=== PATIENT | male | born 1950 | race Caucasian/White ===

== ENCOUNTER 2020-02-01 11:34 | Day surgery (SDC) | payer MEDICARE, BC, SELFPAY ==
[2020-02-01 12:09] LABS: Hematocrit 45.5 % (42.0-52.0); Hemoglobin 14.2 g/dL (14.0-18.0); Mean Corpuscular HGB Conc 31.2 g/dl (32-36); Mean Corpuscular Hemoglobin 26.4 pg (26-34); Mean Corpuscular Volume 84.6 fl (80-100); Mean Platelet Volume 9.7 fl (7.4-10.4); Platelet Count Result 409 k/mm3 (150-375); Red Blood Count 5.38 M/mm3 (4.6-6.20); Red Cell Distribution Width 18.6 % (11.5-14.5); White Blood Count 13.9 K/mm3 (4.5-10.0)
[2020-02-01 12:18] LABS: Prothrombin Time 12.4 Seconds (11.1-14.7)
[2020-02-01 12:24] VITALS: BP 127/73; PULSE 72; RESP 15; TEMP 36.9; O2SAT 98
[2020-02-01 12:28] VITALS: BMI 26.4
--- NOTE | 2020-02-01 12:37 | SUR.PREOP ---
1200-PT PRESENTS TO [facility] FOR AN ICD GENERATOR CHANGE. PIV STARTED AND LABS OBTAINED AND SENT PER ORDER. AOX4. QUESTIONS ANSWERED AND VERBALIZED UNDERSTANDING. CONSENT SIGNED. DEVICE INTERROGATED BY [facility] RE[facility]. WILL CONTINUE TO MONITOR.
--- NOTE | 2020-02-01 12:41 | PM.IMHP ---
H&P: HPI History of Present Illness Chief complaint: ULI Narrative: Stephen Solo is a 69 year old male who is here today for an ICD generator change. He had premature battery depletion and [facility] recommends immediate generator change. He is feeling well today with no shortness of breath or chest discomfort, no fevers chills or cough, no edema. Had some coffee this morning but nothing since 8:00 a.m.. Mr. Solo has a history of CAD with recurrent very late stent thrombosis of the Left anterior descending stent as well as an ischemic cardiomyopathy. ICD was implanted in October 2015. He has a history of SD and proximal Left anterior descending stent in 2003. Anterolateral STEMI January 2014 secondary to very late stent thrombosis a few weeks after stopping Plavix. GEORGINA to the Left anterior descending and circumflex stents. Effient was discontinued May 2015 and he had another anterior STEMI secondary to very late stent thrombosis requiring GEORGINA to the proximal mid Left anterior descending and bare metal stent to the CX. Lexiscan 05/2019 showed EF of 29% with multiple segmental wall motion abnormalities and anterior apical dyskinesis, extensive severe infarction of the anterior wall with a small amount of superimposed ischemia. History of ischemic cardiomyopathy EF 25-30%, diabetes and hyperlipidemia. Review of Systems Constitutional: Constitutional: Reports no additional constitutional complaints Cardiovascular: Cardiovascular: Denies chest pain, Denies leg edema, Denies lightheadedness and Denies palpitations Respiratory: Respiratory: Denies dyspnea and Reports dyspnea on exertion (Chronic mild COX) Gastrointestinal: Gastrointestinal: Denies abdominal pain Genitourinary: Genitourinary: Denies dysuria Musculoskeletal: Musculoskeletal: Denies arthralgias Integumentary/Breasts: Skin/Breast: Denies rash Neurologic: Reports system reviewed and no additional complaints, except as documented Psychiatric: Psychiatric: Reports no additional psychiatric complaints [facility] Past Medical History Medical History (Updated 02/01/20 @ 12:48 by Sara Arias MD) Ischemic cardiomyopathy Family History Family History Sibling Patient's brother is in good health Family history of malignant neoplasm Patient's sister is in good health Patient's sister is Patient's brother is Father Cerebrovascular accident Mother Family history of malignant neoplasm Patient's mother is Social History Social History (Updated 02/01/20 @ 12:46 by Sara Arias MD) Social History: . Smoking status: Heavy tobacco smoker Smoking end date: 03/01/14 Alcohol intake: current Meds Home Medications and Allergies Home Medications Medication Instructions Recorded Confirmed Type empagliflozin 10 mg tablet 20 mg PO DAILY #180 tablet 09/18/19 02/01/20 Rx aspirin 81 mg tablet,delayed 81 mg PO DAILY 10/27/19 02/01/20 History release atorvastatin 40 mg tablet 80 mg PO DAILY 10/27/19 02/01/20 History carvedilol 6.25 mg tablet 25 mg PO Q12H 10/27/19 02/01/20 History ezetimibe 10 mg tablet 10 mg PO DAILY 10/27/19 02/01/20 History fenofibrate nanocrystallized 145 145 mg PO DAILY 10/27/19 02/01/20 History mg tablet lisinopril 10 mg tablet 10 mg PO HS 10/27/19 02/01/20 History spironolactone 25 mg tablet 25 mg PO DAILY 11/03/19 02/01/20 History lisinopril 20 mg PO QAM 02/01/20 02/01/20 History metformin 1,000 mg PO BID 02/01/20 02/01/20 History ticagrelor [Brilinta] 90 mg PO Q12H 02/01/20 02/01/20 History Allergies Allergy/AdvReac Type Severity Reaction Status Date / Time No Known Allergies Allergy Verified 04/29/18 12:00 Vital Signs Vital Signs - 24 hr 02/01/20 12:24 Temperature 98.5 F Pulse Rate 72 Respiratory Rate 15 Blood Pressure 127/73 Pulse Oximetry 98 Exam Const:
--- NOTE | 2020-02-01 12:52 | WPDMODSED ---
Moderate Sedation Note-Pt Data Patient Data Diagnosis: Premature ICD battery depletion requiring urgent generator change Present Complaint: Same as above Procedure to be performed/Plan: Conscious sedation ICD generator change Allergies Allergy/AdvReac Type Severity Reaction Status Date / Time No Known Allergies Allergy Verified 04/29/18 12:00 Home Medications Medication Instructions Recorded Confirmed Type empagliflozin 10 mg tablet 20 mg PO DAILY #180 tablet 09/18/19 02/01/20 Rx aspirin 81 mg tablet,delayed 81 mg PO DAILY 10/27/19 02/01/20 History release atorvastatin 40 mg tablet 80 mg PO DAILY 10/27/19 02/01/20 History carvedilol 6.25 mg tablet 25 mg PO Q12H 10/27/19 02/01/20 History ezetimibe 10 mg tablet 10 mg PO DAILY 10/27/19 02/01/20 History fenofibrate nanocrystallized 145 145 mg PO DAILY 10/27/19 02/01/20 History mg tablet lisinopril 10 mg tablet 10 mg PO HS 10/27/19 02/01/20 History spironolactone 25 mg tablet 25 mg PO DAILY 11/03/19 02/01/20 History lisinopril 20 mg PO QAM 02/01/20 02/01/20 History metformin 1,000 mg PO BID 02/01/20 02/01/20 History ticagrelor [Brilinta] 90 mg PO Q12H 02/01/20 02/01/20 History Sedation/Anesthesia: No previous sedation/anesthesia problems (including family history). [facility] Past Medical History Medical History Ischemic cardiomyopathy Family History Family History Sibling Patient's brother is in good health Family history of malignant neoplasm Patient's sister is in good health Patient's sister is Patient's brother is Father Cerebrovascular accident Mother Family history of malignant neoplasm Patient's mother is Social History Social History (Updated 02/01/20 @ 12:46 by Sara Arias MD) Social History: . Smoking status: Heavy tobacco smoker Smoking end date: 03/01/14 Alcohol intake: current Mod Sed Physical Exam Physical Exam Pre Procedural Exam: Normal: Appearance, Eyes, Ears, Nose, Neck, Airway, Lungs, Heart Size, Heart Rate, Heart Rhythm, Neuro Exam, Abdomen, Liver, Spleen, Extremities and Skin (ICD site is well healed) and Variation: Throat (Edentulous) Hours since solid foods: 16 Hours since liquid intake: 5 Internal Medicine - PN: Obj Da Vital Signs Vital Signs: Vital Signs - 24 hr 02/01/20 12:24 Temperature 98.5 F Pulse Rate 72 Respiratory Rate 15 Blood Pressure 127/73 Pulse Oximetry 98 Labs CBC & Chem 7: 02/01/20 12:01 02/01/20 12:01 Labs: Laboratory Results - last 24 hr 02/01/20 02/01/20 12:01 12:01 WBC 13.9 H RBC 5.38 Hgb 14.2 Hct 45.5 MCV 84.6 MCH 26.4 MCHC 31.2 L RDW 18.6 H Plt Count 409 H MPV 9.7 PT 12.4 INR 1.0 ASA Classification/Sedation ASA Classification/Sedation ASA Class: III Emergent: Yes (Urgent but not emergent) Risks: Risks, benefits and alternatives explained and patient/family accepted plan for sedation. Patient re-evaluated immediately prior to sedation.
[2020-02-01 13:48] LABS: Blood Urea Nitrogen 38 mg/dL (9-20); Calcium 9.6 mg/dL (8.4-10.2); Carbon Dioxide 21 mmol/L (22-30); Chloride 110 mmol/L (98-107); Estimated CRCL calculation 49 ml/min; Estimated Glomerular Filt Rate 55; Glucose 91 mg/dL (75-110); Potassium 4.8 mmol/L (3.4-5.0); Sodium 137 mmol/L (137-145)
--- NOTE | 2020-02-01 15:05 | P.OP_ITS ---
Procedure Note - Detailed Date of procedure: 02/01/20 Pre-op diagnosis: ULI ICD at ULI Post-op diagnosis: same Procedure performed: Conscious sedation Generator change Description of procedure: PROCEDURE: Concious sedation Generator change UNDERLYING RHYTHM: NSR CONSCIOUS SEDATION: Assessment: The patient has no history of anesthesia problems. The oropharynx is clear. The patient was deemed to be a good candidate for conscious sedation. The patient had continuous hemodynamic and oximetric monitoring during the procedure. Start time: 1431 Completion time: 1502 Total conscious sedation time: 33 minutes Medications: Versed 3 mg and fentanyl 100 mcg IV push Trained observer: Willy Gannon RN Outcome: The patient tolerated the procedure well with no complications. PROCEDURE: After informed consent, the patient is brought to the clinical genetics laboratory chief and the ____ prepectoral area was prepped and draped in usual fashion. The patient was given a prophylactic antibiotic intravenously. After conscious sedation as described above, the area was anesthetized with 1% lidocaine. A skin incision is made with the Plasma Blade and carried down to the pacing capsule which was also incised. Hemostasis is obtained using the Plasma Blade. The lead/s was/were freed from the underlying capsule and the pulse generator was delivered from the pocket. The lead/s was/were disconnected from the existing device and reconnected to the new device. A gentle tug could not remove it/them. The device and lead/s was/were interrogated and found to be functioning appropriately. The area was copiously irrigated with antibiotic-containing solution. The device was replaced in the pocket. The subcutaneous tissues were closed in a two-layer fashion with interrupted 2 0 Vicryl sutures and the skin was closed in a continuous fashion using 4 0 Vicryl. The area was cleansed, an Aquacel dressing applied. The patient tolerated the procedure well with no complications. Estimated blood loss was negligible. DEVICE INFORMATION: THRESHOLD INFORMATION: PROGRAMMED PARAMETERS: Surgeon: Sara Arias MD Findings: Uneventful ICD generator change
[2020-02-01 15:15] VITALS: BP 98/65; PULSE 58; RESP 16; TEMP 36.7; O2SAT 94
[2020-02-01 15:30] VITALS: BP 101/82; PULSE 64; RESP 19; O2SAT 94
[2020-02-01 16:00] VITALS: BP 92/52; PULSE 59; RESP 16; O2SAT 93
[2020-02-01 16:25] VITALS: BP 105/63; PULSE 64; RESP 16; O2SAT 94
== END 2020-02-01 16:45 | disposition home or self-care (01) ==
PROVIDERS: PCP Internal Medicine; Visit Provider Internal Medicine Cardiovascular Disease
PROC: 0JPT0PZ Removal of Cardiac Rhythm Related Device from Trunk Subcutaneous Tissue and Fascia, Open Approach (ICD-10-PCS; CPT 33262; principal; 2020-02-01 13:00)
DX: Z45.02 Encounter for adjustment and management of automatic implantable cardiac defibrillator (principal); I25.10 Atherosclerotic heart disease of native coronary artery without angina pectoris; I25.5 Ischemic cardiomyopathy; I25.2 Old myocardial infarction; E78.5 Hyperlipidemia, unspecified; E11.9 Type 2 diabetes mellitus without complications; F17.210 Nicotine dependence, cigarettes, uncomplicated; Z79.82 Long term (current) use of aspirin; Z79.84 Long term (current) use of oral hypoglycemic drugs; Z79.01 Long term (current) use of anticoagulants
CPT/HCPCS: 33262; 36415; 80048; 85027; 85610; C1722; J0690; J2250; J3010; J7040

== ENCOUNTER 2020-08-26 11:11 | Outpatient (CLI) | payer MEDICARE, BC, SELFPAY ==
--- NOTE | ~2020-08-26 | CT_ITS ---
EXAMINATION:CT lung screening DATE: 08/26/2020 11:36 INDICATION: Personal history of tobacco dependence. Current smoker with 50 pack year history. TECHNIQUE: Computed tomography (CT) of the chest was performed without intravenous contrast. Automate d exposure control and iterative reconstruction technique were employed. The dose-length product (DLP ) was 89.22 mGy-cm. COMPARISON: Chest 2 views 10/10/2015 FINDINGS: There is mild emphysema. There is mild atelectasis bilaterally. There are greater than 40 s cattered nodules in the lungs in a random distribution measuring up to 13 mm in right upper lobe. The heart size is normal. There is a large old infarct involving anterior wall, apex, and septal and lat eral [place] of left ventricle of the heart, consistent with infarct. There are coronary artery calcifi cations. No pericardial effusion. There is a left chest pacer/defibrillator with lead in right ventri guevara. There is mild mediastinal lymphadenopathy. There is a 7 mm subcutaneous mass in left anterior ch est wall, likely a sebaceous cyst. There is mild thoracic spondylosis. IMPRESSION: 1. Lung-RADS category 4X: Very suspicious. Consider PET/CT for further nodule evaluation and to evalu ate for extrapulmonary primary malignancy. Reviewed, dictated and finalized at location A. IMPRESSION: 1. Lung-RADS category 4X: Very suspicious. Consider PET/CT for further nodule e valuation and to evaluate for extrapulmonary primary malignancy.
== END 2020-08-26 11:12 | disposition home or self-care (01) ==
PROVIDERS: PCP Internal Medicine; Visit Provider Nurse Practitioner Family
DX: Z12.2 Encounter for screening for malignant neoplasm of respiratory organs (principal); Z87.891 Personal history of nicotine dependence; R91.8 Other nonspecific abnormal finding of lung field
CPT/HCPCS: G0297

== ENCOUNTER 2020-09-03 11:54 | Outpatient (CLI) | payer MEDICARE, BC, SELFPAY ==
--- NOTE | ~2020-09-03 | PE_ITS ---
EXAMINATION: PET skull to mid thigh DATE: 09/03/2020 13:33 INDICATION: Lung nodule. TECHNIQUE: Blood glucose level was 126 mg/dL. 6.642 mCi of 18-fluorodeoxyglucose (18-FDG) was adminis tered i.v. Low dose computed tomography (CT) images were acquired from the base of the brain to the p roximal thighs for attenuation correction and anatomic localization. Positron emission tomography (PE T) images were acquired in the same distribution beginning 53 minutes after injection. Images includi ng fused PET/CT images were reconstructed in axial, coronal, and sagittal planes. Automated exposure control technique was employed. The dose-length product was 463.11mGy-cm. COMPARISON: None FINDINGS: Head/neck: There is symmetric increased activity in the oral cavity, palatine tonsils, parotid glands, submandi bular glands, laryngeal muscles and ocular muscles without CT correlate, likely physiologic. No patho logically enlarged cervical lymphadenopathy or suspicious foci of increased FDG uptake in the visuali zed head or neck. Chest: Mild emphysema. Again seen are numerous bilateral pulmonary nodules measuring up to 12 mm. The larges t 12 mm nodule in the right upper lobe is without discernible FDG activity. There is minimal FDG upta ke associated with a few of the smaller nodules in the left upper lobe but with maximum SUV of 1.4 re maining significantly lower than the blood pool. No pleural effusion. There is mild FDG uptake associ ated with multiple mildly prominent bilateral hilar and mediastinal lymph nodes with maximal SUVs ran ging between 3 and 4. Mild cardiomegaly. Atherosclerotic coronary artery calcifications with likely c oronary artery stenting. Single lead cardiac pacemaker with lead tip near the apex of the right ventr icle. Subendocardial fat consistent with chronic infarct involving the anterior wall, apex, septal an d lateral [place] of the left ventricle. No pericardial effusion. Abdomen/pelvis/proximal thighs: Physiologic renal accumulation and excretion of FDG activity in the kidneys, bladder and along portio ns of ureters. Normal degree and heterogenous pattern of increased uptake throughout the liver withou t radiologic correlate or dominant FDG avid lesion. The gallbladder, pancreas, spleen and bilateral a drenal glands are normal. Moderate uptake scattered throughout the bowels without radiologic correlat e, also likely physiologic. Mild sigmoid diverticulosis without adjacent inflammatory change to sugge st diverticulitis. No other abnormal foci of increased FDG uptake or pathologically enlarged lymphade nopathy in the abdomen, pelvis or proximal thighs. Musculoskeletal: Severe cervical and moderate to severe lumbar spondylosis with mild intervening thoracic spondylosis. No suspicious lytic, blastic or FDG avid bone lesions. IMPRESSION: 1. Numerous bilateral pulmonary nodules, the majority without discernible FDG uptake and several with minimal uptake changes still less than the blood pool which along with the absence of a discernible primary malignancy decreases the likelihood of metastatic disease with differential including granulo matous disease. Could consider either 3 month follow-up low-dose noncontrast chest CT or percutaneous biopsy of one of the nodules. 2. Mild mediastinal and bilateral hilar lymphadenopathy with relatively mild FDG uptake which could b e either reactive or metastatic. Reviewed, dictated and finalized at location A. DEFENSE ARTILLERY SENIOR SERGEANT IMPRESSION: 1. Numerous bilateral pulmonary nodules, the majority without discernible FDG u ptake and several with minimal uptake changes still less than the blood pool wh ich along with the absence of a discernible primary malignancy decreases the li kelihood of metastatic disease with differential inc
[2020-09-03 12:13] LABS: Glucose Point of Care 126 (65-105)
== END 2020-09-03 11:55 | disposition home or self-care (01) ==
PROVIDERS: PCP Internal Medicine; Visit Provider Internal Medicine Critical Care Medicine
DX: R91.8 Other nonspecific abnormal finding of lung field (principal); R59.0 Localized enlarged lymph nodes
CPT/HCPCS: 78815; A9552

== ENCOUNTER 2020-12-24 09:55 | Inpatient (IN) | payer MEDICARE, BC, SELFPAY ==
[2020-12-24 09:54] VITALS: BP 134/86; PULSE 71; RESP 18; TEMP 36.6; O2SAT 99
--- NOTE | 2020-12-24 09:59 | ED.CHESTPAIN ---
HPI - Chest Pain General Chief Complaint: Chest Pain Stated Complaint: Chest pain History of Present Illness HPI narrative: Pressure-like substernal chest pain radiating to the left arm. Started shortly before calling EMS. No associated symptoms. 4 previus MIs and this feels similar. STEMI declared in the Field. Given Aspirin prior to arrival. Related Data Home Medications Medication Instructions Recorded Confirmed aspirin 81 mg tablet,delayed 81 mg PO DAILY 10/27/19 11/08/20 release atorvastatin 40 mg tablet 80 mg PO DAILY 10/27/19 11/08/20 carvedilol 6.25 mg tablet 25 mg PO Q12H 10/27/19 11/08/20 fenofibrate nanocrystallized 145 145 mg PO DAILY 10/27/19 11/08/20 mg tablet spironolactone 25 mg tablet 25 mg PO DAILY 11/03/19 11/08/20 Brilinta 90 mg PO Q12H 02/01/20 11/08/20 lisinopril 20 mg tablet 20 mg PO BID tablet 05/06/20 11/08/20 Allergies Allergy/AdvReac Type Severity Reaction Status Date / Time No Known Allergies Allergy Verified 11/08/20 07:53 Review of Systems Review of Systems: All systems reviewed & are unremarkable except as noted in HPI and below Constitutional: Constitutional: Denies fever(s) Eyes: Eyes: Reports no additional eye complaints ENT: Reports system reviewed and no additional complaints, except as documented Cardiovascular: Cardiovascular: Reports chest pain and Reports radiating jaw, neck or arm pain Respiratory: Respiratory: Denies dyspnea Gastrointestinal: Gastrointestinal: Denies abdominal pain and Denies nausea Genitourinary: Genitourinary: Reports no additional male genitourinary complaints Musculoskeletal: Musculoskeletal: Denies back pain Neurologic: Denies confusion, Denies dizziness, Denies numbness and Denies weakness [facility] Past Medical History Medical History Ischemic cardiomyopathy ST elevation [place] (STEMI) Family History Family History Sibling Patient's brother is in good health Family history of malignant neoplasm Patient's sister is in good health Patient's sister is Patient's brother is Father Cerebrovascular accident Mother Family history of malignant neoplasm Patient's mother is Social History Social History Social History: . Smoking packs per day: 0.5 Smoking cigarettes per day: 10.0 Years smoked: 50 Smoking pack-years: 25.00 Smoking status: Current every day smoker Alcohol intake: current Substance use: never Gender identity (if verbalized by the patient): Male Exam Const: General: no acute distress and alert Orientation/consciousness: patient oriented x3 HENMT: Head: normal to inspection Neck: Neck: normal visual inspection and no lymphadenopathy Chest: Chest palpation & inspection: no tenderness Resp: Effort & Inspection: normal respiratory effort Auscultation: clear to auscultation bilaterally, no rales, no rhonchi and no wheezes Cardio: Jugular venous distension: no JVD Rate: regular rate Rhythm: regular rhythm Heart sounds: no murmurs GI: Inspection: non-distended GI Palp: Yes Soft to palpation and No Tenderness to palpation present (GI) Skin: General skin exam: normal color Neuro: General: patient oriented x3 and moves all extremities Speech: normal speech Extrem: General: no edema Psych: Appearance: well kempt Affect: normal affect Course Vital Signs Vital signs: Vital Signs Temperature 36.6 C 12/24/20 09:54 Pulse Rate 71 12/24/20 09:54 Respiratory Rate 18 12/24/20 09:54 Blood Pressure 134/86 12/24/20 09:54 Pulse Oximetry 99 12/24/20 09:54 Temperature 36.6 C 12/24/20 09:54 Pulse Rate 71 12/24/20 09:54 Respiratory Rate 18 12/24/20 09:54 Blood Pressure 134/86 12/24/20 09:54 Pulse Oximetry 99 12/24/20 09:5
--- NOTE | 2020-12-24 10:00 | PC.NURSE ---
Cardiology at bedside to assess pt.
--- NOTE | 2020-12-24 10:01 | ECG_ITS ---
Measurements Intervals [place] Rate: 69 P: 52 AL: 171 QRS: -64 QRSD: 136 T: 75 QT: 422 QTc: 453 Interpretive Statements SINUS RHYTHM INTRAVENTRICULAR CONDUCTION DELAY VOLTAGE CRITERIA FOR LVH ANTEROSEPTAL ST ELEVATION MYOCARDIAL INFARCT- ACUTE ABNORMAL ECG Electronically Signed On 12-24-2020 10:59:36 TRAFFIC REPRESENTATIVE by Raulito Bridges D.O.
--- NOTE | 2020-12-24 10:06 | PC.NURSE ---
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
--- NOTE | 2020-12-24 10:09 | PM.IMHP ---
H&P: HPI History of Present Illness Date/Time: 12/24/20 10:09 Date of service: 12/24/2020 chief complaint: Chest pain for about an hour HPI: 70-year-old male with CAD, history Multiple ST-elevation MIs, status post multiple PCI/stenting; ischemic cardiomyopathy status post ICD placement; tobacco abuse. Patient follows up with Dr. Arias for cardiovascular care. Review of patient's old records indicate that he had anterior ST-elevation LA with very late stent thrombosis on 02/20/2014. At that time, he had PCI/stenting to the proximal LAD using a 3.0 x 18 mm Xience EES; balloon angioplasty of large septal earth observations chief scientist; PCI/stenting of LCX using a 3.0 x 12 mm Xience EES in the setting of ongoing chest pain. EF was reported to be 30% at that time. He presented to [facility] again on 04/29/[address]-elevation LA. At that time, was found to have 100% occlusion of the ostial-proximal LAD; about 70% stenosis ostial RCA. He underwent primary PCI/ balloon angioplasty of ostial-proximal LAD using a noncompliant balloon. He was found to have ejection fraction of 20%. Patient was brought to [facility] ER via EMS with complaints of chest pain that started about an hour ago. He described chest pain as pressure-like sensation in the substernal area, nonradiating, associated with shortness of breath. At the time of evaluation in the ER, patient had ongoing mild residual chest discomfort. His EKG showed sinus rhythm, heart rate 69 beats per minute, ST-elevation in leads V1 to V4 with ST-T abnormality in the lateral leads. Cardiac catheterization lab was activated. Emergent cardiac catheterization showed showed severe CAD - a) 100% thrombotic occlusion ostial-proximal and mid LAD ( recurrent, very late stent thrombosis)- infarct-related vessel;b) about 50% InStent restenosis mid LCX;c) about 50% eccentric stenosis at the ostium of RCA; mild diffuse disease in the proximal-mid -distal RCA; Severe LV systolic dysfunction, ejection fraction approximately 25%. LVEDP 18 mmHg. Patient underwent primary PCI -balloon angioplasty of ostial-proximal and mid LAD stent thrombosis with mu-ism of flow; IVUS of proximal-mid LAD; insertion and placement of left ventricular assist device -Impella CP for hemodynamic support. Chief Complaint: chest pain Narrative: Stephen Solo is a 70 year old male Review of Systems Review of Systems: Narrative: General: Negative for fever, chills, fatigue Psychological: Negative for anxiety, depression Ophthalmic: negative for loss of vision ENT: Negative for epistaxis, headaches Allergy and immunology: Negative for hives, nasal congestion Hematologic and lymphatic: Negative for overt bleeding problems Endocrine: Negative for hot flashes, palpitations Respiratory: Negative for cough, hemoptysis Cardiovascular: Post for chest pain and shortness of breath Gastrointestinal: Negative for abdominal pain, nausea, vomiting, hematochezia Musculoskeletal: Negative for myalgia, joint pains Neurological: Negative for weakness Dermatological: Negative for rash, skin discoloration PMFSH Past Medical History Medical History Ischemic cardiomyopathy ST elevation [place] (STEMI) Family History Family History Sibling Patient's brother is in good health Family history of malignant neoplasm Patient's sister is in good health Patient's sister is Patient's brother is Father Cerebrovascular accident Mother Family history of malignant neoplasm Patient's mother is Social History Social History Social History: . Smoking packs per day: 0.5 Smoking cigarettes per day: 10.0 Years smoked: 50 Smoking pack-years: 25.00 Smoking status: Current every day smoker Alcohol intake
[2020-12-24 10:14] LABS: Basophils Absolute Auto 0.2 K/mm3 (0.0-0.1); Basophils Percent Auto 1.7 % (0.2-1.2); Eosinophils Absolute Auto 0.7 K/mm3 (0-0.3); Eosinophils Percent Auto 5.7 % (0-4.4); Hemoglobin 13.6 g/dL (14.0-18.0); Immature Granulocyte Absolute 0.06 K/mm3 (0.00-0.031); Immature Granulocyte Percent A 0.5 % (0-0.5); Lymphocytes Absolute Auto 4.12 K/mm3 (0.9-3.2); Lymphocytes Percent Auto 32.4 % (18.3-44.2); Mean Corpuscular HGB Conc 31.6 g/dl (32-36); Mean Corpuscular Hemoglobin 27.1 pg (26-34); Mean Corpuscular Volume 85.8 fl (80-100); Mean Platelet Volume 10.1 fl (7.4-10.4); Monocytes Absolute Auto 1.4 K/mm3 (0.1-0.6); Monocytes Percent Auto 10.8 % (2.6-8.5); Neutrophils Absolute Auto 6.2 K/mm3 (1.3-6.7); Neutrophils Percent Auto 48.9 % (45.5-73.1); Platelet Count Result 337 k/mm3 (150-375); Red Blood Count 5.01 M/mm3 (4.6-6.20); White Blood Count 12.7 K/mm3 (4.5-10.0)
[2020-12-24 10:21] LABS: Alanine Aminotransferase 14 U/L (4-50); Alkaline Phosphatase 51 U/L (38-126); Anion Gap 6 mmol/L (8-16); Aspartate Amino Transferase 23 U/L (17-59); Bilirubin,Total 0.4 mg/dL (0.2-1.3); Blood Urea Nitrogen 31 mg/dL (9-20); Calcium 9.2 mg/dL (8.4-10.2); Carbon Dioxide 26 mmol/L (22-30); Chloride 108 mmol/L (98-107); Cholesterol 109 mg/dL (0-200); Estimated CRCL calculation 38 ml/min; Estimated Glomerular Filt Rate 43; Glucose 155 mg/dL (75-110); HDL Direct 31 mg/dL; INR 0.9; Potassium 5.5 mmol/L (3.4-5.0); Prothrombin Time 12.9 Seconds (11.1-14.7); Sodium 140 mmol/L (137-145); Triglycerides 156 mg/dL (<150)
[2020-12-24 10:22] LABS: Partial Thromboplastin Time 36.8 SECONDS (22.3-36.8)
[2020-12-24 10:32] LABS: LDL Cholesterol Direct 56 mg/dL
[2020-12-24 10:35] LABS: Troponin I < 0.012 ng/mL (0.000-0.034)
--- NOTE | 2020-12-24 11:33 | WPDCARDPROC ---
Cardiac Cath Procedure Note Date of procedure:: 12/24/20 Performing physician:: Kareem Mark MD Procedure Procedure note:: EMERGENT CARDIAC CATHETERIZATION AND PERCUTANEOUS CORONARY INTERVENTION REPORT DATE OF PROCEDURE: 12/24/2020 INDICATION FOR PROCEDURE: acute coronary syndrome -recurrent anteroseptal ST-elevation microinfarction in a patient with known coronary disease, history of multiple anterior STEMI, history of multiple PCI/ stent placements; severe ischemic cardiomyopathy BRIEF CLINICAL HISTORY:70-year-old male with CAD, history Multiple ST-elevation MIs, status post multiple PCI/stenting; ischemic cardiomyopathy status post ICD placement; tobacco abuse. Patient follows up with Dr. Arias for cardiovascular care. Patient has known CAD and history of multiple PCI / stent placements in the setting of anterior [place]. His initial primary PCI/stenting was performed at , unknown year. Review of EMR from [facility] shows that he had anterior ST-elevation [place] with very late stent thrombosis on 02/20/2014. 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 EF was reported to be 30% at that time. He presented to [facility] again on 04/29/[address]-elevation [place]. At that time, was found to have 100% occlusion of the ostial-proximal LAD; about 70% stenosis ostial RCA. He underwent primary PCI/ balloon angioplasty of ostial-proximal LAD using a noncompliant balloon. He was found to have ejection fraction of 20%. Patient was brought to [facility] ER via EMS with complaints of chest pain that started about an hour ago. He described chest pain as pressure-like sensation in the substernal area, nonradiating, associated with shortness of breath. At the time of evaluation in the ER, patient had ongoing mild residual chest discomfort. His EKG showed sinus rhythm, heart rate 69 beats per minute, ST-elevation in leads V1 to V4 with ST-T abnormality in the lateral leads. Cardiac catheterization lab was activated. PROCEDURES PERFORMED: 1. Emergent left heart catheterization- Selective left and right coronary angiogram; left ventriculogram and hemodynamic assessment 2. Primary percutaneous coronary intervention- a) balloon angioplasty of totally occluded ostial, proximal and mid LAD very late stent thrombosis with restorationist of flow; b) intravascular ultrasound (IVUS) of ostial-proximal and mid LAD; c) insertion and placement of percutaneous left ventricular assist device -Impella CP for hemodynamic support in a patient with large anterior [place] and underlying severe LV systolic dysfunction (CPT 99129) ACCESS SITE: Right common femoral artery PROCEDURE NOTE: After obtaining informed consent, patient was emergently brought to catheterization lab and prepped and draped in a usual sterile manner. Patient did not receive conscious sedation. After local anesthesia with lidocaine, right common femoral artery access was taken with micropuncture needle followed by insertion of a 6 Belgian sheath. Selective left and right coronary angiogram was performed using 6 Belgian CLS 3.5 guide catheter and JR4 catheters respectively. Orthogonal views were taken. After completion of PCI, 5 Belgian pigtail catheter was advanced in the LV cavity and was flushed with normal saline. LV pressure measurement was performed. FINDINGS: LEFT MAIN CORONARY: the left main coronary artery is a medium caliber vessel with minor irregularities in the proximal-mid segment. No significant focal stenosis seen. The vessel bifurcates into LAD and left circumflex branches. LEFT ANTERIOR DESCENDING ARTERY: The LAD has multiple stents in the proximal and mid segment and is totally occluded at its ostium with large thrombus burden and SILVANA 0 flow prior to the intervention.
--- NOTE | 2020-12-24 12:35 | PM.TDS ---
Transfer Discharge Sum: Prov Provider Date of admission: 12/24/20 10:05 Primary care physician: Abebe Campos DO Admitting clinician: Kareem Mark MD DS: Admitting Diagnosis Admitting Diagnosis Admitting Diagnosis: ST-elevation microinfarction DS: Discharge Diagnosis Discharge Diagnosis (1) ST elevation MS (STEMI): Code(s): I21.3 - ST elevation (STEMI) myocardial infarction of unspecified site Status: Acute Transfer Discharge Sum: Med Medications Active and Home Medications: Home Medications aspirin 81 mg tablet,delayed release 81 mg PO DAILY 10/27/19 [History Confirmed 11/08/20] atorvastatin 40 mg tablet 80 mg PO DAILY 10/27/19 [History Confirmed 11/08/20] carvedilol 6.25 mg tablet 25 mg PO Q12H 10/27/19 [History Confirmed 11/08/20] fenofibrate nanocrystallized 145 mg tablet 145 mg PO DAILY 10/27/19 [History Confirmed 11/08/20] spironolactone 25 mg tablet 25 mg PO DAILY 11/03/19 [History Confirmed 11/08/20] Brilinta 90 mg PO Q12H 02/01/20 [History Confirmed 11/08/20] lisinopril 20 mg tablet 20 mg PO BID tablet 05/06/20 [History Confirmed 11/08/20] ezetimibe 10 mg tablet 20 mg PO DAILY #180 tablet 08/05/20 [Rx Confirmed 11/08/20] empagliflozin 10 mg tablet 20 mg PO DAILY #180 tablet 08/20/20 [Rx Confirmed 11/08/20] metformin 1,000 mg tablet 1,000 mg PO BID #180 tablet 09/20/20 [Rx Confirmed 11/08/20] Active Medications Heparin Sodium (Porcine) (Heparin Sodium 5,000 Units/Ml Vial) 6,500 units IV PUSH PRN PRN PRN Reason: aPTT less than 55 seconds Heparin Sodium (Porcine) (Heparin Sodium 5,000 Units/Ml Vial) 3,000 units IV PUSH PRN PRN PRN Reason: aPTT 55 - 70 seconds Transfer Discharge Sum: Hosp Hospital Course Hospital course: Stephen Solo is a 70 year old male with CAD, history Multiple ST-elevation MIs, status post multiple PCI/stenting; ischemic cardiomyopathy status post ICD placement; tobacco abuse. Patient follows up with Dr. Arias for cardiovascular care. Patient has known CAD and history of multiple PCI / stent placements in the setting of anterior MS. His initial primary PCI/stenting was performed at [facility], unknown year. Review of EMR from [facility] shows that he had anterior ST-elevation [place] with very late stent thrombosis on 02/20/2014. 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 EF was reported to be 30% at that time. He presented to [facility] again on 04/29/[address]-elevation [place]. At that time, was found to have 100% occlusion of the ostial-proximal LAD; about 70% stenosis ostial RCA. He underwent primary PCI/ balloon angioplasty of ostial-proximal LAD using a noncompliant balloon. He was found to have ejection fraction of 20%. Patient was brought to [facility] ER via EMS with complaints of chest pain that started about an hour ago. He described chest pain as pressure-like sensation in the substernal area, nonradiating, associated with shortness of breath. At the time of evaluation in the ER, patient had ongoing mild residual chest discomfort. His EKG showed sinus rhythm, heart rate 69 beats per minute, ST-elevation in leads V1 to V4 with ST-T abnormality in the lateral leads. Cardiac catheterization lab was activated. Emergent cardiac catheterization showed showed severe CAD - a) 100% thrombotic occlusion ostial-proximal and mid LAD ( recurrent, very late stent thrombosis)- infarct-related vessel;b) about 50% InStent restenosis mid LCX;c) about 50% eccentric stenosis at the ostium of RCA; mild diffuse disease in the proximal-mid -distal RCA; Severe LV systolic dysfunction, ejection fraction approximately 25%. LVEDP 18 mmHg. Patient underwent primary PCI -balloon angioplasty of ostial-proximal and mid LAD stent thrombosis with confucianism of flow; IVUS of proxi
== END 2020-12-24 12:45 | disposition short-term general hospital (02) | DRG 215 ==
LOC: ANHED 10:04 → ANHICU 10:12
PROVIDERS: Admitting Provider Internal Medicine Cardiovascular Disease; Emergency Provider Emergency Medicine; PCP Internal Medicine; Visit Provider Internal Medicine Cardiovascular Disease
PROC: 4A023N7 Measurement of Cardiac Sampling and Pressure, Left Heart, Percutaneous Approach (ICD-10-PCS; CPT 93452; principal; 2020-12-24 10:05)
PROC: 02HA3RZ Insertion of Short-term External Heart Assist System into Heart, Percutaneous Approach (ICD-10-PCS; CPT 92920; 2020-12-24 10:05)
PROC: 02HA3RZ Insertion of Short-term External Heart Assist System into Heart, Percutaneous Approach (ICD-10-PCS; 2020-12-24 10:05)
PROC: 02HA3RZ Insertion of Short-term External Heart Assist System into Heart, Percutaneous Approach (ICD-10-PCS; CPT 33979; 2020-12-24 10:05)
DX: I21.09 ST elevation (STEMI) myocardial infarction involving other coronary artery of anterior wall (principal); I25.10 Atherosclerotic heart disease of native coronary artery without angina pectoris; I25.5 Ischemic cardiomyopathy; F17.210 Nicotine dependence, cigarettes, uncomplicated; I25.2 Old myocardial infarction; Z95.5 Presence of coronary angioplasty implant and graft
CPT/HCPCS: 33990; 36415; 80053; 80061; 84484; 85025; 85610; 85730; 86850; 86900; 86901; 92920; 92978; 93005; 93458; 99291; A9270; C1725; C1753; C1769; C1887; C1894; J0461; J0583; J1644; J2250; J3010; J7040; J7060

== ENCOUNTER 2021-02-03 08:21 | Inpatient (IN) | payer MEDICARE, BC, SELFPAY ==
[2021-02-03] VITALS (14 sets, daily range): BP systolic 100–130; BP diastolic 66–110; PULSE 90–98; RESP 18–26; TEMP 36.1–36.4; O2SAT 91–98; BMI 22.7
--- NOTE | ~2021-02-03 | CT_ITS ---
EXAMINATION: CT diagnostic chest wo con DATE: 02/04/2021 16:11 INDICATION: Hemothorax TECHNIQUE: Computed tomography (CT) of the chest was performed without intravenous contrast. Addition al 3D reconstructions utilizing coronal maximum intensity projection (MIP) were performed. Automated exposure control and iterative reconstruction technique were employed. The dose-length product was 19 9.93 mGy-cm. COMPARISON: Chest CT dated 08/26/2020 FINDINGS: Mild emphysema. Small bilateral pleural effusions which demonstrate symmetric only minimally greater than simple fluid attenuation measuring 14 HU. No appreciable interval change in numerous bilateral p ulmonary nodules with smooth margins, the largest measuring up to 12 mm, which are without significan t increased FDG uptake on prior PET/CT. There are couple new regions of more irregular and lower dens ity consolidation in the posterior segment of the right upper lobe and in the bilateral lower lobes. New patchy groundglass opacities in the posterior lingula and in the basilar segments of the left low er lobe. There is a new suture line and suggestion of some interval volume loss along the anterior li ngula suggesting a prior pulmonary wedge resection/excisional biopsy potentially occurring at the wyatt e of an interval median sternotomy with changes of interval coronary artery bypass grafting. Again no anabela are chronic coronary artery stents along at least the left anterior descending and circumflex cor onary arteries and likely along the right coronary artery. Cardiomegaly. There is subtle subendocardi al fat along the apical, septal, superior and superolateral [place] of the left ventricle consistent wi th chronic infarct. Cardiac pacemaker/defibrillator with lead tip at the apex of the right ventricle. No pericardial effusion. No significant interval change in nonspecific mediastinal lymphadenopathy. Visualized upper abdomen is unremarkable. Moderate scattered degenerative skeletal changes in the spi ne and at both shoulders. IMPRESSION: 1. Small bilateral exudative pleural effusions with minimally greater than simple fluid attenuation, hemothorax per results from recent left thoracentesis but likely relatively dilute given the still lo w attenuation values. 2. Nonspecific prominent groundglass opacities in the left lower lobe and posterior lingula with diff erential including pneumonia, asymmetric pulmonary edema and pulmonary infarct. 3. Additional new small regions of more dense consolidation in the right upper and lower lobes which could also represent pneumonia, pulmonary infarcts or atelectasis. 4. No definitive interval change in size or number of numerous scattered bilateral pulmonary nodules with smooth margins which measure up to 12 mm . Is without significant increased FDG uptake on prior PET/CT and along the lack of significant interval change favors benign etiology including granulomato us disease however slowly growing metastatic disease of indeterminate etiology. There appears to been a possible lingular pulmonary wedge resection/excisional biopsy which might provide further insight. Correlate with clinical/surgical history. 5. Mild emphysema. 6. Cardiomegaly with chronic coronary artery stenting and changes of recent median sternotomy and cor onary artery bypass grafting. 7. No interval change and nonspecific mediastinal lymphadenopathy which could be reactive or metastat ic. Reviewed, dictated and finalized at location B. IMPRESSION: 1. Small bilateral exudative pleural effusions with minimally greater than simp le fluid attenuation, hemothorax per results from recent left thoracentesis but likely relatively dilute given the still low attenuation values. 2. Nonspecific prominent groundglass opacities in the left lower
--- NOTE | ~2021-02-03 | XR_ITS ---
EXAMINATION: XR chest 2V EXAM DATE: 02/05/2021 08:28 INDICATION: Pleural effusion . TECHNIQUE: Portable AP frontal chest x-ray was obtained. Comparison is made to prior examination from 02/04, 02/03. FINDINGS: There is small to moderate left, and a small right pleural effusion, with interval decrease in size compared to last 2 examinations. Moderate amount of patchy bilateral acute airspace disease likely infection or edema. Difficult to identify the known nodules within this airspace disease. No p neumothorax. Sternotomy wires are present without findings to suggest sternal dehiscence. There is si ngle lead pacemaker/AICD device seen with tip projecting over the expected location of right ventricl e. Mild cardiomegaly. There are mild bony degenerative changes. IMPRESSION: 1. Continued interval improvement in small to moderate left and small right pleural effusions. 2. Moderate amount of edema and/or pneumonia, also mild improvement. 3. Poorly visualized lung nodules. Reviewed, dictated and finalized at location A. IMPRESSION: 1. Continued interval improvement in small to moderate left and small right pl eural effusions. 2. Moderate amount of edema and/or pneumonia, also mild improvement. 3. Poorly visualized lung nodules.
--- NOTE | ~2021-02-03 | US_ITS ---
EXAMINATION: US venous doppler [facility] DATE: 02/04/2021 12:47 INDICATION: Left lower limb swelling. TECHNIQUE: Grayscale ultrasound images without and with compression and Doppler ultrasound images of the bilateral lower extremity veins were obtained. COMPARISON: None. FINDINGS: The visualized portions of right common femoral vein, profunda (deep) femoral vein, femoral vein, pop liteal vein, peroneal veins, posterior tibial veins, and greater saphenous vein outflow are patent. The visualized portions of left common femoral vein, profunda femoral vein, femoral vein, popliteal v ein, peroneal veins, and posterior tibial veins are patent. IMPRESSION: 1. No deep venous thrombosis. Reviewed, dictated and finalized at location A.
--- NOTE | ~2021-02-03 | XR_ITS ---
EXAMINATION: XR chest 1V portable EXAM DATE: 02/03/2021 09:02 INDICATION: Shortness of breath. TECHNIQUE: Portable AP frontal chest x-ray was obtained. Comparison is made to prior examination from 10/10/2015. FINDINGS: Interval insertion of a single lead pacemaker/AICD device. Interval development of cardiome darcie, pulmonary vascular congestion, moderate size left pleural effusion with adjacent compressive at electasis. Interval development of diffuse airspace disease, edema or pneumonia. Sternotomy wires are present without findings to suggest sternal dehiscence. There is no pneumothorax suspected. Mild tho racic spondylosis. IMPRESSION: 1. Findings consistent with CHF exacerbation. 2. Moderate left pleural effusion, adjacent multisegmental atelectasis. 3. Diffuse bilateral edema or pneumonia. Reviewed, dictated and finalized at location A.
--- NOTE | ~2021-02-03 | US_ITS ---
EXAMINATION: US thoracentesis DATE: 02/04/2021 12:44 INDICATION: pleural effusion TECHNIQUE: The procedure and its risks, benefits, and alternatives were discussed with the patient. P otential risks discussed included bleeding, infection, and pneumothorax. The patient understood the r isks and agreed to proceed. The skin was prepped and draped in sterile fashion. 1% lidocaine was used for local anesthesia. Under ultrasound guidance, a 5 Fr catheter with trochar was advanced into the left pleural effusion. Fluid was aspirated. The catheter was removed, and a dressing was applied. The re were no immediate complications. FINDINGS: Ultrasound images demonstrate a left pleural effusion and the catheter within the fluid. IMPRESSION: 1. Successful ultrasound-guided thoracentesis yielding 1050 mL of opaque, red fluid. Reviewed, dictated and finalized at location A.
--- NOTE | ~2021-02-03 | XR_ITS ---
EXAMINATION: [id number]_CR DATE: 02/04/2021 12:43 INDICATION: Left pleural effusion status post thoracentesis. TECHNIQUE: A single frontal view of the chest was obtained. COMPARISON: Chest single view 02/03/2021, chest CT 08/26/2020 FINDINGS: There are small right and moderate-sized left pleural effusions. There are airspace opaciti es at the lung bases. There are scattered nodules in the lungs. No pneumothorax. The heart size is no rmal. Median sternotomy wires and mediastinal surgical clips are seen, likely from prior coronary art thad bypass grafting. There is a left chest pacer with pacer/defibrillator lead in right ventricle. IMPRESSION: 1. Small right and moderate-sized left pleural effusions. 2. Airspace opacities at the lung bases, consistent with atelectasis versus pneumonia. 3. Scattered nodules in the lungs, consistent with granulomatous disease versus metastatic disease. C onsider chest CT. Reviewed, dictated and finalized at location A. IMPRESSION: 1. Small right and moderate-sized left pleural effusions. 2. Airspace opacities at the lung bases, consistent with atelectasis versus pne umonia. 3. Scattered nodules in the lungs, consistent with granulomatous disease versus metastatic disease. Consider chest CT.
--- NOTE | 2021-02-03 08:36 | ECG_ITS ---
Measurements Intervals [place] Rate: 98 P: SD: 0 QRS: -56 QRSD: 150 T: 154 QT: 389 QTc: 497 Interpretive Statements ATRIAL FLUTTER/TACHYCARDIA LEFT AXIS DEVIATION LEFT BUNDLE BRANCH BLOCK BASELINE ARTIFACT- I, II, III, AVR, AVL, AVF, V1-V2, V4-V6 ABNORMAL ECG Electronically Signed On 02-03-2021 8:51:16 CDT by Raulito Bridges D.O.
[2021-02-03 09:04] LABS: Basophils Absolute Auto 0.1 K/mm3 (0.0-0.1); Basophils Percent Auto 1.3 % (0.2-1.2); Eosinophils Absolute Auto 0.1 K/mm3 (0-0.3); Eosinophils Percent Auto 0.7 % (0-4.4); Hematocrit 41.5 % (42.0-52.0); Hemoglobin 12.6 g/dL (14.0-18.0); Immature Granulocyte Absolute 0.05 K/mm3 (0.00-0.031); Immature Granulocyte Percent A 0.6 % (0-0.5); Lymphocytes Absolute Auto 1.46 K/mm3 (0.9-3.2); Lymphocytes Percent Auto 16.6 % (18.3-44.2); Mean Corpuscular HGB Conc 30.4 g/dl (32-36); Mean Corpuscular Hemoglobin 27.9 pg (26-34); Mean Platelet Volume 9.5 fl (7.4-10.4); Monocytes Absolute Auto 0.7 K/mm3 (0.1-0.6); Monocytes Percent Auto 8.4 % (2.6-8.5); Neutrophils Absolute Auto 6.4 K/mm3 (1.3-6.7); Neutrophils Percent Auto 72.4 % (45.5-73.1); Platelet Count Result 342 k/mm3 (150-375); Red Blood Count 4.51 M/mm3 (4.6-6.20); Red Cell Distribution Width 16.2 % (11.5-14.5); White Blood Count 8.8 K/mm3 (4.5-10.0)
[2021-02-03 09:17] LABS: INR 1.4; Prothrombin Time 18.1 Seconds (11.1-14.7)
[2021-02-03 09:18] LABS: Partial Thromboplastin Time 56.1 SECONDS (22.3-36.8)
[2021-02-03] MEDS: FUROSEMIDE INJ 40 MG/4 ML VIAL IV PUSH ×2 (09:19→20:04)
[2021-02-03 09:20] LABS: Anion Gap 11 mmol/L (8-16); Blood Urea Nitrogen 34 mg/dL (9-20); Calcium 8.9 mg/dL (8.4-10.2); Carbon Dioxide 24 mmol/L (22-30); Chloride 104 mmol/L (98-107); Estimated CRCL calculation 35 ml/min; Estimated Glomerular Filt Rate 38; Glucose 128 mg/dL (75-110); Potassium 5.3 mmol/L (3.4-5.0); Sodium 139 mmol/L (137-145)
[2021-02-03 09:32] LABS: NT Pro B Type Natriuretic Pept 10800 PG/ML (5-100); Troponin I 0.014 ng/mL (0.000-0.034)
--- NOTE | 2021-02-03 09:47 | ED.SOB ---
HPI - SOB/Dyspnea General Chief Complaint: Shortness of Breath/Dyspnea Stated Complaint: sob Time Seen by Provider: 02/03/21 08:38 History of Present Illness HPI Narrative: Patient is a 70-year-old male who presents ER with shortness of breath. Worsening over the last 2 days. Associated with orthopnea. Has history of two-vessel bypass to [facility] 6 weeks ago. Sees a heart care group here. Has not been on any diuretics at home. Denies chest pain or chest pressure. Unable to walk 150 feet when typically he can move about his house and walk up and down his driveway without issue. Denies fevers or chills or sweats. No productive cough. Has not found any alleviating factors. Related Data Home Medications Medication Instructions Recorded Confirmed aspirin 81 mg tablet,delayed 81 mg PO DAILY 10/27/19 02/03/21 release atorvastatin 40 mg tablet 80 mg PO HS 10/27/19 02/03/21 acetaminophen 325 mg PO PRN PRN 02/03/21 02/03/21 amiodarone 400 mg PO DAILY 02/03/21 02/03/21 apixaban [Eliquis] 5 mg PO BID 02/03/21 02/03/21 empagliflozin [Jardiance] 20 mg PO DAILY 02/03/21 02/03/21 metformin 500 mg PO BID 02/03/21 02/03/21 metoprolol tartrate 12.5 mg PO BID 02/03/21 02/03/21 polyethylene glycol 3350 [Miralax] 17 g PO DAILY PRN 02/03/21 02/03/21 Allergies Allergy/AdvReac Type Severity Reaction Status Date / Time No Known Allergies Allergy Verified 02/03/21 12:21 Review of Systems Review of Systems: All systems reviewed & are unremarkable except as noted in HPI and below Constitutional: Constitutional: Denies chills, Denies fever(s) and Denies weakness ENT: Denies nasal congestion and Denies sore throat Cardiovascular: Cardiovascular: Denies chest pain, Denies rapid heart rate and Denies radiating jaw, neck or arm pain Comments: Orthopnea Respiratory: Respiratory: Denies chest congestion, Denies cough, Reports dyspnea and Denies wheezing Gastrointestinal: Gastrointestinal: Denies abdominal pain, Denies diarrhea, Denies nausea and Denies vomiting [facility] Past Medical History Medical History (Updated 02/03/21 @ 18:37 by Pierce Chester MD) Chronic anticoagulation Chronic kidney disease, stage 3 Chronic left-sided low back pain with left-sided sciatica Coronary artery disease Multiple MIs status post multiple stents and subsequent CABG in December 2020. Enlarged prostate without lower urinary tract symptoms (luts) Essential (primary) hypertension Ischemic cardiomyopathy EF as low as 20%, status post ICD insertion. Obstructive sleep apnea Postoperative atrial fibrillation Post CABG AFib in December 2020. Pure hypercholesterolemia Type 2 diabetes mellitus without complications Hemoglobin A1c was 6.2% in November 2020. Surgical History Surgical History (Updated 02/03/21 @ 18:13 by Ella Valerio PA-C) Automatic implantable cardioverter-defibrillator in situ History of appendectomy History of cardiac catheterization 1. Anterior STEMI in 2013 with drug-eluting stent and angioplasty to the circumflex. 2. Anterior STEMI in April 2018. 100% occlusion ostial/proximal LAD and 70% stenosis ostial RCA status post PCI to the LAD with an EF of 20%. 3. STEMI in December 2020 with 100% thrombotic occlusion of the ostial/proximal and mid LAD, 50% in stent restenoses mid circumflex, 50% eccentric stenosis ostial RCA status post balloon angioplasty of the ostial/proximal mid LAD. EF 25%, Impella was inserted and he was transferred for CABG. History of two vessel coronary artery bypass graft (~12/2020) Bypass of the LAD and circumflex done at [facility]. Complicated by mediastinal bleeding requiring reexploration, wound infection, and delayed closure. Family History Family History Sibling Patient's brother is in good health Family history of malignant neoplasm Patient's sister is in good health Patient's sister is Patient's b
--- NOTE | 2021-02-03 12:05 | ADMGEN ---
This patient, Stephen Solo, was admitted to [facility] Surg Room 303-01 at 1150. Patient/family oriented to hospital policies and general routines including ID bracelet, bed and alarms, visiting hours, pain management, procedures, bathroom and other care routines, personal items, smoking policy, room service/diet, and visiting hours. Information on how to activate the Rapid Response Team has been discussed. Patient/Family are encouraged to report perceived risks to care and to ask questions if they do not understand what they are told or what they should do.
--- NOTE | 2021-02-03 15:51 | PM.CNCAR ---
Assessment and Plan Assessment and plan (1) Acute HFrEF (heart failure with reduced ejection fraction): Code(s): I50.21 - Acute systolic (congestive) heart failure Status: Acute Assessment and Plan: History of ischemic cardiomyopathy 20% previously noted. Continue IV diuresis. Monitor renal function, electrolytes closely, accurate input and output and daily weights. Entresto would be a great option if renal function and BP permits. However, apparently spironolactone was discontinued due to hyperkalemia per his 's account. Further recommendations to follow. Continue beta-alexander, Empagliflozin. (2) Ischemic cardiomyopathy: Code(s): I25.5 - Ischemic cardiomyopathy Status: Acute Assessment and Plan: As above, status post CABG due to severe ischemic cardiomyopathy, recurrent myocardial infarction very late stent thrombosis and InStent restenoses. Continue aspirin 81 mg daily, systemic anticoagulation. (3) Atrial flutter: Code(s): I48.92 - Unspecified atrial flutter Status: Acute Assessment and Plan: Monitor telemetry. Resume systemic anticoagulation. If persistent consider ELIGIO guided cardioversion to restore sinus rhythm. Add Toprol XL 25 mg daily. Rate reasonably controlled at this time. Reassess candidacy in a.m. as patient would not have tolerated sedation lying flat at this time. (4) Status post coronary artery bypass graft: Code(s): Z95.1 - Presence of aortocoronary bypass graft Status: Acute Assessment and Plan: Will review records from [facility]. (5) CKD (chronic kidney disease) stage 3, GFR 30-59 ml/min: Code(s): N18.3 - Chronic kidney disease, stage 3 (moderate) Status: Acute Assessment and Plan: Monitor renal function closely. Check BMP and electrolytes in a.m.. History of Present Illness History of Present Illness Consult date/time: Date of Service: 02/03/21 15:51 Cardiology consultation at the request of Ella Valerio NP of the [facility] service for opinion regarding CHF status post CABG. Requesting physician: Ella Valerio, PAErendiraC Consult reason: congestive heart failure Reason For Visit: chf exacerbation Narrative: Patient is a rather complicated 70-year-old male with a past medical history with CAD multiple previous ST-elevation myocardial infarctions and stents, ischemic cardiomyopathy, ICD, tobacco abuse. Patient has a history of very late stent thrombosis 2013 in the setting of an anterior ST-elevation [place] for which he underwent 3.0 x 18 mm drug-eluting stent, angioplasty of the septal legal intern Petterchak stents of the circumflex 3.0 x 12 mm drug-eluting stent. April [address] elevation [place] with 100% occlusion ostial/proximal LAD, 70% stenosis ostial RCA. He underwent PCI the LAD was EF was noted to be 20% at that time. December 2020 his brought to the ER via EMS with complaints of chest pain. Due to dynamic ST elevations he was brought to the cardiac catheterization lab emergently. This revealed a 100% thrombotic occlusion of the ostial/proximal and mid LAD thought to be the infarct-related vessel, 50% InStent restenosis mid circumflex, 50% eccentric stenosis ostial RCA. EF is approximately 25% at that time. He underwent primary PCI with balloon angioplasty of the oximeter/proximal mid LAD. An Impella left ventricular assist device was inserted and patient was transferred to [facility] for CABG. Patient underwent 2 vessel CABG postoperative course complicated by mediastinal bleeding requiring reexploration and delayed closure. This was further complicated by wound infection. He developed atrial fibrillation in hospitalization. There is no report of decompensated heart failure that time the patient admits to having a thoracentesis on the left due to pleural effusion. Patient was apparently transiently on diuretic therapy as an outpatient per his . Prior to admi
--- NOTE | 2021-02-03 16:15 | PM.IMHP ---
H&P: HPI History of Present Illness Date/Time: 02/03/21 16:15 Chief Complaint: Shortness of breath. Narrative: This is a 70-year-old male with coronary artery disease status post bypass, postoperative CABG atrial fibrillation, ischemic cardiomyopathy with an EF as low as 20%, hypertension, hyperlipidemia, and sleep apnea who presented to the emergency department earlier today with complaints of shortness of breath. He had a 2 vessel bypass in December 2020 at [facility] and had a prolonged stay due to complications including mediastinal bleeding requiring exploration and wound infection with delayed closure. He developed atrial fibrillation postoperatively and was started on amiodarone and apixaban. It is also my understanding that he had a fairly large left-sided pleural effusion and had thoracentesis during that hospitalization as well although he has only been able to tolerate intermittent diuretic use as an outpatient due to soft blood pressures. In any event he has had progressive shortness of breath over the last couple of days with increasing fatigue, decreased activity tolerance, orthopnea, and worsening edema. On arrival to the emergency department he was found to be in atrial flutter with heart rate at approximately 100 beats per minute of which he is not very symptomatic. Chest x-ray showed findings consistent with CHF with a moderate-sized left pleural effusion and diffuse edema or pneumonia. At the time my evaluation he reports feeling a little bit better after receiving Lasix in the emergency department, reporting that he has urinated several times today. He is still short of breath and orthopneic however. He denies fever, chills, sweats, cold and flu symptoms, dysphagia, concerns for aspiration, chest pain, pleuritic pain, nausea, vomiting, diarrhea, dysuria, syncope, and near syncope. Review of Systems Review of Systems: Narrative: Twelve systems were reviewed with pertinent positives and negatives as per HPI. He believes his diabetes is well controlled. No polydipsia or polyuria. No blurry vision. Compliant with CPAP at nighttime. Except as documented, all other systems were reviewed and are negative. [facility] Past Medical History Medical History (Updated 02/03/21 @ 20:41 by Ella Valerio PA-C) Chronic anticoagulation Chronic kidney disease, stage 3 Baseline creatinine is around 1.60. Chronic left-sided low back pain with left-sided sciatica Coronary artery disease Multiple MIs status post multiple stents and subsequent CABG in December 2020. Enlarged prostate without lower urinary tract symptoms (luts) Essential (primary) hypertension Ischemic cardiomyopathy EF as low as 20%, status post ICD insertion. Obstructive sleep apnea Compliant with CPAP. Postoperative atrial fibrillation Post CABG AFib in December 2020 on apixaban and amiodarone. Pure hypercholesterolemia Type 2 diabetes mellitus without complications Hemoglobin A1c was 6.2% in November 2020. Surgical History Surgical History (Updated 02/03/21 @ 18:13 by Ella Valerio PA-C) Automatic implantable cardioverter-defibrillator in situ History of appendectomy History of cardiac catheterization 1. Anterior STEMI in 2013 with drug-eluting stent and angioplasty to the circumflex. 2. Anterior STEMI in April 2018. 100% occlusion ostial/proximal LAD and 70% stenosis ostial RCA status post PCI to the LAD with an EF of 20%. 3. STEMI in December 2020 with 100% thrombotic occlusion of the ostial/proximal and mid LAD, 50% in stent restenoses mid circumflex, 50% eccentric stenosis ostial RCA status post balloon angioplasty of the ostial/proximal mid LAD. EF 25%, Impella was inserted and he was transferred for CABG. History of two vessel coronary artery bypass graft (~12/2020) Bypass of the LAD and circumflex done at [facility]. Complicated by mediastinal bleeding requiring reexploration, wound infection, and delayed closure. Family Hi
[2021-02-03 19:28] LABS: Hemoglobin A1C 5.9 % (<5.7)
[2021-02-03 21:24] LABS: Glucose Point of Care 146 (65-105)
[2021-02-03] MEDS: ATORVASTATIN 40 MG TABLET 80 MG PO (21:44)
[2021-02-03] MEDS: METOPROLOL TARTRATE 12.5 MG TABLET PO (21:46)
[2021-02-03] MEDS: MELATONIN 5 MG TABLET PO (21:55)
[2021-02-04] VITALS (20 sets, daily range): BP systolic 82–114; BP diastolic 55–84; PULSE 80–103; RESP 16–26; TEMP 36.3–36.6; O2SAT 92–97; BMI 23.0
[2021-02-04 06:03] LABS: Hematocrit 36.3 % (42.0-52.0); Hemoglobin 11.5 g/dL (14.0-18.0); Mean Corpuscular HGB Conc 31.7 g/dl (32-36); Mean Corpuscular Hemoglobin 28.3 pg (26-34); Mean Corpuscular Volume 89.4 fl (80-100); Mean Platelet Volume 9.6 fl (7.4-10.4); Platelet Count Result 311 k/mm3 (150-375); Red Blood Count 4.06 M/mm3 (4.6-6.20); Red Cell Distribution Width 16.2 % (11.5-14.5); White Blood Count 9.1 K/mm3 (4.5-10.0)
[2021-02-04 06:13] LABS: INR 1.4; Prothrombin Time 17.3 Seconds (11.1-14.7)
[2021-02-04 06:24] LABS: Alanine Aminotransferase 24 U/L (4-50); Albumin Level 3.4 g/dL (3.5-5.1); Alkaline Phosphatase 155 U/L (38-126); Anion Gap 6 mmol/L (8-16); Aspartate Amino Transferase 25 U/L (17-59); Bilirubin,Total 0.4 mg/dL (0.2-1.3); Blood Urea Nitrogen 40 mg/dL (9-20); Calcium 8.5 mg/dL (8.4-10.2); Carbon Dioxide 30 mmol/L (22-30); Chloride 102 mmol/L (98-107); Estimated CRCL calculation 32 ml/min; Estimated Glomerular Filt Rate 33; Glucose 90 mg/dL (75-110); Magnesium 1.8 mg/dL (1.6-2.3); Potassium 4.3 mmol/L (3.4-5.0); Sodium 138 mmol/L (137-145)
[2021-02-04 08:00] LABS: Glucose Point of Care 100 (65-105)
[2021-02-04] MEDS: AMIODARONE HCL 200 MG TABLET 400 MG BY MOUTH (08:25)
[2021-02-04] MEDS: METOPROLOL TARTRATE 12.5 MG TABLET PO ×2 (08:27→20:54)
[2021-02-04 08:39] LABS: Free T4 Free Thyroxine Reflex 1.41 ng/dL (0.78-2.19)
[2021-02-04] MEDS: FUROSEMIDE INJ 40 MG/4 ML VIAL IV PUSH (08:53)
--- NOTE | 2021-02-04 11:52 | PM.IMPN ---
Progress Note: A&P Assessment and Plan (1) Acute HFrEF (heart failure with reduced ejection fraction): Code(s): I50.21 - Acute systolic (congestive) heart failure Status: Acute Assessment and Plan: Reportedly he has not been able to tolerate diuretics including furosemide or spironolactone on a daily basis due to soft blood pressures and issues with hyperkalemia. Cardiology consulted with input greatly appreciated Continue cautious diuresis with close monitoring of volume status and blood pressures, stop IV furosemide and start oral furosemide for tomorrow Monitor volume status closely with strict intake and output and daily weights Entresto being considered per cardiology (2) Ischemic cardiomyopathy: Code(s): I25.5 - Ischemic cardiomyopathy Status: Acute Assessment and Plan: Previous EF was as low as 20%. Now status post 2 vessel bypass in December 2020. Continue to monitor volume status Appreciate cardiology input (3) Atrial flutter: Code(s): I48.92 - Unspecified atrial flutter Status: Acute Assessment and Plan: Heart rate has been in the 90s to low 100s but he has noticed it as high as 114 on his pulse oximeter at home. Rate is well-controlled at this time. Cardiology following with input greatly appreciated Continue metoprolol tartrate Cardiology may consider cardioversion, await input (4) Pleural effusion on left: Code(s): J90 - Pleural effusion, not elsewhere classified Status: Acute Assessment and Plan: Moderate-sized pleural effusion on the left. Given inability to tolerate daily diuretics, thoracentesis has been ordered for today. Diagnostic studies also ordered (5) Chronic anticoagulation: Code(s): Z79.01 - correction (current) use of anticoagulants Status: Acute Assessment and Plan: Patient is on apixaban for postoperative atrial fibrillation, now with atrial flutter. Apixaban currently on hold in anticipation of thoracentesis today. Resume apixaban following thoracentesis (6) Obstructive sleep apnea: Code(s): G47.33 - Obstructive sleep apnea (adult) (pediatric) Status: Acute Assessment and Plan: Continue CPAP titrated to home settings. (7) Essential (primary) hypertension: Code(s): I10 - Essential (primary) hypertension Status: Acute Assessment and Plan: Blood pressures are stable and we will continue to monitor this very closely as they have apparently been running soft since his bypass. Most recent BP 114/75. Continue metoprolol tartrate Continue to monitor and adjust regimen as necessary (8) Type 2 diabetes mellitus without complications: Code(s): E11.9 - Type 2 diabetes mellitus without complications Status: Acute Assessment and Plan: HbA1c 5.9%. Blood sugars are at target. Continue empagliflozin (pt needs to have his home supply brought) and hold metformin Continue sliding scale insulin, Accu-Cheks, and hypoglycemic protocol (9) Chronic kidney disease, stage 3: Code(s): N18.30 - Chronic kidney disease, stage 3 unspecified Status: Acute Assessment and Plan: Cr was 1.8 on admission which does appear to be elevated above baseline. Cr on 01/11/21 was 1.29. Will plan to discontinue IV furosemide and switch to oral furosemide Avoid nephrotoxins and renally dose medications Continue to monitor renal function closely give diuresis Consider nephrology consultation if renal function worsens (10) Status post coronary artery bypass graft: Code(s): Z95.1 - Presence of aortocoronary bypass graft Status: Acute Assessment and Plan: Status post 2 vessel bypass at [facility] in December 2020. Wounds are healing well. Continue outpatient follow-up with cardiothoracic surgery Subjective Date/time seen: 02/04/21 11:52 Mr. Solo is a 6
[2021-02-04 12:43] LABS: Total Triiodothyronine (T3) 0.89 NG/ML (0.97-1.69)
[2021-02-04 12:48] LABS: pH Pleural Fluid 7.405 (7.210-7.500)
[2021-02-04 13:45] LABS: Appearance Pleural Fluid Turbid (Clear); Color Pleural Fluid Red (Colorless); Pleural fluid source Pleural fluid
[2021-02-04 13:46] LABS: Lymphocytes Pleural Fluid 68 %; Mesothelial Cells Pleural Flui 21 %; Monocytes Pleural Fluid 1 %; Neutrophils Pleural Fluid 10 % (0-25); Nucleated Cell Pleural Fluid 105 /uL (0-1000); RBC Pleural Fluid 29413 /uL (0-0)
[2021-02-04] MEDS: SODIUM CHLORIDE 0.9% IV 250 ML 100 ML IV CONT (15:07)
[2021-02-04 15:31] LABS: Glucose Point of Care 119 (65-105)
--- NOTE | 2021-02-04 16:18 | PM.PNCARD ---
Progress Note: A&P Assessment and Plan (1) Acute HFrEF (heart failure with reduced ejection fraction): Code(s): I50.21 - Acute systolic (congestive) heart failure Status: Acute Assessment and Plan: History of ischemic cardiomyopathy 20% previously noted. Continue IV diuresis. Monitor renal function, electrolytes closely, accurate input and output and daily weights. Entresto would be a great option if renal function and BP permits. However, apparently spironolactone was discontinued due to hyperkalemia per his 's account. Further recommendations to follow. Continue beta-alexander, Empagliflozin. Given acute renal insufficiency and fairly euvolemic volume status hold diuretic. Monitor renal function and blood pressure. Thoracentesis planned this morning. Observed clinical response. Review prior records from [facility]. (2) Ischemic cardiomyopathy: Code(s): I25.5 - Ischemic cardiomyopathy Status: Acute Assessment and Plan: As above, status post CABG due to severe ischemic cardiomyopathy, recurrent myocardial infarction very late stent thrombosis and InStent restenoses. Continue aspirin 81 mg daily, systemic anticoagulation. (3) Atrial flutter: Code(s): I48.92 - Unspecified atrial flutter Status: Acute Assessment and Plan: Monitor telemetry. Resume systemic anticoagulation. Patient stable in atrial flutter. Will need to integrate timing of re-initiation of anticoagulation status post thoracentesis with regards to risk versus benefit for ELIGIO guided cardioversion. Continue amiodarone. Beta-alexander therapy added.. (4) Status post coronary artery bypass graft: Code(s): Z95.1 - Presence of aortocoronary bypass graft Status: Acute Assessment and Plan: As above. Continue aggressive medical therapy. (5) CKD (chronic kidney disease) stage 3, GFR 30-59 ml/min: Code(s): N18.3 - Chronic kidney disease, stage 3 (moderate) Status: Acute Assessment and Plan: Acute on chronic renal sufficiency. Hold diuretics. Monitor volume status closely. Monitor renal function closely. Check BMP and electrolytes in a.m.. Subjective Date/time seen: Date of service: 02/04/21 16:18 Follow-up for CHF, atrial flutter Patient is feeling better this morning. Still some shortness of breath with activity otherwise improved. He denies dizziness lightheadedness, chest pain. No new issues overnight. Patient is NPO for thoracentesis. Eliquis has been held. No other new complaints. Review of Systems Review of Systems: All systems reviewed & are unremarkable except as noted in HPI and below Constitutional: Constitutional: Reports as per HPI, Reports no additional constitutional complaints and Reports fatigue Eyes: Eyes: Reports as per HPI and Reports no additional eye complaints ENT: Reports system reviewed and no additional complaints, except as documented and Reports as per HPI Cardiovascular: Cardiovascular: Reports as per HPI, Reports no additional cardiovascular complaints, Denies chest pain, Reports pedal edema, Reports leg edema, Denies palpitations, Reports dyspnea and Reports dyspnea on exertion Respiratory: Respiratory: Reports as per HPI, Reports no additional respiratory complaints, Reports dyspnea and Reports dyspnea on exertion Gastrointestinal: Gastrointestinal: Reports as per HPI, Reports no additional gastrointestinal complaints and Reports bloating Genitourinary: Genitourinary: Reports no additional male genitourinary complaints and Reports as per HPI Musculoskeletal: Musculoskeletal: Reports no additional musculoskeletal complaints and Reports as per HPI Integumentary/Breasts: Skin/Breast: Reports system reviewed and no additional complaints, except as docu and Reports as per HPI Neurologic: Reports system reviewed and no additional complaints, except as documented and Reports as per HPI Psychiatric: Psychiatric: Reports no additional
[2021-02-04 17:46] LABS: Glucose Point of Care 216 (65-105)
[2021-02-04] MEDS: INSULIN ASPART (*BKC) 100 UNITS/ML SUB-Q (19:53)
--- NOTE | 2021-02-04 19:56 | PC.NURSE ---
Pt's stated that they did a pulmonary wedge resection at the same time as his recent CABG. Purpose was to biopsy nodules present on lungs. never confirmed to , but a report was sent to Benita and RNs at [facility] that histoplasmosis.
[2021-02-04] MEDS: ATORVASTATIN 40 MG TABLET 80 MG PO (20:55)
[2021-02-04] MEDS: MELATONIN 5 MG TABLET PO (20:56)
[2021-02-04 21:45] LABS: Glucose Point of Care 118 (65-105)
[2021-02-05] VITALS (19 sets, daily range): BP systolic 78–126; BP diastolic 55–105; PULSE 81–99; RESP 16–21; TEMP 36.1–36.6; O2SAT 93–96
[2021-02-05 06:16] LABS: Hematocrit 37.3 % (42.0-52.0); Hemoglobin 11.7 g/dL (14.0-18.0); Mean Corpuscular HGB Conc 31.4 g/dl (32-36); Mean Corpuscular Volume 89.2 fl (80-100); Mean Platelet Volume 9.9 fl (7.4-10.4); Platelet Count Result 309 k/mm3 (150-375); Red Blood Count 4.18 M/mm3 (4.6-6.20); Red Cell Distribution Width 16.3 % (11.5-14.5)
[2021-02-05 06:45] LABS: Anion Gap 3 mmol/L (8-16); Blood Urea Nitrogen 41 mg/dL (9-20); Calcium 8.4 mg/dL (8.4-10.2); Carbon Dioxide 32 mmol/L (22-30); Chloride 103 mmol/L (98-107); Estimated CRCL calculation 38 ml/min; Estimated Glomerular Filt Rate 40; Glucose 92 mg/dL (75-110); Magnesium 1.8 mg/dL (1.6-2.3); Potassium 4.1 mmol/L (3.4-5.0); Sodium 138 mmol/L (137-145)
[2021-02-05 07:46] LABS: Glucose Point of Care 98 (65-105)
[2021-02-05] MEDS: AMIODARONE HCL 200 MG TABLET 400 MG BY MOUTH (08:49)
[2021-02-05] MEDS: ASPIRIN 81 MG ENTERIC TABLET PO (08:50)
[2021-02-05] MEDS: FUROSEMIDE 40 MG TABLET PO (08:51)
[2021-02-05] MEDS: METOPROLOL TARTRATE 12.5 MG TABLET PO ×2 (08:51→21:14)
[2021-02-05 11:21] LABS: Glucose Point of Care 233 (65-105)
[2021-02-05] MEDS: APIXABAN 5 MG TABLET PO ×2 (11:52→17:18)
[2021-02-05] MEDS: INSULIN ASPART (*BKC) 100 UNITS/ML SUB-Q (11:53)
--- NOTE | 2021-02-05 12:57 | PM.IMPN ---
Progress Note: A&P Assessment and Plan (1) Acute HFrEF (heart failure with reduced ejection fraction): Code(s): I50.21 - Acute systolic (congestive) heart failure Status: Acute Assessment and Plan: Reportedly he has not been able to tolerate diuretics including furosemide or spironolactone on a daily basis due to soft blood pressures and issues with hyperkalemia. He appears euvolemic at this time. BP low yesterday and today requiring 250cc fluid bolus. Cardiology consulted with input greatly appreciated. Management per cardiology. Hold furosemide for tomorrow given soft pressure and concern for volume depletion due to diuretics. Monitor volume status closely with strict intake and output and daily weights Entresto being considered per cardiology Metoprolol is continued but may need to be held based on blood pressure trends (2) Ischemic cardiomyopathy: Code(s): I25.5 - Ischemic cardiomyopathy Status: Acute Assessment and Plan: Previous EF was as low as 20%. Now status post 2 vessel bypass in December 2020. Continue to monitor volume status Appreciate cardiology input (3) Atrial flutter: Code(s): I48.92 - Unspecified atrial flutter Status: Acute Assessment and Plan: Heart rate has been in the 90s to low 100s but he has noticed it as high as 114 on his pulse oximeter at home. Rate is well-controlled at this time. Cardiology following with input greatly appreciated Continue metoprolol tartrate if BP will tolerate Continue amiodarone Eliquis resumed today ELIGIO not anticipated given clinical circumstances (4) Pleural effusion on left: Code(s): J90 - Pleural effusion, not elsewhere classified Status: Acute Assessment and Plan: Moderate-sized pleural effusion on the left. Given inability to tolerate daily diuretics, thoracentesis was ordered. Thoracentesis demonstrated 29,413 RBC on cell count, likely residual RBCs from recent post-op complication of mediastinal bleeding requiring re-exploration. pH 7.405. Gram stain negative for organisms. No malignant cells seen on pathology. Preliminary anaerobic culture shows no growth. Aerobic culture pending. Additional studies including pleural protein, albumin, LDH, glucose, amylase, and cholesterol pending. Repeat CXR demonstrates improvement in effusion size. He is established with Dr. Joy and will need evaluation/follow-up with pulmonology given hx of multiple nodules. He had wedge resection performed and full workup with Joshua Silva with records requested and pending. CT findings show no acute bleed and felt most likely consistent with pulmonary edema given clinical picture. (5) Chronic anticoagulation: Code(s): Z79.01 - halfway (current) use of anticoagulants Status: Acute Assessment and Plan: Patient is on apixaban for postoperative atrial fibrillation, now with atrial flutter. Apixaban was held for thoracentesis and resumed today. Continue apixaban (6) Obstructive sleep apnea: Code(s): G47.33 - Obstructive sleep apnea (adult) (pediatric) Status: Acute Assessment and Plan: Continue CPAP titrated to home settings. (7) Essential (primary) hypertension: Code(s): I10 - Essential (primary) hypertension Status: Acute Assessment and Plan: Blood pressures are stable and we will continue to monitor this very closely as they have apparently been running soft since his bypass. He required 250cc fluid bolus yesterday and today due to soft pressure. Continue metoprolol tartrate if BP will tolerate, management per cardiology Hold furosemide for tomorrow Continue to monitor and adjust regimen as necessary (8) Type 2 diabetes mellitus without complications: Code(s): E11.9 - Type 2 diabetes mellitus without complications Status: Acute Assessment and Plan: HbA1c 5.9%. Blood sugars reviewed
--- NOTE | 2021-02-05 13:27 | PHAR ---
HOME MED VERIFIED EMPAGLIFLOZIN 10MG TABLET TAKE 2 TABLETS BY MOUTH DAILY
[2021-02-05] MEDS: SODIUM CHLORIDE 0.9% IV 250 ML 100 ML IV CONT (13:50)
--- NOTE | 2021-02-05 14:17 | PC.NURSE ---
On 02/05/21, the student, [Sixto Delaney ], provided care and completed [place] documentation on this patient. I have reviewed the student's documentation and agree with the findings.
--- NOTE | 2021-02-05 15:35 | PM.PNCARD ---
Progress Note: A&P Assessment and Plan (1) Acute HFrEF (heart failure with reduced ejection fraction): Code(s): I50.21 - Acute systolic (congestive) heart failure Status: Acute Assessment and Plan: History of ischemic cardiomyopathy 20% previously noted. Continue IV diuresis. Monitor renal function, electrolytes closely, accurate input and output and daily weights. However, apparently spironolactone was discontinued due to hyperkalemia per his 's account. . Continue beta-alexander. Clinically stable, essentially euvolemic and in fact I suspect intravascular volume depleted. Patient received Lasix today now he is hypotensive. As before hold diuretics. IV normal saline bolus provided today and yesterday. Difficult balance managing volume status, hypotension, recurrent pleural effusion with underlying atrial flutter. Repeat chest x-ray in a.m.. (2) Hypotension: Code(s): I95.9 - Hypotension, unspecified Status: Acute Assessment and Plan: As above. Secondary to intravascular volume depletion in medications. If refractory may need to hold beta-alexander as well. Off Empagliflozin (3) Ischemic cardiomyopathy: Code(s): I25.5 - Ischemic cardiomyopathy Status: Acute Assessment and Plan: As above, status post CABG due to severe ischemic cardiomyopathy, recurrent myocardial infarction very late stent thrombosis and InStent restenoses. Continue aspirin 81 mg daily, systemic anticoagulation. Monitor for bleeding. (4) Atrial flutter: Code(s): I48.92 - Unspecified atrial flutter Status: Acute Assessment and Plan: Monitor telemetry. Resume systemic anticoagulation. Patient stable in atrial flutter. No plans for ELIGIO cardioversion given clinical circumstances. Continue amiodarone. Beta-alexander therapy added. (5) Status post coronary artery bypass graft: Code(s): Z95.1 - Presence of aortocoronary bypass graft Status: Acute Assessment and Plan: As above. Continue aggressive medical therapy. Complicated postoperative course at [facility]. (6) CKD (chronic kidney disease) stage 3, GFR 30-59 ml/min: Code(s): N18.3 - Chronic kidney disease, stage 3 (moderate) Status: Acute Assessment and Plan: Acute on chronic renal sufficiency. Improved but received diuretics today. Again, Hold diuretics. Monitor renal function closely. Check BMP and electrolytes in a.m.. Subjective Date/time seen: Date of service: 02/05/21 15:35 Follow-up for CHF, atrial flutter. Patient states he feels fine. Much improved breathing after thoracentesis yesterday. BP low today after receiving his medications including Lasix with systolic blood pressure in 80s. IV normal saline given. Patient in atrial flutter heart rate controlled. No bleeding. Eliquis resume. at bedside. Extensive discussion held with the patient and his with regards to patient plan of care. Spent 25 minutes at bedside with patient, chart review, family discussions and management decisions. Review of Systems Review of Systems: All systems reviewed & are unremarkable except as noted in HPI and below Constitutional: Constitutional: Reports as per HPI, Reports no additional constitutional complaints and Reports fatigue Eyes: Eyes: Reports as per HPI and Reports no additional eye complaints ENT: Reports system reviewed and no additional complaints, except as documented and Reports as per HPI Cardiovascular: Cardiovascular: Reports as per HPI, Reports no additional cardiovascular complaints, Denies chest pain, Reports pedal edema, Reports leg edema, Denies palpitations, Reports dyspnea and Reports dyspnea on exertion Respiratory: Respiratory: Reports as per HPI, Reports no additional respiratory complaints, Reports dyspnea and Reports dyspnea on exertion Gastrointestinal: Gastrointestinal: Reports as per HPI, Reports no additional gastrointestinal complaints and Reports b
--- NOTE | 2021-02-05 17:01 | PM.CNPUL ---
Assessment and Plan Assessment and plan (1) Obstructive sleep apnea: Code(s): G47.33 - Obstructive sleep apnea (adult) (pediatric) Status: Acute Assessment and Plan: Patient is maintained on CPAP 6 with no supplemental oxygen at night. I have told the to bring the patient's home machine in so that the patient could wears home machine while he is in the hospital. In the meantime I will continue the hospital's auto Pap as the patient tolerated this well last night. 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 Currently these have not changed since 08/26/2020 and the patient had an essentially negative PET scan on 09/03/2020. I do not think these pulmonary nodules are contributing to patient's current shortness of breath. Hospitalist and Cardiology team are managing patient's fluid overload. Patient is to follow up in Pulmonary Clinic with a repeat CT scan of the chest on about 08/26/2021 to document stability. Discussed with Elenita Alexander, will sign off, please call for questions. History of Present Illness History of Present Illness Consult date: 02/05/21 Requesting physician: Elenita Alexander PA-C Reason for consult: dyspnea Chief complaint: chf exacerbation Narrative: This is a new pulmonary consult for shortness of breath. This [age]-year-old man with a history of coronary artery disease status post bypass after an acute TN on 12/24 complicated by atrial fibrillation. Patient had known multiple bilateral pulmonary nodules with a negative PET scan and during his CABG they performed a wedge resection. I have a report but not the slides from the pathologist at [facility] and this demonstrates old necrotizing granuloma with areas of central necrosis line by Palisading histiocytes. Special stains for acid-fast bacilli and fungus are were performed on both lesions and were negative. The uninvolved lung shows emphysematous changes with variable mild chronic inflammation and minimal fibrosis. Patient was discharged from the hospital on 01/11 and according to his he did well for about 2 or 3 days and then developed progressively worsening shortness of breath. Patient was admitted to the hospital on 02 03 with fluid overload and treated with Lasix and left thoracentesis with 1050 mL removed. Gram stain was without white blood cells or organisms, the pH was 7.41, the nucleated cells were 105 with 10% neutrophils, 68% lymphocytes 1% monocytes 21 mesothelial cells. Patient was much improved after the thoracentesis. Patient had a CT scan of the chest on 02/04 which demonstrated ground-glass opacities in the left lower lobe lingula right upper and lower lobes. There is no definitive interval change in the size or number of numerous bilateral pulmonary nodules with smooth margins measuring up to 12 mm. Mild emphysema was present. No interval change in the nonspecific mediastinal lymphadenopathy. Regarding patient's obstructive sleep apnea he was seen in the pulmonary clinic for obstructive sleep apnea on 08/06/2020 he had a split night polysomnogram on 08/19/2007 which showed severe obstructive sleep apnea with apnea-hypopnea index of 34.3 and he was titrated to a CPAP of 6 with a final AHI of 2.4. His oxygenation did stabilize on the CPAP. He had good clinical benefit from wearing his CPAP at that time. He did not bring his machine is computer card in to the clinic so we do not have a recent download. Today when I examined the patient he states that he is much better today. Patient denies any fever, chills, rigors, hemoptysis. Patient does have some minimal right pleuritic chest pain. Patient is a former tobacco smoker. Pat
[2021-02-05 17:07] LABS: Glucose Point of Care 146 (65-105)
[2021-02-05] MEDS: ATORVASTATIN 40 MG TABLET 80 MG PO (21:13)
[2021-02-05] MEDS: MELATONIN 5 MG TABLET PO (21:13)
[2021-02-05 21:22] LABS: Glucose Point of Care 116 (65-105)
[2021-02-06] VITALS (11 sets, daily range): BP systolic 86–119; BP diastolic 50–94; PULSE 75–90; RESP 18–20; TEMP 36.1–36.8; O2SAT 95–98
[2021-02-06 06:23] LABS: Hematocrit 37.3 % (42.0-52.0); Hemoglobin 11.7 g/dL (14.0-18.0); Mean Corpuscular HGB Conc 31.4 g/dl (32-36); Mean Corpuscular Hemoglobin 28.2 pg (26-34); Mean Corpuscular Volume 89.9 fl (80-100); Mean Platelet Volume 9.8 fl (7.4-10.4); Platelet Count Result 288 k/mm3 (150-375); Red Blood Count 4.15 M/mm3 (4.6-6.20); Red Cell Distribution Width 16.2 % (11.5-14.5); White Blood Count 8.6 K/mm3 (4.5-10.0)
[2021-02-06 06:32] LABS: Anion Gap 2 mmol/L (8-16); Blood Urea Nitrogen 36 mg/dL (9-20); Calcium 8.5 mg/dL (8.4-10.2); Carbon Dioxide 36 mmol/L (22-30); Chloride 101 mmol/L (98-107); Estimated CRCL calculation 40 ml/min; Estimated Glomerular Filt Rate 43; Glucose 91 mg/dL (75-110); Magnesium 1.8 mg/dL (1.6-2.3); Potassium 3.5 mmol/L (3.4-5.0); Sodium 139 mmol/L (137-145)
[2021-02-06 07:39] LABS: Glucose Point of Care 121 (65-105)
[2021-02-06] MEDS: ASPIRIN 81 MG ENTERIC TABLET PO (09:44)
[2021-02-06] MEDS: AMIODARONE HCL 200 MG TABLET 400 MG BY MOUTH (09:45)
[2021-02-06] MEDS: APIXABAN 5 MG TABLET PO (09:45)
[2021-02-06] MEDS: METOPROLOL TARTRATE 12.5 MG TABLET PO (09:45)
[2021-02-06 11:34] LABS: Glucose Point of Care 173 (65-105)
--- NOTE | 2021-02-06 15:14 | PM.PNCARD ---
Progress Note: A&P Assessment and Plan (1) Acute HFrEF (heart failure with reduced ejection fraction): Code(s): I50.21 - Acute systolic (congestive) heart failure Status: Acute Assessment and Plan: History of ischemic cardiomyopathy 20% previously noted. Continue IV diuresis. Monitor renal function, electrolytes closely, accurate input and output and daily weights. However, apparently spironolactone was discontinued due to hyperkalemia per his 's account. -Continue beta-alexander. -Clinically euvolemic. Patient will require diuresis but need to balance hypotension and risk for intravascular volume depletion. With resumption of Jardiance would initiate Lasix 40 mg 3 times weekly with close monitoring of symptoms, blood pressure and daily weight. -He will follow up in the office as scheduled on Wednesday with recommendations to follow. Discussed with patient and at bedside who verbalized understanding and agreed with plan of care. -Stable for discharge home today to follow up as scheduled per hospitalist service. Difficult balance managing volume status, hypotension, recurrent pleural effusion with underlying atrial flutter. (2) Hypotension: Code(s): I95.9 - Hypotension, unspecified Status: Acute Assessment and Plan: As above. Secondary to intravascular volume depletion in medications. If refractory may need to hold beta-alexander as well. Off Empagliflozin (3) Ischemic cardiomyopathy: Code(s): I25.5 - Ischemic cardiomyopathy Status: Acute Assessment and Plan: As above, status post CABG due to severe ischemic cardiomyopathy, recurrent myocardial infarction very late stent thrombosis and InStent restenoses. Continue aspirin 81 mg daily, systemic anticoagulation. Monitor for bleeding. (4) Atrial flutter: Code(s): I48.92 - Unspecified atrial flutter Status: Acute Assessment and Plan: Continue systemic anticoagulation. Patient stable in atrial flutter. No plans for ELIGIO cardioversion given clinical circumstances. Continue amiodarone. Tolerating beta-alexander thus far. (5) Status post coronary artery bypass graft: Code(s): Z95.1 - Presence of aortocoronary bypass graft Status: Acute Assessment and Plan: As above. Continue aggressive medical therapy. Complicated postoperative course at [facility]. (6) CKD (chronic kidney disease) stage 3, GFR 30-59 ml/min: Code(s): N18.3 - Chronic kidney disease, stage 3 (moderate) Status: Acute Assessment and Plan: Acute on chronic renal sufficiency. Improved. BMP as outpatient in 1 week. Subjective Date/time seen: Date of service: 02/06/21 15:14 Follow-up for atrial flutter, pleural effusion, CHF Feels fine. No dizziness, shortness of breath. No orthopnea. No chest pain. New issues overnight. Review of Systems Review of Systems: All systems reviewed & are unremarkable except as noted in HPI and below Constitutional: Constitutional: Reports as per HPI, Reports no additional constitutional complaints and Reports fatigue Eyes: Eyes: Reports as per HPI and Reports no additional eye complaints ENT: Reports system reviewed and no additional complaints, except as documented and Reports as per HPI Cardiovascular: Cardiovascular: Reports as per HPI, Reports no additional cardiovascular complaints, Denies chest pain, Reports pedal edema, Reports leg edema, Denies palpitations, Reports dyspnea and Reports dyspnea on exertion Respiratory: Respiratory: Reports as per HPI, Reports no additional respiratory complaints, Reports dyspnea and Reports dyspnea on exertion Gastrointestinal: Gastrointestinal: Reports as per HPI, Reports no additional gastrointestinal complaints and Reports bloating Genitourinary: Genitourinary: Reports no additional male genitourinary complaints and Reports as per HPI Musculoskeletal: Musculoskeletal: Reports no additional musculoskeletal com
--- NOTE | 2021-02-06 15:31 | PM.DS ---
DS: Admitting Diagnosis Admitting Diagnosis Admitting Diagnosis: Congestive Heart Failure Exacerbation DS: Discharge Diagnosis Discharge Diagnosis (1) Acute HFrEF (heart failure with reduced ejection fraction): Code(s): I50.21 - Acute systolic (congestive) heart failure Status: Acute Assessment and Plan: Discharge Summary (Date of service 02/06/21): Mr. Solo is a 70 y.o. male with PMH significant for CKD stage III, CAD s/p multiple STEMIs and 2 vessel CABG 12/2020 (ALMODOVAR to LAD, SVG to OM) complicated by mediastinal bleeding and wound infection, history of left upper lobe wedge resection, atrial fibrillation, ischemic cardiomyopathy with an EF as low as 20% and ICD in place, hypertension, hyperlipidemia, and sleep apnea who presented to the emergency department on 02/03/21 for the evaluation of shortness of breath for the past couple days with increasing fatigue, decreased activity tolerance, orthopnea, and worsening edema. He was transiently on diuretics post-operatively but they were not continued due to soft blood pressure. On arrival, RR was 22 and DBP elevated 130/110. Labs were notable for markedly elevated BNP of 10,800. Troponin 0.014 and EKG demonstrated atrial flutter/tachycardia with left bundle branch block. CXR demonstrated cardiomegaly, pulmonary vascular congestion, moderate left pleural effusion w/ adjacent compressive atelectasis, and diffuse airspace disease. CXR findings and presentation were felt consistent with congestive heart failure exacerbation. He was treated with IV lasix and admitted to the hospitalist service with cardiology consultation. His symptoms improved rapidly with diuresis and he felt much better. He underwent thoracentesis for his pleural effusion (see below). He was seen by pulmonology given multiple nodules on imaging and pleural effusion with RBCs, likely residual exudative effusion secondary to his post-op complication of mediastinal bleeding during previous hospitalization following CABG. No organisms or malignant cells were seen on fluid analysis. His blood pressure was soft intermittently following diuresis and improved with 250cc bolus. CXR repeated 02/05/21 demonstrated improvement. Cardiology recommended that he start furosemide 40mg M,W,F and monitor weight closely. He will see cardiology 02/10/21 for follow-up and to modify medications if necessary. Metoprolol was continued. He cannot tolerate MADISON inhibitor/ARB due to soft blood pressure. He was felt stable for discharge from a pulmonology and cardiology standpoint and he was discharged in hemodynamically stable condition on the afternoon of 02/06/21. Worrisome signs and symptoms which would warrant return to the emergency department were discussed and he verbalized understanding with the need for close follow-up. (2) Ischemic cardiomyopathy: Code(s): I25.5 - Ischemic cardiomyopathy Status: Acute Assessment and Plan: Previous EF was as low as 20%. Now status post 2 vessel bypass in December 2020. He follows with Dr. Arias and will need to continue close outpatient follow-up. (3) Atrial flutter: Code(s): I48.92 - Unspecified atrial flutter Status: Acute Assessment and Plan: Heart rate was reasonably controlled. He was seen by cardiology who recommended to continue amiodarone, metoprolol, and eliquis. 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 Arias. (4) Pleural effusion on left: Code(s): J90 - Pleural effusion, not elsewhere classified Status: Acute Assessment and Plan: Moderate-sized pleural effusion on the left. Given inability to tolerate daily diuretics, thoracentesis was ordered. Thoracentesis demonstrated 29,413 RBC on cell count, likely residual RBCs from recent post-op complication of mediastinal bleeding requiring re-exploration. pH 7.405. Gram stain negative for organisms. No malignant cells seen on pathology. Preliminary anaerobic culture shows no growth. Preli
[2021-02-07 06:17] LABS: Total Protein Pleural Fluid 3.8 g/dL
[2021-02-07 18:06] LABS: Glucose Pleural Fluid 102 mg/dL; LDH Pleural Fluid 122 U/L
[2021-02-08 10:57] LABS: Albumin Pleural Fluid 1.8 g/dL
[2021-02-09 23:58] LABS: Amylase, Pleural Fluid 29 U/L
--- NOTE | 2021-02-11 15:46 | PC.NURSE ---
LAbs faxed to Dr. Joy and Dr. Campos. Pleural fluid cx and studies.
== END 2021-02-06 16:40 | disposition home or self-care (01) | DRG 291 ==
LOC: ANHED 09:52 → ANH3MEDSUR 11:06
PROVIDERS: Physician Assistant; Admitting Provider Internal Medicine; Emergency Provider Emergency Medicine; PCP Internal Medicine; Visit Provider Family Medicine
DX: I13.0 Hypertensive heart and chronic kidney disease with heart failure and stage 1 through stage 4 chronic kidney disease, or unspecified chronic kidney disease (principal); I50.21 Acute systolic (congestive) heart failure; I48.92 Unspecified atrial flutter; J90 Pleural effusion, not elsewhere classified; E11.22 Type 2 diabetes mellitus with diabetic chronic kidney disease; N18.30 Chronic kidney disease, stage 3 unspecified; I25.5 Ischemic cardiomyopathy; G47.33 Obstructive sleep apnea (adult) (pediatric); I25.10 Atherosclerotic heart disease of native coronary artery without angina pectoris; N40.0 Benign prostatic hyperplasia without lower urinary tract symptoms; R91.8 Other nonspecific abnormal finding of lung field; Z95.1 Presence of aortocoronary bypass graft; I25.2 Old myocardial infarction; Z95.5 Presence of coronary angioplasty implant and graft; Z87.891 Personal history of nicotine dependence; Z79.01 Long term (current) use of anticoagulants; Z79.82 Long term (current) use of aspirin; Z95.810 Presence of automatic (implantable) cardiac defibrillator
CPT/HCPCS: 32555; 36415; 71045; 71046; 71250; 80048; 80053; 82042; 82150; 82945; 82948; 83036; 83615; 83735; 83880; 83986; 84157; 84311; 84439; 84443; 84480; 84484; 85025; 85027; 85610; 85730; 87070; 87075; 87205; 88104; 88108; 88184; 88305; 89051; 93005; 93970; 96374; 99285; A9270; J1815; J1940; J7050

== ENCOUNTER 2021-02-14 08:45 | Outpatient (CLI) | payer MEDICARE, BC, SELFPAY ==
[2021-02-14 09:11] LABS: Hematocrit 42.2 % (42.0-52.0); Hemoglobin 13.1 g/dL (14.0-18.0); Mean Corpuscular Hemoglobin 27.9 pg (26-34); Mean Platelet Volume 9.7 fl (7.4-10.4); Platelet Count Result 320 k/mm3 (150-375); Red Blood Count 4.69 M/mm3 (4.6-6.20); Red Cell Distribution Width 16.5 % (11.5-14.5); White Blood Count 8.5 K/mm3 (4.5-10.0)
[2021-02-14 09:21] LABS: Anion Gap 5 mmol/L (8-16); Blood Urea Nitrogen 31 mg/dL (9-20); Calcium 9.2 mg/dL (8.4-10.2); Carbon Dioxide 32 mmol/L (22-30); Chloride 104 mmol/L (98-107); Estimated Glomerular Filt Rate 46; Glucose 129 mg/dL (75-110); Potassium 4.7 mmol/L (3.4-5.0); Sodium 141 mmol/L (137-145)
== END 2021-02-14 08:46 | disposition home or self-care (01) ==
PROVIDERS: PCP Internal Medicine; Visit Provider Physician Assistant
DX: E11.9 Type 2 diabetes mellitus without complications (principal); I50.9 Heart failure, unspecified; I48.92 Unspecified atrial flutter; Z79.01 Long term (current) use of anticoagulants; N18.30 Chronic kidney disease, stage 3 unspecified
CPT/HCPCS: 36415; 80048; 85027

== ENCOUNTER 2021-02-21 07:37 | Emergency (ER) | payer MEDICARE, BC, SELFPAY ==
[2021-02-21] VITALS (8 sets, daily range): BP systolic 83–131; BP diastolic 63–117; PULSE 83–102; RESP 18–34; TEMP 36.4; O2SAT 94–99
--- NOTE | ~2021-02-21 | US_ITS ---
EXAMINATION: US thoracentesis DATE: 02/21/2021 09:53 INDICATION: pleural effusion TECHNIQUE: The procedure and its risks and benefits were discussed with the patient. Potential risks discussed included bleeding, infection, and pneumothorax. The patient understood the risks and agreed to proceed. The skin was prepped and draped in sterile fashion. 1% lidocaine was used for local anes thesia. Under ultrasound guidance, a 5 Fr catheter with trochar was advanced into the left pleural ef fusion. Fluid was aspirated. The catheter was removed, and a dressing was applied. There were no imme diate complications. FINDINGS: Ultrasound images demonstrate a moderate to large left pleural effusion and the catheter within the f luid. IMPRESSION: 1. Successful ultrasound-guided thoracentesis yielding 1000 mL of dark maroon-colored fluid. Reviewed, dictated and finalized at location A. IMPRESSION: 1. Successful ultrasound-guided thoracentesis yielding 1000 mL of dark maroon- colored fluid.
--- NOTE | ~2021-02-21 | XR_ITS ---
EXAMINATION: XR chest 1V portable DATE: 02/21/2021 08:10 INDICATION: Shortness of breath. TECHNIQUE: A single frontal view of the chest was obtained. COMPARISON: Chest 2 views 02/05/2021, chest CT 02/04/2021, 08/26/2020 FINDINGS: There are small right and moderate-sized left pleural effusions. There are airspace opaciti es in the mid and lower lung zones. There are scattered nodules in the lungs. No pneumothorax. Cardio megaly is noted. Median sternotomy wires and mediastinal surgical clips are seen, likely from prior c oronary artery bypass grafting. There is a left chest pacer/defibrillator with lead in right ventricl e. IMPRESSION: 1. Airspace opacities in the mid and lower lung zones, consistent with atelectasis versus pneumonia. 2. Small right and moderate-sized left pleural effusions. 3. Persistent pulmonary nodules, likely benign. 4. Cardiomegaly. Reviewed, dictated and finalized at location D. IMPRESSION: 1. Airspace opacities in the mid and lower lung zones, consistent with atelecta sis versus pneumonia. 2. Small right and moderate-sized left pleural effusions. 3. Persistent pulmonary nodules, likely benign. 4. Cardiomegaly.
--- NOTE | ~2021-02-21 | XR_ITS ---
EXAMINATION: [id number] DATE: 02/21/2021 09:44 INDICATION: Status post left thoracentesis TECHNIQUE: frontal view of the chest was obtained. COMPARISON: Chest radiograph dated 02/04/2021 FINDINGS: Gradient of hazy airspace opacities in the bilateral lower lung zones with blunting at the costophren ic angles consistent with small bilateral pleural effusions, left greater than right with associated bibasilar atelectasis and/or pneumonia. There multiple several scattered small bilateral pulmonary no dules which have remained relatively stable on prior CT imaging, with no increased FDG uptake on prio r PET scan which would be consistent with results from a previous biopsy of a couple nodules in the l ingula demonstrating granulomatous disease. No pneumothorax. Cardiomegaly. Median sternotomy wires an d mediastinal surgical clips are seen, likely from prior coronary artery bypass grafting. Single lead pacemaker/AICD seen with the tip projecting over the expected location of the apex of the right vent ricle. IMPRESSION: 1. Small bilateral pleural effusions, left greater than right with associated bibasilar atelectasis a nd/or pneumonia. 2. Multiple chronic bilateral pulmonary nodules most likely sequela of old granulomatous disease. 3. Cardiomegaly. Reviewed, dictated and finalized at location A. IMPRESSION: 1. Small bilateral pleural effusions, left greater than right with associated b ibasilar atelectasis and/or pneumonia. 2. Multiple chronic bilateral pulmonary nodules most likely sequela of old gran ulomatous disease. 3. Cardiomegaly.
--- NOTE | 2021-02-21 07:58 | ECG_ITS ---
Measurements Intervals [place]ed Rate: 101 P: 86 NH: 178 QRS: -54 QRSD: 168 T: 161 QT: 450 QTc: 585 Interpretive Statements SINUS TACHYCARDIA LEFT BUNDLE BRANCH BLOCK BASELINE WANDER- I, II, III, AVR, AVF, V1-V6 ABNORMAL ECG Electronically Signed On 02-21-2021 8:09:37 CDT by Raulito Bridges D.O.
--- NOTE | 2021-02-21 08:08 | ED.SOB ---
HPI - SOB/Dyspnea General Chief Complaint: Shortness of Breath/Dyspnea Stated Complaint: sob, fluid retention, hx chf Time Seen by Provider: 02/21/21 07:42 History of Present Illness HPI Narrative: 70 yo w/ h/o ischemic cardiomyopathy, recurrent pleural effusion, CABG presents to the ED for SOB. He had a CABG done in December. Since that time he has had recurrent pleural effusions. He has had to have the left side of his chest drained twice. He has had increasing SOB for the past few days. He has not been able to sleep or do normal activities due to this. He also has increase in BLE edema. No chest pain. Related Data Home Medications Medication Instructions Recorded Confirmed aspirin 81 mg tablet,delayed 81 mg PO DAILY 10/27/19 02/12/21 release atorvastatin 40 mg tablet 80 mg PO HS 10/27/19 02/12/21 Eliquis 5 mg PO BID 02/03/21 02/12/21 Jardiance 20 mg PO DAILY 02/03/21 02/12/21 amiodarone 400 mg PO DAILY 02/03/21 02/12/21 metformin 500 mg PO BID 02/03/21 02/12/21 metoprolol tartrate 12.5 mg PO BID 02/03/21 02/12/21 Allergies Allergy/AdvReac Type Severity Reaction Status Date / Time No Known Allergies Allergy Verified 02/21/21 09:38 Review of Systems Review of Systems: All systems reviewed & are unremarkable except as noted in HPI and below Constitutional: Constitutional: Denies chills and Denies fever(s) Eyes: Eyes: Reports no additional eye complaints ENT: Reports system reviewed and no additional complaints, except as documented Cardiovascular: Cardiovascular: Denies chest pain Respiratory: Respiratory: Reports dyspnea Gastrointestinal: Gastrointestinal: Denies abdominal pain, Denies nausea and Denies vomiting Genitourinary: Genitourinary: Reports no additional male genitourinary complaints Neurologic: Denies confusion and Denies dizziness PMFSH Past Medical History Medical History Chronic anticoagulation Chronic kidney disease, stage 3 Baseline creatinine is around 1.60. Chronic left-sided low back pain with left-sided sciatica Coronary artery disease Multiple MIs status post multiple stents and subsequent CABG in December 2020. Enlarged prostate without lower urinary tract symptoms (luts) Essential (primary) hypertension Ischemic cardiomyopathy EF as low as 20%, status post ICD insertion. Obstructive sleep apnea Compliant with CPAP. Postoperative atrial fibrillation Post CABG AFib in December 2020 on apixaban and amiodarone. Pure hypercholesterolemia Type 2 diabetes mellitus without complications Hemoglobin A1c was 6.2% in November 2020. Surgical History Surgical History Automatic implantable cardioverter-defibrillator in situ History of appendectomy History of cardiac catheterization 1. Anterior STEMI in 2013 with drug-eluting stent and angioplasty to the circumflex. 2. Anterior STEMI in April 2018. 100% occlusion ostial/proximal LAD and 70% stenosis ostial RCA status post PCI to the LAD with an EF of 20%. 3. STEMI in December 2020 with 100% thrombotic occlusion of the ostial/proximal and mid LAD, 50% in stent restenoses mid circumflex, 50% eccentric stenosis ostial RCA status post balloon angioplasty of the ostial/proximal mid LAD. EF 25%, Impella was inserted and he was transferred for CABG. History of two vessel coronary artery bypass graft (~12/2020) Bypass of the LAD and circumflex done at [facility]. Complicated by mediastinal bleeding requiring reexploration, wound infection, and delayed closure. Family History Family History Sibling Patient's brother is in good health Family history of malignant neoplasm Patient's sister is in good health Patient's sister is Patient's brother is Father Cerebrovascular accident Mother Family history of malignant ne
[2021-02-21 08:11] LABS: Basophils Absolute Auto 0.1 K/mm3 (0.0-0.1); Basophils Percent Auto 1.2 % (0.2-1.2); Eosinophils Absolute Auto 0.2 K/mm3 (0-0.3); Eosinophils Percent Auto 1.9 % (0-4.4); Hematocrit 44.3 % (42.0-52.0); Hemoglobin 13.8 g/dL (14.0-18.0); Immature Granulocyte Absolute 0.02 K/mm3 (0.00-0.031); Immature Granulocyte Percent A 0.2 % (0-0.5); Lymphocytes Percent Auto 17.4 % (18.3-44.2); Mean Corpuscular HGB Conc 31.2 g/dl (32-36); Mean Corpuscular Hemoglobin 27.7 pg (26-34); Mean Corpuscular Volume 88.8 fl (80-100); Monocytes Absolute Auto 0.9 K/mm3 (0.1-0.6); Monocytes Percent Auto 10.4 % (2.6-8.5); Neutrophils Absolute Auto 5.9 K/mm3 (1.3-6.7); Neutrophils Percent Auto 68.9 % (45.5-73.1); Platelet Count Result 326 k/mm3 (150-375); Red Blood Count 4.99 M/mm3 (4.6-6.20); Red Cell Distribution Width 16.8 % (11.5-14.5); White Blood Count 8.6 K/mm3 (4.5-10.0)
[2021-02-21 08:23] LABS: INR 1.2; Prothrombin Time 15.8 Seconds (11.1-14.7)
[2021-02-21 08:24] LABS: Partial Thromboplastin Time 36.9 SECONDS (22.3-36.8)
[2021-02-21 08:41] LABS: Anion Gap 8 mmol/L (8-16); Blood Urea Nitrogen 35 mg/dL (9-20); Calcium 9.3 mg/dL (8.4-10.2); Carbon Dioxide 33 mmol/L (22-30); Chloride 101 mmol/L (98-107); Estimated CRCL calculation 36 ml/min; Estimated Glomerular Filt Rate 38; Glucose 107 mg/dL (75-110); Potassium 4.1 mmol/L (3.4-5.0); Sodium 142 mmol/L (137-145)
[2021-02-21 08:53] LABS: NT Pro B Type Natriuretic Pept 11500 pg/mL (5-100); Troponin I 0.013 ng/mL (0.000-0.034)
== END 2021-02-21 11:57 | disposition home or self-care (01) ==
PROVIDERS: Emergency Provider Emergency Medicine; PCP Internal Medicine
DX: J90 Pleural effusion, not elsewhere classified (principal); I25.5 Ischemic cardiomyopathy; E11.22 Type 2 diabetes mellitus with diabetic chronic kidney disease; I12.9 Hypertensive chronic kidney disease with stage 1 through stage 4 chronic kidney disease, or unspecified chronic kidney disease; N18.30 Chronic kidney disease, stage 3 unspecified; N40.0 Benign prostatic hyperplasia without lower urinary tract symptoms; I25.10 Atherosclerotic heart disease of native coronary artery without angina pectoris; G47.33 Obstructive sleep apnea (adult) (pediatric); E78.00 Pure hypercholesterolemia, unspecified; I25.2 Old myocardial infarction; Z95.1 Presence of aortocoronary bypass graft; Z95.5 Presence of coronary angioplasty implant and graft; Z87.891 Personal history of nicotine dependence; Z79.84 Long term (current) use of oral hypoglycemic drugs; Z79.01 Long term (current) use of anticoagulants; Z79.82 Long term (current) use of aspirin; R00.0 Tachycardia, unspecified; I44.7 Left bundle-branch block, unspecified; I51.7 Cardiomegaly; R91.8 Other nonspecific abnormal finding of lung field
CPT/HCPCS: 32555; 36415; 71045; 80048; 83880; 84484; 85025; 85610; 85730; 93005; 99284

== ENCOUNTER 2021-03-21 07:43 | Outpatient (CLI) | payer MEDICARE, BC, SELFPAY ==
--- NOTE | ~2021-03-21 | US_ITS ---
EXAMINATION: US abdomen limited EXAM DATE: 03/21/2021 08:44 INDICATION: Abdominal distention. TECHNIQUE: Multiple grayscale and Doppler images of the abdomen right upper quadrant were obtained (jeffrey y a technologist who performed the scan) and subsequently reviewed. There is no prior study for chantale turcios. FINDINGS: The pancreatic head and body are normal in appearance. The pancreatic tail is not visualized. The l iver has normal echogenicity and contour. There are no focal liver lesions identified. There is no evidence of intrahepatic biliary duct dilation. Portal venous flow was seen in the hepatopedal, nor mal direction and has normal Doppler waveform. No right-sided hydronephrosis. Common bile duct measures 3 mm, which is normal. The gallbladder wall is normal in thickness, with ex pected amount of distention. No sonographic evidence of pericholecystic fluid. There is small amount of gallbladder debris without discrete calcific cholelithiasis. Technologist performing exam reports patient did not demonstrate sonographic Rowe's sign. Please note that this sign is less reliable in patients who have received pain medication. Small right pleural effusion. Distended IVC. IMPRESSION: 1. Small amount of gallbladder debris. 2. Small right pleural effusion. 3. Distended IVC could indicate poor right heart function. Reviewed, dictated and finalized at location A.
== END 2021-03-21 07:44 | disposition home or self-care (01) ==
PROVIDERS: PCP Internal Medicine; Visit Provider Internal Medicine Cardiovascular Disease
DX: R14.0 Abdominal distension (gaseous) (principal); J90 Pleural effusion, not elsewhere classified
CPT/HCPCS: 76705

== ENCOUNTER 2021-05-01 09:59 | Outpatient (CLI) | payer MEDICARE, BC, SELFPAY ==
--- NOTE | ~2021-05-01 | XR_ITS ---
EXAMINATION: XR chest 2V DATE: 05/01/2021 10:21 INDICATION: Pleural effusion TECHNIQUE: PA and lateral views of the chest are obtained. COMPARISON: 02/21/2021 FINDINGS: There is a moderate size pleural effusion with slight increase in size since the comparison examination. A small stable right pleural effusion is present. Cardiomegaly is noted. There are stab le airspace opacities of the mid and lower lung zones, left greater than right. Also noted are stable bilateral pulmonary nodules. No pneumothorax is identified. Median sternotomy wires and mediastinal surgical clips are seen, likely from prior coronary artery bypass grafting. A single lead pacemaker o f the left chest wall ends with lead in the right ventricle. There is moderate thoracic spondylosis. A coronary artery stent is noted. IMPRESSION: 1. Moderate-sized left and small right pleural effusions. 2. Stable airspace opacities of the mid and lower lung zones, consistent with atelectasis versus pneu monia. 3. Cardiomegaly. 4. Stable pulmonary nodules, likely benign. Reviewed, dictated and finalized at location B. IMPRESSION: 1. Moderate-sized left and small right pleural effusions. 2. Stable airspace opacities of the mid and lower lung zones, consistent with a telectasis versus pneumonia. 3. Cardiomegaly. 4. Stable pulmonary nodules, likely benign.
== END 2021-05-01 10:00 | disposition home or self-care (01) ==
PROVIDERS: PCP Internal Medicine; Visit Provider Internal Medicine Pulmonary Disease
DX: J90 Pleural effusion, not elsewhere classified (principal); I51.7 Cardiomegaly; Z95.0 Presence of cardiac pacemaker
CPT/HCPCS: 71046

== ENCOUNTER 2021-05-12 12:16 | Inpatient (IN) | payer MEDICARE, BC, SELFPAY ==
[2021-05-12] VITALS (18 sets, daily range): BP systolic 77–134; BP diastolic 61–109; PULSE 100–114; RESP 16–31; TEMP 36–36.6; O2SAT 90–97; BMI 23.3
--- NOTE | ~2021-05-12 | XR_ITS ---
EXAMINATION: XR chest 1V portable DATE: 05/19/2021 06:34 INDICATION: Shortness of breath TECHNIQUE: frontal view of the chest was obtained. COMPARISON: Chest radiograph dated 05/18/[address] dated 05/16/2021 FINDINGS: Cardiomegaly with pulmonary vascular congestion. Emphysema better appreciated on prior CT. Airspace o pacities in the bilateral mid and lower lung zones consistent with small posterior layering bilateral pleural effusions with superimposed atelectasis and/or pneumonia likely unchanged accounting for dif ferences in patient positioning. There are also multiple scattered superimposed chronic pulmonary nod ules. Median sternotomy wires and mediastinal surgical clips are seen, likely from prior coronary art thad bypass grafting. Single lead pacemaker/AICD seen with lead tip projecting near the apex of the ri ght ventricle. IMPRESSION: 1. No significant interval change in small bilateral posteriorly layering pleural effusions with asso ciated atelectasis and/or pneumonia in the mid and lower lung zones. 2. Emphysema. 3. Scattered chronic pulmonary nodules which are described in further detail on CT dated 05/16/2021. 4. Cardiomegaly. Reviewed, dictated and finalized at location A. IMPRESSION: 1. No significant interval change in small bilateral posteriorly layering pleur al effusions with associated atelectasis and/or pneumonia in the mid and lower lung zones. 2. Emphysema. 3. Scattered chronic pulmonary nodules which are described in further detail on CT dated 05/16/2021. 4. Cardiomegaly.
--- NOTE | ~2021-05-12 | US_ITS ---
EXAMINATION: US thoracentesis DATE: 05/13/2021 12:15 INDICATION: pleural effusion TECHNIQUE: The procedure and its risks, benefits, and alternatives were discussed with the patient. P otential risks discussed included bleeding, infection, and pneumothorax. The patient understood the r isks and agreed to proceed. The skin was prepped and draped in sterile fashion. 1% lidocaine was used for local anesthesia. Under ultrasound guidance, a 5 Fr catheter with trochar was advanced into the left pleural effusion. Fluid was aspirated. The catheter was removed, and a dressing was applied. The re were no immediate complications. FINDINGS: Ultrasound images demonstrate a left pleural effusion and the catheter within the fluid. IMPRESSION: 1. Successful ultrasound-guided thoracentesis yielding 1000 mL of red fluid. Reviewed, dictated and finalized at location A.
--- NOTE | ~2021-05-12 | XR_ITS ---
EXAMINATION: [id number]_[id number] DATE: 05/13/2021 12:17 INDICATION: Recurrent left pleural effusion status post thoracentesis. TECHNIQUE: Frontal and lateral views of the chest were obtained. COMPARISON: Chest 2 views 05/12/2021 FINDINGS: There are small right and moderate-sized left pleural effusions. There are airspace opaciti es in the mid and lower lung zones. No pneumothorax. Cardiomegaly is noted. Median sternotomy wires a nd mediastinal surgical clips are seen, likely from prior coronary artery bypass grafting. There is a left chest pacer with lead in right ventricle. IMPRESSION: 1. Small right and moderate-sized left pleural effusions. 2. Airspace opacities in the mid and lower lung zones, consistent with pulmonary edema versus pneumon ia. 3. Cardiomegaly. Reviewed, dictated and finalized at location A. IMPRESSION: 1. Small right and moderate-sized left pleural effusions. 2. Airspace opacities in the mid and lower lung zones, consistent with pulmonar y edema versus pneumonia. 3. Cardiomegaly.
--- NOTE | ~2021-05-12 | CT_ITS ---
EXAMINATION: CT diagnostic chest wo con DATE: 05/17/2021 00:13 INDICATION: increasing dyspnea TECHNIQUE: Computed tomography (CT) of the chest was performed without intravenous contrast. Addition al 3D reconstructions utilizing coronal maximum intensity projection (MIP) were performed. Automated exposure control and iterative reconstruction technique were employed. The dose-length product was 30 2.02 mGy-cm. COMPARISON: 02/04/2021 FINDINGS: Mild emphysema. Bilateral posterior layering pleural effusions, moderate to large on the left and sma ll to moderate on the right. The left pleural effusion depresses the left hemidiaphragm. Left lower l obe collapse with additional compressive atelectasis in the dependent aspect of the lingula, right mi ddle and lower lobes. Suture line on the lingula suggesting prior pulmonary wedge resection. Multiple scattered lateral pulmonary nodules measuring up to 1.3 cm which appear unchanged in size and number since 08/26/2020 and which were without evident increased FDG uptake on intervening PET/CT dated 09/03/2020. Cardiomegaly. Atherosclerotic coronary artery calcification. Changes of prior coronary artery stenting, median sternotomy and coronary artery bypass grafting. Single lead cardiac pacemaker/AICD with lead tip at the apex of the right ventricle. No pericardial effusion. No significant interval ch demetris in mild nonspecific mediastinal lymphadenopathy. There is increased hepatic parenchymal attenuat ion consistent with chronic amiodarone use. Visualized upper abdomen is otherwise unremarkable. Mild thoracic spondylosis. IMPRESSION: 1. Small to moderate right and moderate to large left pleural effusions with compressive atelectasis in both lungs as detailed above. 2. Mild emphysema. 3. No interval change since 08/26/2020 in multiple bilateral pulmonary nodules measuring up to 1.3 cm which without evident increased FDG uptake on PET/CT dated 09/03/2020 which favors a benign etiology of the slowly growing metastatic disease cannot be absolutely excluded. There are changes of prior li ngular pulmonary wedge resection which may provide further insight. Correlate with clinical/surgical history. 4. Cardiomegaly. 5. Unchanged mild mediastinal lymphadenopathy which could be either reactive or metastatic. 6. Increased hepatic parenchymal attenuation which could be due to chronic amiodarone use. Reviewed, dictated and finalized at location A. IMPRESSION: 1. Small to moderate right and moderate to large left pleural effusions with co mpressive atelectasis in both lungs as detailed above. 2. Mild emphysema. 3. No interval change since 08/26/2020 in multiple bilateral pulmonary nodules measuring up to 1.3 cm which without evident increased FDG uptake on PET/CT hugo ed 09/03/2020 which favors a benign etiology of the slowly growing metastatic di sease cannot be absolutely excluded. There are changes of prior lingular pulmon mehul wedge resection which may provide further insight. Correlate with clinical/ surgical history. 4. Cardiomegaly. 5. Unchanged mild mediastinal lymphadenopathy which could be either reactive or metastatic. 6. Increased hepatic parenchymal attenuation which could be due to chronic amio darone use.
--- NOTE | ~2021-05-12 | XR_ITS ---
EXAMINATION: XR chest 1V portable INDICATION: Pleural effusion TECHNIQUE: Portable AP chest at 0714 hours COMPARISON: 05/21/2021 FINDINGS: Moderate-sized left and small right pleural effusions are stable. Cardiomegaly is noted. A mild diffuse interstitial pattern persists but has improved. There is no pneumothorax. Airspace opaci ties of the left mid and lower lung zones and right lung base persist without significant change. Med shelton sternotomy wires and mediastinal surgical clips are seen, likely from prior coronary artery bypas s grafting. A single lead pacemaker of the left chest wall ends with its lead in the right ventricle. IMPRESSION: 1. Moderate-sized left and small right pleural effusions, stable 2. Cardiomegaly with improving pulmonary edema. 3. Airspace opacities of the left mid and lower lung zones and right lower lung zone, stable, consist ent with atelectasis versus pneumonia. Reviewed, dictated and finalized at location B. IMPRESSION: 1. Moderate-sized left and small right pleural effusions, stable 2. Cardiomegaly with improving pulmonary edema. 3. Airspace opacities of the left mid and lower lung zones and right lower lung zone, stable, consistent with atelectasis versus pneumonia.
--- NOTE | ~2021-05-12 | XR_ITS ---
EXAMINATION: XR chest 1V portable EXAM DATE: 05/16/2021 09:24 INDICATION: Increased oxygen. TECHNIQUE: Portable AP frontal chest x-ray was obtained. Comparison is made to prior examination from 05/12/2021. FINDINGS: There is cardiomegaly and pulmonary vascular congestion. Progression of diffuse abnormal re ticulation, edema and/or pneumonia. Probable moderate left, small right pleural effusions. Adjacent a telectasis. No pneumothorax. Sternotomy wires are present without findings to suggest sternal dehisce nce. There is single lead pacemaker/AICD device seen with tip projecting over the expected location o f right ventricle. There are bony degenerative changes. IMPRESSION: 1. CHF. Progression of edema and/or pneumonia. 2. Moderate left, small right pleural effusions. Reviewed, dictated and finalized at location A.
--- NOTE | ~2021-05-12 | XR_ITS ---
EXAMINATION: XR chest 1V portable INDICATION: Shortness of breath TECHNIQUE: Portable AP chest at 0544 hours COMPARISON: 05/16/2021 FINDINGS: There are unchanged moderate to large left and moderate size right pleural effusions. Cardi omegaly is noted. Diffuse airspace opacities persist with slight improvement in the left upper lung z one. There is no pneumothorax. A single lead pacemaker of the left chest wall ends with its lead in t he right ventricle. Focal airspace opacity of the left lung base likely reflects passive atelectasis. Coronary artery stents are noted. Median sternotomy wires and mediastinal surgical clips are seen, l ikely from prior coronary artery bypass grafting. IMPRESSION: 1. Moderate to large left and moderate size right pleural effusions. 2. Diffuse lung disease with slight improvement in the left upper lung zone, consistent with pneumoni a and/or atelectasis. 3. Cardiomegaly. Reviewed, dictated and finalized at location A. IMPRESSION: 1. Moderate to large left and moderate size right pleural effusions. 2. Diffuse lung disease with slight improvement in the left upper lung zone, co nsistent with pneumonia and/or atelectasis. 3. Cardiomegaly.
--- NOTE | ~2021-05-12 | XR_ITS ---
XR chest 2V DATE: 05/21/2021 10:54 INDICATION: Congestive heart failure, left pleural effusion TECHNIQUE: AP and lateral views COMPARISON: 05/19/2021 portable AP chest FINDINGS: Left-sided pacemaker with lead overlying right ventricular apex. Status post sternotomy. Cardiomegaly. Aortic arch calcification. There is mild pulmonary vascular congestion, improved since 05/19/2021. There are bilateral pleural ef fusions, appearing greater on the left compared to the right. There are bilateral mid and particularl y lower lung infiltrates, left greater than right. No pneumothorax. Osteopenia IMPRESSION: Mild improvement of congestive changes since 05/19/2021 Bilateral mid and particularly lower lung infiltrates or atelectasis, left greater than right Bilateral pleural effusions, also probably greater on the left Status post sternotomy Left pacemaker Osteopenia Reviewed, dictated and finalized at location A. IMPRESSION: Mild improvement of congestive changes since 05/19/2021 Bilateral mid and particularly lower lung infiltrates or atelectasis, left grea ter than right Bilateral pleural effusions, also probably greater on the left Status post sternotomy Left pacemaker Osteopenia
--- NOTE | ~2021-05-12 | XR_ITS ---
EXAMINATION: XR chest 2V DATE: 05/12/2021 13:16 INDICATION: Shortness of breath TECHNIQUE: PA and lateral views of the chest were obtained. COMPARISON: Chest radiograph dated 05/01/2021 FINDINGS: Opacities in the bilateral mid to lower lung zones, left greater than right. Moderate-sized left and small right pleural effusions. No pneumothorax. Cardiomegaly. Median sternotomy wires and mediastinal surgical clips are seen, likely from prior coronary artery bypass grafting. Coronary artery stenting . Single lead cardiac pacemaker/AICD seen with lead tip projecting near the expected location of the apex of the right ventricle. IMPRESSION: 1. No significant change in a small right and moderate-sized left pleural effusion with associated ai rspace disease in the mid and lower lung zones which could represent atelectasis, pulmonary edema, pn eumonia or some combination thereof. 2. Cardiomegaly. Reviewed, dictated and finalized at location A. IMPRESSION: 1. No significant change in a small right and moderate-sized left pleural effus ion with associated airspace disease in the mid and lower lung zones which coul d represent atelectasis, pulmonary edema, pneumonia or some combination thereof . 2. Cardiomegaly.
--- NOTE | ~2021-05-12 | XR_ITS ---
EXAMINATION: [id number] DATE: 05/18/2021 15:06 INDICATION: Left pleural effusion TECHNIQUE: frontal view of the chest was obtained. COMPARISON: Chest radiograph dated 05/18/2021 at 5:44 AM FINDINGS: Unchanged small right and decreased moderate-sized left pleural effusions. Airspace opacities in the bilateral mid and lower lung zones. No pneumothorax. Cardiomegaly. Median sternotomy wires and medias tinal surgical clips are seen, likely from prior coronary artery bypass grafting. Cardiac pacemaker/A ICD seen with leads lead tip at the right ventricle. IMPRESSION: 1. Small right and moderate-sized left pleural effusions, decreased on the left post thoracentesis. 2. Airspace opacities in the bilateral mid and lower lung zones consistent with pulmonary edema, atel ectasis and/or pneumonia. 3. Cardiomegaly. Reviewed, dictated and finalized at location A. IMPRESSION: 1. Small right and moderate-sized left pleural effusions, decreased on the left post thoracentesis. 2. Airspace opacities in the bilateral mid and lower lung zones consistent with pulmonary edema, atelectasis and/or pneumonia. 3. Cardiomegaly.
--- NOTE | ~2021-05-12 | US_ITS ---
EXAMINATION: US thoracentesis DATE: 05/18/2021 15:12 INDICATION: Left pleural effusion TECHNIQUE: The procedure and its risks and benefits were discussed with the patient. Potential risks discussed included bleeding, infection, and pneumothorax. The patient understood the risks and agreed to proceed. The skin was prepped and draped in sterile fashion. 1% lidocaine was used for local anes thesia. Under ultrasound guidance, a 5 Fr catheter with trochar was advanced into the left pleural ef fusion. Fluid was aspirated. The catheter was removed, and a dressing was applied. There were no imme diate complications. FINDINGS: Ultrasound images demonstrate a large left pleural effusion and the catheter within the fluid. IMPRESSION: 1. Successful ultrasound-guided thoracentesis yielding 1100 mL of dark reddish fluid. Reviewed, dictated and finalized at location A.
--- NOTE | 2021-05-12 12:23 | ECG_ITS ---
Measurements Intervals Ramer Rate: 101 P: 79 SD: 143 QRS: -57 QRSD: 146 T: 173 QT: 444 QTc: 578 Interpretive Statements ATRIAL FLUTTER/TACHYCARDIA WITH RAPID VENTRICULAR RESPONSE LEFT AXIS DEVIATION LEFT BUNDLE BRANCH BLOCK ABNORMAL ECG Electronically Signed On 05-12-2021 14:47:17 CDT by Raulito Bridges D.O.
[2021-05-12 12:47] LABS: Basophils Absolute Auto 0.1 K/mm3 (0.0-0.1); Eosinophils Absolute Auto 0.1 K/mm3 (0-0.3); Eosinophils Percent Auto 1.7 % (0-4.4); Hematocrit 39.4 % (42.0-52.0); Hemoglobin 11.9 g/dL (14.0-18.0); Immature Granulocyte Absolute 0.04 K/mm3 (0.00-0.031); Immature Granulocyte Percent A 0.5 % (0-0.5); Lymphocytes Absolute Auto 1.34 K/mm3 (0.9-3.2); Lymphocytes Percent Auto 16.6 % (18.3-44.2); Mean Corpuscular HGB Conc 30.2 g/dl (32-36); Mean Corpuscular Hemoglobin 24.2 pg (26-34); Mean Corpuscular Volume 80.2 fl (80-100); Mean Platelet Volume 9.6 fl (7.4-10.4); Monocytes Percent Auto 12.6 % (2.6-8.5); Neutrophils Absolute Auto 5.5 K/mm3 (1.3-6.7); Neutrophils Percent Auto 67.6 % (45.5-73.1); Platelet Count Result 340 k/mm3 (150-375); Red Blood Count 4.91 M/mm3 (4.6-6.20); Red Cell Distribution Width 19.2 % (11.5-14.5); White Blood Count 8.1 K/mm3 (4.5-10.0)
[2021-05-12 12:57] LABS: Anion Gap 12 mmol/L (8-16); Blood Urea Nitrogen 56 mg/dL (9-20); Calcium 9.1 mg/dL (8.4-10.2); Carbon Dioxide 32 mmol/L (22-30); Chloride 93 mmol/L (98-107); Estimated CRCL calculation 27 ml/min; Estimated Glomerular Filt Rate 27; Glucose 125 mg/dL (75-110); Potassium 3.5 mmol/L (3.4-5.0); Sodium 137 mmol/L (137-145)
[2021-05-12 13:00] LABS: INR 1.8; Prothrombin Time 20.7 Seconds (11.1-14.7)
[2021-05-12 13:03] LABS: Partial Thromboplastin Time 41.5 SECONDS (22.3-36.8)
[2021-05-12 13:13] LABS: NT Pro B Type Natriuretic Pept 14400 pg/mL (5-100)
--- NOTE | 2021-05-12 15:23 | ED.SOB ---
HPI - SOB/Dyspnea General Chief Complaint: Shortness of Breath/Dyspnea Stated Complaint: SOB, pleural effusion Time Seen by Provider: 05/12/21 13:42 History of Present Illness HPI Narrative: Patient is a 70-year-old male who presents ER with shortness of breath. Reports increasing lower extremity edema. History of bypass at [facility]. He has had recurrent hospitalizations for CHF since open heart surgery. He is also had recurrent thoracentesis for left-sided pleural effusion. No fevers or chills or sweats. No new productive cough. He is having no chest pain or chest pressure. He has been taking torsemide but still having increasing edema. Endorses orthopnea. Related Data Home Medications Medication Instructions Recorded Confirmed aspirin 81 mg tablet,delayed 81 mg PO DAILY 10/27/19 05/12/21 release Eliquis 5 mg PO BID 02/03/21 05/12/21 Jardiance 20 mg PO DAILY 02/03/21 05/12/21 metformin 500 mg PO BID 02/03/21 05/12/21 Entresto 1 tablet PO BID 03/04/21 05/12/21 atorvastatin 80 mg PO HS 03/04/21 05/12/21 amiodarone 400 mg tablet 200 mg PO DAILY tablet 03/23/21 05/12/21 carvedilol 3.125 mg tablet 3.125 mg PO BID tablet 05/12/21 05/12/21 torsemide 20 mg tablet 20 mg PO BIDWMEAL tablet 05/12/21 05/12/21 Allergies Allergy/AdvReac Type Severity Reaction Status Date / Time No Known Allergies Allergy Verified 05/12/21 08:42 Review of Systems Review of Systems: All systems reviewed & are unremarkable except as noted in HPI and below Constitutional: Constitutional: Denies chills, Denies fever(s) and Reports weakness ENT: Denies nasal congestion and Denies sore throat Cardiovascular: Cardiovascular: Denies chest pain, Denies rapid heart rate and Denies radiating jaw, neck or arm pain Respiratory: Respiratory: Denies cough, Reports dyspnea and Denies wheezing Gastrointestinal: Gastrointestinal: Denies abdominal pain, Denies nausea and Denies vomiting Neurologic: Denies focal weakness and Denies numbness [facility] Past Medical History Medical History (Updated 05/26/21 @ 23:36 by Pierce Chester MD) Chronic anticoagulation Chronic kidney disease, stage 3 Baseline creatinine is around 1.60. Chronic left-sided low back pain with left-sided sciatica Coronary artery disease Multiple MIs status post multiple stents and subsequent CABG in December 2020. Enlarged prostate without lower urinary tract symptoms (luts) Essential (primary) hypertension Ischemic cardiomyopathy EF as low as 20%, status post ICD insertion. EF was 28% on echocardiogram in March 2021. Obstructive sleep apnea Compliant with CPAP. Postoperative atrial fibrillation Post CABG AFib in December 2020 on apixaban and amiodarone. Pure hypercholesterolemia Type 2 diabetes mellitus without complications Hemoglobin A1c was 6.2% in November 2020. Surgical History Surgical History Automatic implantable cardioverter-defibrillator in situ History of appendectomy History of cardiac catheterization 1. Anterior STEMI in 2013 with drug-eluting stent and angioplasty to the circumflex. 2. Anterior STEMI in April 2018. 100% occlusion ostial/proximal LAD and 70% stenosis ostial RCA status post PCI to the LAD with an EF of 20%. 3. STEMI in December 2020 with 100% thrombotic occlusion of the ostial/proximal and mid LAD, 50% in stent restenoses mid circumflex, 50% eccentric stenosis ostial RCA status post balloon angioplasty of the ostial/proximal mid LAD. EF 25%, Impella was inserted and he was transferred for CABG. History of two vessel coronary artery bypass graft (~12/2020) Bypass of the LAD and circumflex done at [facility]. Complicated by mediastinal bleeding requiring reexploration, wound infection, and delayed closure. Family History Family History Sibling Patient's brother is in good health Family history of mirian
[2021-05-12 16:20] LABS: Troponin I 0.038 ng/mL (0.000-0.034)
--- NOTE | 2021-05-12 17:30 | PM.IMHP ---
H&P: HPI History of Present Illness Date/Time: 05/12/21 17:30 Chief Complaint: Shortness of breath and edema. Narrative: This is a 70-year-old male with coronary artery disease status post bypass, postoperative CABG atrial fibrillation, ischemic cardiomyopathy with an EF as low as 20%, hypertension, hyperlipidemia, and sleep apnea who presented to the emergency department earlier today with complaints of shortness of breath and increasing edema. He had a 2 vessel bypass in December 2020 at [facility] and had a prolonged stay due to complications including mediastinal bleeding requiring exploration and wound infection with delayed closure. He developed atrial fibrillation postoperatively and was started on amiodarone and apixaban. Since that time he has had a couple of hospitalizations for CHF exacerbations and has had numerous thoracenteses for recurrent left-sided pleural effusion. He has had ongoing issues with soft blood pressures, typically running in the high 80s or low 90 systolic, and at times he has had to hold his diuretics. He seems to have been stable on torsemide though more recently he has been having increasing edema and severe orthopnea to the point where he is having to sit up to sleep. His appetite has been poor and he is just not hungry. He denies nausea and vomiting. He has not had chest pain, pleuritic pain, or palpitations. No fever, chills, or sweats. No cough Review of Systems Review of Systems: Narrative: 12 systems were reviewed with pertinent positives and negatives as per HPI. No blurry vision, polydipsia, or polyuria. No pleuritic pain or feelings of racing heart. No history of venous thromboembolism. Except as documented, all other systems were reviewed and are negative. [facility] Past Medical History Medical History (Updated 05/12/21 @ 21:42 by Ella Valerio PA-C) Chronic anticoagulation Chronic kidney disease, stage 3 Baseline creatinine is around 1.60. Chronic left-sided low back pain with left-sided sciatica Coronary artery disease Multiple MIs status post multiple stents and subsequent CABG in December 2020. Enlarged prostate without lower urinary tract symptoms (luts) Essential (primary) hypertension Ischemic cardiomyopathy EF as low as 20%, status post ICD insertion. EF was 28% on echocardiogram in March 2021. Obstructive sleep apnea Compliant with CPAP. Postoperative atrial fibrillation Post CABG AFib in December 2020 on apixaban and amiodarone. Pure hypercholesterolemia Type 2 diabetes mellitus without complications Hemoglobin A1c was 6.2% in November 2020. Surgical History Surgical History Automatic implantable cardioverter-defibrillator in situ History of appendectomy History of cardiac catheterization 1. Anterior STEMI in 2013 with drug-eluting stent and angioplasty to the circumflex. 2. Anterior STEMI in April 2018. 100% occlusion ostial/proximal LAD and 70% stenosis ostial RCA status post PCI to the LAD with an EF of 20%. 3. STEMI in December 2020 with 100% thrombotic occlusion of the ostial/proximal and mid LAD, 50% in stent restenoses mid circumflex, 50% eccentric stenosis ostial RCA status post balloon angioplasty of the ostial/proximal mid LAD. EF 25%, Impella was inserted and he was transferred for CABG. History of two vessel coronary artery bypass graft (~12/2020) Bypass of the LAD and circumflex done at [facility]. Complicated by mediastinal bleeding requiring reexploration, wound infection, and delayed closure. Family History Family History Sibling Patient's brother is in good health Family history of malignant neoplasm Patient's sister is in good health Patient's sister is Patient's brother is Father Cerebrovascular accident Mother Family history of malignant neoplasm Patient's mot
--- NOTE | 2021-05-12 17:43 | PC.NURSE ---
This patient, Stephen Solo, was admitted to IMU Room 206-01. Patient/family oriented to hospital policies and general routines including ID bracelet, bed and alarms, visiting hours, pain management, procedures, bathroom and other care routines, personal items, smoking policy, room service/diet, and visiting hours. Information on how to activate the Rapid Response Team has been discussed. Patient/Family are encouraged to report perceived risks to care and to ask questions if they do not understand what they are told or what they should do.
[2021-05-12 20:05] LABS: Troponin I 0.038 ng/mL (0.000-0.034)
[2021-05-12] MEDS: ZOLPIDEM TARTRATE (*CRX) 5 MG TABLET PO (23:01)
[2021-05-13] VITALS (25 sets, daily range): BP systolic 76–132; BP diastolic 40–94; PULSE 99–111; RESP 12–24; TEMP 36.1–36.7; O2SAT 91–98
[2021-05-13 05:10] LABS: Alanine Aminotransferase 44 U/L (4-50); Albumin Level 3.8 g/dL (3.5-5.1); Alkaline Phosphatase 242 U/L (38-126); Anion Gap 8 mmol/L (8-16); Aspartate Amino Transferase 42 U/L (17-59); Bilirubin,Total 0.5 mg/dL (0.2-1.3); Blood Urea Nitrogen 60 mg/dL (9-20); Carbon Dioxide 33 mmol/L (22-30); Chloride 98 mmol/L (98-107); Estimated CRCL calculation 30 ml/min; Estimated Glomerular Filt Rate 30; Glucose 112 mg/dL (75-110); Magnesium 1.5 mg/dL (1.6-2.3); Potassium 3.3 mmol/L (3.4-5.0); Sodium 139 mmol/L (137-145)
[2021-05-13 05:11] LABS: Hematocrit 37.6 % (42.0-52.0); Hemoglobin 11.6 g/dL (14.0-18.0); Mean Corpuscular HGB Conc 30.9 g/dl (32-36); Mean Corpuscular Hemoglobin 24.2 pg (26-34); Mean Corpuscular Volume 78.3 fl (80-100); Mean Platelet Volume 9.9 fl (7.4-10.4); Platelet Count Result 360 k/mm3 (150-375); Red Cell Distribution Width 18.6 % (11.5-14.5); White Blood Count 7.8 K/mm3 (4.5-10.0)
[2021-05-13] MEDS: AMIODARONE HCL 200 MG TABLET PO (09:13)
[2021-05-13] MEDS: TORSEMIDE 20 MG TABLET PO (09:13)
[2021-05-13] MEDS: carvediloL 3.125 MG TABLET PO (09:14)
[2021-05-13] MEDS: SACUBITRIL/VALSARTAN 24-26 MG TABLET 1 TAB PO (12:25)
[2021-05-13] MEDS: ASPIRIN 81 MG ENTERIC TABLET PO (12:25)
--- NOTE | 2021-05-13 12:33 | PC.NURSE ---
Patient returned from @[id number].
--- NOTE | 2021-05-13 14:20 | PM.CNCAR ---
Assessment and Plan Assessment and plan (1) Acute exacerbation of congestive heart failure: Code(s): I50.9 - Heart failure, unspecified Status: Acute Assessment and Plan: acute on chronic systolic heart failure. This is been ongoing problem since his bypass. This is unfortunately not being helped by his persistent atrial flutter with rapid ventricular response. He was on amiodarone and it appears that he has been in atrial flutter with RVR for several months. His Eliquis was held yesterday and this morning for thoracentesis. I will resume his Eliquis 5 mg p.o. b.i.d.. will also start him on furosemide 40 mg IV q.12 hours. Will start low-dose carvedilol 3.125 mg p.o. b.i.d. as well as Entresto 24/26 mg 1/2 tablet p.o. b.i.d.. (2) Chronic anticoagulation: Code(s): Z79.01 - alf (current) use of anticoagulants Status: Acute Assessment and Plan: on Eliquis (3) Pleural effusion on left: Code(s): J90 - Pleural effusion, not elsewhere classified Status: Acute Assessment and Plan: Status post thoracentesis (4) Atrial flutter: Code(s): I48.92 - Unspecified atrial flutter Status: Acute Assessment and Plan: as detailed above, he has had persistent atrial flutter with RVR for months. I think it would behoove him to be back in sinus rhythm especially given the severity of his cardiomyopathy. Will resume his Eliquis today and keep him NPO after midnight for cardioversion tomorrow. BMP and magnesium in a.m. (5) Ischemic cardiomyopathy: Code(s): I25.5 - Ischemic cardiomyopathy Status: Acute Assessment and Plan: as above (6) History of implantable cardioverter-defibrillator (ICD) placement: Code(s): Z95.810 - Presence of automatic (implantable) cardiac defibrillator Status: Acute (7) Coronary artery disease: Code(s): I25.10 - Atherosclerotic heart disease of [place] coronary artery without angina pectoris Status: Acute Assessment and Plan: no anginal symptoms status post CABG (8) Electrolyte imbalance: Code(s): E87.8 - Other disorders of electrolyte and fluid balance, not elsewhere classified Status: Acute Assessment and Plan: magnesium is low and will give 2 g IV x1. He is also hypokalemic and 40 mg p.o. potassium x1. Repeat BMP and magnesium in the morning History of Present Illness History of Present Illness Consult date/time: 05/13/21 14:20 Requesting physician: Pierce Chester MD Consult reason: congestive heart failure Reason For Visit: CHF exacerbation/pleural effusion/CKD Narrative: date of service 05/13/2021 Requesting provider: Dr. Chester History patient is a 70-year-old male who has a history of coronary disease status post bypass surgery. He had postoperative atrial fibrillation. Ejection fraction as low as 20% with an ischemic cardiomyopathy, high blood pressure, high cholesterol as well as sleep apnea. He had a prolonged hospital course with multiple complications including mediastinal bleeding requiring reexploration and wound infection with delayed closure. He was here in this hospital back in January because of heart failure. He was noted be in atrial flutter that time and there was a discussion about possible cardioversion but it does not appear that this was performed. He has been doing with bouts of heart failure for the past several months. His heart rate is consistently been in the low 100s. He denies any chest pain but has been increasingly more short of breath over the past week or so. He has not had paroxysmal nocturnal dyspnea as well as worsening edema. No syncope or presyncope. he called the office last week and he was told to increase his Torsemide to 40 mg p.o. b.i.d.. Despite this, he continued to feel poorly and came to the hospital yesterday for further treatment. he is status post thoracentesis earlier today were 1000 cc was
[2021-05-13] MEDS: POTASSIUM CHLORIDE 20 MEQ TABLET 40 MEQ PO (14:52)
[2021-05-13] MEDS: MAGNESIUM SULF 2 GM/WATER 50ML 2 GM/50 ML BAG IVPB (14:52)
--- NOTE | 2021-05-13 15:19 | P.PNIM_ITS ---
Progress Note: A&P Assessment and Plan (1) Acute exacerbation of congestive heart failure: Code(s): I50.9 - Heart failure, unspecified Status: Acute Assessment and Plan: * Patient has to 4+ pitting edema bilateral lower extremity * BNP 58580 * 40 mg IV Lasix Q 12 * strict I&Os * tele monitor shows AFib in the 100s * echo from 03/19 21 shows an EF of 20% * cardiology consult thank you for your recommendations * carvedilol 3.125 mg p.o. b.i.d. * Entresto 1 tablet p.o. b.i.d. * Torsemide 20mg PO BIDWM * Heart healthy diet (2) Pleural effusion on left: Code(s): J90 - Pleural effusion, not elsewhere classified Status: Acute Assessment and Plan: * Chest xray showed a moderate left sided pleural effusion * thoracentesis performed today * 1000 mL drained * It is noted that the patient has nodules in lungs. These were found on the chest CT from 02/04/21. * Trend I&Os * Monitor breathing * Might need a follow up x-ray. (3) Ischemic cardiomyopathy: Code(s): I25.5 - Ischemic cardiomyopathy Status: Acute (4) Atrial flutter: Code(s): I48.92 - Unspecified atrial flutter Status: Acute Assessment and Plan: * Chronic * Patient on Eliquis * Cardiology consulted thank you * Cardiology considering a cardioversion probably outpatient * Rate is controlled * Carvedilol 3.125mg PO BID * Trend heart rate * Tele monitor Afib/Flutter (5) Chronic anticoagulation: Code(s): Z79.01 - [employer] (current) use of anticoagulants Status: Acute Assessment and Plan: * continue Eliquis p.o. 5 mg b.i.d. * For chronic Afib (6) Obstructive sleep apnea: Code(s): G47.33 - Obstructive sleep apnea (adult) (pediatric) Status: Acute Assessment and Plan: * use CPAP at night will here * adjust settings to home settings (7) Chronic kidney disease, stage 3: Code(s): N18.30 - Chronic kidney disease, stage 3 unspecified Status: Acute Assessment and Plan: * BUN 60, Cr 2.20 down from 2.40. * GFR is 30 * Could be acute on chronic renal failure from overload. * Lasix 40mg IV BID * Trend I&Os * Monitor edema * Labs in am Time Spent With Patient Time with patient: 25 - 35 minutes Subjective Date/time seen: 05/13/21 14:45 Interval history: This is a 70-year-old male with coronary artery disease status post bypass, postoperative CABG atrial fibrillation, ischemic cardiomyopathy with an EF as low as 20%, hypertension, hyperlipidemia, and sleep apnea who presented to the emergency department with complaints of shortness of breath and increasing edema. patient stated that he was doing a lot better now that he had thoracentesis done this afternoon. Patient stated that he has had 5 thora centeses since December early December. Patient was just at the outpatient clinic with pulmonology who instructed patient to get another chest x-ray in about a month. It patient was also seen by cardiology today for a flutter a fib who suggested patient may need a outpatient cardioversion. Patient stated that she he still has swelling in his legs which about 2 to 4+ pitting edema. Patient denies chest pain, shortness of breath, nausea, vomiting, headache, lightheadedness, dizziness, falls or syncope. Review of Systems Review of Systems: All systems reviewed & are unremarkable except as noted in HPI and below Ex
--- NOTE | 2021-05-13 15:19 | PM.IMPN ---
Progress Note: A&P Assessment and Plan (1) Acute exacerbation of congestive heart failure: Code(s): I50.9 - Heart failure, unspecified Status: Acute Assessment and Plan: Patient has to 4+ pitting edema bilateral lower extremity BNP 18854 40 mg IV Lasix Q 12 strict I&Os tele monitor shows AFib in the 100s echo from 03/19 21 shows an EF of 20% cardiology consult thank you for your recommendations carvedilol 3.125 mg p.o. b.i.d. Entresto 1 tablet p.o. b.i.d. Torsemide 20mg PO BIDWM Heart healthy diet (2) Pleural effusion on left: Code(s): J90 - Pleural effusion, not elsewhere classified Status: Acute Assessment and Plan: Chest xray showed a moderate left sided pleural effusion thoracentesis performed today 1000 mL drained It is noted that the patient has nodules in lungs. These were found on the chest CT from 02/04/21. Trend I&Os Monitor breathing Might need a follow up x-ray. 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 5 mg b.i.d. For chronic Afib (6) Obstructive sleep apnea: Code(s): G47.33 - Obstructive sleep apnea (adult) (pediatric) Status: Acute Assessment and Plan: use CPAP at night will here adjust settings to home settings (7) Chronic kidney disease, stage 3: Code(s): N18.30 - Chronic kidney disease, stage 3 unspecified Status: Acute Assessment and Plan: BUN 60, Cr 2.20 down from 2.40. GFR is 30 Could be acute on chronic renal failure from overload. Lasix 40mg IV BID Trend I&Os Monitor edema Labs in am Time Spent With Patient Time with patient: 25 - 35 minutes Subjective Date/time seen: 05/13/21 14:45 Interval history: This is a 70-year-old male with coronary artery disease status post bypass, postoperative CABG atrial fibrillation, ischemic cardiomyopathy with an EF as low as 20%, hypertension, hyperlipidemia, and sleep apnea who presented to the emergency department with complaints of shortness of breath and increasing edema. patient stated that he was doing a lot better now that he had thoracentesis done this afternoon. Patient stated that he has had 5 thoracenteses since December early December. Patient was just at the outpatient clinic with pulmonology who instructed patient to get another chest x-ray in about a month. It patient was also seen by cardiology today for a flutter a fib who suggested patient may need a outpatient cardioversion. Patient stated that she he still has swelling in his legs which about 2 to 4+ pitting edema. Patient denies chest pain, shortness of breath, nausea, vomiting, headache, lightheadedness, dizziness, falls or syncope. Review of Systems Review of Systems: All systems reviewed & are unremarkable except as noted in HPI and below Exam Const: General: cooperative, healthy appearing, no acute distress, well developed, alert and awake Nutritional Appearance: well nourished Orientation/consciousness: patient oriented x3 Limitations: no limitations HENMT: Head: normal to inspection Ears: hearing grossly normal bilaterally General nose exam: Normal external nose present Mouth: Yes Normal oral and palatal mucosa present, Yes lip normal and Yes tongue normal Teeth and gingiva: abnormal tooth and associated gingiva and poor dentition Eyes: General:
[2021-05-13 17:42] LABS: Hemoglobin 11.8 g/dL (14.0-18.0); Mean Corpuscular HGB Conc 30.3 g/dl (32-36); Mean Corpuscular Hemoglobin 24.1 pg (26-34); Mean Corpuscular Volume 79.8 fl (80-100); Mean Platelet Volume 9.8 fl (7.4-10.4); Platelet Count Result 340 k/mm3 (150-375); Red Blood Count 4.89 M/mm3 (4.6-6.20); Red Cell Distribution Width 19.1 % (11.5-14.5)
[2021-05-13] MEDS: ATORVASTATIN 40 MG TABLET 80 MG PO (20:02)
[2021-05-13] MEDS: APIXABAN 5 MG TABLET PO (20:02)
[2021-05-13] MEDS: ZOLPIDEM TARTRATE (*CRX) 5 MG TABLET PO (23:23)
[2021-05-14] VITALS (25 sets, daily range): BP systolic 78–109; BP diastolic 45–74; PULSE 72–108; RESP 12–26; TEMP 36–36.6; O2SAT 90–100
--- NOTE | 2021-05-14 | ECG_ITS ---
Measurements Intervals [place] Rate: 92 P: 59 TN: 172 QRS: -54 QRSD: 175 T: 113 QT: 420 QTc: 522 Interpretive Statements SINUS RHYTHM LEFT ATRIAL ENLARGEMENT LEFT BUNDLE BRANCH BLOCK ABNORMAL ECG Electronically Signed On 05-14-2021 13:00:56 CDT by Raulito Bridges D.O.
[2021-05-14 05:37] LABS: Basophils Absolute Auto 0.1 K/mm3 (0.0-0.1); Basophils Percent Auto 1.3 % (0.2-1.2); Eosinophils Absolute Auto 0.2 K/mm3 (0-0.3); Eosinophils Percent Auto 2.1 % (0-4.4); Hematocrit 41.3 % (42.0-52.0); Hemoglobin 12.3 g/dL (14.0-18.0); Immature Granulocyte Absolute 0.05 K/mm3 (0.00-0.031); Immature Granulocyte Percent A 0.5 % (0-0.5); Lymphocytes Absolute Auto 1.79 K/mm3 (0.9-3.2); Lymphocytes Percent Auto 19.5 % (18.3-44.2); Mean Corpuscular HGB Conc 29.8 g/dl (32-36); Mean Corpuscular Hemoglobin 24.2 pg (26-34); Mean Corpuscular Volume 81.3 fl (80-100); Mean Platelet Volume 10.2 fl (7.4-10.4); Monocytes Absolute Auto 1.3 K/mm3 (0.1-0.6); Monocytes Percent Auto 14.6 % (2.6-8.5); Neutrophils Absolute Auto 5.7 K/mm3 (1.3-6.7); Platelet Count Result 337 k/mm3 (150-375); Red Blood Count 5.08 M/mm3 (4.6-6.20); Red Cell Distribution Width 19.3 % (11.5-14.5); White Blood Count 9.2 K/mm3 (4.5-10.0)
[2021-05-14 05:43] LABS: Anion Gap 12 mmol/L (8-16); Blood Urea Nitrogen 59 mg/dL (9-20); Carbon Dioxide 31 mmol/L (22-30); Chloride 95 mmol/L (98-107); Estimated CRCL calculation 25 ml/min; Estimated Glomerular Filt Rate 25; Glucose 113 mg/dL (75-110); Potassium 4.2 mmol/L (3.4-5.0); Sodium 138 mmol/L (137-145)
[2021-05-14 07:12] LABS: Burr Cells 2+ (NORMAL); Platelet Estimate Adequate (Adequate); Sickle Cells 1+ (NORMAL)
[2021-05-14 07:13] LABS: Acanthocytes 1+ (NORMAL)
[2021-05-14] MEDS: ASPIRIN 81 MG ENTERIC TABLET PO (09:43)
[2021-05-14] MEDS: APIXABAN 5 MG TABLET PO ×2 (09:44→20:39)
--- NOTE | 2021-05-14 11:55 | PHAR ---
HOME MED VERIFIED = JARDIANCE 10 MG TABS IN [employer]ERS BOTTLE. NO RX LABEL
--- NOTE | 2021-05-14 12:11 | WPDANESEPPF ---
Anes - Initial Pre Proc Eval Procedure: Operation Date: 05/14/21 13:00 Proposed Procedures p Electrical Cardioversion - Stephen Ordoñez MD Date/Time: 05/14/21 12:11 Surgeon: EMRE Loo Pre Op Diagnosis: CHF exacerbation/pleural effusion/CKD Patient Data Age: 70 Gender: M Height: 1.78 m Weight: 75.3 kg Last Vital Signs Temp 36.6 C 05/14/21 11:47 Pulse 108 H 05/14/21 11:47 Resp 14 05/14/21 11:47 BP 85/52 L 05/14/21 11:47 Pulse Ox 90 05/14/21 11:47 Allergies Allergy/AdvReac Type Severity Reaction Status Date / Time No Known Allergies Allergy Verified 05/12/21 08:42 Home Medications Medication Instructions Recorded Confirmed Type aspirin 81 mg tablet,delayed 81 mg PO DAILY 10/27/19 05/12/21 History release Eliquis 5 mg PO BID 02/03/21 05/12/21 History Jardiance 20 mg PO DAILY 02/03/21 05/12/21 History metformin 500 mg PO BID 02/03/21 05/12/21 History atorvastatin 80 mg PO HS 03/04/21 05/12/21 History sacubitril-valsartan [Entresto] 1 tablet PO BID 03/04/21 05/12/21 History amiodarone 400 mg tablet 200 mg PO DAILY tablet 03/23/21 05/12/21 History carvedilol 3.125 mg tablet 3.125 mg PO BID tablet 05/12/21 05/12/21 History torsemide 20 mg tablet 20 mg PO BIDWMEAL tablet 05/12/21 05/12/21 History zolpidem 5 mg tablet 5 mg PO QHS PRN #30 tablet 05/12/21 05/12/21 Rx Laboratory Tests 05/13/21 05/14/21 05/14/21 17:26 04:25 04:25 WBC 8.0 K/mm3 K/mm3 9.2 K/mm3 K/mm3 (4.5-10.0) (4.5-10.0) RBC 4.89 M/mm3 M/mm3 5.08 M/mm3 M/mm3 (4.6-6.20) (4.6-6.20) Hgb 11.8 g/dL L g/dL 12.3 g/dL L g/dL (14.0-18.0) (14.0-18.0) Hct 39.0 % L % 41.3 % L % (42.0-52.0) (42.0-52.0) MCV 79.8 fl L fl 81.3 fl fl (80-100) (80-100) MCH 24.1 pg L pg 24.2 pg L pg (26-34) (26-34) MCHC 30.3 g/dl L g/dl 29.8 g/dl L g/dl (32-36) (32-36) RDW 19.1 % H % 19.3 % H % (11.5-14.5) (11.5-14.5) Plt Count 340 k/mm3 k/mm3 337 k/mm3 k/mm3 (150-375) (150-375) MPV 9.8 fl fl 10.2 fl fl (7.4-10.4) (7.4-10.4) Immature Gran % (Auto) 0.5 % % (0-0.5) Neut % (Auto) 62.0 % % (45.5-73.1) Lymph % (Auto) 19.5 % % (18.3-44.2) [place] % (Auto) 14.6 % H % (2.6-8.5) Eos % (Auto) 2.1 % % (0-4.4) Baso % (Auto) 1.3 % H % (0.2-1.2) Lymph # (Auto) 1.79 K/mm3 K/mm3 (0.9-3.2) [place] # (Auto) 1.3 K/mm3 H K/mm3 (0.1-0.6) Eos # (Auto) 0.2 K/mm3 K/mm3 (0-0.3) Baso # (Auto) 0.1 K/mm3 K/mm3 (0.0-0.1) Abs Immat Gran (auto) 0.05 K/mm3 H K/mm3 (0.00-0.031) Absolute Neuts (auto) 5.7 K/mm3 K/mm3 (1.3-6.7) Absolute Nucleated RBC 0.0 K/mm3 K/mm3 (0.0-0.012) Nucleated RBC % 0.0 % % (0.0-0.2) Platelet Estimate Adequate (Adequate) Sickle Cells 1+ (NORMAL) [place] [employer] Cells 2+ (NORMAL) Acanthocytes ([place]) 1+ (NORMAL) Sodium 138 mmol/L mmol/L (137-145) Potassium 4.2 mmol/L mmol/L (3.4-5.0) Chloride 95 mmol/L L mmol/L (98-107) Carbon Dioxide 31 mmol/L H mmol/L (22-30) Anion Gap 12 mmol/L mmol/L (8-16) BUN 59 mg/dL H mg/dL (9-20) Creatinine 2.60 mg/dL H mg/dL (0.7-1.3) Estim Creat Clear Calc 25 ml/min ml/min Estimated GFR 25 L (59 - ) Glucose 113 mg/dL H mg/dL (75-110) Calcium 9.0 mg/dL mg/dL (8.4-10.2) Magnesium 2.0 mg/dL mg/dL (1.6-2.3) Patient hx anesthesia problems: none Family hx anesthesia problems: none [facility] Past Medical History Medical History (Updated 05/13/21 @ 14:32 by Román Durán MD) Chronic anticoagulation Chronic kidney disease, stage 3 Baseline creatinine is around 1.60. Chronic left-sided low back pain with left-sided sciatica Coronary artery disease Multiple MIs stat
[2021-05-14] MEDS: SACUBITRIL/VALSARTAN 24-26 MG TABLET 1 TAB PO (15:02)
[2021-05-14 15:26] LABS: Creatinine Urine 85.1 mg/dL; Urea Random Urine 680 MG/DL
--- NOTE | 2021-05-14 15:37 | P.PNIM_ITS ---
Progress Note: A&P Assessment and Plan (1) Acute exacerbation of congestive heart failure: Code(s): I50.9 - Heart failure, unspecified Status: Acute Assessment and Plan: * Patient has to 4+ pitting edema bilateral lower extremity * BNP 62083 * 40 mg IV Lasix Q 12 * strict I&Os * tele monitor shows AFib in the 100s, Patient was cardioverted today is down sinus rhythm 90s * echo from 03/19 21 shows an EF of 20% * cardiology consult thank you for your recommendations * carvedilol 3.125 mg p.o. b.i.d. * Entresto 1 tablet p.o. b.i.d. * Torsemide 20mg PO BIDWM * Heart healthy diet (2) Pleural effusion on left: Code(s): J90 - Pleural effusion, not elsewhere classified Status: Acute Assessment and Plan: * Chest xray showed a moderate left sided pleural effusion * thoracentesis performed today * 1000 mL drained * It is noted that the patient has nodules in lungs. These were found on the chest CT from 02/04/21. * Trend I&Os * Monitor breathing * Might need a follow up x-ray. (3) Ischemic cardiomyopathy: Code(s): I25.5 - Ischemic cardiomyopathy Status: Acute (4) Atrial flutter: Code(s): I48.92 - Unspecified atrial flutter Status: Acute Assessment and Plan: * Chronic * Patient on Eliquis * Cardiology consulted thank you * Cardiology cardioverted today patient now currently in sinus rhythm in 90s * Rate is controlled * Carvedilol 3.125mg PO BID * Trend heart rate * Tele monitor sinus rhythm in the 90s (5) Chronic anticoagulation: Code(s): Z79.01 - correction (current) use of anticoagulants Status: Acute Assessment and Plan: * continue Eliquis p.o. 5 mg b.i.d. * For chronic Afib (6) Obstructive sleep apnea: Code(s): G47.33 - Obstructive sleep apnea (adult) (pediatric) Status: Acute Assessment and Plan: * use CPAP at night will here * adjust settings to home settings (7) Chronic kidney disease, stage 3: Code(s): N18.30 - Chronic kidney disease, stage 3 unspecified Status: Acute Assessment and Plan: * BUN 59, Cr 2.60 up from 2.40. * GFR is 25 * Could be acute on chronic renal failure from overload. * Lasix 40mg IV BID * Trend I&Os * Monitor edema * Labs in am (8) Hypotension: Code(s): I95.9 - Hypotension, unspecified Status: Acute Assessment and Plan: * blood pressures were anywhere from 70s to 110 systolically * hold parameters are on all medications * cardiology consulted * will defer hypotension to cardiology * continue trend blood pressures Subjective Date/time seen: 05/14/21 07:20 Interval history: This is a 70-year-old male with coronary artery disease status post bypass, postoperative CABG atrial fibrillation, ischemic cardiomyopathy with an EF as low as 20%, hypertension, hyperlipidemia, and sleep apnea who presented to the emergency department earlier today with complaints of shortness of breath and increasing edema. Today patient was upset that he was put NPO and was not made aware. otherwise patient had no other complaints today. Patient denied chest pain, shortness of breath, nausea, vomiting, abdominal pain, lightheadedness, weakness, dizziness, or syncope falls. Review of Systems Review of Systems: All systems reviewed & are unremarkable except as noted in HPI and below
--- NOTE | 2021-05-14 15:37 | PM.IMPN ---
Progress Note: A&P Assessment and Plan (1) Acute exacerbation of congestive heart failure: Code(s): I50.9 - Heart failure, unspecified Status: Acute Assessment and Plan: Patient has to 4+ pitting edema bilateral lower extremity BNP 87070 40 mg IV Lasix Q 12 strict I&Os tele monitor shows AFib in the 100s, Patient was cardioverted today is down sinus rhythm 90s echo from 03/19 21 shows an EF of 20% cardiology consult thank you for your recommendations carvedilol 3.125 mg p.o. b.i.d. Entresto 1 tablet p.o. b.i.d. Torsemide 20mg PO BIDWM Heart healthy diet (2) Pleural effusion on left: Code(s): J90 - Pleural effusion, not elsewhere classified Status: Acute Assessment and Plan: Chest xray showed a moderate left sided pleural effusion thoracentesis performed today 1000 mL drained It is noted that the patient has nodules in lungs. These were found on the chest CT from 02/04/21. Trend I&Os Monitor breathing Might need a follow up x-ray. 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 5 mg b.i.d. For chronic Afib (6) Obstructive sleep apnea: Code(s): G47.33 - Obstructive sleep apnea (adult) (pediatric) Status: Acute Assessment and Plan: use CPAP at night will here adjust settings to home settings (7) Chronic kidney disease, stage 3: Code(s): N18.30 - Chronic kidney disease, stage 3 unspecified Status: Acute Assessment and Plan: BUN 59, Cr 2.60 up from 2.40. GFR is 25 Could be acute on chronic renal failure from overload. Lasix 40mg IV BID Trend I&Os Monitor edema Labs in am (8) Hypotension: Code(s): I95.9 - Hypotension, unspecified Status: Acute Assessment and Plan: blood pressures were anywhere from 70s to 110 systolically hold parameters are on all medications cardiology consulted will defer hypotension to cardiology continue trend blood pressures Subjective Date/time seen: 05/14/21 07:20 Interval history: This is a 70-year-old male with coronary artery disease status post bypass, postoperative CABG atrial fibrillation, ischemic cardiomyopathy with an EF as low as 20%, hypertension, hyperlipidemia, and sleep apnea who presented to the emergency department earlier today with complaints of shortness of breath and increasing edema. Today patient was upset that he was put NPO and was not made aware. otherwise patient had no other complaints today. Patient denied chest pain, shortness of breath, nausea, vomiting, abdominal pain, lightheadedness, weakness, dizziness, or syncope falls. Review of Systems Review of Systems: All systems reviewed & are unremarkable except as noted in HPI and below Exam Const: General: cooperative, healthy appearing, no acute distress, well developed, alert and awake Nutritional Appearance: well nourished Orientation/consciousness: patient oriented x3 Limitations: no limitations HENMT: Head: normal to inspection Ears: hearing grossly normal bilaterally General nose exam: Normal external nose present Mouth: Yes Normal oral and palatal mucosa present, Yes lip normal and Yes tongue normal Teeth and gingiva: abnormal tooth and associated gingiva and poor dentition Eyes: General: appearance normal, both e
[2021-05-14] MEDS: FUROSEMIDE INJ 40 MG/4 ML VIAL IV PUSH (17:36)
[2021-05-14] MEDS: ATORVASTATIN 40 MG TABLET 80 MG PO (20:39)
[2021-05-14] MEDS: ZOLPIDEM TARTRATE (*CRX) 5 MG TABLET PO (20:43)
[2021-05-15] VITALS (21 sets, daily range): BP systolic 89–104; BP diastolic 51–64; PULSE 5–116; RESP 12–20; TEMP 36.2–37.3; O2SAT 88–97
[2021-05-15 05:28] LABS: Alanine Aminotransferase 99 U/L (4-50); Albumin Level 3.5 g/dL (3.5-5.1); Alkaline Phosphatase 319 U/L (38-126); Anion Gap 9 mmol/L (8-16); Aspartate Amino Transferase 88 U/L (17-59); Bilirubin,Total 0.7 mg/dL (0.2-1.3); Blood Urea Nitrogen 61 mg/dL (9-20); Calcium 8.7 mg/dL (8.4-10.2); Carbon Dioxide 31 mmol/L (22-30); Chloride 96 mmol/L (98-107); Estimated CRCL calculation 31 ml/min; Estimated Glomerular Filt Rate 31; Glucose 125 mg/dL (75-110); Potassium 3.9 mmol/L (3.4-5.0); Sodium 136 mmol/L (137-145)
[2021-05-15 05:36] LABS: Basophils Absolute Auto 0.1 K/mm3 (0.0-0.1); Basophils Percent Auto 0.7 % (0.2-1.2); Eosinophils Absolute Auto 0.1 K/mm3 (0-0.3); Hematocrit 39.4 % (42.0-52.0); Hemoglobin 11.8 g/dL (14.0-18.0); Immature Granulocyte Absolute 0.08 K/mm3 (0.00-0.031); Immature Granulocyte Percent A 0.7 % (0-0.5); Lymphocytes Absolute Auto 1.15 K/mm3 (0.9-3.2); Lymphocytes Percent Auto 10.2 % (18.3-44.2); Mean Corpuscular HGB Conc 29.9 g/dl (32-36); Mean Corpuscular Hemoglobin 24.3 pg (26-34); Mean Corpuscular Volume 81.2 fl (80-100); Mean Platelet Volume 10.1 fl (7.4-10.4); Monocytes Absolute Auto 1.5 K/mm3 (0.1-0.6); Monocytes Percent Auto 13.6 % (2.6-8.5); Neutrophils Absolute Auto 8.3 K/mm3 (1.3-6.7); Neutrophils Percent Auto 73.8 % (45.5-73.1); Platelet Count Result 318 k/mm3 (150-375); Red Blood Count 4.85 M/mm3 (4.6-6.20); Red Cell Distribution Width 19.2 % (11.5-14.5); White Blood Count 11.3 K/mm3 (4.5-10.0)
[2021-05-15 06:06] LABS: Anisocytosis 1+ (NORMAL); Platelet Estimate Adequate (Adequate)
--- NOTE | 2021-05-15 08:36 | PM.PNCARD ---
Progress Note: A&P Assessment and Plan (1) Acute exacerbation of congestive heart failure: Code(s): I50.9 - Heart failure, unspecified <EMRE Hinojosa - Last Filed: 05/15/21 14:21> Status: Acute <EMRE Hinojosa - Last Filed: 05/15/21 14:21> Assessment and Plan: Acute on chronic systolic heart failure. This is been ongoing problem since his bypass. Had been in Aflutter apparently since his bypass - was cardioverted yesterday now in sinus rhythm. Remains markedly volume overloaded. He is also hypotensive which is complicating his medical management - Entresto and coreg on hold for now. 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 <EMRE Hinojosa - Last Filed: 05/15/21 14:21> Status: Acute <EMRE Hinojosa - Last Filed: 05/15/21 14:21> Assessment and Plan: on Eliquis <EMRE Hinojosa - Last Filed: 05/15/21 14:21> (3) Pleural effusion on left: Code(s): J90 - Pleural effusion, not elsewhere classified <EMRE Hinojosa - Last Filed: 05/15/21 14:21> Status: Acute <EMRE Hinojosa - Last Filed: 05/15/21 14:21> Assessment and Plan: Status post thoracentesis <EMRE Hinojosa - Last Filed: 05/15/21 14:21> (4) Atrial flutter: Code(s): I48.92 - Unspecified atrial flutter <EMRE Hinojosa - Last Filed: 05/15/21 14:21> Status: Acute <Mercy Pike APN-C - Last Filed: 05/15/21 14:21> Assessment and Plan: as detailed above, he has had persistent atrial flutter with RVR for months. I think it would behoove him to be back in sinus rhythm especially given the severity of his cardiomyopathy. -Successfully cardioverted yesterday -Remains in sinus rhythm in the 90's -On Eliquis <CRISTHIAN HinojosaC - Last Filed: 05/15/21 14:21> (5) Ischemic cardiomyopathy: Code(s): I25.5 - Ischemic cardiomyopathy <CRISTHIAN HinojosaC - Last Filed: 05/15/21 14:21> Status: Acute <CRISTHIAN HinojosaC - Last Filed: 05/15/21 14:21> Assessment and Plan: as above <Mercy Pike APN-C - Last Filed: 05/15/21 14:21> (6) History of implantable cardioverter-defibrillator (ICD) placement: Code(s): Z95.810 - Presence of automatic (implantable) cardiac defibrillator <CRISTHIAN HinojosaC - Last Filed: 05/15/21 14:21> Status: Acute <CRISTHIAN HinojosaC - Last Filed: 05/15/21 14:21> (7) Coronary artery disease: Code(s): I25.10 - Atherosclerotic heart disease of [place] coronary artery without angina pectoris <CRISTHIAN HinojosaC - Last Filed: 05/15/21 14:21> Status: Acute <Mercy Pike APN-C - Last Filed: 05/15/21 14:21> Assessment and Plan: no anginal symptoms status post CABG <CRISTHIAN HinojosaC - Last Filed: 05/15/21 14:21> (8) Electrolyte imbalance: Code(s): E87.8 - Other disorders of electrolyte and fluid balance, not elsewhere classified <Mercy Pike APN-C - Last Filed: 05/15/21 14:21> Status: Acute <Mercy Pike APN-C - Last Filed: 05/15/21 14:21> Assessment and Plan: This has been corrected. Continue to monitor electrolytes <EMRE Hinojosa - Last Filed: 05/15/21 14:21> Additional Plan I have seen and examined the patient and agree with the assessment and plan of the nurse practitioner. This is a patient who had CABG and since that time he was in atrial flutter and underwent cardioversion. He remains in decompensated heart failure. His blood pressure running low. at this time will continue diuretics but will add Milrinone. <Diana Basurto MD - Last F
[2021-05-15] MEDS: APIXABAN 5 MG TABLET PO ×2 (09:40→21:28)
[2021-05-15] MEDS: AMIODARONE HCL 200 MG TABLET PO (09:40)
[2021-05-15] MEDS: FUROSEMIDE INJ 40 MG/4 ML VIAL IV PUSH ×2 (09:41→16:52)
[2021-05-15] MEDS: ASPIRIN 81 MG ENTERIC TABLET PO (09:41)
[2021-05-15] MEDS: ACETAMINOPHEN 325 MG TABLET 650 MG PO (14:30)
[2021-05-15] MEDS: MILRINONE LACTATE 20 MG in DEXTROSE 5% 80 ML 2.81 MG IV CONT (14:31)
--- NOTE | 2021-05-15 16:38 | PM.CNNEP ---
Assessment and Plan Assessment and plan (1) Stage 3b chronic kidney disease: Code(s): N18.32 - Chronic kidney disease, stage 3b Status: Chronic Assessment and Plan: baseline creatinine runs around 1.5 - 2.0mg/dl presumably due to some degree of cardiorenal syndrome and need for chronic diuretics, HTN (and now hypotension), and vascular disease maximize efforts to treat heart failure and optimize hemodynamics as this may hopefully improve renal function follow trend of repeat labs and UOP with current interventions (2) Volume overload: Code(s): E87.70 - Fluid overload, unspecified Status: Acute Assessment and Plan: mainly localized to his lower extremities secondary to #3 follow exam consider MADISON wraps (3) Acute on chronic systolic heart failure: Code(s): I50.23 - Acute on chronic systolic (congestive) heart failure Status: Acute Assessment and Plan: Cardiology following known depressed EF started on milrinone gtt + IV diuretics follow daily weights, I/Os, and exam (4) Hypotension: Code(s): I95.9 - Hypotension, unspecified Status: Acute Assessment and Plan: limits interventions secondary to cardiomyopathy follow trend role for midodrine? (5) Atrial flutter: Code(s): I48.92 - Unspecified atrial flutter Status: Acute Assessment and Plan: s/p cardioversion this admission continue rate control strategy on anticoagulation (6) Pleural effusion on left: Code(s): J90 - Pleural effusion, not elsewhere classified Status: Acute Assessment and Plan: s/p thoracentesis presumably related to decompensated heart failure serial chest x-rays Will continue to follow. History of Present Illness Reason for Consult Consult date: 05/15/21 Reason for consult: chronic renal failure and Other (lower extremity edema) Chief Complaint Chief complaint: CHF exacerbation/pleural effusion/CKD History of Present Illness Narrative: The patient is a 70-year-old male with an extensive past medical history who presented to the [facility] ER with complaints of shortness of breath and increasing lower extremity swelling. The patient is has multiple hospitalizations for CHF exacerbations as well as for recurrent left thoracentesis sees for recurrent left pleural effusions. His issues and problems actually started in December of 2020 after he had a prolonged stay/ hospitalization after a 2 vessel bypass surgery which was complicated by postoperative atrial fibrillation as well as chest wound infection requiring antibiotic therapy and surgical reexploration. Following this hospitalization, recent testing has demonstrated that his EF is around 20% if not less than this which is likely resulted in his problems and issues with relative hypotension making ongoing diuresis somewhat difficult. In the last few days prior to this admission, despite being on outpatient diuretic therapy, he has noticed increasing lower extremity edema in association with orthopnea. He is unable to lay flat at night to sleep and has to sit up in order to get any rest at all. Associated symptoms include poor appetite and decreased oral intake but no overt nausea or vomiting. He denies any chest pain pleuritic pain, palpitations, fevers, chills, or sweats but does admit to the a for mentioned shortness of breath that led to his presentation to the emergency room. Workup and evaluation emergency room demonstrated the patient to be in mild respiratory distress with clear evidence of volume overload both by physical exam and chest x-ray. Routine blood test demonstrated labs consistent with his known history of chronic kidney disease as well as relative anemia. Initially, aggressive IV diuretics were going to be instituted but his soft blood pressures on admission and currently have made this option somewhat limited. Nonetheless, given hi
--- NOTE | 2021-05-15 16:40 | P.PNIM_ITS ---
Progress Note: A&P Assessment and Plan (1) Acute exacerbation of congestive heart failure: Code(s): I50.9 - Heart failure, unspecified Status: Acute Assessment and Plan: * Patient has to 4+ pitting edema bilateral lower extremity * BNP 16889 * 40 mg IV Lasix Q 12 * strict I&Os * tele monitor shows SR in the 90s * cardioverted 05/15/21 is down sinus rhythm 90s * echo from 03/19 21 shows an EF of 20% * cardiology consult thank you for your recommendations * carvedilol 3.125 mg p.o. b.i.d. with parameters * Started on Milrinone 0.125mg IV * Entresto 1 tablet p.o. b.i.d. on hold for now * Monitor for hypotension * Torsemide 20mg PO BIDWM * Heart healthy diet (2) Pleural effusion on left: Code(s): J90 - Pleural effusion, not elsewhere classified Status: Acute Assessment and Plan: * Chest xray showed a moderate left sided pleural effusion * thoracentesis performed today * 1000 mL drained * It is noted that the patient has nodules in lungs. These were found on the chest CT from 02/04/21. * Trend I&Os * Monitor breathing * Might need a follow up x-ray. 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 5 mg b.i.d. * For chronic Afib (6) Obstructive sleep apnea: Code(s): G47.33 - Obstructive sleep apnea (adult) (pediatric) Status: Acute Assessment and Plan: * use CPAP at night will here * adjust settings to home settings (7) Chronic kidney disease, stage 3: Code(s): N18.30 - Chronic kidney disease, stage 3 unspecified Status: Acute Assessment and Plan: * BUN 61, Cr 2.10 * GFR is 25 * Could be acute on chronic renal failure from overload. * Lasix 40mg IV BID * Trend I&Os * Monitor edema * Labs in am * Nephrology is consulted thank you for your recommendation. (8) Hypotension: Code(s): I95.9 - Hypotension, unspecified Status: Acute Assessment and Plan: * blood pressures were anywhere from 70s to 110 systolically * hold parameters are on all medications * cardiology consulted * will defer hypotension to cardiology * continue trend blood pressures Subjective Date/time seen: 05/15/21 15:55 Interval history: This is a 70-year-old male with coronary artery disease status post bypass, postoperative CABG atrial fibrillation, ischemic cardiomyopathy with an EF as low as 20%, hypertension, hyperlipidemia, and sleep apnea who presented to the emergency department earlier today with complaints of shortness of breath and increasing edema. Patient really has no complaints today. He was sleeping upon arrival. He denies chest pain, shortness of breath, nausea, vomiting, and abdominal pain Review of Systems Review of Systems: All systems reviewed & are unremarkable except as noted in HPI and be
--- NOTE | 2021-05-15 16:40 | PM.IMPN ---
Progress Note: A&P Assessment and Plan (1) Acute exacerbation of congestive heart failure: Code(s): I50.9 - Heart failure, unspecified Status: Acute Assessment and Plan: Patient has to 4+ pitting edema bilateral lower extremity BNP 72634 40 mg IV Lasix Q 12 strict I&Os tele monitor shows SR in the 90s cardioverted 05/15/21 is down sinus rhythm 90s echo from 03/19 21 shows an EF of 20% cardiology consult thank you for your recommendations carvedilol 3.125 mg p.o. b.i.d. with parameters Started on Milrinone 0.125mg IV Entresto 1 tablet p.o. b.i.d. on hold for now Monitor for hypotension Torsemide 20mg PO BIDWM Heart healthy diet (2) Pleural effusion on left: Code(s): J90 - Pleural effusion, not elsewhere classified Status: Acute Assessment and Plan: Chest xray showed a moderate left sided pleural effusion thoracentesis performed today 1000 mL drained It is noted that the patient has nodules in lungs. These were found on the chest CT from 02/04/21. Trend I&Os Monitor breathing Might need a follow up x-ray. 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 5 mg b.i.d. For chronic Afib (6) Obstructive sleep apnea: Code(s): G47.33 - Obstructive sleep apnea (adult) (pediatric) Status: Acute Assessment and Plan: use CPAP at night will here adjust settings to home settings (7) Chronic kidney disease, stage 3: Code(s): N18.30 - Chronic kidney disease, stage 3 unspecified Status: Acute Assessment and Plan: BUN 61, Cr 2.10 GFR is 25 Could be acute on chronic renal failure from overload. Lasix 40mg IV BID Trend I&Os Monitor edema Labs in am Nephrology is consulted thank you for your recommendation. (8) Hypotension: Code(s): I95.9 - Hypotension, unspecified Status: Acute Assessment and Plan: blood pressures were anywhere from 70s to 110 systolically hold parameters are on all medications cardiology consulted will defer hypotension to cardiology continue trend blood pressures Subjective Date/time seen: 05/15/21 15:55 Interval history: This is a 70-year-old male with coronary artery disease status post bypass, postoperative CABG atrial fibrillation, ischemic cardiomyopathy with an EF as low as 20%, hypertension, hyperlipidemia, and sleep apnea who presented to the emergency department earlier today with complaints of shortness of breath and increasing edema. Patient really has no complaints today. He was sleeping upon arrival. He denies chest pain, shortness of breath, nausea, vomiting, and abdominal pain Review of Systems Review of Systems: All systems reviewed & are unremarkable except as noted in HPI and below Exam Const: General: cooperative, healthy appearing, no acute distress, well developed, alert and awake Nutritional Appearance: well nourished Orientation/consciousness: patient oriented x3 Limitations: no limitations HENMT: Head: normal to inspection Ears: hearing grossly normal bilaterally General nose exam: Normal external nose present Mouth: Yes Normal oral and palatal mucosa present, Yes lip normal and Yes tongue normal Teeth and gingiva: abnormal tooth and associated gingiva and poor dentition Eyes: General: appearance n
[2021-05-15] MEDS: ATORVASTATIN 40 MG TABLET 80 MG PO (21:29)
[2021-05-15] MEDS: ZOLPIDEM TARTRATE (*CRX) 5 MG TABLET PO (21:32)
[2021-05-16] VITALS (23 sets, daily range): BP systolic 76–106; BP diastolic 44–64; PULSE 83–107; RESP 18–24; TEMP 36.3–38.2; O2SAT 85–98
[2021-05-16 05:19] LABS: Basophils Absolute Auto 0.1 K/mm3 (0.0-0.1); Basophils Percent Auto 0.7 % (0.2-1.2); Eosinophils Absolute Auto 0.1 K/mm3 (0-0.3); Hematocrit 38.7 % (42.0-52.0); Hemoglobin 11.4 g/dL (14.0-18.0); Immature Granulocyte Absolute 0.06 K/mm3 (0.00-0.031); Immature Granulocyte Percent A 0.6 % (0-0.5); Lymphocytes Absolute Auto 1.24 K/mm3 (0.9-3.2); Lymphocytes Percent Auto 12.1 % (18.3-44.2); Mean Corpuscular HGB Conc 29.5 g/dl (32-36); Mean Corpuscular Hemoglobin 24.2 pg (26-34); Mean Corpuscular Volume 82.2 fl (80-100); Monocytes Absolute Auto 1.7 K/mm3 (0.1-0.6); Monocytes Percent Auto 16.4 % (2.6-8.5); Neutrophils Absolute Auto 7.1 K/mm3 (1.3-6.7); Neutrophils Percent Auto 69.2 % (45.5-73.1); Platelet Count Result 309 k/mm3 (150-375); Red Blood Count 4.71 M/mm3 (4.6-6.20); Red Cell Distribution Width 19.3 % (11.5-14.5); White Blood Count 10.3 K/mm3 (4.5-10.0)
[2021-05-16 05:37] LABS: Alanine Aminotransferase 75 U/L (4-50); Albumin Level 3.4 g/dL (3.5-5.1); Alkaline Phosphatase 271 U/L (38-126); Anion Gap 6 mmol/L (8-16); Aspartate Amino Transferase 52 U/L (17-59); Bilirubin,Total 0.6 mg/dL (0.2-1.3); Blood Urea Nitrogen 50 mg/dL (9-20); Calcium 8.3 mg/dL (8.4-10.2); Carbon Dioxide 34 mmol/L (22-30); Chloride 98 mmol/L (98-107); Estimated CRCL calculation 34 ml/min; Estimated Glomerular Filt Rate 35; Glucose 124 mg/dL (75-110); Magnesium 1.9 mg/dL (1.6-2.3); Potassium 3.5 mmol/L (3.4-5.0); Sodium 138 mmol/L (137-145)
[2021-05-16 05:40] LABS: Ovalocytes 1+ (NORMAL); Platelet Estimate Adequate (Adequate); Tear Drop Cells 1+ (NORMAL)
[2021-05-16] MEDS: ASPIRIN 81 MG ENTERIC TABLET PO (10:09)
[2021-05-16] MEDS: APIXABAN 5 MG TABLET PO ×2 (10:09→22:12)
[2021-05-16] MEDS: carvediloL 3.125 MG TABLET PO (10:10)
[2021-05-16] MEDS: AMIODARONE HCL 200 MG TABLET PO (10:10)
[2021-05-16] MEDS: FUROSEMIDE INJ 40 MG/4 ML VIAL IV PUSH ×2 (10:10→15:53)
--- NOTE | 2021-05-16 13:35 | PM.PNNEP ---
Progress Note: A&P Assessment and Plan (1) Stage 3b chronic kidney disease: Code(s): N18.32 - Chronic kidney disease, stage 3b Status: Chronic Assessment and Plan: baseline creatinine runs around 1.5 - 2.0mg/dl presumably due to some degree of cardiorenal syndrome and need for chronic diuretics, HTN (and now hypotension), and vascular disease maximize efforts to treat heart failure and optimize hemodynamics as this may hopefully improve renal function follow trend of repeat labs and UOP with current interventions (2) Volume overload: Code(s): E87.70 - Fluid overload, unspecified Status: Acute Assessment and Plan: mainly localized to his lower extremities but CXR noted secondary to #3 follow exam consider MADISON wraps for LEs (3) Acute on chronic systolic heart failure: Code(s): I50.23 - Acute on chronic systolic (congestive) heart failure Status: Acute Assessment and Plan: Cardiology following known depressed EF started on milrinone gtt + IV diuretics better urine output in the last 24 hours follow daily weights, I/Os, and exam (4) Hypotension: Code(s): I95.9 - Hypotension, unspecified Status: Acute Assessment and Plan: limits interventions secondary to cardiomyopathy follow trend role for midodrine? (5) Atrial flutter: Code(s): I48.92 - Unspecified atrial flutter Status: Acute Assessment and Plan: s/p cardioversion this admission continue rate control strategy on anticoagulation (6) Pleural effusion on left: Code(s): J90 - Pleural effusion, not elsewhere classified Status: Acute Assessment and Plan: s/p thoracentesis presumably related to decompensated heart failure serial chest x-rays Will continue to follow. Subjective Date/time seen: 05/16/21 13:35 No apparent distress voiced at the the time of my visit; at bedside and we discussed his situation; renal function/lower swelling is about the same (no worse but no better); eating and drinking okay; respiratory status appears stable as well. Exam Narrative: Exam Narrative: General: ill appearing male in NAD Heart: normal S1 and S2; no rub Lungs: absent at left base; bibasilar crackles Abdomen: soft, nontender, nondistended, positive bowel sounds Extremities: no cyanosis or clubbing; 2+ edema Skin: warm and dry Objective Data Vital Signs Vital Signs: Vital Signs Temp Pulse Resp BP Pulse Ox 05/16/21 12:00 36.6 C 99 18 104/58 L 94 05/16/21 10:10 100 05/16/21 09:13 36.4 C 100 20 92/52 L 90 05/16/21 06:00 107 H 05/16/21 04:00 99 95 05/16/21 02:00 95 05/16/21 00:00 99 95 05/15/21 23:35 36.2 C L 5 L 16 98/58 L 95 05/15/21 23:00 93 05/15/21 22:00 98 05/15/21 20:00 92 96 05/15/21 19:43 36.5 C 93 18 89/51 L 96 05/15/21 18:00 92 05/15/21 16:00 91 91 05/15/21 15:49 37.3 C 92 14 99/55 L 90 05/15/21 14:31 95 90/60 L 05/15/21 14:00 94 Intake/Output Intake/Output: Intake & Output 05/13/21 05/14/21 05/15/21 05/16/21 23:59 23:59 23:59 23:59 Intake Total 720 1910 2680 980 Output Total 2700 1000 1200 1200 Balance -7967 730 5051 -220 Meds/Results Medications: Active Medications Generic Name Dose Route Start Last Admin Trade Name Clarissa PRN Reason Stop Dose Admin Acetaminophen 650 mg 05/12/21 15:52 05/15/21 14:30 Acetaminophen 325 Mg Tablet PO 650 mg Q4H PRN Administration Mild Pain (1-3) or Fever Amiodarone HCl 200 mg 05/13/21 09:00 05/16/21 10:10 Amiodarone Hcl 200 Mg Tablet PO 200 mg DAILY TRESSA Administration Apixaban 5 mg 05/13/21 21:00 05/16/21 10:09 Apixaban 5 Mg Tablet PO 5 mg Q12HR TRESSA Administration Aspirin 81 mg 05/13/21 09:00 05/16/21 10:09 Aspirin 81 Mg Enteric Tablet PO 81 mg DAILY TRESSA Administration Atorvastatin Calcium
--- NOTE | 2021-05-16 13:35 | P.PNNP_ITS ---
Progress Note: A&P Assessment and Plan (1) Stage 3b chronic kidney disease: Code(s): N18.32 - Chronic kidney disease, stage 3b Status: Chronic Assessment and Plan: * baseline creatinine runs around 1.5 - 2.0mg/dl * presumably due to some degree of cardiorenal syndrome and need for chronic diuretics, HTN (and now hypotension), and vascular disease * maximize efforts to treat heart failure and optimize hemodynamics as this may hopefully improve renal function * follow trend of repeat labs and UOP with current interventions (2) Volume overload: Code(s): E87.70 - Fluid overload, unspecified Status: Acute Assessment and Plan: * mainly localized to his lower extremities but CXR noted * secondary to #3 * follow exam * consider MADISON wraps for LEs (3) Acute on chronic systolic heart failure: Code(s): I50.23 - Acute on chronic systolic (congestive) heart failure Status: Acute Assessment and Plan: * Cardiology following * known depressed EF * started on milrinone gtt + IV diuretics * better urine output in the last 24 hours * follow daily weights, I/Os, and exam (4) Hypotension: Code(s): I95.9 - Hypotension, unspecified Status: Acute Assessment and Plan: * limits interventions * secondary to cardiomyopathy * follow trend * role for midodrine? (5) Atrial flutter: Code(s): I48.92 - Unspecified atrial flutter Status: Acute Assessment and Plan: * s/p cardioversion this admission * continue rate control strategy * on anticoagulation (6) Pleural effusion on left: Code(s): J90 - Pleural effusion, not elsewhere classified Status: Acute Assessment and Plan: * s/p thoracentesis * presumably related to decompensated heart failure * serial chest x-rays Will continue to follow. Subjective Date/time seen: 05/16/21 13:35 No apparent distress voiced at the the time of my visit; at bedside and we discussed his situation; renal function/lower swelling is about the same (no worse but no better); eating and drinking okay; respiratory status appears stable as well. Exam Narrative: Exam Narrative: General: ill appearing male in NAD Heart: normal S1 and S2; no rub Lungs: absent at left base; bibasilar crackles Abdomen: soft, nontender, nondistended, positive bowel sounds Extremities: no cyanosis or clubbing; 2+ edema Skin: warm and dry Objective Data Vital Signs Vital Signs: Vital Signs Temp Pulse Resp BP Pulse Ox 05/16/21 12:00 36.6 C 99 18 104/58 L 94 05/16/21 10:10 100 05/16/21 09:13 36.4 C 100 20 92/52 L 90 05/16/21 06:00 107 H 05/16/21 04:00 99 95 05/16/21 02:00 95 05/16/21 00:00 99 95 05/15/21 23:35 36.2 C L 5 L 16 98/58 L 95 05/15/21 23:00 93 05/15/21 22:00 98 05/15/21 20:00 92 96 05/15/21 19:43 36.5 C 93 18 89/51 L 96 05/15/21 18:00 92 05/15/21 16:00 91 91 05/15/21 15:49 37.3 C 92 14 99/55 L 90 05/15/21 14:31 95 90/60 L 05/15/21 14:00 94 Intake/Output Intake/Output: Intake & Output 05/13/21 05/14/21 05/15/21 05/16/21 23:59 23:59 23:59 23:59 Intake Total 720 1160 2680 980 Ou
--- NOTE | 2021-05-16 13:54 | P.PNIM_ITS ---
Progress Note: A&P Assessment and Plan (1) Acute exacerbation of congestive heart failure: Code(s): I50.9 - Heart failure, unspecified Status: Acute Assessment and Plan: * Patient has to 4+ pitting edema bilateral lower extremity * BNP 23601 * 40 mg IV Lasix Q 12 * strict I&Os * tele monitor shows SR in the 90s * cardioverted 05/15/21 is down sinus rhythm 90s * echo from 03/19 21 shows an EF of 20% * cardiology consult thank you for your recommendations * carvedilol 3.125 mg p.o. b.i.d. with parameters * Started on Milrinone 0.125mg IV * Entresto 1 tablet p.o. b.i.d. on hold for now * Monitor for hypotension * Torsemide 20mg PO BIDWM * Heart healthy diet * urinary catheter for better I&O control. * Repeat chest xray just showed pulmonary edema. (2) Increased oxygen demand: Code(s): R68.89 - Other general symptoms and signs Status: Acute Assessment and Plan: * oxygen demand increased to 6L * Documented fever of 100.7 * appearance pale with flush face. * Chest xray showed CHF with progression of edema and/or PNA * Chest CT is pending, quick review shows increased plural effusion and edema, maybe some PNA * Azithromycin and Ceftriaxone was started * Blood cultures pending * Sindhu antibiotics to cultures * WBC 10.2 * Trend labs * Labs in the am (3) Pleural effusion on left: Code(s): J90 - Pleural effusion, not elsewhere classified Status: Acute Assessment and Plan: * Chest xray showed a moderate left sided pleural effusion * thoracentesis performed today * 1000 mL drained * It is noted that the patient has nodules in lungs. These were found on the chest CT from 02/04/21. * Trend I&Os * Monitor breathing * Might need a follow up x-ray. (4) Ischemic cardiomyopathy: Code(s): I25.5 - Ischemic cardiomyopathy Status: Acute (5) Atrial flutter: Code(s): I48.92 - Unspecified atrial flutter Status: Acute Assessment and Plan: * Chronic * Patient on Eliquis * Cardiology consulted thank you * Cardiology cardioverted 05/14/21 sinus rhythm in 90s * Rate is controlled * Carvedilol 3.125mg PO BID with parameters * Trend heart rate * Tele monitor sinus rhythm in the 90s (6) Chronic anticoagulation: Code(s): Z79.01 - alf (current) use of anticoagulants Status: Acute Assessment and Plan: * continue Eliquis p.o. 5 mg b.i.d. * For chronic Afib (7) Obstructive sleep apnea: Code(s): G47.33 - Obstructive sleep apnea (adult) (pediatric) Status: Acute Assessment and Plan: * use CPAP at night will here * adjust settings to home settings (8) Chronic kidney disease, stage 3: Code(s): N18.30 - Chronic kidney disease, stage 3 unspecified Status: Acute Assessment and Plan: * BUN 61, Cr 2.10 * GFR is 25 * Could be acute on chronic renal failure from overload. * Lasix 40mg IV BID * Trend I&Os * Monitor edema * Labs in am * Nephrology is consulted thank you for your recommendation. (9) Hypotension: Code(s): I95.9 - Hypotension, unspecified Status: Acute Assessment and Plan: * blood pressures were anywhere from 70s to 110 systolically * hold parameters are on all medications * cardiology consulted * will defer hypotension to cardiology * continue trend blood press
--- NOTE | 2021-05-16 13:54 | PM.IMPN ---
Progress Note: A&P Assessment and Plan (1) Acute exacerbation of congestive heart failure: Code(s): I50.9 - Heart failure, unspecified Status: Acute Assessment and Plan: Patient has to 4+ pitting edema bilateral lower extremity BNP 00180 40 mg IV Lasix Q 12 strict I&Os tele monitor shows SR in the 90s cardioverted 05/15/21 is down sinus rhythm 90s echo from 03/19 21 shows an EF of 20% cardiology consult thank you for your recommendations carvedilol 3.125 mg p.o. b.i.d. with parameters Started on Milrinone 0.125mg IV Entresto 1 tablet p.o. b.i.d. on hold for now Monitor for hypotension Torsemide 20mg PO BIDWM Heart healthy diet urinary catheter for better I&O control. Repeat chest xray just showed pulmonary edema. (2) Increased oxygen demand: Code(s): R68.89 - Other general symptoms and signs Status: Acute Assessment and Plan: oxygen demand increased to 6L Documented fever of 100.7 appearance pale with flush face. Chest xray showed CHF with progression of edema and/or PNA Chest CT is pending, quick review shows increased plural effusion and edema, maybe some PNA Azithromycin and Ceftriaxone was started Blood cultures pending Sindhu antibiotics to cultures WBC 10.2 Trend labs Labs in the am (3) Pleural effusion on left: Code(s): J90 - Pleural effusion, not elsewhere classified Status: Acute Assessment and Plan: Chest xray showed a moderate left sided pleural effusion thoracentesis performed today 1000 mL drained It is noted that the patient has nodules in lungs. These were found on the chest CT from 02/04/21. Trend I&Os Monitor breathing Might need a follow up x-ray. 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 5 mg b.i.d. For chronic Afib (7) Obstructive sleep apnea: Code(s): G47.33 - Obstructive sleep apnea (adult) (pediatric) Status: Acute Assessment and Plan: use CPAP at night will here adjust settings to home settings (8) Chronic kidney disease, stage 3: Code(s): N18.30 - Chronic kidney disease, stage 3 unspecified Status: Acute Assessment and Plan: BUN 61, Cr 2.10 GFR is 25 Could be acute on chronic renal failure from overload. Lasix 40mg IV BID Trend I&Os Monitor edema Labs in am Nephrology is consulted thank you for your recommendation. (9) Hypotension: Code(s): I95.9 - Hypotension, unspecified Status: Acute Assessment and Plan: blood pressures were anywhere from 70s to 110 systolically hold parameters are on all medications cardiology consulted will defer hypotension to cardiology continue trend blood pressures Time Spent With Patient Time: 56 minutes Time with patient: Greater than 35 minutes Subjective Date/time seen: 05/16/21 13:54 Interval history: Patient is a 70-year-old male with a past medical history of CAD, reoccurring pulmonary effusion, AFib stay, post status CABG, cardiomyopathy, hypertension, hyperlipidemia, sleep apnea presented to the ED for complaints of shortness of breath and increased edema. Today the patient has concern about being tired. His said that all he does is sleep is not moving around in the room and is getting weaker. According to
[2021-05-16] MEDS: MILRINONE LACTATE 20 MG in DEXTROSE 5% 80 ML 2.81 MG IV CONT (14:52)
--- NOTE | 2021-05-16 15:13 | PM.PNCARD ---
Progress Note: A&P Assessment and Plan (1) Acute exacerbation of congestive heart failure: Code(s): I50.9 - Heart failure, unspecified <EMRE Hinojosa - Last Filed: 05/16/21 16:25> Status: Acute <EMRE Hinojosa - Last Filed: 05/16/21 16:25> Assessment and Plan: Acute on chronic systolic heart failure. This is been ongoing problem since his bypass. Had been in Aflutter apparently since his bypass - was cardioverted 05/13 now in sinus rhythm. Remains markedly volume overloaded. He is also hypotensive which is complicating his medical management - Entresto and coreg on hold for now. - Increase milrinone to 0.25mcg/kg/min - Increase furosemide to 40mg IV q8 Initiated conversation with the patient and his regarding advanced heart failure therapies, mechanical circulatory support in particular. Explained the therapy, expected survival with MCS vs. medical therapy for end stage HF. They are aware that he would be transferred to [place] for evaluation for surgical candidacy. Answered all questions to their satisfaction. They would like some time to discuss and consider their options. 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 <EMRE Hinojosa - Last Filed: 05/16/21 16:25> Status: Acute <EMRE Hinojosa - Last Filed: 05/16/21 16:25> Assessment and Plan: on Eliquis <EMRE Hinojosa - Last Filed: 05/16/21 16:25> (3) Pleural effusion on left: Code(s): J90 - Pleural effusion, not elsewhere classified <[facility] APN-C - Last Filed: 05/16/21 16:25> Status: Acute <EMRE Hinojosa - Last Filed: 05/16/21 16:25> Assessment and Plan: Status post thoracentesis <CRISTHIAN HinojosaC - Last Filed: 05/16/21 16:25> (4) Atrial flutter: Code(s): I48.92 - Unspecified atrial flutter <EMRE Hinojosa - Last Filed: 05/16/21 16:25> Status: Acute <CRISTHIAN HinojosaC - Last Filed: 05/16/21 16:25> Assessment and Plan: as detailed above, he has had persistent atrial flutter with RVR for months. -Successfully cardioverted yesterday -Remains in sinus rhythm in the 90's -On Eliquis <EMRE Hinojosa - Last Filed: 05/16/21 16:25> (5) Ischemic cardiomyopathy: Code(s): I25.5 - Ischemic cardiomyopathy <EMRE Hinojosa - Last Filed: 05/16/21 16:25> Status: Acute <[facility] P[facility] APN-C - Last Filed: 05/16/21 16:25> Assessment and Plan: as above <Mer[facility] Pike APN-Connie - Last Filed: 05/16/21 16:25> (6) History of implantable cardioverter-defibrillator (ICD) placement: Code(s): Z95.810 - Presence of automatic (implantable) cardiac defibrillator <EMRE Hinojosa - Last Filed: 05/16/21 16:25> Status: Acute <EMRE Hinojosa - Last Filed: 05/16/21 16:25> (7) Coronary artery disease: Code(s): I25.10 - Atherosclerotic heart disease of [place] coronary artery without angina pectoris <EMRE Hinojosa - Last Filed: 05/16/21 16:25> Status: Acute <EMRE Hinojosa - Last Filed: 05/16/21 16:25> Assessment and Plan: no anginal symptoms status post CABG <EMRE Hinojosa - Last Filed: 05/16/21 16:25> (8) Electrolyte imbalance: Code(s): E87.8 - Other disorders of electrolyte and fluid balance, not elsewhere classified <EMRE Hinojosa - Last Filed: 05/16/21 16:25> Status: Acute <EMRE Hinojosa - Last Filed: 05/16/21 16:25> Assessment and
[2021-05-16] MEDS: ACETAMINOPHEN 325 MG TABLET 650 MG PO (16:50)
[2021-05-16 17:44] LABS: Alveolar/Arterial O2 Gradient 132.4 mmHg; Base Excess ABG 3.9 mEq/l (+/-2.0); Fractional Inspired Oxygen 40 %; HCO3 ABG 31.1 mEq/l (22.0-26.0); Oxygen Content ABG 16.5 %vol (16.0-22.0); Oxygen Saturation ABG 95.6 % (95.0-100.0); Oxyhemoglobin 94.9 % THb (90.0-100.0); PCO2 ABG 59.1 mmHg (35.0-45.0); PO2 ABG 84.8 mmHg (80.0-100.0); PO2 FiO2 Ratio Arterial Blood 2.12 %; Total Hemoglobin 12.3 g/dL (12.0-18.0); pH ABG 7.339 (7.350-7.450)
[2021-05-16 17:45] LABS: Device HIGH FLOW NASAL CANN; Modified Allen's Test Pass; Site Drawn LEFT RADIAL
[2021-05-16] MEDS: PHARMACIST COMMUNICATION ORDER 1 EACH XX (18:07)
[2021-05-16] MEDS: ATORVASTATIN 40 MG TABLET 80 MG PO (22:12)
[2021-05-17] VITALS (29 sets, daily range): BP systolic 94–127; BP diastolic 54–69; PULSE 78–96; RESP 18–24; TEMP 36.1–37.4; O2SAT 85–98
[2021-05-17] MEDS: FUROSEMIDE INJ 40 MG/4 ML VIAL IV PUSH ×3 (01:10→18:49)
[2021-05-17 05:09] LABS: Basophils Percent Auto 0.4 % (0.2-1.2); Eosinophils Absolute Auto 0.1 K/mm3 (0-0.3); Eosinophils Percent Auto 0.8 % (0-4.4); Hematocrit 36.1 % (42.0-52.0); Hemoglobin 10.9 g/dL (14.0-18.0); Immature Granulocyte Absolute 0.03 K/mm3 (0.00-0.031); Immature Granulocyte Percent A 0.3 % (0-0.5); Lymphocytes Absolute Auto 1.03 K/mm3 (0.9-3.2); Lymphocytes Percent Auto 11.4 % (18.3-44.2); Mean Corpuscular HGB Conc 30.2 g/dl (32-36); Mean Corpuscular Hemoglobin 24.1 pg (26-34); Mean Corpuscular Volume 79.9 fl (80-100); Mean Platelet Volume 9.7 fl (7.4-10.4); Monocytes Absolute Auto 1.2 K/mm3 (0.1-0.6); Monocytes Percent Auto 13.1 % (2.6-8.5); Neutrophils Absolute Auto 6.7 K/mm3 (1.3-6.7); Platelet Count Result 297 k/mm3 (150-375); Red Blood Count 4.52 M/mm3 (4.6-6.20); Red Cell Distribution Width 18.7 % (11.5-14.5)
[2021-05-17 05:39] LABS: Alanine Aminotransferase 59 U/L (4-50); Albumin Level 3.2 g/dL (3.5-5.1); Alkaline Phosphatase 222 U/L (38-126); Anion Gap 6 mmol/L (8-16); Aspartate Amino Transferase 41 U/L (17-59); Bilirubin,Total 0.6 mg/dL (0.2-1.3); Blood Urea Nitrogen 38 mg/dL (9-20); Calcium 8.4 mg/dL (8.4-10.2); Carbon Dioxide 37 mmol/L (22-30); Chloride 94 mmol/L (98-107); Estimated CRCL calculation 38 ml/min; Estimated Glomerular Filt Rate 40; Glucose 114 mg/dL (65-110); Magnesium 1.8 mg/dL (1.6-2.3); Potassium 3.3 mmol/L (3.4-5.0); Sodium 137 mmol/L (137-145)
[2021-05-17] MEDS: AMIODARONE HCL 200 MG TABLET PO (08:18)
[2021-05-17] MEDS: ASPIRIN 81 MG ENTERIC TABLET PO (08:19)
--- NOTE | 2021-05-17 10:22 | PM.PNCARD ---
Progress Note: A&P Assessment and Plan (1) Acute exacerbation of congestive heart failure: Code(s): I50.9 - Heart failure, unspecified Status: Acute Assessment and Plan: Acute on chronic HFrEF. with recurrent pleural effusions s/p repeat thoracentesis. This is been ongoing problem since his bypass. Had been in Aflutter apparently since his bypass - was cardioverted 05/13 now in sinus rhythm. He is also hypotensive which is complicating his medical management - Entresto and coreg on hold for now. - Did not tolerate increase in milrinone to 0.25mcg/kg/min, reduced back to .125mcg/kg/min, continue for now. Avoid Dobutamine due to A.flutter/tachyarrhythmia risk if possible. - Increase furosemide to 40mg IV q8 Another consideration is that at least since 01/2021 he has developed a LBBB on EKG with a wide QRS 175msec. he has a single lead ICD. I would strongly recommend upgrade to biventricular VIDEO GAME SCRIPT WRITER device. However, this is not available at this institution. Yesterday, conservations were initiated with the patient and his regarding advanced heart failure therapies, mechanical circulatory support in particular. Explained the therapy, expected survival with MCS vs. medical therapy for end stage HF. They are aware that he would be transferred to [place] for evaluation for surgical candidacy. They would like some time to discuss and consider their options. Very complicated management in general. At this time, patient appears to be slowly improving clinically. Renal failure is much improved (2) Ischemic cardiomyopathy: Code(s): I25.5 - Ischemic cardiomyopathy Status: Acute Assessment and Plan: EF 20% As above (3) Atrial flutter: Code(s): I48.92 - Unspecified atrial flutter Status: Acute Assessment and Plan: -s/p CV 7/13 maintaining SR on Amiodarone. Coreg held due to hypotension. On Eliquis 5mg BID. Telemetry. (4) Acute on chronic renal failure: Code(s): N17.9 - Acute kidney failure, unspecified; N18.9 - Chronic kidney disease, unspecified Status: Acute Assessment and Plan: Renal function significantly improved with improving urine output with diuresis, discontinuation of Entresto. Direct benefit of Milrinone questionable but nonetheless this is improving. (5) LBBB (left bundle branch block): Code(s): I44.7 - Left bundle-branch block, unspecified Status: Acute Assessment and Plan: see above. Noted on EKG at least since January 2021. Wide QRS. (6) Pleural effusion on left: Code(s): J90 - Pleural effusion, not elsewhere classified Status: Acute Assessment and Plan: Status post thoracentesis but with evident reaccumulation. If absolutely necessary for repeat thoracentesis Eliquis will need to be held but caution due to inc CVA risk given recent CV. As such, I would not hold unless definite plans/need for thoracentesis is concluded. More definitive management for recurrent pleural effusion likely needed, ?Pleur-X catheter, thoracic surgical evaluation although process appears mostly in line with recurrent decompensated CHF. (7) History of implantable cardioverter-defibrillator (ICD) placement: Code(s): Z95.810 - Presence of automatic (implantable) cardiac defibrillator Status: Acute Assessment and Plan: As above, would recommend upgrade to biventricular VIDEO GAME SCRIPT WRITER device. 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
[2021-05-17] MEDS: ACETAMINOPHEN 325 MG TABLET 650 MG PO (12:07)
[2021-05-17] MEDS: POTASSIUM CHLORIDE 20 MEQ TABLET 40 MEQ PO ×3 (12:07→18:49)
[2021-05-17] MEDS: MAGNESIUM SULF 2 GM/WATER 50ML 2 GM/50 ML BAG IVPB (12:09)
--- NOTE | 2021-05-17 13:28 | P.PNNP_ITS ---
Progress Note: A&P Assessment and Plan (1) Stage 3b chronic kidney disease: Code(s): N18.32 - Chronic kidney disease, stage 3b Status: Chronic Assessment and Plan: * baseline creatinine runs around 1.5 - 2.0mg/dl * presumably due to some degree of cardiorenal syndrome and need for chronic diuretics, HTN (and now hypotension), and vascular disease * maximize efforts to treat heart failure and optimize hemodynamics as this may hopefully improve renal function * follow trend of repeat labs and UOP with current interventions (2) Volume overload: Code(s): E87.70 - Fluid overload, unspecified Status: Acute Assessment and Plan: * as noted by LE edema and by imaging of chest * secondary to #3 * follow exam * consider MADISON wraps for LEs (3) Acute on chronic systolic heart failure: Code(s): I50.23 - Acute on chronic systolic (congestive) heart failure Status: Acute Assessment and Plan: * Cardiology following * known depressed EF * on milrinone gtt + IV diuretics * better urine output in the last 24 - 48 hours * follow daily weights, I/Os, and exam (4) Hypotension: Code(s): I95.9 - Hypotension, unspecified Status: Acute Assessment and Plan: * limits interventions * secondary to cardiomyopathy * follow trend * role for midodrine? (5) Atrial flutter: Code(s): I48.92 - Unspecified atrial flutter Status: Acute Assessment and Plan: * s/p cardioversion this admission * continue rate control strategy * on anticoagulation (6) Pleural effusion on left: Code(s): J90 - Pleural effusion, not elsewhere classified Status: Acute Assessment and Plan: * s/p thoracentesis * presumably related to decompensated heart failure * serial chest x-rays Will continue to follow. Subjective Date/time seen: 05/17/21 13:28 Ongoing improvement noted in the last 24 hours -- better urine output in associ ation with better hemodynamics; titration of IV diuretic noted; did not tolerate higher dose of milrinone overnight; breating/respiratory status doing much better as well; no acute distress noted. Exam Narrative: Exam Narrative: General: ill appearing male in NAD Heart: normal S1 and S2; no rub Lungs: absent at left base; bibasilar crackles Abdomen: soft, nontender, nondistended, positive bowel sounds Extremities: no cyanosis or clubbing; 2+ edema Skin: warm and dry Objective Data Vital Signs Vital Signs: Vital Signs Temp Pulse Resp BP Pulse Ox 05/17/21 13:11 37.4 C 86 18 94/54 L 94 05/17/21 12:00 96 22 H 93 05/17/21 10:00 93 05/17/21 08:43 91 05/17/21 08:18 96 05/17/21 08:00 93 22 H 94 05/17/21 07:28 36.2 C L 93 22 H 127/65 91 05/17/21 06:55 87 L 05/17/21 06:16 93 05/17/21 06:00 90 05/17/21 04:00 92 05/17/21 03:30 36.5 C 94 24 H 104/56 L 90 05/17/21 02:30 90 05/17/21 02:00 93 05/17/21 01:45 85 L 05/17/21 01:07 96/54 L 05/17/21 00:00 95 94 05/16/21 23:22 36.3 C L 87 22 H 94/56 L 97 05/16/21 22:15 98 05/16/21 22:00 83 05/16/21 21:30 106/64 05/16/21 20:40 94/48 L 05/16/21 20:00 86 86 L
--- NOTE | 2021-05-17 13:28 | PM.PNNEP ---
Progress Note: A&P Assessment and Plan (1) Stage 3b chronic kidney disease: Code(s): N18.32 - Chronic kidney disease, stage 3b Status: Chronic Assessment and Plan: baseline creatinine runs around 1.5 - 2.0mg/dl presumably due to some degree of cardiorenal syndrome and need for chronic diuretics, HTN (and now hypotension), and vascular disease maximize efforts to treat heart failure and optimize hemodynamics as this may hopefully improve renal function follow trend of repeat labs and UOP with current interventions (2) Volume overload: Code(s): E87.70 - Fluid overload, unspecified Status: Acute Assessment and Plan: as noted by LE edema and by imaging of chest secondary to #3 follow exam consider MADISON wraps for LEs (3) Acute on chronic systolic heart failure: Code(s): I50.23 - Acute on chronic systolic (congestive) heart failure Status: Acute Assessment and Plan: Cardiology following known depressed EF on milrinone gtt + IV diuretics better urine output in the last 24 - 48 hours follow daily weights, I/Os, and exam (4) Hypotension: Code(s): I95.9 - Hypotension, unspecified Status: Acute Assessment and Plan: limits interventions secondary to cardiomyopathy follow trend role for midodrine? (5) Atrial flutter: Code(s): I48.92 - Unspecified atrial flutter Status: Acute Assessment and Plan: s/p cardioversion this admission continue rate control strategy on anticoagulation (6) Pleural effusion on left: Code(s): J90 - Pleural effusion, not elsewhere classified Status: Acute Assessment and Plan: s/p thoracentesis presumably related to decompensated heart failure serial chest x-rays Will continue to follow. Subjective Date/time seen: 05/17/21 13:28 Ongoing improvement noted in the last 24 hours -- better urine output in association with better hemodynamics; titration of IV diuretic noted; did not tolerate higher dose of milrinone overnight; breating/respiratory status doing much better as well; no acute distress noted. Exam Narrative: Exam Narrative: General: ill appearing male in NAD Heart: normal S1 and S2; no rub Lungs: absent at left base; bibasilar crackles Abdomen: soft, nontender, nondistended, positive bowel sounds Extremities: no cyanosis or clubbing; 2+ edema Skin: warm and dry Objective Data Vital Signs Vital Signs: Vital Signs Temp Pulse Resp BP Pulse Ox 05/17/21 13:11 37.4 C 86 18 94/54 L 94 05/17/21 12:00 96 22 H 93 05/17/21 10:00 93 05/17/21 08:43 91 05/17/21 08:18 96 05/17/21 08:00 93 22 H 94 05/17/21 07:28 36.2 C L 93 22 H 127/65 91 05/17/21 06:55 87 L 05/17/21 06:16 93 05/17/21 06:00 90 05/17/21 04:00 92 05/17/21 03:30 36.5 C 94 24 H 104/56 L 90 05/17/21 02:30 90 05/17/21 02:00 93 05/17/21 01:45 85 L 05/17/21 01:07 96/54 L 05/17/21 00:00 95 94 05/16/21 23:22 36.3 C L 87 22 H 94/56 L 97 05/16/21 22:15 98 05/16/21 22:00 83 05/16/21 21:30 106/64 05/16/21 20:40 94/48 L 05/16/21 20:00 86 86 L 05/16/21 19:33 36.3 C L 83 24 H 76/44 L 90 05/16/21 18:00 89 05/16/21 17:45 37.5 C 05/16/21 16:10 100 24 H 90 05/16/21 16:00 38.2 C H 99 22 H 103/59 L 90 05/16/21 15:40 99 103/59 L 05/16/21 14:52 100 05/16/21 14:00 94 Intake/Output Intake/Output: Intake & Output 05/14/21 05/15/21 05/16/21 05/17/21 23:59 23:59 23:59 23:59 Intake Total 1910 2680 1708 688 Output Total 1000 1200 2100 2050 Balance [phone] Meds/Results Medications: Active Medications Generic Name Dose Route Start Last Admin Trade Name Clarissa PRN Reason Stop Dose Admin Acetaminophen 650 mg 05/12/21 15:52 05/17/21 12:07 Acetaminophen 325 Mg Tablet PO 650 mg
[2021-05-17] MEDS: APIXABAN 5 MG TABLET PO (15:36)
[2021-05-17] MEDS: MILRINONE LACTATE 20 MG in DEXTROSE 5% 80 ML 2.81 MG IV CONT (15:36)
--- NOTE | 2021-05-17 16:17 | PM.IMPN ---
Progress Note: A&P Assessment and Plan (1) Stage 3b chronic kidney disease: Code(s): N18.32 - Chronic kidney disease, stage 3b Status: Chronic Assessment and Plan: baseline creatinine runs around 1.5 - 2.0mg/dl presumably due to some degree of cardiorenal syndrome and need for chronic diuretics, HTN (and now hypotension), and vascular disease maximize efforts to treat heart failure and optimize hemodynamics as this may hopefully improve renal function follow trend of repeat labs and UOP with current interventions Nephrology inputs are appreciated. (2) Volume overload: Code(s): E87.70 - Fluid overload, unspecified Status: Acute Assessment and Plan: Continue Lasix. (3) Acute on chronic systolic heart failure: Code(s): I50.23 - Acute on chronic systolic (congestive) heart failure Status: Acute Assessment and Plan: Patient has to 4+ pitting edema bilateral lower extremity BNP 25805 Dose of the Lasix has been increased to 80 mg today by cardiology service. strict I&Os tele monitor shows SR in the 90s cardioverted 05/15/21 And is now in sinus rhythm 90s echo from 03/19 21 shows an EF of 20% cardiology service recommendations appreciated. Carvedilol is on hold as well. Started on Milrinone. Adjust the rate as per cardiology. Entresto 1 tablet p.o. b.i.d. on hold for now Monitor for hypotension Heart healthy diet urinary catheter for better I&O control. Repeat chest CT done yesterday showed large left-sided pleural effusion as well as mild to moderate right-sided pleural effusion. He had thoracentesis of 1 L of fluid done earlier From the left side. As per cardiology: it was discussed with patient's at bedside limited options at [facility] and discussed the concept of mechanical assist/LVAD as destination therapy. This would require transfer to outside tertiary center such as [place]. it was discussed at length the importance of clarifying patient's code status and what he wishes to consider with regards to intubation, CPR, invasive procedures. She will discuss with him but indicates that she does have power of commonwealth attorney. She appreciate all that we are doing and knows that he is not doing well. Overall, prognosis is very poor and he is not responding favorably to therapy available at this institution and I feel may be better served at a tertiary center with higher level of care and support options. This was discussed with his initially by me and Mercy Pike, ANDERSON as well. Pt's was open to this but not prepared to agree and wishes to consider this options and not initiate transfer at this time. I discussed clarification of code status with his and she will discuss with pt any changes but at present he remains a full code. Transfer to ICU if resp status further declines, hemodynamic instability, worsening mental status. (4) Hypotension: Code(s): I95.9 - Hypotension, unspecified Status: Acute Assessment and Plan: limits interventions secondary to cardiomyopathy follow trend role for midodrine? Currently on Lasix as tolerated with Milrinone drip. His carvedilol and Entresto is on hold. (5) Atrial flutter: Code(s): I48.92 - Unspecified atrial flutter Status: Acute Assessment and Plan: s/p cardioversion this admission Currently rate is in 80s and 90s. He is on Milrinone currently. on anticoagulation (6) Pleural effusion on left: Code(s): J90 - Pleural effusion, not elsewhere classified Status: Acute Assessment and Plan: s/p thoracentesis presumably related to decompensated heart failure Repeat chest done overnight showed large size left-sided pleural effusion. He had thoracentesis done on the left side with 1 L of fluid drained already. Ultrasound-guided thoracentesis has been ordered from the left side to improve his respir
--- NOTE | 2021-05-17 16:27 | PCPTNOTE ---
Patient refused treatment this session due to patient stated I have all these lines. Therapist stated can assist with the lines. Therapist offered exercises in bed. Patient stated no I have been moving my legs around. Patient's present. Therapist informed R.N. Will continue per POC.
[2021-05-17] MEDS: ATORVASTATIN 40 MG TABLET 80 MG PO (19:59)
[2021-05-17] MEDS: ZOLPIDEM TARTRATE (*CRX) 5 MG TABLET PO (22:02)
[2021-05-18] VITALS (20 sets, daily range): BP systolic 101–132; BP diastolic 51–72; PULSE 76–95; RESP 18–24; TEMP 36.1–37.2; O2SAT 87–99
[2021-05-18] MEDS: FUROSEMIDE INJ 40 MG/4 ML VIAL IV PUSH ×3 (02:08→17:08)
[2021-05-18 05:54] LABS: Basophils Absolute Auto 0.1 K/mm3 (0.0-0.1); Basophils Percent Auto 0.8 % (0.2-1.2); Eosinophils Absolute Auto 0.1 K/mm3 (0-0.3); Eosinophils Percent Auto 1.1 % (0-4.4); Hematocrit 35.5 % (42.0-52.0); Immature Granulocyte Absolute 0.04 K/mm3 (0.00-0.031); Immature Granulocyte Percent A 0.5 % (0-0.5); Lymphocytes Absolute Auto 1.24 K/mm3 (0.9-3.2); Lymphocytes Percent Auto 14.3 % (18.3-44.2); Mean Corpuscular Hemoglobin 24.6 pg (26-34); Mean Corpuscular Volume 79.2 fl (80-100); Mean Platelet Volume 9.7 fl (7.4-10.4); Monocytes Absolute Auto 1.4 K/mm3 (0.1-0.6); Neutrophils Absolute Auto 5.9 K/mm3 (1.3-6.7); Neutrophils Percent Auto 67.3 % (45.5-73.1); Platelet Count Result 316 k/mm3 (150-375); Red Blood Count 4.48 M/mm3 (4.6-6.20); Red Cell Distribution Width 18.8 % (11.5-14.5); White Blood Count 8.7 K/mm3 (4.5-10.0)
[2021-05-18 06:11] LABS: Anion Gap 5 mmol/L (8-16); Blood Urea Nitrogen 29 mg/dL (9-20); Calcium 8.3 mg/dL (8.4-10.2); Carbon Dioxide 35 mmol/L (22-30); Chloride 99 mmol/L (98-107); Estimated CRCL calculation 46 ml/min; Estimated Glomerular Filt Rate 50; Glucose 113 mg/dL (65-110); Potassium 4.2 mmol/L (3.4-5.0); Sodium 139 mmol/L (137-145)
--- NOTE | 2021-05-18 07:21 | PM.IMPN ---
Progress Note: A&P Assessment and Plan (1) Stage 3b chronic kidney disease: Code(s): N18.32 - Chronic kidney disease, stage 3b Status: Chronic Assessment and Plan: baseline creatinine runs around 1.5 - 2.0mg/dl. Creatinine is trending down and it is 1.4 today. presumably due to some degree of cardiorenal syndrome and need for chronic diuretics, HTN (and now hypotension), and vascular disease maximize efforts to treat heart failure and optimize hemodynamics as this may hopefully improve renal function follow trend of repeat labs and UOP with current interventions Nephrology inputs are appreciated. (2) Volume overload: Code(s): E87.70 - Fluid overload, unspecified Status: Acute Assessment and Plan: Continue Lasix Along with Milrinone. (3) Acute on chronic systolic heart failure: Code(s): I50.23 - Acute on chronic systolic (congestive) heart failure Status: Acute Assessment and Plan: Patient has to 4+ pitting edema bilateral lower extremity BNP 94170 Continue diuresis as per nephrology/cardiology service. strict I&Os tele monitor shows SR in the 90s cardioverted 05/15/21 And is now in sinus rhythm 90s echo from 03/19 21 shows an EF of 20% cardiology service recommendations appreciated. Carvedilol And Entresto is on hold as well for hypertension. Started on Milrinone. Adjust the rate as per cardiology. Monitor for hypotension Heart healthy diet urinary catheter for better I&O control. Repeat chest CT done yesterday showed large left-sided pleural effusion as well as mild to moderate right-sided pleural effusion. Repeat ultrasound-guided thoracentesis has been requested to improve respiratory mechanics which has been scheduled for 2 p.m. today. Will resume Eliquis after thoracentesis is performed. Repeat chest x-ray in AM. He had thoracentesis of 1 L of fluid done earlier From the left side. As per cardiology: it was discussed with patient's at bedside limited options at [facility] and discussed the concept of mechanical assist/LVAD as destination therapy. This would require transfer to outside tertiary center such as [place]. it was discussed at length the importance of clarifying patient's code status and what he wishes to consider with regards to intubation, CPR, invasive procedures. She will discuss with him but indicates that she does have power of litigation attorney associate. She appreciate all that we are doing and knows that he is not doing well. Overall, prognosis is very poor and he is not responding favorably to therapy available at this institution and I feel may be better served at a tertiary center with higher level of care and support options. This was discussed with his initially by me and Mercy Pike NP as well. Pt's was open to this but not prepared to agree and wishes to consider this options and not initiate transfer at this time. I discussed clarification of code status with his and she will discuss with pt any changes but at present he remains a full code. Transfer to ICU if resp status further declines, hemodynamic instability, worsening mental status. (4) Hypotension: Code(s): I95.9 - Hypotension, unspecified Status: Acute Assessment and Plan: limits interventions secondary to cardiomyopathy follow trend role for midodrine? Currently on Lasix as tolerated with Milrinone drip. His carvedilol and Entresto is on hold. (5) Atrial flutter: Code(s): I48.92 - Unspecified atrial flutter Status: Acute Assessment and Plan: s/p cardioversion this admission Currently rate is in 80s and 90s. He is on Milrinone currently. on anticoagulation (6) Pleural effusion on left: Code(s): J90 - Pleural effusion, not elsewhere classified Status: Acute Assessment and Plan: s/p thoracentesis presumably related to decompensated heart failure
[2021-05-18 08:22] LABS: Hematocrit 37.5 % (42.0-52.0); Hemoglobin 11.3 g/dL (14.0-18.0); Mean Corpuscular HGB Conc 30.1 g/dl (32-36); Mean Corpuscular Hemoglobin 24.4 pg (26-34); Mean Corpuscular Volume 80.8 fl (80-100); Mean Platelet Volume 9.4 fl (7.4-10.4); Platelet Count Result 312 k/mm3 (150-375); Red Blood Count 4.64 M/mm3 (4.6-6.20); Red Cell Distribution Width 19.1 % (11.5-14.5); White Blood Count 8.3 K/mm3 (4.5-10.0)
[2021-05-18] MEDS: AMIODARONE HCL 200 MG TABLET PO (08:28)
[2021-05-18 08:33] LABS: INR 1.4; Prothrombin Time 17.2 Seconds (11.1-14.7)
[2021-05-18 08:34] LABS: Partial Thromboplastin Time 46.6 SECONDS (22.3-36.8)
--- NOTE | 2021-05-18 10:28 | PM.PNCARD ---
Progress Note: A&P Assessment and Plan (1) Acute exacerbation of congestive heart failure: Code(s): I50.9 - Heart failure, unspecified Status: Acute Assessment and Plan: Acute on chronic HFrEF. with recurrent pleural effusions s/p repeat thoracentesis. This is been ongoing problem since his bypass. Had been in Aflutter apparently since his bypass - was cardioverted 05/13 now in sinus rhythm. He is also hypotensive which is complicating his medical management - Entresto and coreg on hold for now. - Did not tolerate increase in milrinone to 0.25mcg/kg/min, reduced back to .125mcg/kg/min, continue for now. Avoid Dobutamine due to A.flutter/tachyarrhythmia risk if possible. -continue Furosemide 40mg IV q8 -Unfortunately, it appears pt presents repeatedly with recurrent CHF and ARF along with large L pleural effusion requiring multiple thoracentesis to date (2 this in the past week this admission). -As such, I do not feel resuming Entresto appears to be in his best interest as this is likely contributing to hypotension and ARF limiting the effectiveness of diuresis resulting in CHF exacerbation. -We should make every effort as tolerated to maintain SR, BiV ICD upgrade to HIGHWAY DESIGN ENGINEER device as outpatient given wide QRS LBBB. Will see how he responds post thoracentesis. If recurrent effusion without overt or significant decompensation it then may make sense to for pleurodesis or Pleur-X catheter. However, thus far his pattern has been decompensated HF resulting in pleural effusions in which case control of CHF and renal function are primary management goals. Very complicated management in general. At this time, patient appears to be slowly improving clinically. Renal failure is much improved (2) Ischemic cardiomyopathy: Code(s): I25.5 - Ischemic cardiomyopathy Status: Acute Assessment and Plan: EF 20% As above (3) Atrial flutter: Code(s): I48.92 - Unspecified atrial flutter Status: Acute Assessment and Plan: -s/p CV 05/13 maintaining SR on Amiodarone. Coreg held due to hypotension. On Eliquis 5mg BID but on hold for thoracentesis today. Resume ERENDIRA. Telemetry. (4) Acute on chronic renal failure: Code(s): N17.9 - Acute kidney failure, unspecified; N18.9 - Chronic kidney disease, unspecified Status: Acute Assessment and Plan: Renal function continues to improve significantly improved with improving urine output with diuresis, discontinuation of Entresto. Direct benefit of Milrinone questionable but nonetheless this is improving. (5) LBBB (left bundle branch block): Code(s): I44.7 - Left bundle-branch block, unspecified Status: Acute Assessment and Plan: see above. Noted on EKG at least since January 2021. Wide QRS. (6) Pleural effusion on left: Code(s): J90 - Pleural effusion, not elsewhere classified Status: Acute Assessment and Plan: Status post thoracentesis but with evident reaccumulation. Repeat thoracentesis today. Resume Eliquis as soon as feasible. monitor for bleeding. As above. (7) History of implantable cardioverter-defibrillator (ICD) placement: Code(s): Z95.810 - Presence of automatic (implantable) cardiac defibrillator Status: Acute Assessment and Plan: As above, would recommend upgrade to biventricular HIGHWAY DESIGN ENGINEER device. (8) Coronary artery disease: Code(s): I25.10 - Atherosclerotic heart disease of [place] coronary artery without angina pectoris Status: Acute Assessment and Plan: no anginal symptoms status post CABG (9) Chronic anticoagulation: Code(s): Z79.01 - superintendent terminal (current) use of anticoagulants Status: Acute Assessment and
--- NOTE | 2021-05-18 11:11 | PCOTNOTE ---
Attempted to see patient this am, however patient declined stating, No, I'm getting ready to have a procedure here in a couple hours. A thoracentesis. Pt declined ADLs and activity out of bed prior to procedure stating, No, not really, I'm good, but thank you.
--- NOTE | 2021-05-18 14:15 | P.PNNP_ITS ---
Progress Note: A&P Assessment and Plan (1) Stage 3b chronic kidney disease: Code(s): N18.32 - Chronic kidney disease, stage 3b Status: Chronic Assessment and Plan: * baseline creatinine runs around 1.5 - 2.0mg/dl * presumably due to some degree of cardiorenal syndrome and need for chronic diuretics, HTN (and now hypotension), and vascular disease * maximize efforts to treat heart failure and optimize hemodynamics as this may hopefully improve renal function * creatinine currently better than baseline with current interventions * follow trend of repeat labs and UOP with current interventions (2) Volume overload: Code(s): E87.70 - Fluid overload, unspecified Status: Acute Assessment and Plan: * as noted by LE edema and by imaging of chest * secondary to #3 * follow exam * consider MADISON wraps for LEs (3) Acute on chronic systolic heart failure: Code(s): I50.23 - Acute on chronic systolic (congestive) heart failure Status: Acute Assessment and Plan: * Cardiology following * known depressed EF * on milrinone gtt + IV diuretics * better urine output in the last 24 - 48 hours * follow daily weights, I/Os, and exam (4) Hypotension: Code(s): I95.9 - Hypotension, unspecified Status: Acute Assessment and Plan: * limits interventions * secondary to cardiomyopathy * follow trend -- better hemodynamics noted recently (5) Atrial flutter: Code(s): I48.92 - Unspecified atrial flutter Status: Acute Assessment and Plan: * s/p cardioversion this admission * continue rate control strategy * on anticoagulation (6) Pleural effusion on left: Code(s): J90 - Pleural effusion, not elsewhere classified Status: Acute Assessment and Plan: * s/p thoracentesis * presumably related to decompensated heart failure * repeat left thoracentesis today Will continue to follow. Subjective Date/time seen: 05/18/21 14:15 About to leave for repeat left thoracentesis today; overall, he states he feels better -- breathing has improved with less oxygen requirement; better urine output in the last 24 - 48 hours (with milrinone + IV lasix) and some improvement in lower extremity edema. Exam Narrative: Exam Narrative: General: ill appearing male in NAD Heart: normal S1 and S2; no rub Lungs: absent at left base; bibasilar crackles Abdomen: soft, nontender, nondistended, positive bowel sounds Extremities: no cyanosis or clubbing; 1- 2+ edema Skin: warm and intact Objective Data Vital Signs Vital Signs: Vital Signs Temp Pulse Resp BP Pulse Ox 05/18/21 14:00 81 05/18/21 13:30 36.8 C 84 20 109/62 96 05/18/21 12:00 76 96 05/18/21 10:00 84 05/18/21 08:28 82 05/18/21 08:00 82 24 H 91 05/18/21 07:37 36.1 C L 95 24 H 132/71 91 05/18/21 06:00 90 05/18/21 04:30 85 94 05/18/21 04:00 36.3 C L 90 20 121/68 94 05/18/21 02:00 88 05/18/21 00:00 88 93 05/17/21 23:42 36.1 C L 89 18 101/55 L 90 05/17/21 23:04 94 18 90 05/17/21 23:02 94 90 05/17/21 22:00 84 05/17/21 20:00 36.3 C L 87 20 114/69 95 05/17/21 18:16 36.8 C 82 18 101/57 L 91 05/17/21 18:00 85 Intake/Outp
--- NOTE | 2021-05-18 14:15 | PM.PNNEP ---
Progress Note: A&P Assessment and Plan (1) Stage 3b chronic kidney disease: Code(s): N18.32 - Chronic kidney disease, stage 3b Status: Chronic Assessment and Plan: baseline creatinine runs around 1.5 - 2.0mg/dl presumably due to some degree of cardiorenal syndrome and need for chronic diuretics, HTN (and now hypotension), and vascular disease maximize efforts to treat heart failure and optimize hemodynamics as this may hopefully improve renal function creatinine currently better than baseline with current interventions follow trend of repeat labs and UOP with current interventions (2) Volume overload: Code(s): E87.70 - Fluid overload, unspecified Status: Acute Assessment and Plan: as noted by LE edema and by imaging of chest secondary to #3 follow exam consider MADISON wraps for LEs (3) Acute on chronic systolic heart failure: Code(s): I50.23 - Acute on chronic systolic (congestive) heart failure Status: Acute Assessment and Plan: Cardiology following known depressed EF on milrinone gtt + IV diuretics better urine output in the last 24 - 48 hours follow daily weights, I/Os, and exam (4) Hypotension: Code(s): I95.9 - Hypotension, unspecified Status: Acute Assessment and Plan: limits interventions secondary to cardiomyopathy follow trend -- better hemodynamics noted recently (5) Atrial flutter: Code(s): I48.92 - Unspecified atrial flutter Status: Acute Assessment and Plan: s/p cardioversion this admission continue rate control strategy on anticoagulation (6) Pleural effusion on left: Code(s): J90 - Pleural effusion, not elsewhere classified Status: Acute Assessment and Plan: s/p thoracentesis presumably related to decompensated heart failure repeat left thoracentesis today Will continue to follow. Subjective Date/time seen: 05/18/21 14:15 About to leave for repeat left thoracentesis today; overall, he states he feels better -- breathing has improved with less oxygen requirement; better urine output in the last 24 - 48 hours (with milrinone + IV lasix) and some improvement in lower extremity edema. Exam Narrative: Exam Narrative: General: ill appearing male in NAD Heart: normal S1 and S2; no rub Lungs: absent at left base; bibasilar crackles Abdomen: soft, nontender, nondistended, positive bowel sounds Extremities: no cyanosis or clubbing; 1- 2+ edema Skin: warm and intact Objective Data Vital Signs Vital Signs: Vital Signs Temp Pulse Resp BP Pulse Ox 05/18/21 14:00 81 05/18/21 13:30 36.8 C 84 20 109/62 96 05/18/21 12:00 76 96 05/18/21 10:00 84 05/18/21 08:28 82 05/18/21 08:00 82 24 H 91 05/18/21 07:37 36.1 C L 95 24 H 132/71 91 05/18/21 06:00 90 05/18/21 04:30 85 94 05/18/21 04:00 36.3 C L 90 20 121/68 94 05/18/21 02:00 88 05/18/21 00:00 88 93 05/17/21 23:42 36.1 C L 89 18 101/55 L 90 05/17/21 23:04 94 18 90 05/17/21 23:02 94 90 05/17/21 22:00 84 05/17/21 20:00 36.3 C L 87 20 114/69 95 05/17/21 18:16 36.8 C 82 18 101/57 L 91 05/17/21 18:00 85 Intake/Output Intake/Output: Intake & Output 05/15/21 05/16/21 05/17/21 05/18/21 23:59 23:59 23:59 23:59 Intake Total 2680 1708 1990 522 Output Total 1200 2100 2350 3400 Balance 3999 -717 -081 -4138 Meds/Results Medications: Active Medications Generic Name Dose Route Start Last Admin Trade Name Clarissa PRN Reason Stop Dose Admin Acetaminophen 650 mg 05/12/21 15:52 05/17/21 12:07 Acetaminophen 325 Mg Tablet PO 650 mg Q4H PRN Administration Mild Pain (1-3) or Fever Amiodarone HCl 200 mg 05/13/21 09:00 05/18/21 08:28 Amiodarone Hcl 200 Mg Tablet PO 200 mg DAILY TRESSA Administration Apixaban 5 mg 05/13/21 21:00 05/17/21 15:36 Apixaban 5 Mg Tabl
[2021-05-18] MEDS: AZITHROMYCIN 250 MG TABLET 500 MG PO (17:08)
[2021-05-18] MEDS: MILRINONE LACTATE 20 MG in DEXTROSE 5% 80 ML 2.81 MG IV CONT (21:06)
[2021-05-18] MEDS: ATORVASTATIN 40 MG TABLET 80 MG PO (21:06)
[2021-05-18] MEDS: APIXABAN 5 MG TABLET PO (21:06)
[2021-05-18] MEDS: ZOLPIDEM TARTRATE (*CRX) 5 MG TABLET PO (21:08)
[2021-05-19] VITALS (21 sets, daily range): BP systolic 91–110; BP diastolic 49–64; PULSE 72–86; RESP 18–24; TEMP 36.4–36.9; O2SAT 91–98
[2021-05-19] MEDS: FUROSEMIDE INJ 40 MG/4 ML VIAL IV PUSH ×3 (00:14→16:35)
[2021-05-19 05:51] LABS: Basophils Absolute Auto 0.1 K/mm3 (0.0-0.1); Eosinophils Absolute Auto 0.3 K/mm3 (0-0.3); Eosinophils Percent Auto 3.7 % (0-4.4); Hematocrit 35.8 % (42.0-52.0); Immature Granulocyte Absolute 0.02 K/mm3 (0.00-0.031); Immature Granulocyte Percent A 0.3 % (0-0.5); Lymphocytes Absolute Auto 1.16 K/mm3 (0.9-3.2); Lymphocytes Percent Auto 15.9 % (18.3-44.2); Mean Corpuscular HGB Conc 30.7 g/dl (32-36); Mean Corpuscular Volume 78.2 fl (80-100); Monocytes Absolute Auto 1.1 K/mm3 (0.1-0.6); Monocytes Percent Auto 15.3 % (2.6-8.5); Neutrophils Absolute Auto 4.7 K/mm3 (1.3-6.7); Neutrophils Percent Auto 63.8 % (45.5-73.1); Platelet Count Result 310 k/mm3 (150-375); Red Blood Count 4.58 M/mm3 (4.6-6.20); Red Cell Distribution Width 18.6 % (11.5-14.5); White Blood Count 7.3 K/mm3 (4.5-10.0)
[2021-05-19 05:52] LABS: INR 1.5; Prothrombin Time 17.6 Seconds (11.1-14.7)
[2021-05-19 06:04] LABS: Anion Gap 5 mmol/L (8-16); Blood Urea Nitrogen 23 mg/dL (9-20); Calcium 8.2 mg/dL (8.4-10.2); Carbon Dioxide 39 mmol/L (22-30); Chloride 93 mmol/L (98-107); Estimated CRCL calculation 50 ml/min; Estimated Glomerular Filt Rate 55; Glucose 161 mg/dL (65-110); Magnesium 1.8 mg/dL (1.6-2.3); Potassium 3.3 mmol/L (3.4-5.0); Sodium 137 mmol/L (137-145)
[2021-05-19] MEDS: AMIODARONE HCL 200 MG TABLET PO (08:41)
[2021-05-19] MEDS: ASPIRIN 81 MG ENTERIC TABLET PO (08:41)
[2021-05-19] MEDS: APIXABAN 5 MG TABLET PO ×2 (08:41→21:06)
[2021-05-19] MEDS: ACETAMINOPHEN 325 MG TABLET 650 MG PO (08:42)
--- NOTE | 2021-05-19 09:19 | PM.PNCARD ---
Progress Note: A&P Assessment and Plan (1) Acute exacerbation of congestive heart failure: Code(s): I50.9 - Heart failure, unspecified <EMRE Hinojosa - Last Filed: 05/19/21 12:08> Status: Acute <EMRE Hinojosa - Last Filed: 05/19/21 12:08> Assessment and Plan: Acute on chronic HFrEF. with recurrent pleural effusions s/p repeat thoracentesis. This is been ongoing problem since his bypass. Had been in Aflutter apparently since his bypass - was cardioverted 05/13 now in sinus rhythm. He is also hypotensive which is complicating his medical management - Entresto and Coreg on hold for now. - Discontinue milrinone - Decrease furosemide to 40mg IV BID - Unfortunately, it appears pt presents repeatedly with recurrent CHF and ARF along with large L pleural effusion requiring multiple thoracentesis to date (2 this admission in the past week). - Entresto - likely contributing to hypotension and ARF limiting the effectiveness of diuresis resulting in CHF exacerbation. - We should make every effort as tolerated to maintain SR, BiV ICD upgrade to BOBBIN STRIPPER device as outpatient given wide QRS LBBB. Will see how he responds post thoracentesis. If recurrent effusion without overt or significant decompensation it then may make sense to for pleurodesis or Pleur-X catheter. However, thus far his pattern has been decompensated HF resulting in pleural effusions in which case control of CHF and renal function are primary management goals. Very complicated management in general. At this time, patient appears to be slowly improving clinically. Renal failure is much improved <EMRE Hinojosa - Last Filed: 05/19/21 12:08> (2) Ischemic cardiomyopathy: Code(s): I25.5 - Ischemic cardiomyopathy <EMRE Hinojosa - Last Filed: 05/19/21 12:08> Status: Acute <EMRE Hinojosa - Last Filed: 05/19/21 12:08> Assessment and Plan: EF 20% As above <EMRE Hinojosa - Last Filed: 05/19/21 12:08> (3) Atrial flutter: Code(s): I48.92 - Unspecified atrial flutter <EMRE Hinojosa - Last Filed: 05/19/21 12:08> Status: Acute <CRISTHIAN HinojosaC - Last Filed: 05/19/21 12:08> Assessment and Plan: -s/p CV 05/13 maintaining SR on Amiodarone. Coreg held due to hypotension. On Eliquis 5mg BID. <EMRE Hinojosa - Last Filed: 05/19/21 12:08> (4) Acute on chronic renal failure: Code(s): N17.9 - Acute kidney failure, unspecified; N18.9 - Chronic kidney disease, unspecified <EMRE Hinojosa - Last Filed: 05/19/21 12:08> Status: Acute <EMRE Hinojosa - Last Filed: 05/19/21 12:08> Assessment and Plan: Renal function continues to improve significantly improved with improving urine output with diuresis, discontinuation of Entresto. Direct benefit of Milrinone questionable but nonetheless this is improving. <EMRE Hinojosa - Last Filed: 05/19/21 12:08> (5) LBBB (left bundle branch block): Code(s): I44.7 - Left bundle-branch block, unspecified <EMRE Hinojosa - Last Filed: 05/19/21 12:08> Status: Acute <EMRE Hinojosa - Last Filed: 05/19/21 12:08> Assessment and Plan: see above. Noted on EKG at least since January 2021. Wide QRS. <EMRE Hinojosa - Last Filed: 05/19/21 12:08> (6) Pleural effusion on left: Code(s): J90 - Pleural effusion, not elsewhere classified <EMRE Hinojosa - Last Filed: 05/19/21 12:08> Status: Acute <EMRE Hinojosa - Last Filed: 05/19/21 12:08> Assessment and Plan: Status post thoracentesis but with evident reaccumulation. Repeat thoracentesis 05/18 with 1L fluid removal. Eliquis resumed.
[2021-05-19] MEDS: POTASSIUM CHLORIDE 20 MEQ TABLET 40 MEQ PO (10:50)
--- NOTE | 2021-05-19 11:11 | P.PNNP_ITS ---
Progress Note: A&P Assessment and Plan (1) Stage 3b chronic kidney disease: Code(s): N18.32 - Chronic kidney disease, stage 3b Status: Chronic Assessment and Plan: * baseline creatinine runs around 1.5 - 2.0mg/dl * most likely due to hypertension and vascular disease with superimposed chronic pre renal azotemia from the bad heart. * Creatinine has improved dramatically since being on the milrinone. (2) Volume overload: Code(s): E87.70 - Fluid overload, unspecified Status: Acute Assessment and Plan: * as noted by LE edema and by imaging of chest * He still has crackles and swelling. * Continue diuretics (3) Acute on chronic systolic heart failure: Code(s): I50.23 - Acute on chronic systolic (congestive) heart failure Status: Acute Assessment and Plan: * Cardiology following * known depressed EF * on milrinone gtt + IV diuretics * 3100 cc yesterday! (4) Hypotension: Code(s): I95.9 - Hypotension, unspecified Status: Acute Assessment and Plan: * limits interventions * secondary to cardiomyopathy * follow trend -- better hemodynamics noted recently (5) Atrial flutter: Code(s): I48.92 - Unspecified atrial flutter Status: Acute Assessment and Plan: * s/p cardioversion this admission * continue rate control strategy * on anticoagulation (6) Pleural effusion on left: Code(s): J90 - Pleural effusion, not elsewhere classified Status: Acute Assessment and Plan: * s/p thoracentesis * presumably related to decompensated heart failure * repeat left thoracentesis today Subjective Date/time seen: 05/19/21 11:11 Interval history: Patient is feeling better today. Still swollen. Exam Narrative: Exam Narrative: General: ill appearing male in NAD Heart: normal S1 and S2; no rub or gallop Lungs: decreased breath sounds at the left base. bibasilar crackles Abdomen: soft, nontender, nondistended, positive bowel sounds Extremities: no cyanosis or clubbing; 1- 2+ edema Skin: No rash Objective Data Vital Signs Vital Signs: Vital Signs - 24 hr 05/18/21 12:00 05/18/21 13:30 05/18/21 14:00 Temperature 36.8 C Pulse Rate 76 84 81 Respiratory Rate 20 Blood Pressure 109/62 Pulse Oximetry 96 96 05/18/21 15:10 07/18/21 15:42 05/18/21 16:00 Temperature 36.4 C Pulse Rate 86 78 76 Respiratory Rate 20 18 22 H Blood Pressure 110/72 105/61 Pulse Oximetry 97 93 87 L 05/18/21 17:47 05/18/21 18:00 05/18/21 20:00 Temperature 37.2 C Pulse Rate 80 82 76 Respiratory Rate 20 22 H Blood Pressure 104/51 L Pulse Oximetry 96 87 L 05/18/21 22:00 05/18/21 22:08 05/19/21 00:00 Temperature 36.6 C Pulse Rate 80 81 85 Respiratory Rate 20 18 Blood Pressure 110/64 Pulse Oximetry 94 97 05/19/21 02:00 05/19/21 02:42 05/19/21 04:00 Temperature 36.4 C Pulse Rate 79 77 86 Respiratory Rate 19 18 Blood Pressure 108/61 Pulse Oximetry 95 94 05/19/21 06:00 05/19/21 08:00 05/19/21 08:41 Temperature 36.9 C Pulse Rate 8
--- NOTE | 2021-05-19 11:11 | PM.PNNEP ---
Progress Note: A&P Assessment and Plan (1) Stage 3b chronic kidney disease: Code(s): N18.32 - Chronic kidney disease, stage 3b Status: Chronic Assessment and Plan: baseline creatinine runs around 1.5 - 2.0mg/dl most likely due to hypertension and vascular disease with superimposed chronic pre renal azotemia from the bad heart. Creatinine has improved dramatically since being on the milrinone. (2) Volume overload: Code(s): E87.70 - Fluid overload, unspecified Status: Acute Assessment and Plan: as noted by LE edema and by imaging of chest He still has crackles and swelling. Continue diuretics (3) Acute on chronic systolic heart failure: Code(s): I50.23 - Acute on chronic systolic (congestive) heart failure Status: Acute Assessment and Plan: Cardiology following known depressed EF on milrinone gtt + IV diuretics 3100 cc yesterday! (4) Hypotension: Code(s): I95.9 - Hypotension, unspecified Status: Acute Assessment and Plan: limits interventions secondary to cardiomyopathy follow trend -- better hemodynamics noted recently (5) Atrial flutter: Code(s): I48.92 - Unspecified atrial flutter Status: Acute Assessment and Plan: s/p cardioversion this admission continue rate control strategy on anticoagulation (6) Pleural effusion on left: Code(s): J90 - Pleural effusion, not elsewhere classified Status: Acute Assessment and Plan: s/p thoracentesis presumably related to decompensated heart failure repeat left thoracentesis today Subjective Date/time seen: 05/19/21 11:11 Interval history: Patient is feeling better today. Still swollen. Exam Narrative: Exam Narrative: General: ill appearing male in NAD Heart: normal S1 and S2; no rub or gallop Lungs: decreased breath sounds at the left base. bibasilar crackles Abdomen: soft, nontender, nondistended, positive bowel sounds Extremities: no cyanosis or clubbing; 1- 2+ edema Skin: No rash Objective Data Vital Signs Vital Signs: Vital Signs - 24 hr 05/18/21 12:00 05/18/21 13:30 05/18/21 14:00 Temperature 36.8 C Pulse Rate 76 84 81 Respiratory Rate 20 Blood Pressure 109/62 Pulse Oximetry 96 96 05/18/21 15:10 05/18/21 15:42 05/18/21 16:00 Temperature 36.4 C Pulse Rate 86 78 76 Respiratory Rate 20 18 22 H Blood Pressure 110/72 105/61 Pulse Oximetry 97 93 87 L 05/18/21 17:47 05/18/21 18:00 05/18/21 20:00 Temperature 37.2 C Pulse Rate 80 82 76 Respiratory Rate 20 22 H Blood Pressure 104/51 L Pulse Oximetry 96 87 L 05/18/21 22:00 05/18/21 22:08 05/19/21 00:00 Temperature 36.6 C Pulse Rate 80 81 85 Respiratory Rate 20 18 Blood Pressure 110/64 Pulse Oximetry 94 97 05/19/21 02:00 05/19/21 02:42 05/19/21 04:00 Temperature 36.4 C Pulse Rate 79 77 86 Respiratory Rate 19 18 Blood Pressure 108/61 Pulse Oximetry 95 94 05/19/21 06:00 05/19/21 08:00 05/19/21 08:41 Temperature 36.9 C Pulse Rate 80 78 77 Respiratory Rate 18 Blood Pressure 104/62 Pulse Oximetry 95 05/19/21 08:49 05/19/21 10:00 Temperature Pulse Rate 80 75 Respiratory Rate Blood Pressure Pulse Oximetry 98 Intake/Output Intake/Output: Intake & Output 05/16/21 05/17/21 05/18/21 05/19/21 23:59 23:59 23:59 23:59 Intake Total 1708 1990 862 360 Output Total 2100 2350 3950 1450 Balance -392 -360 -3088 -1090 Meds/Results Medications: Active Medications Generic Name Dose Route Start Last Admin Trade Name Clarissa PRN Reason Stop Dose Admin Acetaminophen 650 mg 05/12/21 15:52 05/19/21 08:42 Acetaminophen 325 Mg Tablet PO 650 mg Q4H PRN Administration Mild Pain (1-3) or Fever Amiodarone HCl 200 mg 05/13/21 09:00 05/19/21 08:41 Amiodarone Hcl 200 Mg Tablet PO 200 mg DAILY TRESSA Administration Apixaban 5 mg 05/13/21 21:00 05/01
--- NOTE | 2021-05-19 15:11 | PM.IMPN ---
Progress Note: A&P Assessment and Plan (1) Acute on chronic systolic heart failure: Code(s): I50.23 - Acute on chronic systolic (congestive) heart failure Status: Acute Assessment and Plan: Patient presents with significnat pitting edema bilateral lower extremity and BNP 25402. CXR showing cardiomegaly with a small right and moderate-sized left pleural effusion with associated airspace disease in the mid and lower lung zones. Repeat chest CT done 05/17 showed large left-sided pleural effusion as well as mild to moderate right-sided pleural effusion. Repeat ultrasound-guided thoracentesis 05/18 removed 1.1L. Cumulative I/O -4.5L since admission. Milrinone stopped. Clinically improving. As per cardiology: it was discussed with patient's at bedside limited options at [facility] and discussed the concept of mechanical assist/LVAD as destination therapy. This would require transfer to outside tertiary center such as [place]. it was discussed at length the importance of clarifying patient's code status and what he wishes to consider with regards to intubation, CPR, invasive procedures. He remans a full code. Transfer to ICU if resp status further declines, hemodynamic instability, worsening mental status. (2) Acute respiratory failure: Code(s): J96.00 - Acute respiratory failure, unspecified whether with hypoxia or hypercapnia Status: Acute Assessment and Plan: Oxygen demand increased to 8L 2 days ago but now improved to 2L possibly related to the repeat thoracentesis and Lasix. Had low grade fever and currently on antibiotics with ceftriaxone and azithromycin though the more likely etiology is fluid overload rather than infectious etiology. Wean O2 as tolerated. (3) Stage 3b chronic kidney disease: Code(s): N18.32 - Chronic kidney disease, stage 3b Status: Chronic Assessment and Plan: Baseline creatinine runs around 1.5 - 2.0mg/dl. Creatinine 2.4 on admisison but is trending down and it is 1.3 today. Presumably due to some degree of cardiorenal syndrome with improved renal perfusion now. Maximize efforts to treat heart failure and optimize hemodynamics. Nephrology inputs are appreciated. (4) Hypotension: Code(s): I95.9 - Hypotension, unspecified Status: Acute Assessment and Plan: BP soft at times secondary to cardiomyopathy and uncontrolled AFlutter. Off Milrinone now. BP remaining stable and he appears to be toelrating the Lasix. Follow closely. Coreg and Entresto remain on hold. (5) Pleural effusion on left: Code(s): J90 - Pleural effusion, not elsewhere classified Status: Acute Assessment and Plan: CXR on admission showing small right and moderate-sized left pleural effusion. He underwent thoracentesis on 05/13 with 1L yellowish fluid removed and again yesterday with 1.1L of reddish fluid removed. Previous workup noted and felt to be transudative. Presumably related to decompensated heart failure. Continue diuretic therapy. (6) Atrial flutter: Code(s): I48.92 - Unspecified atrial flutter Status: Acute Assessment and Plan: Patient has been in persistent AFlutter. Given the tenuous nature of his heart condition, it was elected to cardiovert the patient. He underwent CV on 05/14/21 successfully. He remains on Eliquis. Also on Amiodarone for rate maintenance. Appreciate cardiology input. Continue tele monitoring (7) Obstructive sleep apnea: Code(s): G47.33 - Obstructive sleep apnea (adult) (pediatric) Status: Acute Assessment and Plan: Mostly compliant with NIV. Continue CPAP at night and with naps. Subjective Date/time seen: 05/19/21 15:11 Interval history: 70yo male with CAD status post CABG with postop AFib, ischemic CMP (EF 20%) and sleep apnea here for shortness of breath and increasing edema. Assuming care. Chart reviewed. Tolerating therapy with on
[2021-05-19] MEDS: AZITHROMYCIN 250 MG TABLET 500 MG PO (16:34)
[2021-05-19] MEDS: ATORVASTATIN 40 MG TABLET 80 MG PO (21:06)
[2021-05-19] MEDS: ZOLPIDEM TARTRATE (*CRX) 5 MG TABLET PO (21:06)
[2021-05-20] VITALS (15 sets, daily range): BP systolic 96–117; BP diastolic 56–64; PULSE 71–92; RESP 16–20; TEMP 35.8–36.7; O2SAT 92–99
[2021-05-20 05:38] LABS: Hematocrit 37.4 % (42.0-52.0); Hemoglobin 11.1 g/dL (14.0-18.0); Mean Corpuscular HGB Conc 29.7 g/dl (32-36); Mean Corpuscular Hemoglobin 24.2 pg (26-34); Mean Corpuscular Volume 81.7 fl (80-100); Platelet Count Result 289 k/mm3 (150-375); Red Blood Count 4.58 M/mm3 (4.6-6.20); Red Cell Distribution Width 18.9 % (11.5-14.5); White Blood Count 7.2 K/mm3 (4.5-10.0)
[2021-05-20 05:58] LABS: Albumin Level 3.1 g/dL (3.5-5.1); Blood Urea Nitrogen 18 mg/dL (9-20); Calcium 8.4 mg/dL (8.4-10.2); Carbon Dioxide > 40 mmol/L (22-30); Chloride 95 mmol/L (98-107); Estimated CRCL calculation 54 ml/min; Estimated Glomerular Filt Rate 60; Glucose 95 mg/dL (65-110); Magnesium 1.9 mg/dL (1.6-2.3); Phosphorus 3.3 mg/dL (2.5-4.5); Potassium 3.8 mmol/L (3.4-5.0); Sodium 137 mmol/L (137-145)
--- NOTE | 2021-05-20 08:54 | PM.PNCARD ---
Progress Note: A&P Assessment and Plan (1) Acute exacerbation of congestive heart failure: Code(s): I50.9 - Heart failure, unspecified <EMRE Hinojosa - Last Filed: 05/20/21 09:15> Status: Acute <EMRE Hinojosa - Last Filed: 05/20/21 09:15> Assessment and Plan: Acute on chronic HFrEF. with recurrent pleural effusions s/p repeat thoracentesis. This is been ongoing problem since his bypass. Had been in Aflutter apparently since his bypass - was cardioverted 05/13 now in sinus rhythm. He is also hypotensive which is complicating his medical management - Entresto and Coreg on hold for now. - Discontinue milrinone - Decrease furosemide to 40mg IV BID - Unfortunately, it appears pt presents repeatedly with recurrent CHF and ARF along with large L pleural effusion requiring multiple thoracentesis to date (2 this admission in the past week). - Continue to hold Entresto - likely contributing to hypotension and ARF limiting the effectiveness of diuresis resulting in CHF exacerbation. - We should make every effort as tolerated to maintain SR, BiV ICD upgrade to [employer] device as outpatient given wide QRS LBBB. Will see how he responds post thoracentesis. If recurrent effusion without overt or significant decompensation it then may make sense to for pleurodesis or Pleur-X catheter. However, thus far his pattern has been decompensated HF resulting in pleural effusions in which case control of CHF and renal function are primary management goals. -Discussed advanced therapies with patient and his . They would like to pursue an evaluation at [place] as an outpatient. Will initiate advanced heart failure referral to [facility]. Very complicated management in general. At this time, patient appears to be slowly improving clinically. Renal failure is much improved <EMRE Hinojosa - Last Filed: 05/20/21 09:15> (2) Ischemic cardiomyopathy: Code(s): I25.5 - Ischemic cardiomyopathy <EMRE Hinojosa - Last Filed: 05/20/21 09:15> Status: Acute <EMRE Hinojosa - Last Filed: 05/20/21 09:15> Assessment and Plan: EF 20%. As above. <EMRE Hinojosa - Last Filed: 05/20/21 09:15> (3) Atrial flutter: Code(s): I48.92 - Unspecified atrial flutter <EMRE Hinojosa - Last Filed: 05/20/21 09:15> Status: Acute <EMRE Hinojosa - Last Filed: 05/20/21 09:15> Assessment and Plan: -s/p CV 05/13 maintaining SR on Amiodarone. Coreg held due to hypotension. On Eliquis 5mg BID. <EMRE Hinojosa - Last Filed: 05/20/21 09:15> (4) Acute on chronic renal failure: Code(s): N17.9 - Acute kidney failure, unspecified; N18.9 - Chronic kidney disease, unspecified <EMRE Hinojosa - Last Filed: 05/20/21 09:15> Status: Acute <EMRE Hinojosa - Last Filed: 05/20/21 09:15> Assessment and Plan: Renal function continues to improve significantly improved with improving urine output with diuresis, discontinuation of Entresto. <EMRE Hinojosa - Last Filed: 05/20/21 09:15> (5) LBBB (left bundle branch block): Code(s): I44.7 - Left bundle-branch block, unspecified <EMRE Hinojosa - Last Filed: 05/20/21 09:15> Status: Acute <EMRE Hinojosa - Last Filed: 05/20/21 09:15> Assessment and Plan: see above. Noted on EKG at least since January 2021. Wide QRS. <EMRE Hinojosa - Last Filed: 05/20/21 09:15> (6) Pleural effusion on left: Code(s): J90 - Pleural effusion, not elsewhere classified <EMRE Hinojosa - Last Filed: 05/20/21 09:15> Status: Acute <EMRE Hinojosa - Last Filed: 05/20/21 09:15> Assessment and Plan: Status post thoracentesis 05/13 and again
[2021-05-20] MEDS: AMIODARONE HCL 200 MG TABLET PO (09:44)
[2021-05-20] MEDS: ASPIRIN 81 MG ENTERIC TABLET PO (09:44)
[2021-05-20] MEDS: APIXABAN 5 MG TABLET PO ×2 (09:45→21:10)
[2021-05-20] MEDS: FUROSEMIDE INJ 40 MG/4 ML VIAL IV PUSH ×3 (09:45→21:11)
--- NOTE | 2021-05-20 10:12 | PCPTNOTE ---
Attempted to see patient for PT at this time, however patient refused. Patient stated not today due to feeling too tired.
--- NOTE | 2021-05-20 10:54 | PCDIET ---
Weekly nutritional screen. Patient is tolerating current diet with adequate intake. No weight loss reported. No nutritional needs at this time.
--- NOTE | 2021-05-20 15:07 | PCOTNOTE ---
Attempted therapy session with patient, but patient refused. Benefits of therapy were explained, but patient still refused all ADLs, exercises, transfers and functional activities.
--- NOTE | 2021-05-20 16:12 | PM.IMPN ---
Progress Note: A&P Assessment and Plan (1) Acute on chronic systolic heart failure: Code(s): I50.23 - Acute on chronic systolic (congestive) heart failure Status: Acute Assessment and Plan: Patient presents with significant pitting edema bilateral lower extremity and BNP 40067. CXR showing cardiomegaly with a small right and moderate-sized left pleural effusion with associated airspace disease in the mid and lower lung zones. Repeat chest CT done 05/17 showed large left-sided pleural effusion as well as mild to moderate right-sided pleural effusion. Repeat ultrasound-guided thoracentesis 05/18 removed 1.1L. Cumulative I/O -5.8L since admission. Milrinone stopped. Lasix advanced. Clinically improving. Serum bicarb >40 so consider Diamox. As per cardiology: it was discussed with patient's at bedside limited options at [facility] and discussed the concept of mechanical assist/LVAD as destination therapy. This would require transfer to outside tertiary center such as [place]. It was discussed at length the importance of clarifying patient's code status and what he wishes to consider with regards to intubation, CPR, invasive procedures. He remans a full code. Transfer to ICU if resp status further declines, hemodynamic instability, worsening mental status. (2) Acute respiratory failure: Code(s): J96.00 - Acute respiratory failure, unspecified whether with hypoxia or hypercapnia Status: Acute Assessment and Plan: Oxygen demand increased to 8L 2 days ago but now improved to 2-3L possibly related to the repeat thoracentesis and Lasix. Had low grade fever and treated with ceftriaxone and azithromycin though the more likely etiology is fluid overload rather than infectious etiology. Completed Azithro; remains on Rocephin. Wean O2 as tolerated. (3) Stage 3b chronic kidney disease: Code(s): N18.32 - Chronic kidney disease, stage 3b Status: Chronic Assessment and Plan: Baseline creatinine runs around 1.5 - 2.0mg/dl. Creatinine 2.4 on admisison but is trending down and it is 1.2 today. Presumably due to some degree of cardiorenal syndrome with improved renal perfusion now. Maximize efforts to treat heart failure and optimize hemodynamics. Nephrology input appreciated. (4) Hypotension: Code(s): I95.9 - Hypotension, unspecified Status: Acute Assessment and Plan: BP soft at times secondary to cardiomyopathy and uncontrolled AFlutter. Patient cardioverted. Off Milrinone now. BP remaining stable and he is tolerating the Lasix so Lasix frequency increased. Follow closely. Coreg and Entresto remain on hold. (5) Pleural effusion on left: Code(s): J90 - Pleural effusion, not elsewhere classified Status: Acute Assessment and Plan: CXR on admission showing small right and moderate-sized left pleural effusion. He underwent thoracentesis on 05/13 with 1L yellowish fluid removed and again 05/18 with 1.1L of reddish fluid removed. Previous workup noted and felt to be transudative. Presumably related to decompensated heart failure. Continue diuretic therapy but should not expect much change in effusions since this will take time. (6) Atrial flutter: Code(s): I48.92 - Unspecified atrial flutter Status: Acute Assessment and Plan: Patient was in persistent AFlutter. Given the tenuous nature of his heart condition, it was elected to cardiovert the patient. He underwent CV on 05/14/21 successfully. He remains on Eliquis. Also on Amiodarone and Coreg for rate maintenance. Appreciate cardiology input. Continue tele monitoring (7) Obstructive sleep apnea: Code(s): G47.33 - Obstructive sleep apnea (adult) (pediatric) Status: Acute Assessment and Plan: Mostly compliant with NIV. He is found with mask off at night. Continue CPAP at night and with naps as he tolerates. Subjective Date/time seen: 05/20/21 16
--- NOTE | 2021-05-20 16:54 | P.PNNP_ITS ---
Progress Note: A&P Assessment and Plan (1) Stage 3b chronic kidney disease: Code(s): N18.32 - Chronic kidney disease, stage 3b Status: Chronic Assessment and Plan: * baseline creatinine runs around 1.5 - 2.0mg/dl * most likely due to hypertension and vascular disease with superimposed chronic pre renal azotemia from the bad heart. * Creatinine has improved dramatically since being on the milrinone. so most of the creat of 2 was from prerenal factors. * milrinone discontinued * watch creatinine going forward. (2) Volume overload: Code(s): E87.70 - Fluid overload, unspecified Status: Acute Assessment and Plan: * as noted by LE edema and by imaging of chest * He still has crackles and swelling. * Continue diuretics (3) Acute on chronic systolic heart failure: Code(s): I50.23 - Acute on chronic systolic (congestive) heart failure Status: Acute Assessment and Plan: * Cardiology following * known depressed EF * on diuretics. * pretty good urine output (4) Hypotension: Code(s): I95.9 - Hypotension, unspecified Status: Acute Assessment and Plan: * limits interventions * secondary to cardiomyopathy * follow trend -- better hemodynamics noted recently (5) Atrial flutter: Code(s): I48.92 - Unspecified atrial flutter Status: Acute Assessment and Plan: * s/p cardioversion this admission * continue rate control strategy * on anticoagulation (6) Pleural effusion on left: Code(s): J90 - Pleural effusion, not elsewhere classified Status: Acute Assessment and Plan: * s/p thoracentesis * presumably related to decompensated heart failure * repeat left thoracentesis today Subjective Date/time seen: 05/20/21 16:54 Interval history: lbreathing is better. edema still present Exam Narrative: Exam Narrative: General: ill appearing male in NAD Heart: normal S1 and S2; no rub or gallop Lungs: decreased breath sounds at the left base. bibasilar crackles Abdomen: soft, nontender, nondistended, positive bowel sounds Extremities: no cyanosis or clubbing; 1- 2+ edema Skin: No rash or sq nodules Objective Data Vital Signs Vital Signs: Vital Signs - 24 hr 05/19/21 18:00 05/19/21 19:58 05/19/21 20:00 Temperature 36.6 C Pulse Rate 79 78 80 Respiratory Rate 20 Blood Pressure 91/49 L Pulse Oximetry 94 95 05/19/21 22:00 05/19/21 22:40 05/19/21 23:32 Temperature 36.6 C Pulse Rate 73 86 80 Respiratory Rate 24 H 20 Blood Pressure 97/61 L Pulse Oximetry 96 96 05/20/21 00:00 05/20/21 02:00 05/20/21 04:00 Temperature 36.3 C L Pulse Rate 82 77 74 Respiratory Rate 16 Blood Pressure 117/64 Pulse Oximetry 99 98 05/20/21 05:59 05/20/21 08:00 05/20/21 09:44 Temperature 35.8 C L Pulse Rate 78 81 80 Respiratory Rate 20 Blood Pressure 105/56 L Pulse Oximetry 93 05/20/21 10:00 05/20/21 12:00 05/20/21 14:00 Temperature 36.7 C Pulse Rate 92 73 73 Respiratory Rate 18 Blood Pressure 100/60 Pulse Oximetry 99 05/20/21
--- NOTE | 2021-05-20 16:54 | PM.PNNEP ---
Progress Note: A&P Assessment and Plan (1) Stage 3b chronic kidney disease: Code(s): N18.32 - Chronic kidney disease, stage 3b Status: Chronic Assessment and Plan: baseline creatinine runs around 1.5 - 2.0mg/dl most likely due to hypertension and vascular disease with superimposed chronic pre renal azotemia from the bad heart. Creatinine has improved dramatically since being on the milrinone. so most of the creat of 2 was from prerenal factors. milrinone discontinued watch creatinine going forward. (2) Volume overload: Code(s): E87.70 - Fluid overload, unspecified Status: Acute Assessment and Plan: as noted by LE edema and by imaging of chest He still has crackles and swelling. Continue diuretics (3) Acute on chronic systolic heart failure: Code(s): I50.23 - Acute on chronic systolic (congestive) heart failure Status: Acute Assessment and Plan: Cardiology following known depressed EF on diuretics. pretty good urine output (4) Hypotension: Code(s): I95.9 - Hypotension, unspecified Status: Acute Assessment and Plan: limits interventions secondary to cardiomyopathy follow trend -- better hemodynamics noted recently (5) Atrial flutter: Code(s): I48.92 - Unspecified atrial flutter Status: Acute Assessment and Plan: s/p cardioversion this admission continue rate control strategy on anticoagulation (6) Pleural effusion on left: Code(s): J90 - Pleural effusion, not elsewhere classified Status: Acute Assessment and Plan: s/p thoracentesis presumably related to decompensated heart failure repeat left thoracentesis today Subjective Date/time seen: 05/20/21 16:54 Interval history: lbreathing is better. edema still present Exam Narrative: Exam Narrative: General: ill appearing male in NAD Heart: normal S1 and S2; no rub or gallop Lungs: decreased breath sounds at the left base. bibasilar crackles Abdomen: soft, nontender, nondistended, positive bowel sounds Extremities: no cyanosis or clubbing; 1- 2+ edema Skin: No rash or sq nodules Objective Data Vital Signs Vital Signs: Vital Signs - 24 hr 05/19/21 18:00 05/19/21 19:58 05/19/21 20:00 Temperature 36.6 C Pulse Rate 79 78 80 Respiratory Rate 20 Blood Pressure 91/49 L Pulse Oximetry 94 95 05/19/21 22:00 05/19/21 22:40 05/19/21 23:32 Temperature 36.6 C Pulse Rate 73 86 80 Respiratory Rate 24 H 20 Blood Pressure 97/61 L Pulse Oximetry 96 96 05/20/21 00:00 05/20/21 02:00 05/20/21 04:00 Temperature 36.3 C L Pulse Rate 82 77 74 Respiratory Rate 16 Blood Pressure 117/64 Pulse Oximetry 99 98 05/20/21 05:59 05/20/21 08:00 05/20/21 09:44 Temperature 35.8 C L Pulse Rate 78 81 80 Respiratory Rate 20 Blood Pressure 105/56 L Pulse Oximetry 93 05/20/21 10:00 05/20/21 12:00 05/20/21 14:00 Temperature 36.7 C Pulse Rate 92 73 73 Respiratory Rate 18 Blood Pressure 100/60 Pulse Oximetry 99 05/20/21 16:00 Temperature 36.4 C Pulse Rate 76 Respiratory Rate 18 Blood Pressure 106/63 Pulse Oximetry 97 Intake/Output Intake/Output: Intake & Output 05/17/21 05/18/21 05/19/21 05/20/21 23:59 23:59 23:59 23:59 Intake Total 4604 362 5315 820 Output Total 9290 0944 5106 7038 Acaixkm -953 -3038 -1705 -680 Meds/Results Medications: Active Medications Generic Name Dose Route Start Last Admin Trade Name Freq PRN Reason Stop Dose Admin Acetaminophen 650 mg 05/12/21 15:52 05/19/21 08:42 Acetaminophen 325 Mg Tablet PO 650 mg Q4H PRN Administration Mild Pain (1-3) or Fever Amiodarone HCl 200 mg 05/13/21 09:00 05/20/21 09:44 Amiodarone Hcl 200 Mg Tablet PO 200 mg DAILY TRESSA Administration Apixaban 5 mg 05/13/21 21:00 05/20/21 09:45 Apixaban 5 Mg Tablet PO 5 mg Q12HR TRESSA Administration Aspirin
[2021-05-20] MEDS: ATORVASTATIN 40 MG TABLET 80 MG PO (21:11)
[2021-05-20] MEDS: ZOLPIDEM TARTRATE (*CRX) 5 MG TABLET PO (23:03)
[2021-05-21] VITALS (17 sets, daily range): BP systolic 99–113; BP diastolic 58–79; PULSE 67–83; RESP 18–21; TEMP 36.1–37.1; O2SAT 88–99
[2021-05-21 06:21] LABS: Basophils Absolute Auto 0.1 K/mm3 (0.0-0.1); Basophils Percent Auto 1.1 % (0.2-1.2); Eosinophils Absolute Auto 0.1 K/mm3 (0-0.3); Eosinophils Percent Auto 1.8 % (0-4.4); Hematocrit 36.4 % (42.0-52.0); Hemoglobin 11.2 g/dL (14.0-18.0); Immature Granulocyte Absolute 0.02 K/mm3 (0.00-0.031); Immature Granulocyte Percent A 0.3 % (0-0.5); Lymphocytes Absolute Auto 1.37 K/mm3 (0.9-3.2); Lymphocytes Percent Auto 18.6 % (18.3-44.2); Mean Corpuscular HGB Conc 30.8 g/dl (32-36); Mean Corpuscular Hemoglobin 24.2 pg (26-34); Mean Corpuscular Volume 78.6 fl (80-100); Mean Platelet Volume 9.3 fl (7.4-10.4); Monocytes Percent Auto 14.1 % (2.6-8.5); Neutrophils Absolute Auto 4.7 K/mm3 (1.3-6.7); Neutrophils Percent Auto 64.1 % (45.5-73.1); Platelet Count Result 277 k/mm3 (150-375); Red Blood Count 4.63 M/mm3 (4.6-6.20); Red Cell Distribution Width 18.7 % (11.5-14.5); White Blood Count 7.4 K/mm3 (4.5-10.0)
[2021-05-21 06:33] LABS: Alanine Aminotransferase 32 U/L (4-50); Albumin Level 2.9 g/dL (3.5-5.1); Alkaline Phosphatase 175 U/L (38-126); Aspartate Amino Transferase 27 U/L (17-59); Bilirubin,Total 0.5 mg/dL (0.2-1.3); Blood Urea Nitrogen 15 mg/dL (9-20); Calcium 8.4 mg/dL (8.4-10.2); Carbon Dioxide > 40 mmol/L (22-30); Chloride 94 mmol/L (98-107); Estimated CRCL calculation 58 ml/min; Estimated Glomerular Filt Rate > 60; Glucose 94 mg/dL (65-110); Magnesium 1.9 mg/dL (1.6-2.3); Potassium 3.5 mmol/L (3.4-5.0); Sodium 137 mmol/L (137-145)
[2021-05-21] MEDS: FUROSEMIDE INJ 40 MG/4 ML VIAL IV PUSH (06:33)
[2021-05-21] MEDS: ASPIRIN 81 MG ENTERIC TABLET PO (08:54)
[2021-05-21] MEDS: acetaZOLAMIDE TAB 250 MG TABLET 500 MG PO ×2 (08:54→17:40)
[2021-05-21] MEDS: ACETAMINOPHEN 325 MG TABLET 650 MG PO (08:54)
[2021-05-21] MEDS: APIXABAN 5 MG TABLET PO ×2 (08:54→21:25)
[2021-05-21] MEDS: AMIODARONE HCL 200 MG TABLET PO (08:55)
--- NOTE | 2021-05-21 10:12 | P.PNNP_ITS ---
Progress Note: A&P Assessment and Plan (1) Stage 3b chronic kidney disease: Code(s): N18.32 - Chronic kidney disease, stage 3b Status: Chronic Assessment and Plan: * baseline creatinine runs around 1.5 - 2.0mg/dl * most likely due to hypertension and vascular disease with superimposed chronic pre renal azotemia from the bad heart. * Creatinine has improved dramatically since being on the milrinone. so most of the creat of 2 was from prerenal factors. * milrinone discontinued * creatinine is doing well without the milrinone.. (2) Volume overload: Code(s): E87.70 - Fluid overload, unspecified Status: Acute Assessment and Plan: * as noted by LE edema and by imaging of chest * He still has crackles and swelling. Gradual improvement. * Continue diuretics (3) Acute on chronic systolic heart failure: Code(s): I50.23 - Acute on chronic systolic (congestive) heart failure Status: Acute Assessment and Plan: * Cardiology following * known depressed EF * on diuretics. * pretty good urine output (4) Hypotension: Code(s): I95.9 - Hypotension, unspecified Status: Acute Assessment and Plan: * limits interventions * secondary to cardiomyopathy * follow trend -- better hemodynamics noted recently (5) Atrial flutter: Code(s): I48.92 - Unspecified atrial flutter Status: Acute Assessment and Plan: * s/p cardioversion this admission * continue rate control strategy * on anticoagulation (6) Pleural effusion on left: Code(s): J90 - Pleural effusion, not elsewhere classified Status: Acute Assessment and Plan: * s/p thoracentesis * presumably related to decompensated heart failure * repeat left thoracentesis today Subjective Date/time seen: 05/21/21 10:12 Interval history: breathing is doing well. edema still present but better. He made 15 50 of urine yesterday without the milrinone. Exam Narrative: Exam Narrative: General: ill appearing male in NAD Heart: normal S1 and S2; no rub Lungs: bibasilar crackles , better Abdomen: soft, nontender, nondistended, positive bowel sounds Extremities: no cyanosis or clubbing; 1- 2+ edema Skin: No rash Objective Data Vital Signs Vital Signs: Vital Signs - 24 hr 05/20/21 12:00 05/20/21 14:00 05/20/21 16:00 Temperature 36.7 C 36.4 C Pulse Rate 73 73 76 Respiratory Rate 18 18 Blood Pressure 100/60 106/63 Pulse Oximetry 99 97 05/20/21 18:00 05/20/21 20:00 05/20/21 21:20 Temperature 36.6 C Pulse Rate 71 75 Respiratory Rate 18 Blood Pressure 96/64 L Pulse Oximetry 97 94 05/20/21 22:00 05/20/21 23:03 05/21/21 00:00 Temperature 37.1 C Pulse Rate 73 73 75 Respiratory Rate 19 18 Blood Pressure 111/79 Pulse Oximetry 96 97 05/21/21 02:00 05/21/21 02:23 05/21/21 04:00 Temperature 36.6 C Pulse Rate 77 78 82 Respiratory Rate 21 H 18 Blood Pressure 101/68 Pulse Oximetry 94 98 05/21/21 06:00 05/21/21 06:29 05/21/21 08:00 Temperature 36.8 C Pulse Rate 75 71 Respiratory Rate 18 Blood Pressure 105/64 11
--- NOTE | 2021-05-21 10:12 | PM.PNNEP ---
Progress Note: A&P Assessment and Plan (1) Stage 3b chronic kidney disease: Code(s): N18.32 - Chronic kidney disease, stage 3b Status: Chronic Assessment and Plan: baseline creatinine runs around 1.5 - 2.0mg/dl most likely due to hypertension and vascular disease with superimposed chronic pre renal azotemia from the bad heart. Creatinine has improved dramatically since being on the milrinone. so most of the creat of 2 was from prerenal factors. milrinone discontinued creatinine is doing well without the milrinone.. (2) Volume overload: Code(s): E87.70 - Fluid overload, unspecified Status: Acute Assessment and Plan: as noted by LE edema and by imaging of chest He still has crackles and swelling. Gradual improvement. Continue diuretics (3) Acute on chronic systolic heart failure: Code(s): I50.23 - Acute on chronic systolic (congestive) heart failure Status: Acute Assessment and Plan: Cardiology following known depressed EF on diuretics. pretty good urine output (4) Hypotension: Code(s): I95.9 - Hypotension, unspecified Status: Acute Assessment and Plan: limits interventions secondary to cardiomyopathy follow trend -- better hemodynamics noted recently (5) Atrial flutter: Code(s): I48.92 - Unspecified atrial flutter Status: Acute Assessment and Plan: s/p cardioversion this admission continue rate control strategy on anticoagulation (6) Pleural effusion on left: Code(s): J90 - Pleural effusion, not elsewhere classified Status: Acute Assessment and Plan: s/p thoracentesis presumably related to decompensated heart failure repeat left thoracentesis today Subjective Date/time seen: 05/21/21 10:12 Interval history: breathing is doing well. edema still present but better. He made 15 50 of urine yesterday without the milrinone. Exam Narrative: Exam Narrative: General: ill appearing male in NAD Heart: normal S1 and S2; no rub Lungs: bibasilar crackles , better Abdomen: soft, nontender, nondistended, positive bowel sounds Extremities: no cyanosis or clubbing; 1- 2+ edema Skin: No rash Objective Data Vital Signs Vital Signs: Vital Signs - 24 hr 05/20/21 12:00 05/20/21 14:00 05/20/21 16:00 Temperature 36.7 C 36.4 C Pulse Rate 73 73 76 Respiratory Rate 18 18 Blood Pressure 100/60 106/63 Pulse Oximetry 99 97 05/20/21 18:00 05/20/21 20:00 05/20/21 21:20 Temperature 36.6 C Pulse Rate 71 75 Respiratory Rate 18 Blood Pressure 96/64 L Pulse Oximetry 97 94 05/20/21 22:00 05/20/21 23:03 05/21/21 00:00 Temperature 37.1 C Pulse Rate 73 73 75 Respiratory Rate 19 18 Blood Pressure 111/79 Pulse Oximetry 96 97 05/21/21 02:00 05/21/21 02:23 05/21/21 04:00 Temperature 36.6 C Pulse Rate 77 78 82 Respiratory Rate 21 H 18 Blood Pressure 101/68 Pulse Oximetry 94 98 05/21/21 06:00 05/21/21 06:29 05/21/21 08:00 Temperature 36.8 C Pulse Rate 75 71 Respiratory Rate 18 Blood Pressure 105/64 113/64 Pulse Oximetry 91 05/21/21 08:55 Temperature Pulse Rate 77 Respiratory Rate Blood Pressure Pulse Oximetry Intake/Output Intake/Output: Intake & Output 05/18/21 05/19/21 05/20/21 05/21/21 23:59 23:59 23:59 23:59 Intake Total 912 1595 820 150 Output Total 4470 3250 0934 350 Balance -3038 -1655 -1180 -200 Meds/Results Medications: Active Medications Generic Name Dose Route Start Last Admin Trade Name Freq PRN Reason Stop Dose Admin Acetaminophen 650 mg 05/12/21 15:52 05/21/21 08:54 Acetaminophen 325 Mg Tablet PO 650 mg Q4H PRN Administration Mild Pain (1-3) or Fever Acetazolamide 500 mg 05/21/21 09:00 05/21/21 08:54 Acetazolamide Tab 250 Mg Tablet PO 500 mg BID TRESSA Administration Amiodarone HCl 200 mg 05/13/21 09:00 05/21/21 08:55 Amiodaro
--- NOTE | 2021-05-21 10:43 | PM.PNCARD ---
Progress Note: A&P Assessment and Plan (1) Acute exacerbation of congestive heart failure: Code(s): I50.9 - Heart failure, unspecified Status: Acute Assessment and Plan: Acute on chronic HFrEF. with recurrent pleural effusions s/p repeat thoracentesis. This is been ongoing problem since his bypass. Had been in Aflutter apparently since his bypass - was cardioverted 05/13 now in sinus rhythm. He is also hypotensive which is complicating his medical management - patient definitely improved with the use of Milrinone renal function looks fantastic. - Very difficult management and decision making process. Discussed with Dr. Arias at length last night. Given concern for hypotension and renal failure will hold off on Entresto and or Vern/ARB and monitor renal function, clinical status very closely as an outpatient. Plan to refer to [facility] as an outpatient for further CHF management. - It appears pt presents repeatedly with recurrent CHF and ARF along with large L pleural effusion requiring multiple thoracentesis to date (2 this admission in the past week). - Continue to hold Entresto (although we feel this should benefit him significantly) - likely contributing to hypotension and ARF limiting the effectiveness of diuresis resulting in CHF exacerbation. ?Farxiga, although same issues of hypotension resulting in prerenal azotemia/ARF -Review repeat CXR this AM when obtained. -Change to po Lasix 80mg BID and observe tolerance. -Diamox 500mg po BID added by Dr. Buckner, noted. -Resume Coreg 3.125mg BID (2) Ischemic cardiomyopathy: Code(s): I25.5 - Ischemic cardiomyopathy Status: Acute Assessment and Plan: EF 20%. As above. (3) Atrial flutter: Code(s): I48.92 - Unspecified atrial flutter Status: Acute Assessment and Plan: -s/p CV 05/13 maintaining SR on Amiodarone. On Eliquis 5mg BID. (4) Acute on chronic renal failure: Code(s): N17.9 - Acute kidney failure, unspecified; N18.9 - Chronic kidney disease, unspecified Status: Acute Assessment and Plan: Renal function markedly improved and maintaining off Milrinone. Appreciate Nephrology involvement and recommendations. . (5) LBBB (left bundle branch block): Code(s): I44.7 - Left bundle-branch block, unspecified Status: Acute Assessment and Plan: see above. Noted on EKG at least since January 2021. Wide QRS. (6) Pleural effusion on left: Code(s): J90 - Pleural effusion, not elsewhere classified Status: Acute Assessment and Plan: Status post thoracentesis 05/13 and again on 05/18 with 1L fluid removal with each tap. He has some reaccumulation on exam today. Chest x-ray pending. (7) History of implantable cardioverter-defibrillator (ICD) placement: Code(s): Z95.810 - Presence of automatic (implantable) cardiac defibrillator Status: Acute Assessment and Plan: As above, would recommend upgrade to biventricular [employer] device. 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 Denies dizziness, shortness of breath, chest pain or palpitations. Maintaining sinus rhythm overnight. No edema. Eating well. Fa
[2021-05-21] MEDS: carvediloL 3.125 MG TABLET PO (12:24)
--- NOTE | 2021-05-21 16:55 | PM.IMPN ---
Progress Note: A&P Assessment and Plan (1) Acute on chronic systolic heart failure: Code(s): I50.23 - Acute on chronic systolic (congestive) heart failure Status: Acute Assessment and Plan: Patient presents with significant pitting edema bilateral lower extremity and BNP 06501. CXR showing cardiomegaly with a small right and moderate-sized left pleural effusion with associated airspace disease in the mid and lower lung zones. Repeat chest CT done 05/17 showed large left-sided pleural effusion as well as mild to moderate right-sided pleural effusion. Repeat ultrasound-guided thoracentesis 05/18 removed 1.1L. Cumulative I/O -6.9L since admission. Milrinone stopped. Lasix changed to oral route and Diamox added. Clinically improving. Home tomorrow if tolerating current medical regiment. (2) Acute respiratory failure: Code(s): J96.00 - Acute respiratory failure, unspecified whether with hypoxia or hypercapnia Status: Acute Assessment and Plan: Oxygen demand increased to 8L but now improved to room air possibly related to the repeat thoracentesis and Lasix. Had low grade fever and treated with ceftriaxone and azithromycin though the more likely etiology is fluid overload rather than infectious etiology. Completed Azithro and will stop Rocephin. (3) Stage 3b chronic kidney disease: Code(s): N18.32 - Chronic kidney disease, stage 3b Status: Chronic Assessment and Plan: Baseline creatinine runs around 1.5 - 2.0mg/dl. Creatinine 2.4 on admisison but is trending down and it is 1.1 today. Presumably due to some degree of cardiorenal syndrome with improved renal perfusion now. Maximize efforts to treat heart failure and optimize hemodynamics. Nephrology input appreciated. (4) Hypotension: Code(s): I95.9 - Hypotension, unspecified Status: Acute Assessment and Plan: BP soft at times secondary to cardiomyopathy and uncontrolled AFlutter. Patient cardioverted. Off Milrinone now. BP remaining stable and he is tolerating the Lasix. Follow closely. Entresto remains on hold. Coreg added back (5) Pleural effusion on left: Code(s): J90 - Pleural effusion, not elsewhere classified Status: Acute Assessment and Plan: CXR on admission showing small right and moderate-sized left pleural effusion. He underwent left thoracentesis on 05/13 with 1L yellowish fluid removed and again 05/18 with 1.1L of reddish fluid removed. Previous workup noted and felt to be transudative. Presumably related to decompensated heart failure. Continue diuretic therapy but should not expect much change in effusions since this will take time. (6) Atrial flutter: Code(s): I48.92 - Unspecified atrial flutter Status: Acute Assessment and Plan: Patient had persistent AFlutter. Given the tenuous nature of his heart condition, it was elected to cardiovert the patient. He underwent CV on 05/14/21 successfully. He remains on Eliquis. Also on Amiodarone and Coreg for rate maintenance. Appreciate cardiology input. Continue tele monitoring (7) Obstructive sleep apnea: Code(s): G47.33 - Obstructive sleep apnea (adult) (pediatric) Status: Acute Assessment and Plan: Mostly compliant with NIV. Continue CPAP at night and with naps as he tolerates. Subjective Date/time seen: 05/21/21 16:55 Interval history: 70yo male with CAD status post CABG with postop AFib, ischemic CMP (EF 20%) and sleep apnea here for shortness of breath and increasing edema. Eating well. No n/v. Off O2 now. No SOB. Walking in the room without [employer]. No CP. Exam Narrative: Exam Narrative: AF 97.0 106/71 68 18 Gen - NARD sitting at the side of the bed Chest - significantly decreased breath sounds left mid and lower lung arita; decreased BS right lower lobe CV - RRR S1/S2 with 2/6 systolic murmur: tele showing PVCs Abd - soft, NT/ND, +BS - Laurent secured drainin
--- NOTE | 2021-05-21 17:31 | PC.NURSE ---
Spoke with Dr. Castaneda regarding patient's BP of 99/58. New order to hold 3.125mg of Coreg and administer 80mg PO lasix and 500mg PO Diamox.
[2021-05-21] MEDS: FUROSEMIDE 80 MG TABLET PO (17:41)
[2021-05-21] MEDS: ZOLPIDEM TARTRATE (*CRX) 5 MG TABLET PO (21:24)
[2021-05-21] MEDS: ATORVASTATIN 40 MG TABLET 80 MG PO (21:24)
[2021-05-22] VITALS (19 sets, daily range): BP systolic 101–115; BP diastolic 60–70; PULSE 67–82; RESP 17–20; TEMP 35.9–37.1; O2SAT 92–98
[2021-05-22 05:29] LABS: Albumin Level 3.1 g/dL (3.5-5.1); Anion Gap 6 mmol/L (8-16); Blood Urea Nitrogen 15 mg/dL (9-20); Calcium 8.5 mg/dL (8.4-10.2); Carbon Dioxide 38 mmol/L (22-30); Chloride 91 mmol/L (98-107); Estimated CRCL calculation 43 ml/min; Estimated Glomerular Filt Rate 46; Glucose 133 mg/dL (65-110); Phosphorus 3.9 mg/dL (2.5-4.5); Potassium 3.1 mmol/L (3.4-5.0); Sodium 135 mmol/L (137-145)
--- NOTE | 2021-05-22 08:28 | P.PNNP_ITS ---
Progress Note: A&P Assessment and Plan (1) Stage 3b chronic kidney disease: Code(s): N18.32 - Chronic kidney disease, stage 3b Status: Chronic Assessment and Plan: * baseline creatinine runs around 1.5 - 2.0mg/dl * most likely due to hypertension and vascular disease with superimposed chronic pre renal azotemia from the bad heart. * Creatinine has improved dramatically since being on the milrinone. so most of the creat of 2 was from prerenal factors. * milrinone discontinued * creatinine is higher today at 1.5. He was changed from IV to p.o. Lasix yesterday. Will see how he does on this dose. (2) Volume overload: Code(s): E87.70 - Fluid overload, unspecified Status: Acute Assessment and Plan: * Volume status looks better. (3) Acute on chronic systolic heart failure: Code(s): I50.23 - Acute on chronic systolic (congestive) heart failure Status: Acute Assessment and Plan: * Cardiology following * known depressed EF * on diuretics. Just changed from IV to p.o. * pretty good urine output (4) Hypotension: Code(s): I95.9 - Hypotension, unspecified Status: Acute Assessment and Plan: * limits interventions * secondary to cardiomyopathy * follow trend -- better hemodynamics noted recently (5) Atrial flutter: Code(s): I48.92 - Unspecified atrial flutter Status: Acute Assessment and Plan: * s/p cardioversion this admission * continue rate control strategy * on anticoagulation (6) Pleural effusion on left: Code(s): J90 - Pleural effusion, not elsewhere classified Status: Acute Assessment and Plan: * s/p thoracentesis * presumably related to decompensated heart failure * repeat left thoracentesis today Subjective Date/time seen: 05/22/21 08:28 Interval history: breathing is doing well. Swelling is better eating well Exam Narrative: Exam Narrative: General: ill appearing male in NAD Heart: normal S1 and S2; no rub Lungs: bibasilar crackles , improved again Abdomen: soft, nontender, nondistended, positive bowel sounds Extremities: no cyanosis or clubbing; trace to 1+ edema Skin: No rash Objective Data Vital Signs Vital Signs: Vital Signs - 24 hr 05/21/21 08:55 05/21/21 10:00 05/21/21 12:00 Temperature 36.1 C L Pulse Rate 77 76 71 Respiratory Rate 18 Blood Pressure 106/71 Pulse Oximetry 94 05/21/21 12:24 05/21/21 14:00 05/21/21 16:00 Temperature 36.5 C Pulse Rate 70 68 68 Respiratory Rate 18 Blood Pressure 99/58 L Pulse Oximetry 94 05/21/21 18:00 05/21/21 20:00 05/21/21 20:51 Temperature 36.4 C L Pulse Rate 74 69 69 Respiratory Rate 18 20 Blood Pressure 111/64 Pulse Oximetry 98 95 05/21/21 22:00 05/22/21 00:00 05/22/21 02:00 Temperature 36.4 C Pulse Rate 69 72 78 Respiratory Rate 18 Blood Pressure 101/64 Pulse Oximetry 98 05/22/21 04:00 05/22/21 06:00 Temperature 36.4 C Pulse Rate 76 82 Respiratory Rate 18 Blood Pressure 108/60 Pulse Oximetry 95 Intake/Output Intake/Output:
--- NOTE | 2021-05-22 08:28 | PM.PNNEP ---
Progress Note: A&P Assessment and Plan (1) Stage 3b chronic kidney disease: Code(s): N18.32 - Chronic kidney disease, stage 3b Status: Chronic Assessment and Plan: baseline creatinine runs around 1.5 - 2.0mg/dl most likely due to hypertension and vascular disease with superimposed chronic pre renal azotemia from the bad heart. Creatinine has improved dramatically since being on the milrinone. so most of the creat of 2 was from prerenal factors. milrinone discontinued creatinine is higher today at 1.5. He was changed from IV to p.o. Lasix yesterday. Will see how he does on this dose. (2) Volume overload: Code(s): E87.70 - Fluid overload, unspecified Status: Acute Assessment and Plan: Volume status looks better. (3) Acute on chronic systolic heart failure: Code(s): I50.23 - Acute on chronic systolic (congestive) heart failure Status: Acute Assessment and Plan: Cardiology following known depressed EF on diuretics. Just changed from IV to p.o. pretty good urine output (4) Hypotension: Code(s): I95.9 - Hypotension, unspecified Status: Acute Assessment and Plan: limits interventions secondary to cardiomyopathy follow trend -- better hemodynamics noted recently (5) Atrial flutter: Code(s): I48.92 - Unspecified atrial flutter Status: Acute Assessment and Plan: s/p cardioversion this admission continue rate control strategy on anticoagulation (6) Pleural effusion on left: Code(s): J90 - Pleural effusion, not elsewhere classified Status: Acute Assessment and Plan: s/p thoracentesis presumably related to decompensated heart failure repeat left thoracentesis today Subjective Date/time seen: 05/22/21 08:28 Interval history: breathing is doing well. Swelling is better eating well Exam Narrative: Exam Narrative: General: ill appearing male in NAD Heart: normal S1 and S2; no rub Lungs: bibasilar crackles , improved again Abdomen: soft, nontender, nondistended, positive bowel sounds Extremities: no cyanosis or clubbing; trace to 1+ edema Skin: No rash Objective Data Vital Signs Vital Signs: Vital Signs - 24 hr 05/21/21 08:55 05/21/21 10:00 05/21/21 12:00 Temperature 36.1 C L Pulse Rate 77 76 71 Respiratory Rate 18 Blood Pressure 106/71 Pulse Oximetry 94 05/21/21 12:24 05/21/21 14:00 05/21/21 16:00 Temperature 36.5 C Pulse Rate 70 68 68 Respiratory Rate 18 Blood Pressure 99/58 L Pulse Oximetry 94 05/21/21 18:00 05/21/21 20:00 05/21/21 20:51 Temperature 36.4 C L Pulse Rate 74 69 69 Respiratory Rate 18 20 Blood Pressure 111/64 Pulse Oximetry 98 95 05/21/21 22:00 05/22/21 00:00 05/22/21 02:00 Temperature 36.4 C Pulse Rate 69 72 78 Respiratory Rate 18 Blood Pressure 101/64 Pulse Oximetry 98 05/22/21 04:00 05/22/21 06:00 Temperature 36.4 C Pulse Rate 76 82 Respiratory Rate 18 Blood Pressure 108/60 Pulse Oximetry 95 Intake/Output Intake/Output: Intake & Output 05/19/21 05/20/21 05/21/21 05/22/21 23:59 23:59 23:59 23:59 Intake Total 5151 161 4594 650 Output Total 3250 2000 1650 400 [facility] -1655 -1130 -290 250 Meds/Results Medications: Active Medications Generic Name Dose Route Start Last Admin Trade Name Freq PRN Reason Stop Dose Admin Acetaminophen 650 mg 05/12/21 15:52 05/21/21 08:54 Acetaminophen 325 Mg Tablet PO 650 mg Q4H PRN Administration Mild Pain (1-3) or Fever Acetazolamide 500 mg 05/21/21 09:00 05/21/21 17:40 Acetazolamide Tab 250 Mg Tablet PO 500 mg BID TRESSA Administration Amiodarone HCl 200 mg 05/13/21 09:00 05/21/21 08:55 Amiodarone Hcl 200 Mg Tablet PO 200 mg DAILY TRESSA Administration Apixaban 5 mg 05/13/21 21:00 05/21/21 21:25 Apixaban 5 Mg Tablet PO 5 mg Q12HR TRESSA Administration Aspirin 8
[2021-05-22] MEDS: acetaZOLAMIDE TAB 250 MG TABLET 500 MG PO ×2 (08:55→16:33)
[2021-05-22] MEDS: POTASSIUM CHLORIDE 20 MEQ TABLET 40 MEQ PO (08:55)
[2021-05-22] MEDS: FUROSEMIDE 80 MG TABLET PO ×2 (08:55→16:33)
[2021-05-22] MEDS: carvediloL 3.125 MG TABLET PO ×2 (08:56→16:33)
[2021-05-22] MEDS: ASPIRIN 81 MG ENTERIC TABLET PO (08:56)
[2021-05-22] MEDS: APIXABAN 5 MG TABLET PO ×2 (08:56→22:07)
[2021-05-22] MEDS: AMIODARONE HCL 200 MG TABLET PO (08:56)
[2021-05-22] MEDS: ACETAMINOPHEN 325 MG TABLET 650 MG PO (08:59)
--- NOTE | 2021-05-22 10:28 | PM.PNCARD ---
Progress Note: A&P Assessment and Plan (1) Acute exacerbation of congestive heart failure: Code(s): I50.9 - Heart failure, unspecified Status: Acute Assessment and Plan: Acute on chronic HFrEF. with recurrent pleural effusions s/p repeat thoracentesis. This is been ongoing problem since his bypass. Had been in Aflutter apparently since his bypass - was cardioverted 05/13 now in sinus rhythm. He is also hypotensive which is complicating his medical management - patient definitely improved with the use of Milrinone renal function looks fantastic. - Very difficult management and decision making process. Discussed with Dr. Arias at length last night. Given concern for hypotension and renal failure will hold off on Entresto and or Vern/ARB and monitor renal function, clinical status very closely as an outpatient. Plan to refer to [facility] as an outpatient for further CHF management. - It appears pt presents repeatedly with recurrent CHF and ARF along with large L pleural effusion requiring multiple thoracentesis to date (2 this admission in the past week). - Continue to hold Entresto (although we feel this should benefit him significantly) - likely contributing to hypotension and ARF limiting the effectiveness of diuresis resulting in CHF exacerbation. ?Farxiga, although same issues of hypotension resulting in prerenal azotemia/ARF - Repeat chest x-ray tomorrow morning - He remains well compensated off milrinone - Tolerating p.o. Lasix 80 b.i.d. creatinine is 1.5 today. Baseline 1.5-2.0. - Diamox 500mg po BID added by Dr. Buckner, noted. (2) Ischemic cardiomyopathy: Code(s): I25.5 - Ischemic cardiomyopathy Status: Acute Assessment and Plan: EF 20%. As above. (3) Atrial flutter: Code(s): I48.92 - Unspecified atrial flutter Status: Acute Assessment and Plan: -s/p CV 05/13 maintaining SR on Amiodarone. On Eliquis 5mg BID. (4) Acute on chronic renal failure: Code(s): N17.9 - Acute kidney failure, unspecified; N18.9 - Chronic kidney disease, unspecified Status: Acute Assessment and Plan: Renal function markedly improved and maintaining off Milrinone. Appreciate Nephrology involvement and recommendations. . (5) LBBB (left bundle branch block): Code(s): I44.7 - Left bundle-branch block, unspecified Status: Acute Assessment and Plan: see above. Noted on EKG at least since January 2021. Wide QRS. (6) Pleural effusion on left: Code(s): J90 - Pleural effusion, not elsewhere classified Status: Acute Assessment and Plan: Status post thoracentesis 05/13 and again on 05/18 with 1L fluid removal with each tap. He has some reaccumulation on exam today. Chest x-ray pending. (7) History of implantable cardioverter-defibrillator (ICD) placement: Code(s): Z95.810 - Presence of automatic (implantable) cardiac defibrillator Status: Acute Assessment and Plan: As above, would recommend upgrade to biventricular PHYSICAL SECURITY MANAGER device. (8) Coronary artery disease: Code(s): I25.10 - Atherosclerotic heart disease of [place] coronary artery without angina pectoris Status: Acute Assessment and Plan: no anginal symptoms status post CABG (9) Chronic anticoagulation: Code(s): Z79.01 - jail (current) use of anticoagulants Status: Acute Assessment and Plan: on Eliquis Subjective Date/time seen: 05/22/21 10:28 Interval history: This is a 70-year-old male with coronary artery disease status post bypass, postoperative CABG atrial fibrillation, ischemic cardiomyopathy with an EF as low as 20%, hypertension, hyperlip
--- NOTE | 2021-05-22 13:42 | PM.IMPN ---
Progress Note: A&P Assessment and Plan (1) Acute on chronic systolic heart failure: Code(s): I50.23 - Acute on chronic systolic (congestive) heart failure Status: Acute Assessment and Plan: Patient presents with significant pitting edema bilateral lower extremity and BNP 74695. CXR showing cardiomegaly with a small right and moderate-sized left pleural effusion with associated airspace disease in the mid and lower lung zones. Underwent left thoracentesis x2 with removal on 2.1L total. Cumulative I/O -5.5L since admission. Milrinone stopped. Lasix changed to oral route and Diamox added. Clinically improving. Home when okay with Cardiology. (2) Acute respiratory failure: Code(s): J96.00 - Acute respiratory failure, unspecified whether with hypoxia or hypercapnia Status: Acute Assessment and Plan: Oxygen demand increased to 8L but now improved to room air possibly related to the repeat thoracentesis and Lasix. Had low grade fever and treated with ceftriaxone and azithromycin though the more likely etiology is fluid overload rather than infectious etiology. Completed Angelic and Millicent. (3) Stage 3b chronic kidney disease: Code(s): N18.32 - Chronic kidney disease, stage 3b Status: Chronic Assessment and Plan: Baseline creatinine runs around 1.5 - 2.0mg/dl. Creatinine 2.4 on admission but improved. Cr did drop to 1.1 but back up to 1.5 which is more in line with his baseline. Presumably due to some degree of cardiorenal syndrome with improved renal perfusion now. Maximize efforts to treat heart failure and optimize hemodynamics. Nephrology input appreciated. Watch for evidence of urine retention (4) Hypotension: Code(s): I95.9 - Hypotension, unspecified Status: Acute Assessment and Plan: BP soft at times secondary to cardiomyopathy and uncontrolled AFlutter. Patient cardioverted. Off Milrinone now. BP remaining stable and he is tolerating the Lasix and other meds. Follow closely. Entresto remains on hold. (5) Pleural effusion on left: Code(s): J90 - Pleural effusion, not elsewhere classified Status: Acute Assessment and Plan: CXR on admission showing small right and moderate-sized left pleural effusion. He underwent left thoracentesis on 05/13 with 1L yellowish fluid removed and again 05/18 with 1.1L of reddish fluid removed. Previous workup noted and felt to be transudative. Presumably related to decompensated heart failure. Continue diuretic therapy but should not expect much change in effusions since this will take time. (6) Atrial flutter: Code(s): I48.92 - Unspecified atrial flutter Status: Acute Assessment and Plan: Patient had persistent AFlutter. Given the tenuous nature of his heart condition, it was elected to cardiovert the patient. He underwent CV on 05/14/21 successfully. He remains on Eliquis. Also on Amiodarone and Coreg for rate maintenance. No recurrence by telemetry. Appreciate cardiology input. Continue tele monitoring (7) Obstructive sleep apnea: Code(s): G47.33 - Obstructive sleep apnea (adult) (pediatric) Status: Acute Assessment and Plan: Mostly compliant with NIV. Continue CPAP at night and with naps as he tolerates. Subjective Date/time seen: 05/22/21 13:42 Interval history: 70yo male with CAD status post CABG with postop AFib, ischemic CMP (EF 20%) and sleep apnea here for shortness of breath and increasing edema. No problems overnight. Denies shortness of breath. Tolerated the NIV overnight. No chest pain. Walking in the halls. Eating okay. Voiding well since Laurent removed Exam Narrative: Exam Narrative: AF 97.7 106/68 68 18 96% ra Gen - NARD sitting up in bed Chest - decreased breath sounds left mid and lower lung arita; decreased BS right lower lobe. nml RR. no conversational dyspnea CV - RRR S1/S2 with 2/6 systolic murmur: tele showing no s
[2021-05-22] MEDS: ATORVASTATIN 40 MG TABLET 80 MG PO (22:07)
[2021-05-22] MEDS: ZOLPIDEM TARTRATE (*CRX) 5 MG TABLET PO (22:09)
[2021-05-23] VITALS (16 sets, daily range): BP systolic 101–116; BP diastolic 58–73; PULSE 67–75; RESP 15–24; TEMP 36.1–36.9; O2SAT 92–100
[2021-05-23 05:32] LABS: Albumin Level 3.1 g/dL (3.5-5.1); Anion Gap 4 mmol/L (8-16); Blood Urea Nitrogen 15 mg/dL (9-20); Calcium 8.4 mg/dL (8.4-10.2); Carbon Dioxide 35 mmol/L (22-30); Chloride 98 mmol/L (98-107); Estimated CRCL calculation 46 ml/min; Estimated Glomerular Filt Rate 50; Glucose 100 mg/dL (65-110); Phosphorus 4.2 mg/dL (2.5-4.5); Potassium 3.3 mmol/L (3.4-5.0); Sodium 137 mmol/L (137-145)
[2021-05-23] MEDS: acetaZOLAMIDE TAB 250 MG TABLET 500 MG PO ×2 (09:21→17:34)
[2021-05-23] MEDS: carvediloL 3.125 MG TABLET PO ×2 (09:21→17:34)
[2021-05-23] MEDS: AMIODARONE HCL 200 MG TABLET PO (09:21)
[2021-05-23] MEDS: ASPIRIN 81 MG ENTERIC TABLET PO (09:22)
[2021-05-23] MEDS: APIXABAN 5 MG TABLET PO ×2 (09:22→20:53)
[2021-05-23] MEDS: FUROSEMIDE 80 MG TABLET PO ×2 (09:22→17:34)
--- NOTE | 2021-05-23 11:39 | P.PNNP_ITS ---
Progress Note: A&P Assessment and Plan (1) Stage 3b chronic kidney disease: Code(s): N18.32 - Chronic kidney disease, stage 3b Status: Chronic Assessment and Plan: * baseline creatinine runs around 1.5 - 2.0mg/dl * most likely due to hypertension and vascular disease with superimposed chronic pre renal azotemia from the bad heart. * creatinine is better today. * Continue observation on Lasix 80 b.i.d. * home any time from renal standpoint * potassium low. will add spironolactone (2) Volume overload: Code(s): E87.70 - Fluid overload, unspecified Status: Acute Assessment and Plan: * Volume status looks better. (3) Acute on chronic systolic heart failure: Code(s): I50.23 - Acute on chronic systolic (congestive) heart failure Status: Acute Assessment and Plan: * Cardiology following * known depressed EF * on diuretics. Just changed from IV to p.o. * pretty good urine output * discussed with [facility] (4) Hypotension: Code(s): I95.9 - Hypotension, unspecified Status: Acute Assessment and Plan: * limits interventions * secondary to cardiomyopathy * follow trend -- better hemodynamics noted recently (5) Atrial flutter: Code(s): I48.92 - Unspecified atrial flutter Status: Acute Assessment and Plan: * s/p cardioversion this admission * continue rate control strategy * on anticoagulation (6) Pleural effusion on left: Code(s): J90 - Pleural effusion, not elsewhere classified Status: Acute Assessment and Plan: * s/p thoracentesis * presumably related to decompensated heart failure * repeat left thoracentesis today Subjective Date/time seen: 05/23/21 11:39 Interval history: breathing is doing well. Swelling is better No chest pain Exam Narrative: Exam Narrative: General: ill appearing male in NAD Heart: normal S1 and S2; no rub Lungs: bibasilar crackles , improved again Abdomen: soft, nontender, nondistended, positive bowel sounds Extremities: no cyanosis or clubbing; trace to 1+ edema. Gradually improving Skin: No rash Objective Data Vital Signs Vital Signs: Vital Signs - 24 hr 05/22/21 12:00 05/22/21 12:29 05/22/21 14:00 Temperature 36.5 C Pulse Rate 71 68 67 Respiratory Rate 18 Blood Pressure 106/68 Pulse Oximetry 92 96 05/22/21 16:00 05/22/21 16:33 05/22/21 17:51 Temperature 36.3 C L Pulse Rate 69 68 68 Respiratory Rate 18 Blood Pressure 108/65 Pulse Oximetry 94 96 05/22/21 18:00 05/22/21 20:00 05/22/21 22:00 Temperature 36.9 C Pulse Rate 73 72 70 Respiratory Rate 17 Blood Pressure 107/70 Pulse Oximetry 95 05/22/21 22:36 05/22/21 22:58 05/23/21 00:00 Temperature 37.1 C Pulse Rate 71 74 70 Respiratory Rate 19 17 Blood Pressure 107/70 Pulse Oximetry 96 95 94 05/23/21 00:47 05/23/21 02:00 05/23/21 04:00 Temperature 36.9 C Pulse Rate 73 72 73 Respiratory Rate 15 18 Blood Pressure 110/73 Pulse Oximetry 96 96 05/23/21 06:00 05/23/21 08:00 05/23/21 09:21
--- NOTE | 2021-05-23 11:39 | PM.PNNEP ---
Progress Note: A&P Assessment and Plan (1) Stage 3b chronic kidney disease: Code(s): N18.32 - Chronic kidney disease, stage 3b Status: Chronic Assessment and Plan: baseline creatinine runs around 1.5 - 2.0mg/dl most likely due to hypertension and vascular disease with superimposed chronic pre renal azotemia from the bad heart. creatinine is better today. Continue observation on Lasix 80 b.i.d. home any time from renal standpoint potassium low. will add spironolactone (2) Volume overload: Code(s): E87.70 - Fluid overload, unspecified Status: Acute Assessment and Plan: Volume status looks better. (3) Acute on chronic systolic heart failure: Code(s): I50.23 - Acute on chronic systolic (congestive) heart failure Status: Acute Assessment and Plan: Cardiology following known depressed EF on diuretics. Just changed from IV to p.o. pretty good urine output discussed with [facility] (4) Hypotension: Code(s): I95.9 - Hypotension, unspecified Status: Acute Assessment and Plan: limits interventions secondary to cardiomyopathy follow trend -- better hemodynamics noted recently (5) Atrial flutter: Code(s): I48.92 - Unspecified atrial flutter Status: Acute Assessment and Plan: s/p cardioversion this admission continue rate control strategy on anticoagulation (6) Pleural effusion on left: Code(s): J90 - Pleural effusion, not elsewhere classified Status: Acute Assessment and Plan: s/p thoracentesis presumably related to decompensated heart failure repeat left thoracentesis today Subjective Date/time seen: 05/23/21 11:39 Interval history: breathing is doing well. Swelling is better No chest pain Exam Narrative: Exam Narrative: General: ill appearing male in NAD Heart: normal S1 and S2; no rub Lungs: bibasilar crackles , improved again Abdomen: soft, nontender, nondistended, positive bowel sounds Extremities: no cyanosis or clubbing; trace to 1+ edema. Gradually improving Skin: No rash Objective Data Vital Signs Vital Signs: Vital Signs - 24 hr 05/22/21 12:00 05/22/21 12:29 05/22/21 14:00 Temperature 36.5 C Pulse Rate 71 68 67 Respiratory Rate 18 Blood Pressure 106/68 Pulse Oximetry 92 96 05/22/21 16:00 05/22/21 16:33 05/22/21 17:51 Temperature 36.3 C L Pulse Rate 69 68 68 Respiratory Rate 18 Blood Pressure 108/65 Pulse Oximetry 94 96 05/22/21 18:00 05/22/21 20:00 05/22/21 22:00 Temperature 36.9 C Pulse Rate 73 72 70 Respiratory Rate 17 Blood Pressure 107/70 Pulse Oximetry 95 05/22/21 22:36 05/22/21 22:58 05/23/21 00:00 Temperature 37.1 C Pulse Rate 71 74 70 Respiratory Rate 19 17 Blood Pressure 107/70 Pulse Oximetry 96 95 94 05/23/21 00:47 05/23/21 02:00 05/23/21 04:00 Temperature 36.9 C Pulse Rate 73 72 73 Respiratory Rate 15 18 Blood Pressure 110/73 Pulse Oximetry 96 96 05/23/21 06:00 05/23/21 08:00 05/23/21 09:21 Temperature 36.1 C L Pulse Rate 70 71 67 Respiratory Rate 24 H Blood Pressure 116/68 Pulse Oximetry 99 Intake/Output Intake/Output: Intake & Output 05/20/21 05/21/21 05/22/21 05/23/21 23:59 23:59 23:59 23:59 Intake Total 870 1360 1850 200 Output Total 1999 4507 7315 1280 [facility] -1130 -290 175 -3263 Meds/Results Medications: Active Medications Generic Name Dose Route Start Last Admin Trade Name Freq PRN Reason Stop Dose Admin Acetaminophen 650 mg 05/12/21 15:52 05/22/21 08:59 Acetaminophen 325 Mg Tablet PO 650 mg Q4H PRN Administration Mild Pain (1-3) or Fever Acetazolamide 500 mg 05/21/21 09:00 05/23/21 09:21 Acetazolamide Tab 250 Mg Tablet PO 500 mg BID TRESSA Administration Amiodarone HCl 200 mg 05/13/21 09:00 05/23/21 09:21 Amiodarone Hcl 200 Mg Tablet PO 200 mg DAILY [facility] Administ
--- NOTE | 2021-05-23 12:23 | PM.PNCARD ---
Progress Note: A&P Assessment and Plan (1) Acute exacerbation of congestive heart failure: Code(s): I50.9 - Heart failure, unspecified Status: Acute Assessment and Plan: Acute on chronic HFrEF. with recurrent pleural effusions s/p repeat thoracentesis. This is been ongoing problem since his bypass. Had been in Aflutter apparently since his bypass - was cardioverted 05/13 now in sinus rhythm. He is also hypotensive which is complicating his medical management - patient definitely improved with the use of Milrinone renal function looks fantastic. - Very difficult management and decision making process. Discussed with Dr. Arias at length last night. Given concern for hypotension and renal failure will hold off on Entresto and or Vern/ARB and monitor renal function, clinical status very closely as an outpatient. Plan to refer to [facility] as an outpatient for further CHF management. - He remains well compensated off milrinone - Tolerating p.o. Lasix 80 b.i.d. creatinine is 1.4 today. Baseline 1.5-2.0. - Spironolactone 25mg daily added by Dr. Buckner, noted. - He has an appointment at [facility] in their Heart Failure clinic on 05/27/21 (2) Ischemic cardiomyopathy: Code(s): I25.5 - Ischemic cardiomyopathy Status: Acute Assessment and Plan: EF 20%. As above. (3) Atrial flutter: Code(s): I48.92 - Unspecified atrial flutter Status: Acute Assessment and Plan: -s/p CV 05/13 maintaining SR on Amiodarone. On Eliquis 5mg BID. (4) Acute on chronic renal failure: Code(s): N17.9 - Acute kidney failure, unspecified; N18.9 - Chronic kidney disease, unspecified Status: Acute Assessment and Plan: Renal function markedly improved and maintaining off Milrinone. Appreciate Nephrology involvement and recommendations. . (5) LBBB (left bundle branch block): Code(s): I44.7 - Left bundle-branch block, unspecified Status: Acute Assessment and Plan: see above. Noted on EKG at least since January 2021. Wide QRS. (6) Pleural effusion on left: Code(s): J90 - Pleural effusion, not elsewhere classified Status: Acute Assessment and Plan: Status post thoracentesis 05/13 and again on 05/18 with 1L fluid removal with each tap. He has some reaccumulation on exam today. Effusions are stable, pulmonary edema improving on CXR from this morning. Did have some desaturations overnight and this morning during times of sleep. (7) History of implantable cardioverter-defibrillator (ICD) placement: Code(s): Z95.810 - Presence of automatic (implantable) cardiac defibrillator Status: Acute Assessment and Plan: As above, would recommend upgrade to biventricular PATTERNMAKER PRESSURE CAST device. (8) Coronary artery disease: Code(s): I25.10 - Atherosclerotic heart disease of [place] coronary artery without angina pectoris Status: Acute Assessment and Plan: no anginal symptoms status post CABG (9) Chronic anticoagulation: Code(s): Z79.01 - alf (current) use of anticoagulants Status: Acute Assessment and Plan: on Eliquis Subjective Date/time seen: 05/23/21 12:23 Interval history: This is a 70-year-old male with coronary artery disease status post bypass, postoperative CABG atrial fibrillation, ischemic cardiomyopathy with an EF as low as 20%, hypertension, hyperlipidemia, and sleep apnea who presented to the emergency department earlier today with complaints of shortness of breath and increasing edema. Date of service 05/19/2021: Improving. Oxygen requirements down to 2L. No shortness of breath. LE edema is significantly improved, still h
[2021-05-23] MEDS: SPIRONOLACTONE 25 MG TABLET PO (12:56)
--- NOTE | 2021-05-23 14:35 | PM.IMPN ---
Progress Note: A&P Assessment and Plan (1) Acute on chronic systolic heart failure: Code(s): I50.23 - Acute on chronic systolic (congestive) heart failure Status: Acute Assessment and Plan: CONTINUE DIURESIS MONITOR DAILY INTAKE AND OUTPUT IMPROVED Patient presents with significant pitting edema bilateral lower extremity and BNP 25170. CXR showing cardiomegaly with a small right and moderate-sized left pleural effusion with associated airspace disease in the mid and lower lung zones. Underwent left thoracentesis x2 with removal on 2.1L total. Cumulative I/O -5.5L since admission. Milrinone stopped. Lasix changed to oral route and Diamox added. Clinically improving. Home when okay with Cardiology. (2) Acute respiratory failure: Code(s): J96.00 - Acute respiratory failure, unspecified whether with hypoxia or hypercapnia Status: Acute Assessment and Plan: IMPROVED Oxygen demand increased to 8L but now improved to room air possibly related to the repeat thoracentesis and Lasix. Had low grade fever and treated with ceftriaxone and azithromycin though the more likely etiology is fluid overload rather than infectious etiology. Completed Angelic and Millicent. (3) Stage 3b chronic kidney disease: Code(s): N18.32 - Chronic kidney disease, stage 3b Status: Chronic Assessment and Plan: CONTINUE TO MONITOR HAS REMAINED A PATIENT'S BASELINE Baseline creatinine runs around 1.5 - 2.0mg/dl. Creatinine 2.4 on admission but improved. Cr did drop to 1.1 but back up to 1.5 which is more in line with his baseline. Presumably due to some degree of cardiorenal syndrome with improved renal perfusion now. Maximize efforts to treat heart failure and optimize hemodynamics. Nephrology input appreciated. Watch for evidence of urine retention (4) Hypotension: Code(s): I95.9 - Hypotension, unspecified Status: Acute Assessment and Plan: BP soft at times secondary to cardiomyopathy and uncontrolled AFlutter. Patient cardioverted. Off Milrinone now. BP remaining stable and he is tolerating the Lasix and other meds. Follow closely. Entresto remains on hold. (5) Pleural effusion on left: Code(s): J90 - Pleural effusion, not elsewhere classified Status: Acute Assessment and Plan: CXR on admission showing small right and moderate-sized left pleural effusion. He underwent left thoracentesis on 05/13 with 1L yellowish fluid removed and again 05/18 with 1.1L of reddish fluid removed. Previous workup noted and felt to be transudative. Presumably related to decompensated heart failure. Continue diuretic therapy but should not expect much change in effusions since this will take time. (6) Atrial flutter: Code(s): I48.92 - Unspecified atrial flutter Status: Acute Assessment and Plan: CONTINUE TO MONITOR Patient had persistent AFlutter. Given the tenuous nature of his heart condition, it was elected to cardiovert the patient. He underwent CV on 05/14/21 successfully. He remains on Eliquis. Also on Amiodarone and Coreg for rate maintenance. No recurrence by telemetry. Appreciate cardiology input. Continue tele monitoring (7) Obstructive sleep apnea: Code(s): G47.33 - Obstructive sleep apnea (adult) (pediatric) Status: Acute Assessment and Plan: Mostly compliant with NIV. Continue CPAP at night and with naps as he tolerates. Additional Plan OVERALL IMPROVED The patient presents today with increasing edema and severe orthopnea found to have evidence of decompensated congestive heart failure. He will be admitted for diuresis, which I will defer that to the cardiologists as his blood pressures remain soft. I do not think diuresing him will take care of the effusion thus will hold Mauis tonight and ask the radiologist to do a thoracentesis tomorrow (his last dose was earlier this morning). CPAP will be provided for
[2021-05-23] MEDS: ATORVASTATIN 40 MG TABLET 80 MG PO (20:53)
[2021-05-24] VITALS (8 sets, daily range): BP systolic 103–107; BP diastolic 59–60; PULSE 65–71; RESP 16–20; TEMP 36.1–36.4; O2SAT 92–100
[2021-05-24 06:19] LABS: Albumin Level 3.1 g/dL (3.5-5.1); Anion Gap 7 mmol/L (8-16); Blood Urea Nitrogen 17 mg/dL (9-20); Calcium 8.6 mg/dL (8.4-10.2); Carbon Dioxide 34 mmol/L (22-30); Chloride 97 mmol/L (98-107); Estimated CRCL calculation 43 ml/min; Estimated Glomerular Filt Rate 46; Glucose 163 mg/dL (65-110); Phosphorus 4.1 mg/dL (2.5-4.5); Sodium 138 mmol/L (137-145)
[2021-05-24] MEDS: POTASSIUM CHLORIDE 20 MEQ TABLET PO (08:39)
[2021-05-24] MEDS: ASPIRIN 81 MG ENTERIC TABLET PO (08:40)
[2021-05-24] MEDS: carvediloL 3.125 MG TABLET PO (08:40)
[2021-05-24] MEDS: SPIRONOLACTONE 25 MG TABLET PO (08:40)
[2021-05-24] MEDS: APIXABAN 5 MG TABLET PO (08:40)
[2021-05-24] MEDS: FUROSEMIDE 80 MG TABLET PO (08:41)
[2021-05-24] MEDS: acetaZOLAMIDE TAB 250 MG TABLET 500 MG PO (08:41)
[2021-05-24] MEDS: AMIODARONE HCL 200 MG TABLET PO (08:41)
--- NOTE | 2021-05-24 08:57 | P.PNNP_ITS ---
Progress Note: A&P Assessment and Plan (1) Stage 3b chronic kidney disease: Code(s): N18.32 - Chronic kidney disease, stage 3b Status: Chronic Assessment and Plan: * baseline creatinine runs around 1.5 - 2.0mg/dl * most likely due to hypertension and vascular disease with superimposed chronic pre renal azotemia from the bad heart. * creatinine looks stable. * Continue observation on Lasix 80 b.i.d. * home any time from renal standpoint * potassium low. On spironolactone. Will give small dose of potassium (2) Volume overload: Code(s): E87.70 - Fluid overload, unspecified Status: Acute Assessment and Plan: * Volume status looks better. (3) Acute on chronic systolic heart failure: Code(s): I50.23 - Acute on chronic systolic (congestive) heart failure Status: Acute Assessment and Plan: * Cardiology following * known depressed EF * on diuretics. Just changed from IV to p.o. * pretty good urine output * discussed with [facility] (4) Hypotension: Code(s): I95.9 - Hypotension, unspecified Status: Acute Assessment and Plan: * limits interventions * secondary to cardiomyopathy * follow trend -- better hemodynamics noted recently (5) Atrial flutter: Code(s): I48.92 - Unspecified atrial flutter Status: Acute Assessment and Plan: * s/p cardioversion this admission * continue rate control strategy * on anticoagulation (6) Pleural effusion on left: Code(s): J90 - Pleural effusion, not elsewhere classified Status: Acute Assessment and Plan: * s/p thoracentesis * presumably related to decompensated heart failure * repeat left thoracentesis today Subjective Date/time seen: 05/24/21 08:57 Interval history: patient is alert. Ate some breakfast. He feels okay. Exam Narrative: Exam Narrative: General: ill appearing male in NAD Heart: normal S1 and S2; no rub Lungs: Rare crackles Abdomen: soft, nontender, nondistended, positive bowel sounds Extremities: trace to 1+ edema. Skin: No rash Objective Data Vital Signs Vital Signs: Vital Signs - 24 hr 05/23/21 09:21 05/23/21 10:00 05/23/21 12:00 Temperature 36.2 C L Pulse Rate 67 71 67 Respiratory Rate 18 Blood Pressure 106/67 Pulse Oximetry 97 05/23/21 14:00 05/23/21 16:00 05/23/21 17:34 Temperature Pulse Rate 67 70 75 Respiratory Rate Blood Pressure Pulse Oximetry 05/23/21 18:00 05/23/21 20:00 05/23/21 22:00 Temperature 36.4 C L Pulse Rate 71 68 72 Respiratory Rate 16 Blood Pressure 101/58 L Pulse Oximetry 92 05/23/21 23:32 05/24/21 00:00 05/24/21 02:00 Temperature 36.6 C Pulse Rate 73 69 67 Respiratory Rate 20 20 Blood Pressure 106/63 Pulse Oximetry 100 100 05/24/21 04:00 05/24/21 06:00 05/24/21 08:00 Temperature 36.4 C L 36.1 C L Pulse Rate 65 67 70 Respiratory Rate 16 18 Blood Pressure 103/60 107/59 L Pulse Oximetry 98 92 05/24/21 08:40 05/24/21 08:41 Temperature Pulse Rate 71 70 Respiratory Rate
--- NOTE | 2021-05-24 08:57 | PM.PNNEP ---
Progress Note: A&P Assessment and Plan (1) Stage 3b chronic kidney disease: Code(s): N18.32 - Chronic kidney disease, stage 3b Status: Chronic Assessment and Plan: baseline creatinine runs around 1.5 - 2.0mg/dl most likely due to hypertension and vascular disease with superimposed chronic pre renal azotemia from the bad heart. creatinine looks stable. Continue observation on Lasix 80 b.i.d. home any time from renal standpoint potassium low. On spironolactone. Will give small dose of potassium (2) Volume overload: Code(s): E87.70 - Fluid overload, unspecified Status: Acute Assessment and Plan: Volume status looks better. (3) Acute on chronic systolic heart failure: Code(s): I50.23 - Acute on chronic systolic (congestive) heart failure Status: Acute Assessment and Plan: Cardiology following known depressed EF on diuretics. Just changed from IV to p.o. pretty good urine output discussed with [facility] (4) Hypotension: Code(s): I95.9 - Hypotension, unspecified Status: Acute Assessment and Plan: limits interventions secondary to cardiomyopathy follow trend -- better hemodynamics noted recently (5) Atrial flutter: Code(s): I48.92 - Unspecified atrial flutter Status: Acute Assessment and Plan: s/p cardioversion this admission continue rate control strategy on anticoagulation (6) Pleural effusion on left: Code(s): J90 - Pleural effusion, not elsewhere classified Status: Acute Assessment and Plan: s/p thoracentesis presumably related to decompensated heart failure repeat left thoracentesis today Subjective Date/time seen: 05/24/21 08:57 Interval history: patient is alert. Ate some breakfast. He feels okay. Exam Narrative: Exam Narrative: General: ill appearing male in NAD Heart: normal S1 and S2; no rub Lungs: Rare crackles Abdomen: soft, nontender, nondistended, positive bowel sounds Extremities: trace to 1+ edema. Skin: No rash Objective Data Vital Signs Vital Signs: Vital Signs - 24 hr 05/23/21 09:21 05/23/21 10:00 05/23/21 12:00 Temperature 36.2 C L Pulse Rate 67 71 67 Respiratory Rate 18 Blood Pressure 106/67 Pulse Oximetry 97 05/23/21 14:00 05/23/21 16:00 05/23/21 17:34 Temperature Pulse Rate 67 70 75 Respiratory Rate Blood Pressure Pulse Oximetry 05/23/21 18:00 05/23/21 20:00 05/23/21 22:00 Temperature 36.4 C L Pulse Rate 71 68 72 Respiratory Rate 16 Blood Pressure 101/58 L Pulse Oximetry 92 05/23/21 23:32 05/24/21 00:00 05/24/21 02:00 Temperature 36.6 C Pulse Rate 73 69 67 Respiratory Rate 20 20 Blood Pressure 106/63 Pulse Oximetry 100 100 05/24/21 04:00 05/24/21 06:00 05/24/21 08:00 Temperature 36.4 C L 36.1 C L Pulse Rate 65 67 70 Respiratory Rate 16 18 Blood Pressure 103/60 107/59 L Pulse Oximetry 98 92 05/24/21 08:40 05/24/21 08:41 Temperature Pulse Rate 71 70 Respiratory Rate Blood Pressure Pulse Oximetry Intake/Output Intake/Output: Intake & Output 05/21/21 05/22/21 05/23/21 05/24/21 23:59 23:59 23:59 23:59 Intake Total 1360 1850 2340 Output Total 1650 1675 3680 400 Balance -290 175 -1340 -400 Meds/Results Medications: Active Medications Generic Name Dose Route Start Last Admin Trade Name Clarissa PRN Reason Stop Dose Admin Acetaminophen 650 mg 05/12/21 15:52 05/22/21 08:59 Acetaminophen 325 Mg Tablet PO 650 mg Q4H PRN Administration Mild Pain (1-3) or Fever Acetazolamide 500 mg 05/21/21 09:00 05/24/21 08:41 Acetazolamide Tab 250 Mg Tablet PO 500 mg BID TRESSA Administration Amiodarone HCl 200 mg 05/13/21 09:00 05/24/21 08:41 Amiodarone Hcl 200 Mg Tablet PO 200 mg DAILY TRESSA Administration Apixaban 5 mg 05/13/21 21:00 05/24/21 08:40 Apixaban 5 Mg Tablet PO 5 mg
--- NOTE | 2021-05-24 10:58 | PM.DS ---
DS: Admitting Diagnosis Admitting Diagnosis (1) Acute exacerbation of congestive heart failure: Code(s): I50.9 - Heart failure, unspecified Status: Acute (2) Pleural effusion on left: Code(s): J90 - Pleural effusion, not elsewhere classified Status: Acute (3) Ischemic cardiomyopathy: Code(s): I25.5 - Ischemic cardiomyopathy Status: Acute (4) Atrial flutter: Code(s): I48.92 - Unspecified atrial flutter Status: Acute (5) Chronic anticoagulation: Code(s): Z79.01 - long term acute care registered nurse (current) use of anticoagulants Status: Acute (6) Obstructive sleep apnea: Code(s): G47.33 - Obstructive sleep apnea (adult) (pediatric) Status: Acute (7) Chronic kidney disease, stage 3: Code(s): N18.30 - Chronic kidney disease, stage 3 unspecified Status: Acute DS: Discharge Diagnosis Discharge Diagnosis (1) Acute on chronic systolic heart failure: Code(s): I50.23 - Acute on chronic systolic (congestive) heart failure Status: Acute Assessment and Plan: CONTINUE DIURESIS MONITOR DAILY INTAKE AND OUTPUT IMPROVED Patient presents with significant pitting edema bilateral lower extremity and BNP 73365. CXR showing cardiomegaly with a small right and moderate-sized left pleural effusion with associated airspace disease in the mid and lower lung zones. Underwent left thoracentesis x2 with removal on 2.1L total. Cumulative I/O -5.5L since admission. Milrinone stopped. Lasix changed to oral route and Diamox added. Clinically improving. Home when okay with Cardiology. (2) Acute respiratory failure: Code(s): J96.00 - Acute respiratory failure, unspecified whether with hypoxia or hypercapnia Status: Acute Assessment and Plan: IMPROVED Oxygen demand increased to 8L but now improved to room air possibly related to the repeat thoracentesis and Lasix. Had low grade fever and treated with ceftriaxone and azithromycin though the more likely etiology is fluid overload rather than infectious etiology. Completed Azithro and Rocephin. (3) Stage 3b chronic kidney disease: Code(s): N18.32 - Chronic kidney disease, stage 3b Status: Chronic Assessment and Plan: CONTINUE TO MONITOR HAS REMAINED A PATIENT'S BASELINE Baseline creatinine runs around 1.5 - 2.0mg/dl. Creatinine 2.4 on admission but improved. Cr did drop to 1.1 but back up to 1.5 which is more in line with his baseline. Presumably due to some degree of cardiorenal syndrome with improved renal perfusion now. Maximize efforts to treat heart failure and optimize hemodynamics. Nephrology input appreciated. Watch for evidence of urine retention (4) Hypotension: Code(s): I95.9 - Hypotension, unspecified Status: Acute Assessment and Plan: BP soft at times secondary to cardiomyopathy and uncontrolled AFlutter. Patient cardioverted. Off Milrinone now. BP remaining stable and he is tolerating the Lasix and other meds. Follow closely. Entresto remains on hold. (5) Pleural effusion on left: Code(s): J90 - Pleural effusion, not elsewhere classified Status: Acute Assessment and Plan: CXR on admission showing small right and moderate-sized left pleural effusion. He underwent left thoracentesis on 05/13 with 1L yellowish fluid removed and again 05/18 with 1.1L of reddish fluid removed. Previous workup noted and felt to be transudative. Presumably related to decompensated heart failure. Continue diuretic therapy but should not expect much change in effusions since this will take time. (6) Atrial flutter: Code(s): I48.92 - Unspecified atrial flutter Status: Acute Assessment and Plan: CONTINUE TO MONITOR Patient had persistent AFlutter. Given the tenuous nature of his heart condition, it was elected to cardiovert the patient. He underwent CV on 05/14/21 successfully. He remains on Eliquis. Also on Amiodarone
--- NOTE | 2021-05-24 11:31 | PM.PNCARD ---
Progress Note: A&P Assessment and Plan (1) Acute exacerbation of congestive heart failure: Code(s): I50.9 - Heart failure, unspecified Status: Acute Assessment and Plan: Acute on chronic HFrEF. with recurrent pleural effusions s/p repeat thoracentesis. This is been ongoing problem since his bypass. Had been in Aflutter apparently since his bypass - was cardioverted 05/13 now in sinus rhythm. He is also hypotensive which is complicating his medical management - patient is being referred to [facility] as an outpatient for further CHF management. - resume home medications including diuretics. -Entresto is on hold for now due to renal insufficiency spoke with the hospitalist about patient. Patient was advised to follow up with Heart failure Clinic. EP evaluation for ICD upgrade to Bi V ICD also recommended. (2) Ischemic cardiomyopathy: Code(s): I25.5 - Ischemic cardiomyopathy Status: Acute Assessment and Plan: EF 20%. As above. (3) Atrial flutter: Code(s): I48.92 - Unspecified atrial flutter Status: Acute Assessment and Plan: -s/p CV 05/13 maintaining SR on Amiodarone. On Eliquis 5mg BID. (4) Acute on chronic renal failure: Code(s): N17.9 - Acute kidney failure, unspecified; N18.9 - Chronic kidney disease, unspecified Status: Acute Assessment and Plan: Renal function markedly improved and maintaining off Milrinone. Appreciate Nephrology involvement and recommendations. . (5) LBBB (left bundle branch block): Code(s): I44.7 - Left bundle-branch block, unspecified Status: Acute Assessment and Plan: see above. Noted on EKG at least since January 2021. Wide QRS. (6) Pleural effusion on left: Code(s): J90 - Pleural effusion, not elsewhere classified Status: Acute Assessment and Plan: Status post thoracentesis 05/13 and again on 05/18 with 1L fluid removal with each tap. He has some reaccumulation on exam today. Effusions are stable, pulmonary edema improved. (7) History of implantable cardioverter-defibrillator (ICD) placement: Code(s): Z95.810 - Presence of automatic (implantable) cardiac defibrillator Status: Acute Assessment and Plan: As above, would recommend upgrade to biventricular PACKAGE WRAPPER device. (8) Coronary artery disease: Code(s): I25.10 - Atherosclerotic heart disease of [place] coronary artery without angina pectoris Status: Acute Assessment and Plan: no anginal symptoms status post CABG (9) Chronic anticoagulation: Code(s): Z79.01 - correction (current) use of anticoagulants Status: Acute Assessment and Plan: On anticoagulation Subjective Date/time seen: 05/24/21 11:31 Date of Service: 05/24/2021 Interval history: Patient denies chest pain. Reports improvement in shortness of breath. Exam Narrative: Exam Narrative: PHYSICAL EXAMINATION: GENERAL: Alert, oriented, no acute distress MENTAL STATUS: affect appropriate to mood EYES: Extraocular movements intact, no pallor EARS: External ears appear normal, hearing grossly normal NOSE: Normal and patent, no discharge MOUTH: Mucous membranes moist, tongue normal NECK: Supple, no JVD CHEST: Absent breath sounds lower left lung arita HEART: Normal rate, regular rhythm, normal S1 and S2, S3 gallop ABDOMEN: Soft, nontender NEUROLOGICAL: Alert, oriented, normal speech, no gross motor deficits MUSCULOSKELETAL: No major deformity, no amputation EXTREMITIES: mild pedal edema, no clubbing, no cyanosis SKIN: no rash on the exposed area, no cyanosis PSYCHIATRIC: Normal moo
--- NOTE | 2021-06-27 12:36 | WPDCARDPROC ---
Cardiac Cath Procedure Note Date of procedure:: 05/14/21 Performing physician:: Stephen Ordoñez MD Indication:: Ischemic cardiomyopathy with recent bypass grafting and persistent atrial flutter contributing to congestive heart failure Brief clinical history:: This is a 70-year-old man with ischemic heart disease recently undergoing surgical revascularization elsewhere. He entered the hospital with congestive heart failure, volume overload and significant pleural effusions. He also is in atrial flutter with somewhat rapid ventricular response which is undoubtedly contributing to his CHF. An attempt at restoring sinus rhythm has been recommended. Because of his significant cardiomyopathy procedures being done with the assistance of Anesthesia. Procedure Procedure performed:: DC cardioversion Sedation/Medication given:: Sedation per the Anesthesia note Procedure note:: Patient was brought to the GI lab where he was in the postabsorptive state. He was sedated by the anesthesia service. Please see their to separately dictated note for those details. The patient had a defibrillator patches in the AP position the device was synchronized and sent for an output of 200 joules. Following sedation he was cardioverted with 200 joules x1 shock restoring normal sinus rhythm. Findings:: As above Conclusion:: Successful DC cardioversion terminating atrial flutter restoring normal sinus rhythm using 200 joules x1 shock Stephen Ordoñez MD [facility]
== END 2021-05-24 11:58 | disposition home or self-care (01) | DRG 291 ==
LOC: ANHED 14:18 → ANHIMU 16:27
PROVIDERS: Internal Medicine Cardiovascular Disease; Internal Medicine Critical Care Medicine; Internal Medicine Nephrology; Nurse Practitioner; Physician Assistant; Specialist; Admitting Provider Internal Medicine; Emergency Provider Emergency Medicine; PCP Internal Medicine; Visit Provider Internal Medicine
PROC: 5A2204Z Restoration of Cardiac Rhythm, Single (ICD-10-PCS; principal; 2021-05-14 13:00)
DX: I13.0 Hypertensive heart and chronic kidney disease with heart failure and stage 1 through stage 4 chronic kidney disease, or unspecified chronic kidney disease (principal); I50.23 Acute on chronic systolic (congestive) heart failure; J96.00 Acute respiratory failure, unspecified whether with hypoxia or hypercapnia; I48.92 Unspecified atrial flutter; J90 Pleural effusion, not elsewhere classified; N17.9 Acute kidney failure, unspecified; E11.22 Type 2 diabetes mellitus with diabetic chronic kidney disease; I48.91 Unspecified atrial fibrillation; I25.5 Ischemic cardiomyopathy; Z95.5 Presence of coronary angioplasty implant and graft; G47.33 Obstructive sleep apnea (adult) (pediatric); Z79.01 Long term (current) use of anticoagulants; Z87.891 Personal history of nicotine dependence; N18.32 Chronic kidney disease, stage 3b; I44.7 Left bundle-branch block, unspecified
CPT/HCPCS: 32555; 36415; 36600; 71045; 71046; 71250; 80048; 80053; 80069; 82570; 82805; 83735; 83880; 84484; 84540; 85025; 85027; 85610; 85730; 87040; 92960; 93005; 94660; 96374; 97110; 97116; 97161; 97165; 97535; 99285; A9270; G0378; J0456; J0696; J1940; J2260; J3475; J7040

== ENCOUNTER 2021-06-20 10:58 | Outpatient (CLI) | payer MEDICARE, BC, SELFPAY ==
--- NOTE | ~2021-06-20 | XR_ITS ---
XR chest 2V 06/20/2021 11:10 Indication: Left pleural effusion. Procedure: 2 view chest Comparison: Comparison to multiple prior studies sequentially, with oldest reviewed study dated 05/18. Findings: Improving patchy bilateral pneumonia. Small left pleural effusion. Status post median richey otomy for CABG. Defibrillator lead tip in the right ventricle. No pneumothorax. Impression: 1: Improving patchy bilateral pneumonia and small left pleural effusion. Reviewed, dictated and finalized at location A. Impression: 1: Improving patchy bilateral pneumonia and small left pleural effusion.
== END 2021-06-20 10:59 | disposition home or self-care (01) ==
PROVIDERS: PCP Internal Medicine; Visit Provider Nurse Practitioner Adult Health
DX: J90 Pleural effusion, not elsewhere classified (principal)
CPT/HCPCS: 71046

== ENCOUNTER 2021-06-26 15:00 | Outpatient (RCR) | payer MEDICARE, BC, SELFPAY ==
[2021-03-04 08:50] VITALS: BP 112/60; PULSE 93; RESP 20; O2SAT 95
[2021-03-04 09:24] VITALS: PULSE 93
--- NOTE | 2021-05-12 18:18 | PCCPR ---
Absent due to ED visit Stephen's called today to let us know he was in the ED and most likely would not be in all week. He has been feeling quite SOB.
--- NOTE | 2021-05-19 11:19 | PCCPR ---
Patient's called this morning letting us know that Stephen is still in the hospital and will not be attending cardiacrehab this week.
--- NOTE | 2021-05-22 17:04 | PCCPR ---
Addendum entered by Sri Sharif RN 06/05/21 12:01: Spoke with Stephen today states he has been walking outside on good days. He had a visit with Doreen Martin a couple of weeks ago and said she would check into cardiac rehab however has not heard anything. States he would like to return if possible. Explained I would send a fax reminder for a release. Original Note: Remains hospitalized Spoke with Stephen about his current hospital coarse. States he is feeling better and much less SOB. States he may be dc'd tomorrow. He has an apt with a Senior Economist at [facility] on 05/27/21. Rashid Md's here has discussed doing some home rehab however Stephen states he would prefer to return to Rehab. Explained we do need a release for him to return.
--- NOTE | 2021-06-10 09:17 | PCCPR ---
Release received to resume Cardiac rehab Order received from Dr Arias to resume rehab LM on Stephen's VM asked he return the call.
== END 2021-06-26 23:59 | disposition home or self-care (01) ==
LOC: ANHCPREHAB 15:00
PROVIDERS: PCP Internal Medicine; Visit Provider Nurse Practitioner Adult Health
DX: Z95.1 Presence of aortocoronary bypass graft (principal)
CPT/HCPCS: 93798

== ENCOUNTER 2021-07-09 15:00 | Outpatient (RCR) | payer MEDICARE, BC, SELFPAY | END 2021-07-09 16:30 | disposition home or self-care (01) | LOC: ANHCPREHAB 15:00 | PROVIDERS: PCP Internal Medicine; Visit Provider Internal Medicine Cardiovascular Disease | DX: Z95.1 Presence of aortocoronary bypass graft (principal) | CPT/HCPCS: 93798 ==

== ENCOUNTER 2021-07-23 11:09 | Outpatient (CLI) | payer MEDICARE, BC, SELFPAY ==
--- NOTE | ~2021-07-23 | US_ITS ---
US renal BI 07/23/2021 11:33 Procedure: Realtime transabdominal ultrasound of the kidneys and bladder. Indication: Stage III chronic kidney disease Comparison: No prior studies for comparison. Findings: Renal echotexture is normal bilaterally without hydronephrosis, contour deforming mass or r enal calculus. The right kidney measures 10.5 cm and left kidney measures 10.5 cm. Bladder within no rmal limits. Impression: 1: Unremarkable renal ultrasound. No stones, masses or hydronephrosis. Reviewed, dictated and finalized at location A. Impression: 1: Unremarkable renal ultrasound. No stones, masses or hydronephrosis.
== END 2021-07-23 11:10 | disposition home or self-care (01) ==
LOC: ANHIMG 11:14
PROVIDERS: PCP Internal Medicine; Visit Provider Internal Medicine Nephrology
DX: N18.31 Chronic kidney disease, stage 3a (principal)
CPT/HCPCS: 76775

== ENCOUNTER 2021-09-22 14:32 | Outpatient (CLI) | payer MEDICARE, BC, SELFPAY ==
--- NOTE | 2021-09-23 09:53 | WPDPFTINT ---
PFT Procedure Performed PFT Procedure Performed Plethysmography (Lung Vol) Diffusing Cap (DLCO) Flow Vol Loop Spirometry w/o Bronchodil PFT Interpretation This is a pulmonary function test with spirometry, plethysmography and diffusing capacity. The test was performed and results interpreted in accordance with the 2019 and 2005 ATS/ERS Task Force guidelines respectively using the Global Lung Function Initiative-2012 reference equations. Patient demonstrated good effort and cooperation. Reproducibility criteria were met. The quality of the spirometry maneuver was Grade A. Findings: Spirometry: The contour the inspiratory and expiratory flow tracing are normal. The FVC is 2.88 L, 67% predicted. The FEV1 is 2.16 L, 66% predicted. The FEV1: FVC ratio 75%. Plethysmography: The total lung capacity is 4.73 L, 67% predicted. The functional residual capacity is 2.92 L, 78% predicted. The residual volume is 1.75 L, 72% predicted. Diffusing capacity: The absolute diffusion capacity is 10.4, 40% predicted. The diffusing capacity corrected for alveolar volume is 2.79, 70% predicted. Impression: There is a moderate restrictive ventilatory abnormality. The spirometry is normal without evidence of an obstructive abnormality. The absolute diffusing capacity is moderately decreased and remains mildly decreased when corrected for alveolar volume. There are no prior studies for comparison
== END 2021-09-22 14:33 | disposition home or self-care (01) ==
LOC: ANHPFT 14:37
PROVIDERS: PCP Internal Medicine; Visit Provider Nurse Practitioner Adult Health
DX: I48.0 Paroxysmal atrial fibrillation (principal); Z79.899 Other long term (current) drug therapy; R94.2 Abnormal results of pulmonary function studies
CPT/HCPCS: 94375; 94726; 94729

== ENCOUNTER 2022-06-10 13:20 | Outpatient (CLI) | payer MEDICARE, BC, SELFPAY ==
--- NOTE | ~2022-06-10 | CT_ITS ---
EXAMINATION: CT diagnostic chest wo con DATE: 06/10/2022 13:42 INDICATION: Pulmonary nodules TECHNIQUE: Computed tomography (CT) of the chest was performed without intravenous contrast. Automate d exposure control and iterative reconstruction technique were employed. Exam dose: 129.80 mGy-cm to indra exam DLP. COMPARISON: 06/20/2021 PA and lateral chest 05/16/2021 CT chest FINDINGS: There is mild bilateral gynecomastia. Status post sternotomy. Left-sided transvenous pacemaker device with right ventricular lead. Cardiomegaly. No pericardial eff usion. There is thoracic aortic and great vessel and prominent coronary artery calcification. No thoracic ao rtic aneurysm. There is stable mild prevascular, aortopulmonary window and right paratracheal and subcarinal lymphad enopathy compared to 05/16/2021. Resolution of moderately large bilateral pleural effusions and most bilateral pulmonary infiltrates a nd atelectasis since 05/16/2021. There is focal pleural-based atelectasis and/or consolidation versus less likely pulmonary infarct in the posterior left lower lobe. There are numerous bilateral pulmonary masses scattered throughout both lungs measuring up to approxi mately 1.7 cm maximal dimension (right lower lobe), having relatively high attenuation density measur ements suggesting the presence of calcification, which may be due to granulomatous disease. Some prim mehul cancers can be associated with calcified metastases including chondrosarcoma, osteosarcoma, breas t, ovary, colon, thyroid and testicular cancers. Treated malignancy may sometimes be associated with calcification. Comparison is somewhat limited due to the large pleural effusions and basilar infiltrates on , but many of the lesions appear stable since 05/16/2021. Recommend clinical correlation and possible correlation with PET/CT imaging as clinically appropriate . Normal morphology of the adrenal glands. No suspicious osteolytic or osteoblastic lesions are noted. IMPRESSIONS: Numerous high-density bilateral pulmonary nodules are again noted, without definite sign ificant change of some of these compared to 05/16/2021; comparison is limited due to the large pleural effusions and bilateral pulmonary infiltrates present on 05/16/2021, which prevented comparison of ma ny of the nodules. High CT density suggests calcification, which may indicate that these may be due to old pulmonary gra nulomatous disease. Differential diagnosis includes calcified metastases, which can occur in chondrosarcoma, osteosarcoma , breast, ovary, colon, thyroid and testicular cancers and any primary postchemotherapy tumor (treate d malignancy may be associated with calcification). Posterior left lower lobe pleural-based atelectasis and/or consolidation, less likely infarct Emphysema Reviewed, dictated and finalized at location B. IMPRESSIONS: Numerous high-density bilateral pulmonary nodules are again noted, without definite significant change of some of these compared to 05/16/2021; co mparison is limited due to the large pleural effusions and bilateral pulmonary infiltrates present on 05/16/2021, which prevented comparison of many of the nod ules. High CT density suggests calcification, which may indicate that these may be du e to old pulmonary granulomatous disease. Differential diagnosis includes calcified metastases, which can occur in chondr osarcoma, osteosarcoma, breast, ovary, colon, thyroid and testicular cancers an d any primary postchemotherapy tumor (treated malignancy may be associated with calcification). Posterior left lower lobe pleural-based atelectasis and/or consolidation, less likely infarct Emphysema
== END 2022-06-10 13:21 | disposition home or self-care (01) ==
PROVIDERS: PCP Internal Medicine; Visit Provider Internal Medicine Pulmonary Disease
DX: R91.8 Other nonspecific abnormal finding of lung field (principal); I51.7 Cardiomegaly
CPT/HCPCS: 71250

== ENCOUNTER 2023-02-23 13:15 | Outpatient (RCR) | payer MEDICARE, BC, SELFPAY ==
[2023-02-23 13:25] VITALS: BMI 25.7
[2023-02-23 15:30] VITALS: BMI 25.7
== END 2023-04-26 11:15 | disposition home or self-care (01) ==
LOC: ANHDMC 13:15
PROVIDERS: PCP Internal Medicine; Visit Provider Internal Medicine
DX: E11.9 Type 2 diabetes mellitus without complications (principal); Z71.89 Other specified counseling; Z71.3 Dietary counseling and surveillance
CPT/HCPCS: 97802; G0108

== ENCOUNTER 2023-06-23 12:27 | Outpatient (CLI) | payer MEDICARE, BC, SELFPAY ==
--- NOTE | ~2023-06-23 | CT_ITS ---
EXAMINATION:CT diagnostic chest wo con DATE: 06/23/2023 13:09 INDICATION: Lung nodules. TECHNIQUE: Computed tomography (CT) of the chest was performed without intravenous contrast. Automate d exposure control and iterative reconstruction technique were employed. The dose-length product (DLP ) was 113.71 mGy-cm. COMPARISON: Chest CT 06/10/2022, 02/04/21 FINDINGS: There is mild emphysema. There are greater than 40 scattered nodules in the lungs, many wit h central calcifications, stable from 06/10/2022. For example, the largest nodule in right lower lobe measures 16 mm. A confluent group of nodules in left lower lobe measures 4.0 x 1.4 cm. There are sheikh ges of wedge resection in the lingula. There is left-sided pleural thickening. No significant pleural effusion. Cardiomegaly is noted. 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 There are coronary artery calcifications. There are changes of coronary artery bypass grafting. Ther e is a left chest pacer with lead in right ventricle. No pericardial effusion. There are old healed l eft rib fractures. There is mild thoracic spondylosis. IMPRESSION: 1. Stable pulmonary nodules, many with central calcifications, likely benign. Wedge resection demonst rated old necrotizing granulomas. 2. Mild emphysema. Reviewed, dictated and finalized at location A. IMPRESSION: 1. Stable pulmonary nodules, many with central calcifications, likely benign. W edge resection demonstrated old necrotizing granulomas. 2. Mild emphysema.
== END 2023-06-23 12:28 | disposition home or self-care (01) ==
PROVIDERS: PCP Family Medicine; Visit Provider Nurse Practitioner Family
DX: R91.8 Other nonspecific abnormal finding of lung field (principal); J43.9 Emphysema, unspecified
CPT/HCPCS: 71250

== ENCOUNTER 2023-07-09 14:09 | Outpatient (CLI) | payer MEDICARE, BC, SELFPAY ==
--- NOTE | ~2023-07-09 | US_ITS ---
EXAMINATION: US arterial ankle brachial ind DATE: 07/09/2023 15:08 INDICATION: Right lower limb pain TECHNIQUE: Segmental pressures and plethysmographic and Doppler waveforms of the brachial and lower e xtremity arteries were obtained. COMPARISON: None. FINDINGS: Right and left brachial artery pressures of 118 mm Hg and 107 mm Hg, respectively, are concordant (no rmal difference <= 30 mmHg). The right ankle-brachial index (GABRIELLE) is 1.16 (normal >= 0.9-1.0). The right great toe-brachial index (TBI) is 0.59 (normal >= 0.65). Arterial Doppler waveforms biphasic with brisk systolic upstrokes at both right posterior tibial and dorsalis pedis arteries. The left GABRIELLE is 1.44. The left TBI is 0.85. Arterial Doppler waveforms biphasic with brisk systolic u pstrokes at both left posterior tibial and dorsalis pedis arteries. IMPRESSION: 1. Mild arterial occlusive disease to the right lower limb with normal right GABRIELLE but mildly decreased right TBI. 2. No significant arterial occlusive disease to the left lower limb with normal left GABRIELLE and TBI. Reviewed, dictated and finalized at location A. IMPRESSION: 1. Mild arterial occlusive disease to the right lower limb with normal right AB I but mildly decreased right TBI. 2. No significant arterial occlusive disease to the left lower limb with normal left GABRIELLE and TBI.
== END 2023-07-09 14:10 | disposition home or self-care (01) ==
LOC: ANHIMG 14:10
PROVIDERS: PCP Family Medicine; Visit Provider Nurse Practitioner Adult Health
DX: M79.605 Pain in left leg (principal); M79.604 Pain in right leg; E11.59 Type 2 diabetes mellitus with other circulatory complications
CPT/HCPCS: 93922

== ENCOUNTER 2023-07-22 13:33 | Outpatient (CLI) | payer MEDICARE, BC, SELFPAY ==
--- NOTE | 2023-07-23 07:08 | WPDSIXMINUTE ---
Six Minute Walk Procedure Procedure Performed Pulmonary Stress Test (6 min walk) Six Minute Walk Six Minute Walk: This is a 6 minute walk test. The test was performed and interpreted in accordance with the 2014 ERS/ATS task force guidelines. Findings: The patient's resting room air oxygen saturation measured by pulse oximetry was 94% and heart rate was 66 bpm. Patient ambulated for 366 meters and oxygen saturation remained 90 to 93%. Heart rate at the end of the study was 89 bpm. The patient did not qualify for supplemental oxygen at rest or with ambulation. There are no prior studies for comparison.
--- NOTE | 2023-07-23 07:09 | WPDPFTINT ---
PFT Procedure Performed PFT Procedure Performed Spirometry with Pre/Post Bronchodilator Plethysmography (Lung Vol) Diffusing Cap (DLCO) Flow Vol Loop PFT Interpretation This is a pulmonary function test with pre and post-bronchodilator spirometry, plethysmography and diffusing capacity. The test was performed and results interpreted in accordance with the 2019 and 2005 ATS/ERS Task Force guidelines respectively using the Global Lung Function Initiative-2012 reference equations. Patient demonstrated good effort and cooperation. Reproducibility criteria were met. The quality of the pre bronchodilator spirometry maneuver was Grade A and post bronchodilator spirometry maneuver was Grade A. Findings: Spirometry: The contour the inspiratory and expiratory flow tracing are normal. The pre bronchodilator FVC is 2.77 L, 66% predicted. The pre bronchodilator FEV1 is 2.03 L, 64% predicted. The pre bronchodilator FEV1: FVC ratio 74%. The post bronchodilator FVC is 2.82 L, representing a 2% increase. The post bronchodilator FEV1 is 2.13 L, representing a 4% increase. The post bronchodilator FEV1: FVC ratio 75%. Plethysmography: The total lung capacity is 4.00 L, 57% predicted. The functional residual capacity is 2.00 L, 53% predicted. The residual volume is 1.23 L, 50% predicted. Diffusing capacity: The diffusing capacity unadjusted for hemoglobin and carboxyhemoglobin is 10.8, 42% predicted. The diffusing capacity adjusted for alveolar volume is 2.92, 75% predicted. In comparison to previous pulmonary function testing on 09/22/2021 in which only pre bronchodilator spirometry was performed the pre bronchodilator FVC is unchanged from 2.88 L to 2.77 L. The pre bronchodilator FEV1 is unchanged from 2.16 L to 2.03 L. The total lung capacity is decreased from 4.73 L to 4.00 L. The functional residual capacity is decreased from 2.92 L to 2.00 L. The residual volume is decreased from 1.75 L to 1.23 L. The diffusing capacity unadjusted for hemoglobin and carboxyhemoglobin is unchanged from 10.4 to 10.8. The diffusing capacity adjusted for alveolar volume is unchanged from 2.79 L to 2.92 L. Impression: There is a moderate restrictive ventilatory abnormality. The spirometry is normal without evidence of an obstructive abnormality. There is no significant improvement after inhaling a single dose of albuterol. The diffusing capacity unadjusted for hemoglobin and carboxyhemoglobin is moderately decreased and normalizes when adjusted for alveolar volume. In comparison to previous pulmonary function testing on 09/22/2021 there has been a greater than anticipated time dependent decrease in the total lung capacity, functional residual capacity and residual volume with no significant change in the FVC, FEV1, or diffusing capacity. Clinical correlation is recommended.
== END 2023-07-22 13:34 | disposition home or self-care (01) ==
PROVIDERS: PCP Family Medicine; Visit Provider Internal Medicine Pulmonary Disease
DX: R06.02 Shortness of breath (principal); Z87.891 Personal history of nicotine dependence; R94.2 Abnormal results of pulmonary function studies
CPT/HCPCS: 94060; 94618; 94726; 94729

== ENCOUNTER 2023-08-03 08:25 | Outpatient (CLI) | payer MEDICARE, BC, SELFPAY ==
--- NOTE | 2023-08-20 16:30 | WPDSLEEPSTUD ---
Sleep Study Date of Study: 08/03/23 Ordering Provider: Tom Rodriguez MD Interpreting Physician: Marisa Joy MD Sleep Study Type: CPAP Titration Height: 1.78 m Weight: 86.183 kg Body Mass Index: 27.2 Neck Circumference (inches): 16.5 [place]: 0 Reason for Sleep Study Obstructive sleep apnea; uses CPAP 6 cm, is compliant with CPAP use. * 08/13/2017- split night study, AHI 34.3, lowest saturation 90%, optimal pressure 6 cm. Low sleep efficiency 62.2%. Sleep History Stephen Solo is a 72-year-old man with a CHF with reduced EF, somewhere around 20-28%. He had CABG a couple years ago, and has a defibrillator. He was diagnosed with obstructive sleep apnea about 2016, uses CPAP 6 cm with all sleep, is compliant with therapy. ?He says that he wakes up feeling refreshed. He does not have excessive daytime sleepiness. He has no symptoms suggestive of uncontrolled sleep disordered breathing.? Download report showed excellent compliance, and low device AH I events. He never awakens from sleep feeling short of breath. He never wakes at night with heartburn, belching or coughing.??He frequently snores, frequently snores loudly enough that others complain. He never has trouble sleeping when he has a cold. He never wakes up gasping for breath during the night. He rarely has breathing problems at night. He never sweats excessively at night. He never notices his heart pounding or beating irregularly during the night. He rarely falls asleep during the day. He never falls asleep involuntarily, however frequently falls asleep while driving. He never experiences loss of muscle tone with strong emotion. He never has daytime difficulty due to excessive sleepiness, now retired. He never feels paralyzed on waking or falling asleep. He never experiences vivid dreams upon waking or falling asleep. He never feels afraid of going to sleep. He never has nightmares. He never recalls his dreams. He never has thoughts racing through his mind. He never feels sad or depressed. He never feels anxiety. He constantly notices parts of his body jerk. He never kicks during the night. He constantly feels crawling or aching feelings in his legs. He constantly feels leg pain at night. He never has morning jaw pain, never grinds his teeth at night. He frequently feels bothered by pain during the day, is never awakened by pain during the night. He never wakes up feeling stiff in the morning, and he rarely wakes feeling sore or achy. He never awakens with pain in his neck, spine, or joints. Normal bedtime is 10:30 p.m., falling asleep within 10 minutes. He wakes twice at night to urinate. He typically gets 9 hours of sleep per night. His wake up time is 8:00 a.m., and he keeps the same schedule on weekends. . He takes does not take naps in the day, does not feel refreshed afterwards if he has a nap lasting 10-15 minutes. Habits:??Tobacco:quit 2 years ago Caffeine:none. Alcohol:4 per day Recreational substances: none PMFSH Past Medical History Medical History Acute HFrEF (heart failure with reduced ejection fraction) Anasarca Atherosclerotic heart disease of [place] coronary artery without angina pectoris Atrial flutter Chronic anticoagulation Chronic kidney disease, stage 3 Baseline creatinine is around 1.60. Chronic kidney disease, stage 4 (severe) Chronic left-sided low back pain with left-sided sciatica Coronary artery disease Multiple MIs status post multiple stents and subsequent CABG in December 2020. Enlarged prostate without lower urinary tract symptoms (luts) Essential (primary) hypertension Heart failure, unspecified Hypercholesterolemia Hypotension ICD (implantable cardioverter-defibrillator) battery depletion Insomnia Ischemic cardiomyopathy EF as low as 20%, status post ICD insertion. EF was 28% on echocardiogram in March 2021. LBBB (left bundle branch block) Multiple pulmonary nodules Obstructi
[2023-08-20 18:35] VITALS: BMI 27.2
== END 2023-08-04 06:54 | disposition home or self-care (01) ==
LOC: ANHCSM 08:26
PROVIDERS: PCP Family Medicine; Visit Provider Internal Medicine Pulmonary Disease
DX: G47.33 Obstructive sleep apnea (adult) (pediatric) (principal); Z72.821 Inadequate sleep hygiene; G47.61 Periodic limb movement disorder
CPT/HCPCS: 95811

== ENCOUNTER 2023-08-31 09:02 | Outpatient (CLI) | payer MEDICARE, BC, SELFPAY ==
--- NOTE | 2023-09-19 18:19 | WPDSLEEPSTUD ---
Sleep Study Date of Study: 08/31/23 Ordering Provider: Tom Rodriguez MD Interpreting Physician: Marisa Joy MD Sleep Study Type: BiPAP Titration Height: 1.78 m Weight: 86.183 kg Body Mass Index: 27.2 Neck Circumference (inches): 17 [place]: 0 Reason for Sleep Study Known obstructive sleep apnea on CPAP 6 cm at home * CPAP titration on August 10, 2023 with an apnea-hypopnea index of 46.2, desaturation to 83% and snoring. He desaturated while awake on his last study. He returns for a PAP titration. Sleep History The patient took a sleep aid before arriving at the sleep lab. Stephen Solo is a 72-year-old man with a CHF with reduced EF, somewhere around 20-28%. He had CABG a couple years ago, and has a defibrillator. He was diagnosed with obstructive sleep apnea about 2016, uses CPAP 6 cm with all sleep, is compliant with therapy. He says that he wakes up feeling refreshed. He does not have excessive daytime sleepiness. He has no symptoms suggestive of uncontrolled sleep disordered breathing. Download report showed excellent compliance, and low device AH I events. He never awakens from sleep feeling short of breath. He never wakes at night with heartburn, belching or coughing. He frequently snores, frequently snores loudly enough that others complain. He never has trouble sleeping when he has a cold. He never wakes up gasping for breath during the night. He rarely has breathing problems at night. He never sweats excessively at night. He never notices his heart pounding or beating irregularly during the night. He rarely falls asleep during the day. He never falls asleep involuntarily, however frequently falls asleep while driving. He never experiences loss of muscle tone with strong emotion. He never has daytime difficulty due to excessive sleepiness, now retired. He never feels paralyzed on waking or falling asleep. He never experiences vivid dreams upon waking or falling asleep. He never feels afraid of going to sleep. He never has nightmares. He never recalls his dreams. He never has thoughts racing through his mind. He never feels sad or depressed. He never feels anxiety. He constantly notices parts of his body jerk. He never kicks during the night. He constantly feels crawling or aching feelings in his legs. He constantly feels leg pain at night. He never has morning jaw pain, never grinds his teeth at night. He frequently feels bothered by pain during the day, is never awakened by pain during the night. He never wakes up feeling stiff in the morning, and he rarely wakes feeling sore or achy. He never awakens with pain in his neck, spine, or joints. Normal bedtime is 10:30 p.m., falling asleep within 10 minutes. He wakes twice at night to urinate. He typically gets 9 hours of sleep per night. His wake up time is 8:00 a.m., and he keeps the same schedule on weekends. . He takes does not take naps in the day, does not feel refreshed afterwards if he has a nap lasting 10-15 minutes. Habits: Tobacco:quit 2 years ago Caffeine:none. Alcohol:4 per day Recreational substances: none PMFSH Past Medical History Medical History Acute HFrEF (heart failure with reduced ejection fraction) Anasarca Atherosclerotic heart disease of [place] coronary artery without angina pectoris Atrial flutter Chronic anticoagulation Chronic kidney disease, stage 3 Baseline creatinine is around 1.60. Chronic kidney disease, stage 4 (severe) Chronic left-sided low back pain with left-sided sciatica Coronary artery disease Multiple MIs status post multiple stents and subsequent CABG in December 2020. Enlarged prostate without lower urinary tract symptoms (luts) Essential (primary) hypertension Heart failure, unspecified Hypercholesterolemia Hypotension ICD (implantable cardioverter-defibrillator) battery depletion Insomnia Ischemic cardiomyopathy EF as low as 20%, status post ICD insertio
[2023-09-30 19:37] VITALS: BMI 27.2
== END 2023-09-01 07:17 | disposition home or self-care (01) ==
LOC: ANHCSM 09:02
PROVIDERS: PCP Family Medicine; Visit Provider Internal Medicine Pulmonary Disease
DX: G47.61 Periodic limb movement disorder (principal); G47.33 Obstructive sleep apnea (adult) (pediatric)
CPT/HCPCS: 95811

== ENCOUNTER 2023-10-18 00:50 | Day surgery (SDC) | payer MEDICARE, BC, SELFPAY ==
[2023-10-08 14:03] VITALS: BMI 26.2
--- NOTE | 2023-10-13 08:52 | PC.NURSE ---
Spoke with _PATIENT__ regarding medication _ELIQUIS____. Pt. verbalizes understanding that the last dose of __ELIQUIS____ is to be taken on 10/15/2023____ and the Endoscopist will instruct them when to restart after the procedure.
--- NOTE | 2023-10-15 09:39 | SUR.PREOP ---
Patient called regarding upcoming procedure. Reviewed preop instructions, appointment times, and procedure prep.
[2023-10-18 09:50] VITALS: BP 105/52; PULSE 71; RESP 20; TEMP 36.6; O2SAT 98; BMI 25.8
[2023-10-18] MEDS: LACTATED RINGERS 1,000 ML 150 ML IV CONT (10:09)
[2023-10-18 10:10] LABS: Glucose Point of Care 152 mg/dl (65-105)
--- NOTE | 2023-10-18 10:45 | WPDANESEPPF ---
Anes - Initial Pre Proc Eval Procedure: Operation Date: 10/18/23 11:00 Proposed Procedures p Colonoscopy - Jb Mendoza MD Date/Time: 10/18/23 10:45 Surgeon: Jb Mendoza MD Pre Op Diagnosis: other fecal abnormalities Patient Data Age: 72 Gender: M Height: 1.78 m Weight: 81.6 kg Last Vital Signs Temp 36.6 C 10/18/23 09:50 Pulse 71 10/18/23 09:50 Resp 20 10/18/23 09:50 BP 105/52 L 10/18/23 09:50 Pulse Ox 98 10/18/23 09:50 O2 Del Method Room Air 10/18/23 09:50 Allergies Allergy/AdvReac Type Severity Reaction Status Date / Time semaglutide [From [facility]] Allergy Intermediate Itching Verified 10/18/23 09:50 Home Medications Medication Instructions Recorded Confirmed Type aspirin 81 mg tablet,delayed 81 mg PO DAILY 10/27/19 10/18/23 History release (Aspir-) apixaban 5 mg tablet (Eliquis) 5 mg PO BID 02/03/21 10/18/23 History atorvastatin 80 mg tablet 80 mg PO HS 03/04/21 10/18/23 History torsemide 20 mg tablet 20 mg PO .COMPLEX 11/05/22 10/18/23 History losartan 25 mg tablet 25 mg PO DAILY 03/02/23 10/18/23 History empagliflozin 10 mg tablet 10 mg PO DAILY #90 tabs 03/04/23 10/18/23 Rx (Jardiance) cholecalciferol (vitamin D3) 50 50 mcg PO DAILY 05/05/23 10/18/23 History mcg (2,000 unit) capsule carvedilol 6.25 mg tablet 6.25 mg PO BID 06/24/23 10/18/23 History blood-glucose sensor (FreeStyle #6 ea 08/17/23 10/18/23 Rx Kareem 3 Sensor device) dulaglutide 3 mg/0.5 mL 3 mg (0.5 mL) subcut WEEKLY #4 mL 08/17/23 10/18/23 Rx subcutaneous pen injector (Trulicity) ferrous sulfate 325 mg (65 mg 325 mg PO DAILY #30 tabs 08/24/23 10/18/23 Rx iron) tablet amiodarone 200 mg tablet 200 mg PO DAILY 10/08/23 10/18/23 History Laboratory Tests 10/18/23 10:02 POC Capillary Glucose 152 H mg/dl (65-105) Patient hx anesthesia problems: none Family hx anesthesia problems: none Results Review: All pre-operative results and documents have been reviewed as part of the pre-operative evaluation. [facility], LAT[facility] Past Medical History Medical History Acute HFrEF (heart failure with reduced ejection fraction) Anasarca Atherosclerotic heart disease of [place] coronary artery without angina pectoris Atrial flutter Chronic anticoagulation Chronic kidney disease, stage 3 Baseline creatinine is around 1.60. Chronic kidney disease, stage 4 (severe) Chronic left-sided low back pain with left-sided sciatica Coronary artery disease Multiple MIs status post multiple stents and subsequent CABG in December 2020. Enlarged prostate without lower urinary tract symptoms (luts) Essential (primary) hypertension Heart failure, unspecified Hypercholesterolemia Hypotension ICD (implantable cardioverter-defibrillator) battery depletion Insomnia Ischemic cardiomyopathy EF as low as 20%, status post ICD insertion. EF was 28% on echocardiogram in March 2021. LBBB (left bundle branch block) Multiple pulmonary nodules Obstructive sleep apnea Compliant with CPAP. Postoperative atrial fibrillation Post CABG AFib in December 2020 on apixaban and amiodarone. Pure hypercholesterolemia ST elevation (STEMI) myocardial infarction ST elevation [place] (STEMI) Tobacco abuse Type 2 diabetes mellitus without complications Hemoglobin A1c was 6.2% in November 2020. Surgical History Surgical History Automatic implantable cardioverter-defibrillator in situ History of appendectomy History of cardiac catheterization 1. Anterior STEMI in 2013 with drug-eluting stent and angioplasty to the circumflex. 2. Anterior STEMI in April 2018. 100% occlusion ostial/proximal LAD and 70% stenosis ostial RCA status post PCI to the LAD with an EF of 20%. 3. STEMI in December 2020 with 100% thrombotic occlusion of the ostial/proximal and mid LAD, 50% in stent restenoses mid circumflex,
--- NOTE | 2023-10-18 10:45 | PM.HPGS ---
History of Present Illness History of Present Illness Consent: Risks, benefits, and alternatives have been discussed and questions answered. Patient agrees to proceed with procedure. Chief complaint: other fecal abnormalities Narrative: Stephen Solo is a 72 year old male here for first colonoscopy, had + cologuard Review of Systems Constitutional: Constitutional: Denies headache(s) and Denies weakness Eyes: Eyes: Denies blurry vision ENT: Reports Normal hearing present, Denies headache(s) and Denies neck pain Cardiovascular: Cardiovascular: Denies chest pain and Denies dyspnea Respiratory: Respiratory: Denies dyspnea Gastrointestinal: Gastrointestinal: Reports no additional gastrointestinal complaints Genitourinary: Genitourinary: Denies dysuria Musculoskeletal: Musculoskeletal: Denies neck pain Integumentary/Breasts: Skin/Breast: Denies dry skin Neurologic: Reports Normal hearing present, Denies headache(s) and Denies weakness Psychiatric: Psychiatric: Denies anxiety Endocrine: Endocrine: Denies change in body appearance Hematologic/Lymphatic: Hematologic/Lymphatic: Denies easy bleeding Allergic/Immunologic: Allergic/Immunologic: Denies urticaria PMFSH Past Medical History Medical History Acute HFrEF (heart failure with reduced ejection fraction) Anasarca Atherosclerotic heart disease of [place] coronary artery without angina pectoris Atrial flutter Chronic anticoagulation Chronic kidney disease, stage 3 Baseline creatinine is around 1.60. Chronic kidney disease, stage 4 (severe) Chronic left-sided low back pain with left-sided sciatica Coronary artery disease Multiple MIs status post multiple stents and subsequent CABG in December 2020. Enlarged prostate without lower urinary tract symptoms (luts) Essential (primary) hypertension Heart failure, unspecified Hypercholesterolemia Hypotension ICD (implantable cardioverter-defibrillator) battery depletion Insomnia Ischemic cardiomyopathy EF as low as 20%, status post ICD insertion. EF was 28% on echocardiogram in March 2021. LBBB (left bundle branch block) Multiple pulmonary nodules Obstructive sleep apnea Compliant with CPAP. Postoperative atrial fibrillation Post CABG AFib in December 2020 on apixaban and amiodarone. Pure hypercholesterolemia ST elevation (STEMI) myocardial infarction ST elevation [place] (STEMI) Tobacco abuse Type 2 diabetes mellitus without complications Hemoglobin A1c was 6.2% in November 2020. Surgical History Surgical History Automatic implantable cardioverter-defibrillator in situ History of appendectomy History of cardiac catheterization 1. Anterior STEMI in 2013 with drug-eluting stent and angioplasty to the circumflex. 2. Anterior STEMI in April 2018. 100% occlusion ostial/proximal LAD and 70% stenosis ostial RCA status post PCI to the LAD with an EF of 20%. 3. STEMI in December 2020 with 100% thrombotic occlusion of the ostial/proximal and mid LAD, 50% in stent restenoses mid circumflex, 50% eccentric stenosis ostial RCA status post balloon angioplasty of the ostial/proximal mid LAD. EF 25%, Impella was inserted and he was transferred for CABG. History of implantable cardioverter-defibrillator (ICD) placement History of two vessel coronary artery bypass graft (~12/2020) Bypass of the LAD and circumflex done at [facility]. Complicated by mediastinal bleeding requiring reexploration, wound infection, and delayed closure. Status post coronary artery bypass graft Family History Family History Sibling Patient's brother is in good health Family history of malignant neoplasm Patient's sister is in good health Patient's sister is Patient's brother is Father Cerebrovascular accident Mother Family histor
[2023-10-18 11:13] VITALS: BP 95/58; PULSE 55; RESP 19; O2SAT 97
[2023-10-18 11:23] VITALS: BP 102/59; PULSE 53; RESP 15; O2SAT 97
[2023-10-18 11:30] VITALS: BP 99/54; PULSE 58; RESP 15; O2SAT 99
== END 2023-10-18 11:39 | disposition home or self-care (01) ==
PROVIDERS: PCP Family Medicine; Visit Provider Internal Medicine Gastroenterology
PROC: 0DJD8ZZ Inspection of Lower Intestinal Tract, Via Natural or Artificial Opening Endoscopic (ICD-10-PCS; CPT 45378; principal; 2023-10-18 11:00)
DX: D12.4 Benign neoplasm of descending colon (principal); D12.3 Benign neoplasm of transverse colon; D12.0 Benign neoplasm of cecum; D12.2 Benign neoplasm of ascending colon; K57.30 Diverticulosis of large intestine without perforation or abscess without bleeding; K64.8 Other hemorrhoids; I13.0 Hypertensive heart and chronic kidney disease with heart failure and stage 1 through stage 4 chronic kidney disease, or unspecified chronic kidney disease; N18.4 Chronic kidney disease, stage 4 (severe); I25.10 Atherosclerotic heart disease of native coronary artery without angina pectoris; I25.5 Ischemic cardiomyopathy; G47.33 Obstructive sleep apnea (adult) (pediatric); I48.91 Unspecified atrial fibrillation; I25.2 Old myocardial infarction; E11.22 Type 2 diabetes mellitus with diabetic chronic kidney disease; N40.0 Benign prostatic hyperplasia without lower urinary tract symptoms; E78.00 Pure hypercholesterolemia, unspecified; Z95.810 Presence of automatic (implantable) cardiac defibrillator; Z95.1 Presence of aortocoronary bypass graft; Z87.891 Personal history of nicotine dependence; Z79.01 Long term (current) use of anticoagulants; Z79.82 Long term (current) use of aspirin; Z79.84 Long term (current) use of oral hypoglycemic drugs; Z79.85 Long-term (current) use of injectable non-insulin antidiabetic drugs
CPT/HCPCS: 45385; 82948; 88305; J2704; J7120

== ENCOUNTER 2024-06-16 18:02 | Emergency (ER) | payer OTHER, MEDICARE, BC, SELFPAY ==
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
[2024-06-16 18:41] VITALS: BP 116/59; PULSE 66; RESP 20; TEMP 36.5; O2SAT 95
[2024-06-16 21:24] LABS: Glucose Point of Care 129 mg/dl (65-105)
[2024-06-16 22:34] VITALS: BP 108/57; PULSE 60; RESP 18; TEMP 36.5; O2SAT 93
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
[2024-06-17] MEDS: HYDROcodone/acetaminophen (*CRX) 5-325 MG TABLET 1 TAB PO (01:42)
[2024-06-17] MEDS: BACITRACIN OINTMENT 15 GM TUBE 2 APPLIC TOPICAL (04:18)
[2024-06-17 04:21] VITALS: BP 115/58; PULSE 61; RESP 17; TEMP 36.7; O2SAT 96
== END 2024-06-17 04:23 | disposition home or self-care (01) ==
PROVIDERS: Emergency Provider Student in an Organized Health Care Education/Training Program; PCP Family Medicine
DX: S61.512A Laceration without foreign body of left wrist, initial encounter (principal); S61.511A Laceration without foreign body of right wrist, initial encounter; S69.92XA Unspecified injury of left wrist, hand and finger(s), initial encounter; S69.91XA Unspecified injury of right wrist, hand and finger(s), initial encounter; I25.5 Ischemic cardiomyopathy; I25.2 Old myocardial infarction; I25.10 Atherosclerotic heart disease of native coronary artery without angina pectoris; I48.92 Unspecified atrial flutter; I13.0 Hypertensive heart and chronic kidney disease with heart failure and stage 1 through stage 4 chronic kidney disease, or unspecified chronic kidney disease; I50.20 Unspecified systolic (congestive) heart failure; N18.4 Chronic kidney disease, stage 4 (severe); E11.22 Type 2 diabetes mellitus with diabetic chronic kidney disease; E78.00 Pure hypercholesterolemia, unspecified; N40.0 Benign prostatic hyperplasia without lower urinary tract symptoms; G47.33 Obstructive sleep apnea (adult) (pediatric); Z95.810 Presence of automatic (implantable) cardiac defibrillator; Z95.1 Presence of aortocoronary bypass graft; Z87.891 Personal history of nicotine dependence; Z79.01 Long term (current) use of anticoagulants; Z79.899 Other long term (current) drug therapy; Z79.84 Long term (current) use of oral hypoglycemic drugs; Z79.85 Long-term (current) use of injectable non-insulin antidiabetic drugs; M19.042 Primary osteoarthritis, left hand; M19.041 Primary osteoarthritis, right hand; M18.9 Osteoarthritis of first carpometacarpal joint, unspecified; V43.52XA Car driver injured in collision with other type car in traffic accident, initial encounter
CPT/HCPCS: 70450; 72125; 73130; 73140; 82948; 99284; A9270

== ENCOUNTER 2024-06-30 13:51 | Outpatient (CLI) | payer MEDICARE, BC, SELFPAY ==
--- NOTE | ~2024-06-30 | CT_ITS ---
EXAMINATION:CT lung screening DATE: 06/30/2024 14:04 INDICATION: Personal history of nicotine dependence. Smoker who quit 3 years ago with 25 pack year hi story. TECHNIQUE: Computed tomography (CT) of the chest was performed without intravenous contrast. Automate d exposure control and iterative reconstruction technique were employed. The dose-length product (DLP ) was 102.14 mGy-cm. COMPARISON: Chest CT 06/23/2023, 06/10/2022 FINDINGS: There is mild emphysema. There are numerous chronic nodules with central calcifications in the lungs, consistent with granulomatous disease. There is chronic left-sided pleural thickening. No pleural effusion. Cardiomegaly is noted. 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 No pericardial effusion. There are coronary artery calcifications. There is a left chest pacer/defib rillator with lead in right ventricle. Calcified hilar and mediastinal lymph nodes are consistent wit h old granulomatous disease. There are cysts in the liver measuring up to 16 mm. There is mild thorac ic spondylosis. IMPRESSION: 1. Lung-RADS category 2: Benign appearance or behavior. Continue annual screening with noncontrast lo w-dose chest CT in 12 months. Reviewed, dictated and finalized at location A. IMPRESSION: 1. Lung-RADS category 2: Benign appearance or behavior. Continue annual screeni ng with noncontrast low-dose chest CT in 12 months.
== END 2024-06-30 13:52 | disposition home or self-care (01) ==
LOC: ANHIMG 13:53
PROVIDERS: PCP Family Medicine; Visit Provider Physician Assistant
DX: Z12.2 Encounter for screening for malignant neoplasm of respiratory organs (principal); Z87.891 Personal history of nicotine dependence
CPT/HCPCS: 71271

== ENCOUNTER 2025-05-10 16:48 | Emergency (ER) | payer MEDICARE, BC, SELFPAY ==
[2025-05-10 17:01] VITALS: BP 130/111; PULSE 75; RESP 16; TEMP 37.9; O2SAT 98
[2025-05-10 17:19] VITALS: TEMP 39
[2025-05-10] MEDS: ACETAMINOPHEN 500 MG TABLET 1000 MG PO (17:19)
[2025-05-10 17:22] LABS: EDCOVIDSCREEN Negative (Negative); EDINFLUASCREEN Negative (Negative); EDINFLUBSCREEN Negative (Negative)
--- NOTE | 2025-05-10 17:55 | ED.FEVER ---
HPI - Fever General Chief Complaint: Upper Respiratory Infection Stated Complaint: Weakness/Sinus Time Seen by Provider: 05/10/25 17:03 Source: patient Mode of arrival: ambulatory Limitations: no limitations History of Present Illness HPI Narrative: 74 yo M presents with c/o fever, chills, fatigue and generalized weakness for 3 to 4 days. Temp at home 100F. Not taking any OTC meds to treat symptoms. Denies URI symptoms. Having normal BMs. No pain. Denies SOB/CP. Decreased appetite but still eating. Today had grilled cheese and soup. Drinking more soda than water. BS yesterday 150. Reports urinary urgency. get the urge to urinate and have to go right away which is not normal for me. Pt ambulatory with steady gait. Alert and talkative. All systems reviewed and negative except as noted above. Related Data Home Medications ?Medication ?Instructions ?Recorded ?Confirmed ?Last Taken ?Type aspirin 81 mg tablet,delayed 81 mg PO DAILY 10/27/19 01/29/25 05/12/21 History release (Aspir-) apixaban 5 mg tablet (Eliquis) 5 mg PO BID 02/03/21 01/29/25 05/12/21 History atorvastatin 80 mg tablet 80 mg PO HS 03/04/21 01/29/25 05/11/21 History torsemide 20 mg tablet 20 mg PO .COMPLEX 11/05/22 01/29/25 Unknown History losartan 25 mg tablet 25 mg PO DAILY 03/02/23 01/29/25 Unknown History cholecalciferol (vitamin D3) 50 50 mcg PO DAILY 05/05/23 01/29/25 Unknown History mcg (2,000 unit) capsule carvedilol 6.25 mg tablet 6.25 mg PO BID 06/24/23 01/29/25 10/18/23 08:30 History amiodarone 200 mg tablet 200 mg PO DAILY 10/08/23 01/29/25 10/18/23 08:30 History docusate sodium 100 mg capsule 100 mg PO DAILY PRN constipation 02/15/24 01/29/25 Unknown History (Dulcolax Stool Softener (docusate)) Allergies Allergy/AdvReac Type Severity Reaction Status Date / Time semaglutide (From [email or web address]) Allergy Intermediate Itching Verified 05/10/25 17:14 Review of Systems Review of Systems: CONSTITUTIONAL: Reports fever, chills, fatigue EYES: Denies visual changes, redness, or discharge. ENT: Denies rhinorrhea, congestion, sore throat, or otalgia. CARDIOVASCULAR: Denies chest pain, palpitations, or edema. RESPIRATORY: Denies cough or dyspnea. GASTROINTESTINAL: Denies abdominal pain, nausea, vomiting, or diarrhea. GENITOURINARY: Denies dysuria or hematuria. reports urinary urgency SKIN: Denies rash or itching. MUSCULOSKELETAL: Denies back pain, joint pain, or myalgia. NEUROLOGIC: Denies headache, numbness, or weakness. PSYCHIATRIC: Denies anxiety or depression. All other systems reviewed are negative, except as documented in HPI. [facility] Past Medical History Medical History Contusion of left wrist Right hand dominant Chronic kidney disease, stage 4 (severe) LBBB (left bundle branch block) Anasarca Insomnia Hypercholesterolemia Multiple pulmonary nodules Hypotension Chronic kidney disease, stage 3 Baseline creatinine is around 1.60. Chronic anticoagulation Postoperative atrial fibrillation Post CABG AFib in December 2020 on apixaban and amiodarone. Coronary artery disease Multiple MIs status post multiple stents and subsequent CABG in December 2020. Atrial flutter Acute HFrEF (heart failure with reduced ejection fraction) ST elevation CO (STEMI) ST elevation (STEMI) myocardial infarction Tobacco abuse Ischemic cardiomyopathy EF as low as 20%, status post ICD insertion. EF was 28% on echocardiogram in March 2021. ICD (implantable cardioverter-defibrillator) battery depletion Atherosclerotic heart disease of [place] coronary artery without angina pectoris Chronic left-sided low back pain with left-sided sciatica Enlarged prostate without lower urinary tract symptoms (luts) Essential (primary) hypertension Heart failure, unspecified Obstructive sleep apnea Compliant with CPAP. Pure hypercholesterolemia Type 2 diabetes mellitus without complications Hemoglobin A1c was 6.2% in November 2020. Surgical History Surgical History History of appendectomy History of cardiac catheterization 1. Anterior STEMI in 2013 with drug-eluting stent and angioplasty to the circumflex. 2. Anterior STEMI in April 2018. 100% occlusion ostial/proximal LAD and 70% stenosis ostial RCA status post PCI to the LAD with an EF of 20%. 3. STEMI in December 2020 with 100% thrombotic occlusion of the ostial/proximal and mid LAD, 50% in stent restenoses mid circumflex, 50% eccentric stenosis ostial RCA status post balloon angioplasty of the ostial/proximal mid LAD. EF 25%, Impella was inserted and he was transferred for CABG. History of two vessel coronary artery bypass graft (~12/2020) Bypass of the LAD and circumflex done at [facility]. Complicated by mediastinal bleeding requiring reexploration, wound infection, and delayed closure. Automatic implantable cardioverter-defibrillator in situ Status post coronary artery bypass graft History of implantable cardioverter-defibrillator (ICD) placement Family History Family History Sibling Patient's brother is in good health Family history of malignant neoplasm Patient's sister is in good health Patient's sister is Patient's brother is Father Cerebrovascular accident Mother Family history of malignant neoplasm Patient's mother is Social History Social History Social History: Surrogate decision maker: Heaven Solo, . Code status: Full code. Smoking packs per day: 0.5 Smoking cigarettes per day: 10.0 Years smoked: 50 Smoking pack-years: 25.00 Smoking status: Former smoker Tobacco type: cigarettes Smoking end date: 12/03/20 Additional smoking assessment comments: quit the day of his most recent CO Alcohol intake: former Drinks per week: 1 Alcohol use details: Social, few beers on Wednesday night with friends. Substance use: never Substance use type: does not use Lack of Transportation: No Lack of Food: Never True Current Housing: I Have Housing Concerned About Future Housing: No Difficulty Paying Gas/Electric Bills: No Difficulty Paying for Meds: No Currently Unemployed: No Education: High School Diploma/GED Difficulty w/ Childcare or Family Care: No Living arrangements: with family Additional living arrangements comments: and lives with his in [place]. Occupation/Education: retired Gender identity (if verbalized by the patient): Male Sexual Orientation (if Verbalized by the Patient): Straight or Heterosexual Spiritual care concerns: No Agree to blood products: Yes Comments At time of signature, agree with nursing past medical, surgical, social and family history. There is no relevant family history pertinent to the presenting complaint. Exam Narrative: GENERAL: This is a well-nourished, well-developed patient, in no apparent distress. HEAD: normocephalic, atraumatic. EYES: PERRL. Sclera clear/white. Vision is grossly intact. EARS: External ears normal, auditory canals clear and without drainage, TMs normal without perforation. Hearing grossly intact. NOSE: External nose normal with no obvious nasal discharge, nares without redness, no rhinorrhea. THROAT: Mucous membranes moist, posterior pharynx clear. NECK: Neck supple, non-tender without lymphadenopathy, masses or thyromegaly. CARDIOVASCULAR: Regular rate and rhythm without murmurs, gallops, or rubs. RESPIRATORY: Clear to auscultation. Breath sounds equal bilaterally. No wheezes, rales, or rhonchi. GASTROINTESTINAL: Abdomen soft, non-tender, nondistended. Bowel sounds are active. No hepato-splenomegaly, or palpable masses. No guarding. SKIN: warm, Dry, intact with no suspicious lesions or rash, good texture and turgor. NEURO: awake, alert, and oriented to person, place and time. There were no obvious focal neurologic abnormalities. EXTREMITIES: No joint tenderness, effusion, or edema noted. BACK: No CVA tenderness. Course Course Level of Care: Express Care Visit Vital Signs Vital signs: Vital Signs Temperature 37.9 C H 05/10/25 17:01 Pulse Rate 75 05/10/25 17:01 Respiratory Rate 16 05/10/25 17:01 Blood Pressure 130/111 H 05/10/25 17:01 Pulse Oximetry 98 05/10/25 17:01 Oxygen Delivery Room Air 05/10/25 17:01 Temperature 39.0 C H 05/10/25 17:19 Pulse Rate 75 05/10/25 17:01 Respiratory Rate 16 05/10/25 17:01 Blood Pressure 130/111 H 05/10/25 17:01 Pulse Oximetry 98 05/10/25 17:01 Oxygen Delivery Room Air 05/10/25 17:01 reviewed MDM - Fever MDM Narrative Medical decision making narrative: urinalysis positive for blood, glucose. Urine culture ordered. Will treat patient with antibiotic due to patient's urinary symptoms, fever. COVID and influenza test is negative. Patient denies URI symptoms. No GI symptoms. No chest pain or shortness breath. Patient is up back and forth to bathroom with steady gait. Is alert and talkative. Answering all questions appropriately. Patient drinking water while at Express Care. Patient is stable for outpatient therapy. Recommend he go to the ER for any worsening of symptoms. Differential Diagnosis Differential diagnosis: Likely fever of unknown origin, viral infection and other ( Urinary tract infection) Lab Data Labs: Lab Results 05/10/25 05/10/25 Range/Units 17:04 17:16 POC Capillary Glucose 203 H (65-105) mg/dl POC Influenza A Ag Negative (Negative) POC Influenza B Ag Negative (Negative) POC SARS CoV-2 Ag Negative (Negative) Discharge Plan Discharge Clinical Impression: Fever, Fatigue, Urinary urgency Patient Disposition: Home Condition: Stable Instructions: Antibiotic Form, Fever in Adults (ED) Additional Instructions: Your covid and influneza test was negative today. Your urinalysis was positive for blood and glucose. A urine culture was ordered. Due to urinary symptoms and fever, start prescribed antibiotic today. Drink at least 64 ounces of water a day. Monitor your blood sugar at home. Go to the ER for any worsening of symptoms. Patient Language: Emirati Prescriptions: New amoxicillin-pot clavulanate 875-125 mg tablet 1 tablet PO Q12H 10 Days Qty: 20 0RF No Action carvedilol 6.25 mg tablet 6.25 mg PO BID aspirin [Aspir-81] 81 mg tablet,delayed release (DR/EC) 81 mg PO DAILY Rx Instructions: does not just prior to his pleural taps torsemide 20 mg tablet 20 mg PO .COMPLEX Rx Instructions: Take 5 times weekly 20 mg orally; losartan 25 mg tablet 25 mg PO DAILY cholecalciferol (vitamin D3) 50 mcg (2,000 unit) capsule 50 mcg PO DAILY docusate sodium [Dulcolax Stool Softener (dss)] 100 mg capsule 100 mg PO DAILY PRN (Reason: constipation) ferrous sulfate 325 mg (65 mg iron) tablet 325 mg PO DAILY Qty: 90 1RF polyethylene glycol 3350 [Miralax] 17 gram/dose powder 17 g PO DAILY Qty: 510 3RF Eliquis 5 mg tablet 5 mg PO BID atorvastatin 80 mg Tablet 80 mg PO HS amiodarone 200 mg tablet 200 mg PO DAILY (DME) [employer] Kareem 3 Sensor Device See Rx Instructions .ROUTE .COMPLEX Qty: 6 1RF Dose Instruction: USE DIRECTED FOR TYPE 2 DIABETES MELLITUS, HYPOGLYCEMIA Rx Instructions: USE DIRECTED FOR TYPE 2 DIABETES MELLITUS, HYPOGLYCEMIA Jardiance 10 mg tablet See Rx Instructions .ROUTE .COMPLEX Qty: 90 1RF Dose Instruction: TAKE 1 TABLET DAILY Rx Instructions: TAKE 1 TABLET DAILY Trulicity 3 mg/0.5 mL pen injector 3 mg subcut WEEKLY Qty: 6 1RF Follow-up/Referrals: Elvin No MD [Primary Care Provider] - Time of Disposition: 17:53
[2025-05-10 17:56] LABS: EDUAAPPEAR Clear; EDUABILI Negative (Negative); EDUABLOOD 2+ (Negative); EDUACOLOR1 Yellow; EDUAGLUCOSE 2+ (Negative); EDUAKETONE Negative (Negative); EDUALEUKO Negative (Negative); EDUANITRATE Negative (Negative); EDUAPH 5.5; EDUAPROTEIN Negative (Negative); EDUASPGRAVITY 1.020; EDUAUROBILI 2.0
[2025-05-10 18:04] VITALS: PULSE 72; RESP 18; TEMP 37.4; O2SAT 98
== END 2025-05-10 18:04 | disposition home or self-care (01) ==
PROVIDERS: Emergency Provider Nurse Practitioner Family; PCP Family Medicine
DX: R50.9 Fever, unspecified (principal); R53.83 Other fatigue; R39.15 Urgency of urination; Z20.822 Contact with and (suspected) exposure to COVID-19; Z87.891 Personal history of nicotine dependence; I13.0 Hypertensive heart and chronic kidney disease with heart failure and stage 1 through stage 4 chronic kidney disease, or unspecified chronic kidney disease; E11.22 Type 2 diabetes mellitus with diabetic chronic kidney disease; N18.4 Chronic kidney disease, stage 4 (severe); I50.9 Heart failure, unspecified; Z79.84 Long term (current) use of oral hypoglycemic drugs; Z79.85 Long-term (current) use of injectable non-insulin antidiabetic drugs; E78.00 Pure hypercholesterolemia, unspecified; I25.2 Old myocardial infarction; I97.190 Other postprocedural cardiac functional disturbances following cardiac surgery; I48.91 Unspecified atrial fibrillation; Z95.810 Presence of automatic (implantable) cardiac defibrillator; I25.110 Atherosclerotic heart disease of native coronary artery with unstable angina pectoris; N40.1 Benign prostatic hyperplasia with lower urinary tract symptoms; G47.33 Obstructive sleep apnea (adult) (pediatric); Z95.1 Presence of aortocoronary bypass graft; Z79.82 Long term (current) use of aspirin; Z79.01 Long term (current) use of anticoagulants
CPT/HCPCS: 81003; 82948; 87086; 87426; 87804; 99213; A9270; G0463

== ENCOUNTER 2025-05-17 10:43 | Outpatient (CLI) | payer MEDICARE, BC, SELFPAY ==
--- NOTE | ~2025-05-17 | XR_ITS ---
XR chest 2V 05/17/2025 11:00 Indication: Amiodarone Procedure: 2 view chest Comparison: 05/19/2021 Findings: Borderline heart size. Status post median sternotomy for CABG. Interval development of mult iple bilateral pulmonary nodules consistent with metastatic disease. Small left pleural effusion. No pneumothorax. Bilateral perihilar interstitial infiltrates. No acute osseous abnormality. Impression: 1: Multiple bilateral pulmonary nodules consistent with metastatic disease. Correlate for clinical hi story of malignancy. Recommend correlation with CT of chest with contrast. 2: Borderline heart size with mild interstitial edema. Reviewed, dictated and finalized at location B. Impression: 1: Multiple bilateral pulmonary nodules consistent with metastatic disease. Cor relate for clinical history of malignancy. Recommend correlation with CT of [address] with contrast. 2: Borderline heart size with mild interstitial edema.
--- OUTSIDE RECORDS SUMMARY | 2025-05-17 11:02 | XMS_ITS | Encounter Summary ---
Author Organization [facility] Address [address] [place] [address] Care Team Providers Care Jockey Room Custodian Name Role Phone Unavailable Primary Care Provider Unavailabl e Encounter Details Date Type Department Care Team (Late st Contact Info) Description 01/21/2024 Lab Requisition [facility] - DermPath Lab [address] [place] [id number] India Hilton MD [address] [place] [address] [place] [phone] Basal cell carcinoma of skin of right lower limb, including hip Social History Tobacco Use Types Packs/Day Years Used Date Smoking Tobacco: Never Assessed Sex and Gender Information Value Date Recorded Sex Assigned at Not on file 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 Gender Identity Not on file Sexual Orientation Not on file documented as of this encounter Plan of Treatment Not on file documented as of this encounter Procedures Procedure Name Priority Date/Time Associated Diagnosis Comments DERMATOPATHOLOGY Routine 01/24/2024 12:0 0 AM CDT Basal cell carcinoma of skin of right lower limb, including hip documented in this encounter Results * DERMATOPATHOLOGY (01/24/2024 12:00 AM CDT) Case Report Dermatopathology Report Case: [id number] Authorizing Provider: India Hilton MD Collected: 01/24/2024 12:00 AM Ordering Location: [facility] - Received: 01/24/2024 10:35 AM DermPath Lab Pathologist: Mar Hoang MD Specimen: Skin, right anterior distal thigh 4:20 PM CDT DERMATOPATHOLOGY LABORATORY Final Diagnosis Specimen A. SKIN, right anterior distal thigh: DERMAL SCAR RESIDUAL BASAL CELL CARCINOMA NOT IDENTIFIED (L90.5) 4:20 PM CDT DERMATOPATHOLOGY LABORATORY at 1620 CDT Clinical History Basal Cell Carcinoma. Check Margins 4:20 PM CDT DERMATOPATHOLOGY LABORATORY Gross Description Specimen A: Received is one formalin filled container labeled with the patient's name and designated right anterior distal thigh. The specimen consists of a non-oriented ellipse of skin measuring 85v50m6 mm. The margin is inked green. The 12 o'clock and 6 o'clock tips are submitted in cassette 1. The remainder of the ellipse is serially sectioned and submitted in cassette 2.. Jar 0. 4:20 PM CDT DERMATOPATHOLOGY LABORATORY Microscopic Description Specimen A. SKIN, right anterior distal thigh: There are fibroblasts and collagen bundles oriented parallel to the skin surface. There are elongated blood vessels, some of which are oriented perpendicular to the skin surface. No basal cell carcinoma is identified. 4:20 PM CDT DERMATOPATHOLOGY LABORATORY Disclaimer An external and internal positive and negative controls are appropriate for the histochemical, immunohistochemical and immunofluorescence stain(s) in this case (if any), except where stated explicitly. The performance characteristics of the stain(s) cited in this report were developed and its performance characteristic determined by the Dermatopathology Laboratory at [facility], directed by Dr. Harleen Keating. These tests need not be, and therefore are not, approved by the [place] Food and Drug Administration. The tests are used for clinical purposes. Billing Codes Specimen Charges Stain Charges 08860 1 4:20 PM CDT DERMATOPATHOLOGY LABORATORY Embedded Images 4:20 PM CDT DERMATOPATHOLOGY LABORATORY Pathology/Cytolog y TISSUE SPECIMEN FROM SKIN / Unknown 01/24/2024 01/24/2024 10:35 AM CDT us India Hilton MD LAB - PATHOLOGY/CYTOLOGY ORDERAB LES Final Result DERMATOPATHOLOGY LABORATORY [facility] - Department of Dermatology [address] [phone] documented in this encounter Visit Diagnoses Diagnosis Basal cell carcinoma of skin of right lower limb, including hip Basal cell carcinoma of skin of lower limb, including hip documented in this encounter
--- OUTSIDE RECORDS SUMMARY | 2025-05-17 11:02 | XMS_ITS | Continuity of Care Document ---
Author Organization [facility] Address [address] [place] [address] [address] [place] [address] Phone Care Team Providers Care Java Web Application Developer Name Role Phone Pushpa John Unavailable Unavailable Procedures Procedure Date Office/outpatient Visit, New Advance Directives Directive Yes / No Effective Date File Name No Information Encounters Encounter Description Practice Location Reason(s) For Visit Diagnoses Date Provider Providers Copied on Encounter Office/outpat ient Visit, [facility], [id number] [place] [address] [address], [place], [place], [id number], [place] tel:[phone] [facility] No Information [address]. [address] , [address], [place], [address], [place]. tel:[phone] Family History Family Member Type Diagnosis Age At Onset No Information Payers Payer name Insurance type Covered democrat ID Authoravia ollie(s) Mail Hand[employer] Benefit Plan [id number] Social History Type Description Quantity Date Captured [...]
--- OUTSIDE RECORDS SUMMARY | 2025-05-17 11:02 | XMS_ITS | Encounter Summary ---
Author Organization [facility] Address [address] [place] [address] Care Team Providers Care Hog Man Name Role Phone Unavailable Primary Care Provider Unavailabl e Encounter Details Date Type Department Care Team (Late st Contact Info) Description 11/02/2023 Lab Requisition [facility] - DermPath Lab [address] [place] [phone] Hamzah العلي MD 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 Gender Identity Not on file Sexual Orientation Not on file documented as of this encounter Plan of Treatment Not on file documented as of this encounter Procedures Procedure Name Priority Date/Time Associated Diagnosis Comments DERMATOPATHOLOGY Routine 11/02/2023 3:33 AM CUFF TURNER Neoplasm of uncertain behavior of skin documented in this encounter Results * DERMATOPATHOLOGY (11/02/2023 3:33 AM CUFF TURNER) Case Report Dermatopathology Report Case: [id number] Authorizing Provider: Hamzah العلي MD Collected: 11/02/2023 03:33 AM Ordering Location: [facility] DermPath Lab Received: 11/03/2023 01:48 PM Pathologist: Kelle Hoang MD Specimen: Skin, right thigh 3:03 PM [facility] DERMATOPATHOLOGY LABORATORY Final Diagnosis Specimen A. SKIN, right thigh: BASAL CELL CARCINOMA, NODULAR TYPE (C44.712) 3:03 PM [facility] DERMATOPATHOLOGY LABORATORY at 150[address] CUFF TURNER Clinical History Basal Cell Carcinoma 3:03 PM [facility] DERMATOPATHOLOGY LABORATORY Gross Description Specimen A: Received is one formalin filled container labeled with the patient's name and designated right thigh. The specimen consists of a shave biopsy measuring 7x7x1 mm. Jar 0. 3:03 PM [facility] DERMATOPATHOLOGY LABORATORY Microscopic Description Specimen A. SKIN, right thigh: Within the dermis there are aggregates of basaloid cells with a high nuclear to cytoplasmic ratio and peripheral palisading. 3:03 PM [facility] DERMATOPATHOLOGY LABORATORY Disclaimer An external and internal positive and negative controls are appropriate for the histochemical, immunohistochemical and immunofluorescence stain(s) in this case (if any), except where stated explicitly. The performance characteristics of the stain(s) cited in this report were developed and its performance characteristic determined by the Dermatopathology Laboratory at [facility], directed by Dr. Harleen Keating. These tests need not be, and therefore are not, approved by the [place] Food and Drug Administration. The tests are used for clinical purposes. Billing Codes Specimen Charges Stain Charges 98572 1 3:03 PM [facility] DERMATOPATHOLOGY LABORATORY Embedded Images 3:03 PM [facility] DERMATOPATHOLOGY LABORATORY Pathology/Cytolo gy TISSUE SPECIMEN FROM SKIN / Unknown 11/02/2023 3:33 AM CUFF TURNER 11/03/2023 1:48 PM CUFF TURNER Hamzah العلي MD LAB - PATHOLOGY/CYTOLOGY DOMENICA KESSLER Final Result DERMATOPATHOLOGY LABORATORY [facility] - Department of Dermatology [address] [phone] documented in this encounter Visit Diagnoses Diagnosis Neoplasm of uncertain behavior of skin documented in this encounter
--- OUTSIDE RECORDS SUMMARY | 2025-05-17 11:02 | XMS_ITS | Clinical Summary ---
Author Organization [facility] Address [address] [place] [address] Phone Care Team Providers Care Medical Historian Name Role Phone Abebe Campos DO Primary Care Provider [phone] Allergies Active Allergy Reactions Criticality Noted Date Comments Varenicline nausea Low 01/30/2019 Medications amiodarone (PACERONE) 200 MG tablet Take 200 mg by mouth daily 03/17/2021 Active apixaban (ELIQUIS) 5 MG tablet Take 5 mg by mouth 2 times daily 02/11/2021 Active aspirin (ST CELESTINO) 81 MG EC tablet 81 mg 02/05/2015 Active atorvastatin (LIPITOR) 80 MG tablet Take 1 tablet by mouth 1 (one) time each day 10/16/2020 Active carvedilol (COREG) 6.25 MG tablet 1 in am 06/30/2021 Active Empagliflozin (Jardiance) 10 MG tablet Take 20 mg by mouth daily 07/20/2018 Active torsemide (DEMADEX) 20 MG tablet Take two tablets in the am and one tablet in the pm 04/16/2021 Active Semaglutide (Rybelsus) 3 MG tablet 07/04/2022 Active Cholecalciferol (Vitamin D) 50 MCG (1999) capsule 07/03/2022 Active lisinopril (PRINIVIL) 2.5 MG tablet 07/03/2022 Active Active Problems Problem Noted Date Diagnosed Date Chronic kidney disease stage 3B 07/10/2021 Chronic systolic heart failure 03/05/2021 History of coronary artery bypass grafting 03/05 Smoker 07/23/2016 Overview (07/07/2021): Smoker Automatic implantable cardiac defibrillator in s itu 12/09/2015 Overview (07/06/2021): [facility] Single ICD Dx; ICM. 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 [employer] remote home monitoring Q3 months, Office device check Q1 year. s/p CABG on 12/25/20, SVT, NSVT, AF w/RVR-Eliquis started Last Assessment & Plan: [facility],defibrillations, device on battery advisory, followed in our device clinic, doing fine. Mixed hyperlipidemia 10/04/2015 Overview (07/06/2021): Mixed hyperlipidemia Coronary atherosclerosis 07/10/2014 Overview (07/06/2021): CAD (coronary artery disease) Last Assessment & Plan: 2004: LAD stent after Mi January: AntLat Mi after stopping Plravix. GEORGINA to LAD and Cx. May 2015: Ant STEMI a few days after stopping Effient; GEORGINA to LAD and BMS to CX Thus, two episodes of late stent thrombosis after his DAPT had been discontinued. Pt will need life-long DAPT. Doing well w/o angina or bleeding. Immunizations Immunization Administration Dates Next Due Influenza TIV (IM) 08/01/2021 Pneumococcal Conjugate 07/13/2019 Family History Medical History Relation Comments Kidney disease Neg Hx Social History Tobacco Use Types Packs/Day Years Used Date Smoking Tobacco: Former Smokeless Tobacco: Never Alcohol Use Standard Drinks/Week Comments Yes 0 (1 standard drink = 0.6 oz pur e alcohol) rare Sex and Gender Information Value Date Recorded Sex Assigned at Not on file Legal Sex Male 12:22 PM MDT Gender Identity Not on file Sexual Orientation Not on file Last Filed Vital Signs Vital Sign Reading Time Taken Comments Blood Pressure 146/70 07/22/2022 2:50 PM CDT Pulse 72 07/22/2022 2:50 PM CDT Temperature 36.1 C (96.9 F) 07/22/2022 2:50 PM CDT Respiratory Rate - - Oxygen Saturation - - Inhaled Oxygen Concentration - - Weight 84.4 kg (186 lb) 07/22/2022 2:50 PM CDT Height 175.3 cm (5' 9) 07/22/2022 2:50 PM CDT Body Mass Index 27.47 07/22/2022 2:50 PM CDT Plan of Treatment Health Maintenance Due Date Last Done Comments Pneumococcal PPSV23/PCV13 65 + Years / Low and Medium Risk (1 of 2 - PCV) 2001 Influenza Vaccine (#1) 2025 08/01/2021 Insurance MEDICARE [facility] Care Teams Medical Historian Relationship Specialty Start Date End Date Abebe Campos DO [address] [place] [phone] PCP - General Internal Medicine 05/13/21
--- OUTSIDE RECORDS SUMMARY | 2025-05-17 11:02 | XMS_ITS | Referral Summary ---
Author Organization [facility] Address [address] [place] [address] Care Team Providers Care Linoleum Tile Floor Layer Name Role Phone Yohan Palomares MD Unavailable [phone] Kareem Mark MD Unavailable Elvin No MD Primary Care Provider [phone] Sara Arias MD Unavailable [phone] Encounters Date Type Department Care Team Description 03/27/2025 8:30 AM CDT Ancillary Procedure [facility] Cardiology [address] [facility] [address] [place] [address] Ischemic cardiomyopathy; Automatic implantable cardioverter-defibril lator in situ from Last 3 Months Allergies Active Allergy Reactions Criticality Noted Date Comments Varenicline Nausea only Low 01/30/2019 Spironolactone Other (See comments) Low 02/09/2023 Hyperkalemia, potassium 5.7 in 06/2022 taking spironolactone 25 mg daily. Creatinine was 2.4. Medications aspirin 81 mg tablet take 1 tablet by oral route every day 0 0 5 Active empagliflozin (JARDIANCE) 10 mg tabletIndications:t ype 2 diabetes mellitus Take 2 tablets (20 mg total) by mouth daily 8 Active FreeStyle Kareem 3 Sensor device 3 Active cholecalciferol (VITAMIN D-3) 2000 unit capsule Take 1 capsule (2,000 Units total) by mouth daily 2 Active Trulicity 3 mg/0.5 mL pen injector 3 Active eszopiclone (LUNESTA) 2 mg tablet Take 1 tablet (2 mg total) by mouth nightly at bedtime 3 Active FeroSuL 325 mg (65 mg iron) tablet Take 1 tablet (325 mg total) by mouth daily 3 Active carvediloL (COREG) 6.25 mg tabletIndications:C hronic systolic CHF (congestive heart failure) (HCC),Ischemic cardiomyopathy Take 1 tablet (6.25 mg total) by mouth 2 (two) times a day with meals 180 tablet 3 4 Active atorvastatin (LIPITOR) 80 mg tabletIndications:M ultiple-type hyperlipidemia TAKE 1 TABLET DAILY 90 tablet 2 4 Active Eliquis 5 mg tabletIndications:P ostoperative atrial fibrillation (HCC),Paroxysmal atrial fibrillation (HCC) TAKE 1 TABLET EVERY 12 HOURS 180 tablet 2 4 Active amiodarone (PACERONE) 200 mg tabletIndications:P ostoperative atrial fibrillation (HCC) TAKE 1 TABLET(200 MG) BY MOUTH DAILY 90 tablet 1 5 Active losartan (COZAAR) 25 mg tablet TAKE 1 TABLET(25 MG) BY MOUTH DAILY 90 tablet 2 5 Active torsemide (DEMADEX) 20 mg tabletIndications:C hronic systolic CHF (congestive heart failure) (HCC) TAKE 1 TABLET DAILY 5 TIMESA WEEK 65 tablet 1 5 Active Active Problems Problem Noted Date Diagnosed Date Positive colorectal cancer screening using Colog uard test 10/02/2023 Muscle weakness 09/29/2023 Myalgia 02/09/2023 Former smoker 05/13/2022 On amiodarone therapy 06/30/2021 Therapeutic drug monitoring 06/30/2021 Chronic anticoagulation 06/30/2021 Paroxysmal atrial flutter 06/30/2021 LBBB (left bundle branch block) 05/29/2021 Chronic systolic CHF (congestive heart failure) 03/05/2021 Hx of CABG 03/05/2021 Hypotension due to drugs 03/05/2021 Paroxysmal atrial fibrillation 03/05/2021 Current smoker 07/23/2016 Overview (02/05/2017): Smoker Automatic implantable cardioverter-defibrillator in situ 12/09/2015 Overview (04/03/2021): [facility] Single ICD Dx; ICM. 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 Souleymane remote home monitoring Q3 months, Office device check Q1 year. s/p CABG on 12/25/20, SVT, NSVT, AF w/RVR-Eliquis started Assessment & Plan (07/17/2017 5:45 PM CDT): [facility],defibrillations, device on battery advisory, followed in our device clinic, doing fine. Old anterior wall myocardial infarction 10/04/20 15 Overview (02/05/2017): Old anterior wall myocardial infarction Multiple-type hyperlipidemia 10/04/2015 Overview (02/05/2017): Mixed hyperlipidemia CKD stage 3 secondary to diabetes 07/10/2014 Overview (02/05/2017): DM type 2 (diabetes mellitus, type 2) Coronary artery disease invo lving os[place] coronary artery of [place] heart without angina pectoris 07/10/2014 Overview (02/05/2017): CAD (coronary artery disease) Assessment & Plan (07/17/2017 5:44 PM CDT): 2003: LAD stent after Mi January: AntLat Mi after stopping Plravix. GEORGINA to LAD and Cx. May 2015: Ant STEMI a few days after stopping Effient; GEORGINA to LAD and BMS to CX Thus, two episodes of late stent thrombosis after his DAPT had been discontinued. Pt will need life-long DAPT. Doing well w/o angina or bleeding. Ischemic cardiomyopathy 07/10/2014 Overview (02/05/2017): Ischemic cardiomyopathy Assessment & Plan (07/17/2017 5:41 PM CDT): 2014 EF 35%, no improvememt on med tx but good fxnl status. Presence of stent in coronary artery 07/10/2014 Overview (02/05/2017): Stented coronary artery Resolved Problems Problem Noted Date Diagnosed Date Resolved Date Abdominal distention 03/17/2021 021 Recurrent left pleural effusion 03/05/2021 05/13/2022 Physical deconditioning 03/05/202105/01 Coronary artery disease invo lving [place] heart without angina pectoris 12/24/2020 06/30/2021 Overview (12/24/2020): Added automatically from request for surgery [id number] Coronary stent thrombosis 02/10/2020 Visit for wound check 02/08/20202019 STEMI (ST elevation myocardi al infarction) ([facility]) 07/03/2015 06/30/2021 Overview (02/05/2017): Myocardial infarction involving left anterior descending (LAD) coronary artery Old myocardial infarction 07/10/2014 Overview (02/05/2017): Old MS (myocardial infarction) Hyperlipidemia 07/10/2014 07/11/2018 Overview (02/05/2017): Hyperlipidemia Social History Tobacco Use Types Packs/Day Years Used Date Smoking Tobacco: Former Smokeless Tobacco: Never Tobacco Cessation:Counseling Given: Not Answered Comments:Smoking History Packs/day: 7 Cigarettes Alcohol Use Standard Drinks/Week Comments Yes 0 (1 standard drink = 0.6 oz pur e alcohol) AUDIT-C Answer Date Recorded Q1: How often do you have a drink containing alc ohol? Monthly or less 03/07/2021 Q2: How many drinks containi ng alcohol do you have on a typical day when you are drinking? 1 or 2 03/07/2021 Q3: How often do you have si x or more drinks on one occasion? Monthly 03/07/2021 Sex and Gender Information Value Date Recorded Sex Assigned at Not on file Legal Sex Male 7:54 PM MICROFILM MOUNTER Gender Identity Not on file Sexual Orientation Not on file Last Filed Vital Signs Vital Sign Reading Time Taken Comments Blood Pressure 110/54 11/15/2024 10:57 AM MICROFILM MOUNTER Pulse 68 11/15/2024 10:57 AM MICROFILM MOUNTER Temperature 36.6 C (97.8 F) 07/18/2021 8:14 AM CDT Respiratory Rate 29 03/07/2021 9:29 AM CDT Oxygen Saturation 95% 11/15/2024 10:57 AM MICROFILM MOUNTER Inhaled Oxygen Concentration - - Weight 80.3 kg (177 lb) 11/15/2024 10:57 AM MICROFILM MOUNTER Height 177.8 cm (5' 10) 11/15/2024 10:57 AM MICROFILM MOUNTER Body Mass Index 25.4 11/15/2024 10:57 AM MICROFILM MOUNTER Plan of Treatment Not on file Medical Devices Implanted Type Area District Plant Superintendent Device Identifier Shelf Expiration Date Model / Serial / Lot Icd-10/17/2015 Implanted:10/17 by Sara Arias MD (Quantity not on file) ICD Chest [employer] ICM FORTIFY ASSURA VR [id number] / [id number] / Procedures Procedure Name Priority Date/Time Associated Diagnosis Comments POCT LIPID PANEL Routine 03/28/2024 11:4 5 AM CDT Lipid screening COMPREHENSIVE METABOLIC PANEL Routine 09/30/2023 10:22 AM MICROFILM MOUNTER Chronic systolic CHF (congestive heart failure) (HCC) On amiodarone therapy HEMOGLOBIN A1C Routine 12/24/2020 4:04 PM MICROFILM MOUNTER from Last 3 Months or Most Recently Relevant to Health Maintenance Results * POCT lipid panel (03/28/2024 11:45 AM CDT) Cholesterol, POC 127 mg/dL HDL, POC 26 mg/dL Triglycerides, POC 202 mg/dL LDL Cholesterol POC 61 mg/dL Chol/HDL Ratio, POC 2.4 Non-HDL Cholesterol, POC 101 mg/dL Cholesterol Total, POC 127 mg/dL Capillary blood 03/28/2024 1 1:45 AM CDT Doreen Martin NP POINT OF CARE TEST ORDERA BLES Final Result * (ABNORMAL) Comprehensive metabolic panel (09/30/2023 10:22 AM MICROFILM MOUNTER) Pathologist [facility] Glucose 192(H) 65 - 139 mg/dL [facility] Comment: Non-fasting reference interval BUN 52(H) 7 - 25 mg/dL [facility] Creatinine 2.05(H) 0.70 - 1.28 mg/dL [facility] eGFR 34(L) > OR = 60 mL/min/1.7 3m2 [facility] BUN/creat ratio 25(H) 6 - 22 (calc) [facility] Sodium 141 135 - 146 mmol/L [facility] Potassium, pl 4.1 3.5 - 5.3 mmol/L [facility] Chloride 101 98 - 110 mmol/L [facility] CO2 29 20 - 32 mmol/L [facility] Calcium 9.5 8.6 - 10.3 mg/dL [facility] Protein, sr 7.7 6.1 - 8.1 g/dL [facility] Albumin 4.0 3.6 - 5.1 g/dL [facility] GLOBULIN 3.7 1.9 - 3.7 g/dL (calc) [facility] Alb/glob ratio 1.1 1.0 - 2.5 (calc) [facility] Bilirubin, total 0.5 0.2 - 1.2 mg/dL [facility] Alk phos 99 35 - 144 U/L [facility] AST 24 10 - 35 U/L [facility] ALT (SGPT) 34 9 - 46 U/L [facility] Blood 09/30/2023 10:2 2 AM MICROFILM MOUNTER 09/30/2023 10:22 AM MICROFILM MOUNTER Narrative [facility] - 10/01/2023 6:42 AM MICROFILM MOUNTER FASTING:NO FASTING: NO us Sara Arias MD LAB BLOOD ORDERABLES Final Result [facility] [id number] [place] [id number] * (ABNORMAL) Hemoglobin A1c (12/24/2020 4:04 PM MICROFILM MOUNTER) Hgb A1C 6.7(H) 4.0 - 5.6 % [facility] Estimated Average Glucose 146 mg/dL [facility] Comment: The ADA recommends reporting an estimated Average Glucose (eAG) with all Hemoglobin A1c results using the equation derived from a study of 507 normal and diabetic adults. Minority populations were underrepresented and children were not included. (Diabetes Care 31:6174-3558, 2008). The eAG is not equivalent to a fasting glucose. Blood specimen (specimen) 12/24/2020 4:04 PM MICROFILM MOUNTER 12/24/2020 4:32 PM MICROFILM MOUNTER Kamila Guzman NP LAB BLOOD ORDERABLES Final Result Performing Organization Address City/State/ZIP Co va Phone Number [facility] [address] Department [place] [address] from Last 3 Months or Most Recently Relevant to Health Maintenance Insurance MEDICARE MEDICARE [facility] MEDICARE [facility] MEDICARE [facility] FEDERAL Advance Directives For more information, please contact: [phone] * Full Code (Latest Code Status on File) Date Activated Date Inactivated Comments 03/07/2021 9:37 AM 03/08/2021 9:29 PM * Full Code Date Activated Date Inactivated Comments 12/24/2020 3:37 PM 01/11/2021 3:55 PM Care Teams Linoleum Tile Floor Layer Relationship Specialty Start Date End Date Elvin No MD [address] [place] [place] [address] PCP - General Family Practice 05/19/23 Yohan Palomares MD Surgeon Cardiothoracic Surgery 01/11/21 Kareem Mark MD [address] [place] [address] Consulting Physician Cardiology 01/11/21 TerrySara galvez MD [address] [place] [address] Consulting Physician Cardiovascular Disease 02/24/24
--- OUTSIDE RECORDS SUMMARY | 2025-05-17 11:02 | XMS_ITS | Clinical Summary ---
Author Organization [facility] Address [facility] [place] [address] Care Team Providers Care Roundhouse Worker Name Role Phone Yohan Palomares MD Unavailable [phone] Kareem Mark MD Unavailable Elvin No MD Primary Care Provider [phone] Sara Arias MD Unavailable [phone] Allergies Active Allergy Reactions Criticality Noted Date [...] Melvin Single ICD Dx; ICM. Gen change 02/01/2020-[facility], chronic lead 10/17/2015. Souleymane remote home monitoring [...] type 2) Coronary artery disease invo lving [place] coronary artery of [place] heart without angina pectoris 07/10/2014 Overview (02/05/2017): CAD (coronary artery disease) Assessment & Plan (07/17/2017 5:44 PM CDT): 2004: LAD stent after Mi January: AntLat [...] deconditioning 03/05/202105/01 Coronary artery disease invo lving [place] heart without angina pectoris 12/24/2020 06/30/2021 Overview (12/24/2020): Added automatically from request for surgery [id number] Coronary stent thrombosis 02/10/2020 Visit for wound check 02/08/20202019 STEMI (ST elevation myocardi al infarction) ([facility]) 07/03/2015 06/30/2021 Overview (02/05/2017): Myocardial infarction involving left anterior descending (LAD) coronary artery Old myocardial infarction 07/10/2014 Overview (02/05/2017): Old CT (myocardial infarction) Hyperlipidemia 07/10/2014 07/11/2018 Overview (02/05/2017): Hyperlipidemia Encounters Date Type Department Care Team Description 03/27/2025 8:30 AM CDT Ancillary Procedure [facility] Cardiology [address] [place] [address] Ischemic cardiomyopathy; Automatic implantable cardioverter-defibril lator in situ from Last 3 Months Surgical History Surgery Date Site/Laterality Comments PERCUTANEOUS TRANSLUMINAL CORONARY ANGIOPLASTY 2003 Percutaneous Transluminal Coronary Angioplasty APPENDECTOMY Appendectomy Medical History Medical History Date Comments Chronic coronary artery disease Coronary Artery Disease Myocardial infarction (HCC) 2003 Myoc ardial infarction Family History Medical History Relation Name Comments Cancer Brother Heart attack Father Myocardial infa rction; Cause of : Myocardial infarction Cancer Mother Cancer; Cause o f : Cancer Heart Problems Sister Relation Name Status Comments Brother Father Mother Sister Social History Tobacco Use Types Packs/Day Years [...] on file Legal Sex Male 7:54 PM CUSTOMER SERVICE REPRESENTATIVE TELLER Gender Identity Not on file Sexual Orientation Not on file Obstetrics History Last Filed Vital Signs Vital Sign Reading Time Taken Comments Blood Pressure 110/54 11/15/2024 10:57 AM CUSTOMER SERVICE REPRESENTATIVE TELLER Pulse 68 11/15/2024 10:57 AM CUSTOMER SERVICE REPRESENTATIVE TELLER Temperature 36.6 C (97.8 F) 07/18/2021 8:14 AM CDT Respiratory Rate 29 03/07/2021 9:29 AM CDT Oxygen Saturation 95% 11/15/2024 10:57 AM CUSTOMER SERVICE REPRESENTATIVE TELLER Inhaled Oxygen Concentration - - Weight 80.3 kg (177 lb) 11/15/2024 10:57 AM CUSTOMER SERVICE REPRESENTATIVE TELLER Height 177.8 cm (5' 10) 11/15/2024 10:57 AM CUSTOMER SERVICE REPRESENTATIVE TELLER Body Mass Index 25.4 11/15/2024 10:57 AM CUSTOMER SERVICE REPRESENTATIVE TELLER Plan of Treatment Health Maintenance Due Date Last Done Comments Albumin Creatinine Ratio, Urine 1950 Colon Cancer Screening-Colonoscopy 1950 Depression Screening 1950 Hepatitis C Screening 1950 Dilated Eye Exam 1950 Foot Exam 1951 Hepatitis B Screening 1969 Zoster Vaccine (2 of 3) 05/14/2014 03/19/2014 Abdominal Aortic Aneurysm (A AA) Screen 2016 Well Visit 65+ 2016 Hemoglobin A1C 06/23/2021 12/24/2020 Fall Risk Assessment 03/07/2022 03/07/2021 DTaP/Tdap/Td Vaccine (2 - Td or Tdap) 03/19/2024 03/19/2014 Pneumococcal vaccine 65+ (3 of 3 - PCV20 or PCV21) 07/13/2024 07/13/2019, 03/19/2014 eGFR 09/30/2024 09/30/2023, 06/05/2023, 03/17/2023, Additional history exists Lipid Panel 03/28/2025 03/28/2024, 12/2022, 11/13/2021, Additional history exists Influenza Vaccine (#1) 2025 08/01/2021 Medical Devices Implanted Type Area Negative Restorer Device Identifier Shelf Expiration Date Model / Serial / Lot Icd-10/17/2015 Implanted:10/17 by Sara Arias MD (Quantity not on file) ICD Chest [employer] ICM FORTIFY ASSURA VR [id number] / [id number] / Procedures Procedure Name Priority Date/Time Associated Diagnosis Comments POCT LIPID PANEL Routine 03/28/2024 11:4 5 AM CDT Lipid screening COMPREHENSIVE METABOLIC PANEL Routine 09/30/2023 10:22 AM CUSTOMER SERVICE REPRESENTATIVE TELLER Chronic systolic CHF (congestive heart failure) (HCC) On amiodarone therapy HEMOGLOBIN A1C Routine 12/24/2020 4:04 PM CUSTOMER SERVICE REPRESENTATIVE TELLER from Last 3 Months or Most Recently [...] (ABNORMAL) Comprehensive metabolic panel (09/30/2023 10:22 AM CUSTOMER SERVICE REPRESENTATIVE TELLER) Glucose 192(H) 65 - 139 mg/dL [facility] Blood 09/30/2023 10:2 2 AM CUSTOMER SERVICE REPRESENTATIVE TELLER 09/30/2023 10:22 AM CUSTOMER SERVICE REPRESENTATIVE TELLER Narrative [facility] - 10/01/2023 6:42 AM CUSTOMER SERVICE REPRESENTATIVE TELLER FASTING:NO FASTING: NO Sara Arias MD LAB BLOOD ORDERABLES Final Result [facility] [id number] [place] [id number] * (ABNORMAL) Hemoglobin A1c (12/24/2020 4:04 PM CUSTOMER SERVICE REPRESENTATIVE TELLER) Hgb A1C 6.7(H) 4.0 - 5.6 % [facility] Estimated Average Glucose 146 mg/dL [facility] Comment: The ADA recommends reporting an estimated Average Glucose (eAG) with all Hemoglobin A1c results using the equation derived from a study of 507 normal and diabetic adults. Minority populations were underrepresented and children were not included. (Diabetes Care 31:8600-9567, 2008). The eAG is not equivalent to a fasting glucose. Blood specimen (specimen) 12/24/2020 4:04 PM CUSTOMER SERVICE REPRESENTATIVE TELLER 12/24/2020 4:32 PM CUSTOMER SERVICE REPRESENTATIVE TELLER us Kamila Guzman CERTIFIED PHARMACY TECH LAB BLOOD ORDERABLES Final Result Performing Organization Address City/State/[facility] Co id Phone Number [facility] [address] [place] [address] from Last 3 Months or Most Recently Relevant to Health Maintenance Insurance MEDICARE [facility] MEDICARE [facility] TRADITIONAL MEDICARE [facility] FEDERAL Advance Directives For more information, please contact: [phone] * Full Code (Latest Code Status on File) Date Activated Date Inactivated Comments 03/07/2021 9:37 AM 03/08/2021 9:29 PM * Full Code Date Activated Date Inactivated Comments 12/24/2020 3:37 PM 01/11/2021 3:55 PM Care Teams Roundhouse Worker Relationship Specialty Start Date End Date Elvin No MD [address] [place] [address] PCP - General Family Practice 05/19/23 Yohan Palomares MD Surgeon Cardiothoracic Surgery 01/11/21 Kareem Mark MD [address] [place] [address] Consulting Physician Cardiology 01/11/21 Sara Arias MD [address], [address] [place] [address] Consulting Physician Cardiovascular Disease 02/24/24
--- OUTSIDE RECORDS SUMMARY | 2025-05-17 11:02 | XMS_ITS | Clinical Summary ---
Author Organization [facility] Address [address] [place] [address] Care Team Providers Care Lathe Operator Contact Lens Name Role Phone Unavailable Primary Care Provider Unavailabl e Source Comments [facility],non-owned Affiliates and Associated Physician Practices is amultiple site organization consisting of ambulatory clinics and hospital sitesin [place], [place], [place] and [place]. This disclosure is being madepursuant to the Care Everywhere program and may not contain all information available regarding this patient. Last updated 18.[facility] Social History Tobacco Use Types Packs/Day Years Used Date Smoking Tobacco: Never Assessed Sex and Gender Information Value Date Recorded Sex Assigned at Not on file Legal Sex Male 6:27 AM COMMUNITY DIETITIAN Gender Identity Not on file Sexual Orientation Not on file Plan of Treatment Health Maintenance Due Date Last Done Comments COLOGUARD (AGES 45-75) - COL ON CA SCREENING 1951 COLON MONITORING 1951 COLONOSCOPY - COLON CA SCREENING 1951 CT COLONOGRAPHY - COLON CA SCREENING 1950 Colorectal Cancer Screening 1951 FIT - COLON CA SCREENING 1951 FLEX SIG - COLON CA SCREENING 1951 LIPID TESTING 1950 MEDICARE AWV 12 MONTHS 1951 HEPATITIS C SCREENING 11/24/1969 DTAP/TDAP/TD VACCINES (1 - Tdap) 1970 PNEUMOCOCCAL VACCINE 50+ (1 of 1 - PCV) 2001 ZOSTER VACCINE (1 of 2) 2001 COVID-19 VACCINE ( - 2023-2 5 season) 2024 DEPRESSION SCREENING 11/01/2024 INFLUENZA VACCINE (#1) 2025 Respiratory Syncytial Virus (RSV) Vaccine Pt: or over 60 yrs (1 - 1-dose 75+ series) 2026 HEPATITIS B VACCINE Aged Out No longe r eligible based on patient's age to complete this topic HIB VACCINE Aged Out No longer eligi ble based on patient's age to complete this topic HPV VACCINE Aged Out No longer eligi ble based on patient's age to complete this topic MENINGOCOCCAL (Group B) VACC INE SHARED DECISION-MAKING Aged Out No longer eligibl e based on patient's age to complete this topic MENINGOCOCCAL GROUPS A/C/Y/W VACCINE Aged Out No longer eligible b ased on patient's age to complete this topic Insurance MEDICARE [facility] MEDICARE ANTH MEDICARE
--- OUTSIDE RECORDS SUMMARY | 2025-05-17 11:02 | XMS_ITS | Encounter Summary ---
Author Organization [facility] Address [address] [facility] [address] [place] [address] Care Team Providers Care Research Methods Instructor Name Role Phone Reagan Romano MD Primary Care Provider [phone] Reagan Romano MD Primary Care Provider [phone] Abebe Campos DO Primary Care Provider Yohan Palomares MD Unavailable [phone] Kareem Mark MD Unavailable John Awad MD Primary Care Provider [phone] Elvin No MD Primary Care Provider [phone] Sara Arias MD Unavailable [phone] Encounter Details Date Type Department Care Team (Late st Contact Info) Description 01/26/2017 Orders Only [facility] ProviderAlie MD [address] [place] [address] Social History Tobacco Use Types Packs/Day Years Used Date Smoking Tobacco: Light Smoker Comments:Smoking History Pac ks/day: 7 Cigarettes Alcohol Use Standard Drinks/Week Comments Yes 0 (1 standard drink = 0.6 oz pur e alcohol) Sex and Gender Information Value Date Recorded Sex Assigned at Not on file Legal Sex Male 7:54 PM 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 us Historical Provider [facility] ZOILA HENRIQUEZ Final Result documented in this encounter Visit Diagnoses Not on filedocumented in this encounter Care Teams Research Methods Instructor Relationship Specialty Start Date End Date Reagan Romano MD PCP - General 01/29/17 05/23/18 Reagan Romano MD PCP - General 10/03/13 01/28/17 Abebe Campos DO PCP - General Internal Medicine 05/24/18 02/08/23 John Awad MD [address] [place] [address] PCP - General Internal Medicine 02/09/23 05/18/23 Elvin No MD [address] [place] [address] PCP - General Family Practice 05/19/23 Yohan Palomares MD Surgeon Cardiothoracic Surgery 01/11/21 Kareem Mark MD [address] [place] [address] Consulting Physician Cardiology 01/11/[address] [facility] [address] [place] [address] Consulting Physician Cardiovascular Disease 02/24/24 documented as of this encounter
--- OUTSIDE RECORDS SUMMARY | 2025-05-17 11:02 | XMS_ITS | Encounter Summary ---
Author Organization [facility] Healthcare Address [address] [place] [address] Care Team Providers Care Line Crew Supervisor Name Role Phone Abebe Campos Primary Care Provider [phone] Yohan Palomares MD Unavailable [phone] Kareem aMrk MD Unavailable John Awad MD Primary Care Provider [phone] lEvin No MD Primary Care Provider [phone] Sara Arias MD Unavailable [phone] Encounter Details Date Type Department Care Team (Late st Contact Info) Description 01/06/2022 Documentation [facility] Clinical Trial [address] [place] [address] Farnaz Rod Social History Tobacco Use Types Packs/Day Years Used Date Smoking Tobacco: Former Smokeless Tobacco: Never Comments:Smoking History Pac ks/day: 7 Cigarettes Alcohol [...] on file Legal Sex Male 7:54 PM [employer] Gender Identity Not on file Sexual Orientation Not on file documented as of this encounter Plan of Treatment Not on file documented as of this encounter Visit Diagnoses Not on filedocumented in this encounter Care Teams Line Crew Supervisor Relationship Specialty Start Date End Date Abebe Campos DO PCP - General Internal Medicine 05/24/18 02/08/23 John Awad MD [address] [place], [place] [id number] PCP - General Internal Medicine 02/09/23 05/18/23 Elvin No MD [address] [place], [place] [id number] PCP - General Family Practice 05/19/23 Yohan Palomares MD Surgeon Cardiothoracic Surgery 01/11/21 Kareem Mark MD [address] [place], [place] [id number] Consulting Physician Cardiology 01/11/21 Sara Arias MD [address] [place], [place] [id number] Consulting Physician Cardiovascular Disease 02/24/24 documented as of this encounter
== END 2025-05-17 10:44 | disposition home or self-care (01) ==
PROVIDERS: PCP Family Medicine; Visit Provider Internal Medicine Cardiovascular Disease
DX: R91.8 Other nonspecific abnormal finding of lung field (principal); I50.9 Heart failure, unspecified; Z51.81 Encounter for therapeutic drug level monitoring; Z79.899 Other long term (current) drug therapy
CPT/HCPCS: 71046

== ENCOUNTER 2025-07-13 13:45 | Outpatient (CLI) | payer MEDICARE, BC, SELFPAY ==
--- OUTSIDE RECORDS SUMMARY | 2008-03-06 10:34 | XMS_ITS | Continuity of Care Document ---
Author Organization [facility] Address [address] [place] [address] [address] [place] [address] Phone Care Team Providers Care Retail Product Demo Specialist Name Role Phone Pushpa John Unavailable Unavailable Procedures Procedure Date Office/outpatient Visit, New Advance Directives Directive Yes / No Effective Date File Name No Information Encounters Encounter Description Practice Location Reason(s) For Visit Diagnoses Date Provider Providers Copied on Encounter Office/outpat ient Visit, [facility], [id number] [place] [address] [address], [place], [place], [id number], [place] tel:[phone] [facility] No Information 6-[address] Dora Barrow. [address] , [address], [place], [address], [place]. tel:[phone] Family History Family Member Type Diagnosis Age At Onset No Information Payers Payer name Insurance type Covered libertarian ID Authoravia ollie(s) [employer] Benefit Plan [id number] Social History Type Description Quantity Date Captured Comments Sex Male Smoking Status No Information Chief Complaint And Reason For Visit No Information Reason For Referral Reason For Referral No Information History Of Present Illness Encounter Date Complaint History Of Prese nt Illness No Information Functional Status Date Functional Assessmen t No Information Instructions Date Instruction Additional Infor mation No Information Assessments Type Assessment Date No Information Patient Care Teams Name Effective Dates (start - stop) Status Members No Information
--- NOTE | ~2025-07-13 | PE_ITS ---
EXAMINATION: PET_PETPSMAST_PT DATE: 07/13/2025 15:42 INDICATION: Prostate cancer. TECHNIQUE: 3.858 mCi of Ga-68 gozetotide was administered intravenously. Low dose computed tomography (CT) images were acquired from the base of the brain to the proximal thighs for attenuation correction and anatomic localization. Automated exposure control was employed. Dose-length product (DLP) was 1077 mGy- cm. Positron emission tomography (PET) images were acquired in the same distribution. COMPARISON: Chest CT 06/30/2024 FINDINGS: Head/neck: There are no pathologically enlarged lymph nodes. Chest: There is mild emphysema. There are widespread chronic nodules in the lungs with central calcifications, consistent with old granulomatous disease. There is a new 3.4 x 2.0 cm mass in right lung apex with maximum SUV of 3.4. Left-sided chronic pleural thickening is noted. Cardiomegaly is noted. 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 There are coronary artery calcifications. There are changes of coronary artery bypass grafting. There is a left chest pacer with lead in right ventricle. No pericardial effusion. There is chronic mediastinal and bilateral hilar lymphadenopathy containing calcifications, consistent with old granulomatous disease. Abdomen/pelvis/proximal thighs: There is a stable 2.0 cm mass in right hepatic lobe, likely benign. Material in the gallbladder may be sludge or stones. The gallbladder is normal in size. The pancreas, adrenal glands, and kidneys are normal. The prostate is mildly enlarged with increased activity on the left with maximum SUV of 10.6. There is diffuse bladder wall thickening, likely secondary to chronic outlet obstruction. There is diverticulosis of the colon without evidence of diverticulitis. There are no dilated loops of bowel. There are no pathologically enlarged lymph nodes. There is no free intraperitoneal fluid. There is no osseous metastatic disease. IMPRESSION: 1. Mildly enlarged prostate with increased activity on the left, consistent with primary malignancy. 2. New mass in right lung upper lobe, which may be primary bronchogenic carcinoma or granulomatous disease. Consider noncontrast diagnostic chest CT or standard PET/CT. Reviewed, dictated and finalized at location E. IMPRESSION: 1. Mildly enlarged prostate with increased activity on the left, consistent wit h primary malignancy. 2. New mass in right lung upper lobe, which may be primary bronchogenic carcino ma or granulomatous disease. Consider noncontrast diagnostic chest CT or standa rd PET/CT.
--- OUTSIDE RECORDS SUMMARY | 2025-07-13 14:34 | XMS_ITS | Clinical Summary ---
Author Organization [facility] Address [address] [place] [id number] Phone Care Team Providers Care Ms Sql Developer Name Role Phone Abebe Campos DO Primary Care Provider [phone] Allergies Active Allergy Reactions Criticality Noted Date [...] Influenza Vaccine (#1) 2025 08/01/2021 Insurance MEDICARE [facility] Care Teams Ms Sql Developer Relationship Specialty Start Date End Date Abebe Campos DO [address] [place] [address] PCP - General Internal Medicine 05/13/21
== END 2025-07-13 13:46 | disposition home or self-care (01) ==
PROVIDERS: PCP Family Medicine; Visit Provider Urology
DX: C61 Malignant neoplasm of prostate (principal); N40.0 Benign prostatic hyperplasia without lower urinary tract symptoms; R91.1 Solitary pulmonary nodule
CPT/HCPCS: 78815; A9596